=== PATIENT | female | born 1970 | race Caucasian/White ===

== ENCOUNTER 2018-07-07 15:41 | Emergency (ER) | payer SELFPAY ==
[2018-07-07] MEDS ORDERED: ONDANSETRON 4 MG (ODT) TAB ONE (16:25)
[2018-07-07] MEDS ORDERED: KETOROLAC 30 MG/ML INJ ONE (16:48)
--- NOTE | 2018-07-07 18:04 | EDPHYS ---
Physician Documentation [facility] Name: Asia Negrete Age: 48 yrs Sex: Female : 1970 Arrival Date: 07/07/2018 Time: 15:42 Bed 30 Private MD: ED Physician Ezequiel Humphrey HPI: 07/07 16:19 This 48 yrs old Female presents to ER via Ambulatory with complaints of Cough.kb 16:19 The patient or guardian reports cough, that is intermittent, described as moderate, kb with no sputum, flu symptoms, arthralgias, myalgias. Onset: The symptoms/episode began/occurred 2 day(s) ago. Severity of symptoms: At their worst the symptoms were mild, moderate, in the emergency department the symptoms are unchanged. Modifying factors: The symptoms are alleviated by nothing, the symptoms are aggravated by nothing. Associated signs and symptoms: Pertinent positives: nausea, rhinorrhea, sore throat, Pertinent negatives: chest pain, diarrhea, ear ache, fever, vomiting. The patient has not experienced similar symptoms in the past. The patient has not recently seen a physician. 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 - Social history:: Smoking status: Patient uses tobacco products. - Ebola Screening: : Patient negative for fever greater than or equal to 101.5 degrees Fahrenheit, and additional compatible Ebola Virus Disease symptoms Patient denies exposure to infectious person Patient denies travel to an Ebola-affected area in the 21 days before illness onset No symptoms or risks identified at this time. ROS: 16:17 Cardiovascular: Negative for chest pain, palpitations, and edema, Abdomen/GI: Negative kb for abdominal pain, vomiting, diarrhea, and constipation. +nausea Back: Negative for injury and pain, : Negative for injury, bleeding, discharge, and swelling, MS/Extremity: Negative for injury and deformity, Skin: Negative for injury, rash, and discoloration, Neuro: Negative for headache, weakness, numbness, tingling, and seizure. 16:17 ENT: Positive for rhinorrhea, sinus congestion, sore throat. 16:17 Respiratory: Positive for cough, Negative for dyspnea on exertion, hemoptysis, orthopnea, pleurisy, shortness of breath, sputum production, wheezing. 16:18 Constitutional: Positive for body aches, fatigue, malaise, Negative for chills, fever, kb poor PO intake, weight loss. Exam: 16:18 Constitutional: This is a well developed, well nourished patient who is awake, alert, kb and in no acute distress. Head/Face: Normocephalic, atraumatic. ENT: Nares patent. No nasal discharge, no septal abnormalities noted. Tympanic membranes are normal and external auditory canals are clear. Oropharynx with no redness, swelling, or masses, exudates, or evidence of obstruction, uvula midline. Mucous membranes moist. Chest/axilla: Normal chest wall appearance and motion. Nontender with no deformity. No lesions are appreciated. Cardiovascular: Regular rate and rhythm with a normal S1 and S2. No gallops, murmurs, or rubs. Normal PMI, no JVD. No pulse deficits. Respiratory: Lungs have equal breath sounds bilaterally, clear to auscultation and percussion. No rales, rhonchi or wheezes noted. No increased work of breathing, no retractions or nasal flaring. Abdomen/GI: Soft, non-tender, with normal bowel sounds. No distension or tympany. No guarding or rebound. No evidence of tenderness throughout. Skin: Warm, dry with normal turgor. Normal color with no rashes, no lesions, and no evidence of cellulitis. MS/ Extremity: Pulses equal, no cyanosis. Neurovascular intact. Full, normal range of motion. Neuro: Awake and alert, GCS 15, oriented to person, place, time, and situation. Cranial nerves II-XII grossly intact. Motor strength 5/5 in all extremities. Sensory grossly intact. Cerebellar exam normal. Normal gait. Vital Signs: 15:54 BP 146 / 85; Pulse 112; Resp 19; Temp 97.7; Pulse Ox 98% on R/A; Weight 113.4 kg; sg Height 4 ft. 9 in. (144.78 cm); Pain 10/10; 17:07 BP 94 / 54; Pulse 99; Resp 19 S; Pulse Ox 95% on R/A; rv 17:30 BP 102 / 55; Pulse 97; Resp 18 S; Pulse Ox 96% on R/A; rv 18:00 BP 110 / 73; Pulse 96; Resp 18 S; Pulse Ox 96% on R/A; rv 15:54 Body Mass Index 54.10 (113.40 kg, 144.78 cm) sg MDM: 16:02 Patient medically screened. kb 16:19 Data reviewed: vital signs, nurses notes. Data interpreted: Pulse oximetry: on room air kb is 98 %. Interpretation: normal. 17:54 Counseling: I had a detailed discussion with the patient and/or guardian regarding: the kb historical points, exam findings, and any diagnostic results supporting the discharge/admit diagnosis, lab results, the need for outpatient follow up, a family practitioner, to return to the emergency department if symptoms worsen or persist or if there are any questions or concerns that arise at home. 07/07 15:56 Order name: Flu; Complete Time: 18:01 kb 07/07 15:56 Order name: Strep; Complete Time: 18:01 kb 07/07 16:39 Order name: Urine Dipstick--Ancillary (enter results) 07/07 16:39 Order name: Urine --Ancillary (enter results) 07/07 18:02 Order name: Throat Culture [facility] 07/07 16:24 Order name: Urine Dipstick-Ancillary (obtain specimen); Complete Time: 16:42 kb Administered Medications: 16:23 Drug: Zofran 4 mg Route: PO; rv 16:42 Follow up: Response: Nausea is decreased rv 16:41 Drug: TORadol 60 mg Route: IM; Site: right deltoid; rv 17:08 Follow up: Response: Pain is decreased rv Disposition: 07/08 07:04 Co-signature as Attending Physician, Ezequiel Humphrey MD. rn Disposition: 07/07/18 18:04 Discharged to Home. Impression: Acute upper respiratory infection, unspecified. - Condition is Stable. - Discharge Instructions: Upper Respiratory Infection, Adult, [id number]. - Prescriptions for Zofran 4 mg Oral Tablet - take 1 tablet by ORAL route every 6 hours As needed; 20 tablet. Tamiflu 75 mg Oral Capsule - take 1 capsule by ORAL route every 12 hours for 5 days; 10 capsule. - Medication Reconciliation Form, Thank You Letter, Antibiotic Education, Prescription Opioid Use form. - Follow up: Emergency Department; When: As needed; Reason: Worsening of condition. Follow up: Private Physician; When: 2 - 3 days; Reason: Recheck today's complaints, Continuance of care, Re-evaluation by your physician. Signatures: Dispatcher [employer] EDMS Mallory Lopez, CONSULTING DATABASE ADMINISTRATOR-C CONSULTING DATABASE ADMINISTRATOR-Ckb Chris Bonilla, RN RN sg Ezequiel Humphrey MD MD rn Vicente, Ronaldo, RN RN rv Corrections: (The following items were deleted from the chart) 07/07 16:19 16:17 Constitutional: Negative for fever, chills, and weight loss, Cardiovascular: kb Negative for chest pain, palpitations, and edema, Abdomen/GI: Negative for abdominal pain, vomiting, diarrhea, and constipation. +nausea Back: Negative for injury and pain, : Negative for injury, bleeding, discharge, and swelling, MS/Extremity: Negative for injury and deformity, Skin: Negative for injury, rash, and discoloration, Neuro: Negative for headache, weakness, numbness, tingling, and seizure, kb 18:11 18:04 07/07/2018 18:04 Discharged to Home. Impression: Acute upper respiratory rv infection, unspecified. Condition is Stable. Discharge Instructions: Upper Respiratory Infection, Adult, [id number]. Prescriptions for Zofran 4 mg Oral Tablet - take 1 tablet by ORAL route every 6 hours As needed; 20 tablet. and Forms are Medication Reconciliation Form, Thank You Letter, Antibiotic Education, Prescription Opioid Use. Follow up: Emergency Department; When: As needed; Reason: Worsening of condition. Follow up: Private Physician; When: 2 - 3 days; Reason: Recheck today's complaints, Continuance of care, Re-evaluation by your physician. kb
--- NOTE | 2018-07-07 18:04 | ER ---
Nurse's Notes [facility] Name: Asia Negrete Age: 48 yrs Sex: Female : 1970 Arrival Date: 07/07/2018 Time: 15:42 Bed 30 Private MD: Diagnosis: Acute upper respiratory infection, unspecified Presentation: 07/07 15:53 Presenting complaint: Patient states: Cough, bodyaches, sore throat for several days sg now, cough reported to be nonprod. Transition of care: patient was not received from another setting of care. Onset of symptoms was July 07, 2018. Risk Assessment: Do you want to hurt yourself or someone else? Patient reports no desire to harm self or others. Initial Sepsis Screen: Does the patient meet any 2 criteria? HR > 90 bpm. Does the patient have a suspected source of infection? Yes: Productive cough/pneumonia. Care prior to arrival: None. 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 - Social history:: Smoking status: Patient uses tobacco products. - Ebola Screening: : Patient negative for fever greater than or equal to 101.5 degrees Fahrenheit, and additional compatible Ebola Virus Disease symptoms Patient denies exposure to infectious person Patient denies travel to an Ebola-affected area in the 21 days before illness onset No symptoms or risks identified at this time. Screenin:27 Abuse screen: Denies threats or abuse. Denies injuries from another. Nutritional rv screening: No deficits noted. Tuberculosis screening: No symptoms or risk factors identified. Fall Risk None identified. Assessment: 16:27 General: Appears in no apparent distress. comfortable, Behavior is calm, cooperative. rv Pain: Denies pain. Neuro: Level of Consciousness is awake, alert, obeys commands, Oriented to person, place, time, situation. Cardiovascular: Capillary refill < 3 seconds. Respiratory: Airway is patent. GI: No signs and/or symptoms were reported involving the gastrointestinal system. : No signs and/or symptoms were reported regarding the genitourinary system. EENT: No signs and/or symptoms were reported regarding the EENT system. Derm: Skin is intact. Musculoskeletal: No signs and/or symptoms reported regarding the musculoskeletal system. 17:08 Reassessment: Patient appears in no apparent distress at this time. rv Vital Signs: 15:54 BP 146 / 85; Pulse 112; Resp 19; Temp 97.7; Pulse Ox 98% on R/A; Weight 113.4 kg; sg Height 4 ft. 9 in. (144.78 cm); Pain 10/10; 17:07 BP 94 / 54; Pulse 99; Resp 19 S; Pulse Ox 95% on R/A; rv 17:30 BP 102 / 55; Pulse 97; Resp 18 S; Pulse Ox 96% on R/A; rv 18:00 BP 110 / 73; Pulse 96; Resp 18 S; Pulse Ox 96% on R/A; rv 15:54 Body Mass Index 54.10 (113.40 kg, 144.78 cm) sg ED Course: 15:42 Patient arrived in ED. as 15:54 Triage completed. sg 15:54 Arm band placed on. sg 16:01 Mallory Lopez FNP-C [facility]. kb 16:01 Ezequiel Humphrey MD is Attending Physician. kb 16:22 Flu and/or RSV swab sent to lab. Strep swab sent to lab. lt1 16:23 Strep Sent. rv 16:23 Flu Sent. rv 16:27 Patient has correct armband on for positive identification. Bed in low position. Call rv light in reach. Side rails up X 1. Pulse ox on. NIBP on. 16:31 Strep Sent. rv 16:31 Flu Sent. rv 18:05 No provider procedures requiring assistance completed. Patient did not have IV access rv during this emergency room visit. Administered Medications: 16:23 Drug: Zofran 4 mg Route: PO; rv 16:42 Follow up: Response: Nausea is decreased rv 16:41 Drug: TORadol 60 mg Route: IM; Site: right deltoid; rv 17:08 Follow up: Response: Pain is decreased rv Outcome: 18:04 Discharge ordered by . kb 18:05 Discharged to home ambulatory. rv 18:05 Condition: good 18:05 Discharge instructions given to patient, Instructed on discharge instructions, follow up and referral plans. medication usage, Demonstrated understanding of instructions, follow-up care, medications. 18:11 Prescriptions given X 2. rv 18:11 Patient left the ED. rv Signatures: Mallory Lopez, JOSE-Tiffani GARCIA-Chris Rosen, RN RN Caro Easton Ronaldo, RN RN rv Tran, Krystin lt1
[2018-07-07 18:06] LABS: Urine Blood NEGATIVE (NEG); Urine Glucose 3+ (NEG); Urine Protein NEGATIVE (NEG)
== END 2018-07-07 18:11 | disposition home or self-care (01) ==
LOC: ER 15:41
DX: J06.9 Acute upper respiratory infection, unspecified (principal); E11.9 Type 2 diabetes mellitus without complications; Z72.0 Tobacco use
CPT/HCPCS: 81003; 81025; 87070; 87081; 87804; 96372; 99284

== ENCOUNTER 2018-12-29 21:21 | Emergency (ER) | payer SELFPAY ==
--- OUTSIDE RECORDS SUMMARY | 2018-12-29 21:23 | XMS REPORT | Clinical Summary ---
:1970 Author Organization [facility] Address [address] [place] [address] Care Team Providers Name Role Phone Asked, No Pcp Primary Care Provider Unavailable Allergies Active Allergy Reactions Severity Noted Date Comments Codeine Itching 01/30/2017 Medications Medication Sig Dispensed Refills Start Date End Date Status metFORMIN Take 1,000 mg 0 Active (GLUCOPHAGE) by mouth 2 1,000 mg tablet (two) times a day with meals. metFORMIN Take 1 tablet 60 tablet 0 02/14/2018 03/16/2018 (GLUCOPHAGE) 500 (500 mg total) mg tablet by mouth 2 (two) times a day with meals for 30 days. gabapentin Take 1 capsule 90 capsule 0 02/14/2018 02/14/2018 Discontinued (NEURONTIN) 300 (300 mg total) mg capsule by mouth 3 (three) times a day for 30 days. gabapentin Take 1 capsule 15 capsule 0 02/14/2018 03/16/2018 (NEURONTIN) 300 (300 mg total) mg capsule by mouth 3 (three) times a day for 30 days. Active Problems Problem Noted Date Pyelonephritis 06/01/2017 Encounters Date Type Specialty Care Team Description 02/14/2018 Emergency Emergency Medicine [facility] Pain in both feet (Primary Dx); MD Seb Neuropathy; Hyperglycemia after 12/28/2017 Immunizations Name Dates Previously Given Next Due FLUCELVAX QUAD PF (0.5mL syringe) 06/01/2017 Social History Tobacco Use Types Packs/Day Years Used Date Never Smoker Smokeless Tobacco: Never Used Alcohol Use Drinks/Week oz/Week Comments No Sex Assigned at Date Recorded Not on file Job Start Date Occupation Industry Not on file Not on file Not on file Travel History Travel Start Travel End No recent travel history available. Last Filed Vital Signs Vital Sign Reading Time Taken Blood Pressure 157/81 02/14/2018 1:21 AM CDT Pulse 91 02/14/2018 1:21 AM CDT Temperature 37.2 C (98.9 F) 02/14/2018 1:21 AM CDT Respiratory Rate 18 02/14/2018 1:21 AM CDT Oxygen Saturation 96% 02/14/2018 1:25 AM CDT Inhaled Oxygen Concentration - - Weight 118 kg (260 lb) 02/14/2018 1:21 AM CDT Height 144.8 cm (4' 9") 02/14/2018 1:21 AM CDT Body Mass Index 56.26 02/14/2018 1:21 AM CDT Plan of Treatment Health Maintenance Due Date Last Done Comments INFLUENZA VACCINE 01/10/2019 06/01/2017 Procedures Procedure Name Priority Date/Time Associated Comments Diagnosis US DUPLEX VENOUS STAT 02/14/2018 3:05 Results for this LOWER EXTREMITY RIGHT AM CDT procedure are in the results section. ZZESTIMATED GFR STAT 02/14/2018 2:14 Results for this AM CDT procedure are in the results section. LIPASE LEVEL STAT 02/14/2018 2:14 Results for this AM CDT procedure are in the results section. HEPATIC FUNCTION STAT 02/14/2018 2:14 Results for this PANEL AM CDT procedure are in the results section. BASIC METABOLIC PANEL STAT 02/14/2018 2:14 Results for this AM CDT procedure are in the results section. HC COMPLETE BLD COUNT STAT 02/14/2018 2:14 Results for this W/AUTO DIFF AM CDT procedure are in the results section. POC GLUCOSE Routine 02/14/2018 1:54 Results for this AM CDT procedure are in the results section. after 12/28/2017 Results PV duplex venous lower extremity (02/14/2018 3:05 AM CDT) Specimen Narrative Performed At There is no evidence of DVT in the right lower extremity. [facility] Performing Organization Address City/State/Zipcode Phone Number [facility] [address] [place] [address] Estimated GFR (02/14/2018 2:14 AM CDT) GFR Non Af Amer >90 mL/min/1.73 [facility] DEPARTMENT m2 OF PATHOLOGY AND GENOMIC MEDICINE GFR Af Amer >90 mL/min/1.73 [facility] DEPARTMENT Comment: m2 OF PATHOLOGY AND Chronic kidney disease: <60 mL/min/1.73m2 GENOMIC MEDICINE Kidney failure: <15 mL/min/1.73m2 The estimated GFR is calculated from the IDMS-traceable Modification of Diet in Renal Disease Equation. The accuracy of the calculation is poor when the creatinine is normal. Calculated values >90 mL/min/1.73m2 are not reported. This equation has not been validated in children (<18 years), women, the elderly (>70 years), or ethnic groups other than Caucasians and Americans. Specimen Plasma specimen Performing Organization Address City/State/Zipcode Phone Number [facility] OF PATHOLOGY AND [address] [place] [address] [facility] CBC with platelet and differential (02/14/2018 2:14 AM CDT) WBC 7.80 4.50 - 11.00 k/uL [facility] DEPARTMENT OF PATHOLOGY AND GENOMIC MEDICINE RBC 4.33 4.20 - 5.50 m/uL [facility] DEPARTMENT OF PATHOLOGY AND GENOMIC MEDICINE HGB 12.7 12.0 - 16.0 g/dL [facility] DEPARTMENT OF PATHOLOGY AND GENOMIC MEDICINE HCT 38.2 37.0 - 47.0 % [facility] DEPARTMENT OF PATHOLOGY AND GENOMIC MEDICINE MCV 88.2 82.0 - 100.0 fL [facility] DEPARTMENT OF PATHOLOGY AND GENOMIC MEDICINE MCH 29.3 27.0 - 34.0 pg [facility] DEPARTMENT OF PATHOLOGY AND GENOMIC MEDICINE MCHC 33.2 31.0 - 37.0 g/dL [facility] DEPARTMENT OF PATHOLOGY AND GENOMIC MEDICINE RDW - SD 38.7 37.0 - 55.0 fL [facility] DEPARTMENT OF PATHOLOGY AND GENOMIC MEDICINE MPV 10.4 8.8 - 13.2 fL [facility] DEPARTMENT OF PATHOLOGY AND GENOMIC MEDICINE Platelet count 319 150 - 400 k/uL [facility] DEPARTMENT OF PATHOLOGY AND GENOMIC MEDICINE Nucleated RBC 0.00 /100 WBC [facility] DEPARTMENT OF PATHOLOGY AND GENOMIC MEDICINE Neutrophils 49.8 39.0 - 69.0 % [facility] DEPARTMENT OF PATHOLOGY AND GENOMIC MEDICINE Lymphocytes 41.8 25.0 - 45.0 % [facility] DEPARTMENT OF PATHOLOGY AND GENOMIC MEDICINE Monocytes 6.4 0.0 - 10.0 % [facility] DEPARTMENT OF PATHOLOGY AND GENOMIC MEDICINE Eosinophils 1.3 0.0 - 5.0 % [facility] DEPARTMENT OF PATHOLOGY AND GENOMIC MEDICINE Basophils 0.4 0.0 - 1.0 % [facility] DEPARTMENT OF PATHOLOGY AND GENOMIC MEDICINE Specimen Blood Performing Organization Address [facility] Phone Number [facility] DEPARTMENT OF PATHOLOGY AND [address] [place] [address] Lipase level (02/14/2018 2:14 AM CDT) Lipase 51 13 - 60 U/L [facility] DEPARTMENT OF PATHOLOGY AND GENOMIC MEDICINE Specimen Plasma specimen Performing Organization Address [facility] Phone Number [facility] DEPARTMENT OF PATHOLOGY AND [address] [place] [address] [place], [place] [id number] [place] [address] Hepatic function panel (02/14/2018 2:14 AM CDT) Albumin 3.7 3.5 - 5.0 g/dL [facility] DEPARTMENT OF PATHOLOGY AND GENOMIC MEDICINE Total bilirubin 0.2 0.0 - 1.2 [facility] DEPARTMENT mg/dL OF PATHOLOGY AND GENOMIC MEDICINE Bilirubin direct <0.1 0.0 - 0.3 [facility] DEPARTMENT mg/dL OF PATHOLOGY AND GENOMIC MEDICINE Alkaline phosphatase 74 35 - 104 U/L [facility] DEPARTMENT OF PATHOLOGY AND GENOMIC MEDICINE Protein 6.7 6.3 - 8.3 g/dL [facility] DEPARTMENT Comment: OF PATHOLOGY AND 4.6-7.0 g/dL [facility] 1 week 4.4-7.6 g/dL 7 months-1year5.1-7.3 g/dL 1-2 years5.6-7.5 g/dL >3 years6.0-8.0 g/dL 18-150 6.3-8.3 g/dL ALT 15 5 - 50 U/L [facility] DEPARTMENT OF PATHOLOGY AND GENOMIC MEDICINE AST 11 10 - 35 U/L [facility] DEPARTMENT OF PATHOLOGY AND GENOMIC MEDICINE Specimen Plasma specimen Performing Organization Address [facility] Phone Number [facility] DEPARTMENT OF PATHOLOGY AND [address] [place] [address] [place] [address] [facility] Basic metabolic panel (02/14/2018 2:14 AM CDT) Sodium 136 135 - 148 mEq/L [facility] DEPARTMENT OF PATHOLOGY AND GENOMIC MEDICINE Potassium 3.8 3.5 - 5.0 mEq/L [facility] DEPARTMENT OF PATHOLOGY AND GENOMIC MEDICINE Chloride 97 (L) 98 - 112 mEq/L [facility] DEPARTMENT OF PATHOLOGY AND GENOMIC MEDICINE CO2 24 24 - 31 mEq/L [facility] DEPARTMENT OF PATHOLOGY AND GENOMIC MEDICINE Anion gap 15@ANIO 7 - 15 mEq/L [facility] DEPARTMENT OF PATHOLOGY AND GENOMIC MEDICINE BUN 15 6 - 20 mg/dL [facility] DEPARTMENT OF PATHOLOGY AND GENOMIC MEDICINE Creatinine 0.6 0.5 - 0.9 mg/dL [facility] DEPARTMENT OF PATHOLOGY AND GENOMIC MEDICINE Glucose 374 (H) 65 - 99 mg/dL [facility] DEPARTMENT OF PATHOLOGY AND GENOMIC MEDICINE Calcium 8.9 8.3 - 10.2 mg/dL [facility] DEPARTMENT OF PATHOLOGY AND GENOMIC MEDICINE Specimen Plasma specimen Performing Organization Address City/[facility]/Zipcode Phone Number [facility] DEPARTMENT OF PATHOLOGY AND [id number] [place] [address] [place] [address] [facility] POC glucose (02/14/2018 1:54 AM CDT) POC glucose 321 (H) 65 - 99 mg/dL [facility] DEPARTMENT OF Comment: PATHOLOGY AND Meter ID: [id number] [facility] MEDICINE Sanitary Aide: Kaylan Jurado Specimen Performing Organization Address City/[facility]/Zipcode Phone Number [facility] DEPARTMENT OF PATHOLOGY AND [address] [place] [address] [facility] after 12/28/2017 Advance Directives Patient has advance care planning documents, and code status on file. For more information, please contact:Caden Figueredo[address] [place] [id number] Code Status Date Activated Date Inactivated Comments Full Code 06/01/2017 6:11 PM 06/03/2017 6:35 PM Code Status decision reached by: Patient
--- OUTSIDE RECORDS SUMMARY | 2018-12-29 21:24 | XMS REPORT ---
:1970 [facility] Address [address] [place] [address] Care Team Providers Name Role Phone Unavailable Unavailable Unavailable Payers Payer Name Policy Type Policy Number Effective Date Expiration Date Problems This patient has no known problems. Allergies, Adverse Reactions, Alerts Allergy Allergy Status Severity Reaction(s) Onset Inactive Treating Comments Name Type Date Date Clinician No Known DA Active U 2018-03 Allergies -13 00:00:0 0 Medications This patient has no known medications.
[2018-12-29] MEDS ORDERED: NA CHLORIDE 0.9% 1,000 ML ONE (22:06)
[2018-12-29] MEDS ORDERED: PROMETHAZINE 25 MG/ML VIAL ONE (22:06)
[2018-12-29 22:28] LABS: Absolute Lymphocytes (CBC) 3.3 K/uL (0.7-4.9); Basophils % 0.4 % (0-1.3); Lymphocytes % 28.8 % (15.3-44.8); MPV 8.8 fL (7.6-11.3); Monocytes % 5.4 % (3.3-12.3)
[2018-12-29 22:40] LABS: Albumin 4.2 g/dL (3.4-5.0); Bilirubin Total 0.5 mg/dL (0.2-1.0); Potassium 3.4 mmol/L (3.5-5.1); Protein, Total 8.6 g/dL (6.4-8.2)
--- NOTE | 2018-12-29 23:48 | ER ---
Nurse's Notes [facility] Name: Asia Negrete Age: 48 yrs Sex: Female : 1970 Arrival Date: 12/29/2018 Time: 21:22 Bed 5 Private MD: Diagnosis: Nausea;Diarrhea, unspecified;Dehydration Presentation: 12/29 21:36 Presenting complaint: Patient states: Patient reports she has been having nausea and ea diarrhea for a week, denies ABD and chest pain. Transition of care: patient was not received from another setting of care. Onset of symptoms was December 29, 2018. Risk Assessment: Do you want to hurt yourself or someone else? Patient reports no desire to harm self or others. Initial Sepsis Screen: Does the patient meet any 2 criteria? HR > 90 bpm. Does the patient have a suspected source of infection? No. Patient's initial sepsis screen is negative. Care prior to arrival: None. 21:36 Method Of Arrival: Ambulatory ea 21:36 Acuity: DIYA 3 ea Triage Assessment: 21:40 General: Appears uncomfortable, Behavior is appropriate for age. Pain: Denies pain. ea Cardiovascular: Patient's skin is warm and dry. Respiratory: Airway is patent Respiratory effort is even, unlabored, Respiratory pattern is regular, symmetrical. GI: Reports diarrhea, nausea. 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 - Social history:: Smoking status: Patient/guardian denies using tobacco. - Ebola Screening: : No symptoms or risks identified at this time. Screenin:39 Abuse screen: Denies threats or abuse. Nutritional screening: No deficits noted. ea Tuberculosis screening: No symptoms or risk factors identified. Fall Risk None identified. Assessment: 21:41 General: Appears uncomfortable, Behavior is appropriate for age. Pain: Denies pain. ea Neuro: Level of Consciousness is awake, alert, obeys commands, Oriented to person, place, time, situation. Cardiovascular: Patient's skin is warm and dry. Respiratory: Airway is patent Respiratory effort is even, unlabored, Respiratory pattern is regular, symmetrical. GI: Reports diarrhea, nausea. GI:. Derm: Skin is pink, warm \T\ dry. 22:30 Reassessment: Patient and/or family updated on plan of care and expected duration. Pain ea level reassessed. Patient is alert, oriented x 3, equal unlabored respirations, skin warm/dry/pink. 23:30 Reassessment: Patient and/or family updated on plan of care and expected duration. Pain ea level reassessed. Patient is alert, oriented x 3, equal unlabored respirations, skin warm/dry/pink. 12/30 00:00 Reassessment: Patient and/or family updated on plan of care and expected duration. Pain ea level reassessed. Patient is alert, oriented x 3, equal unlabored respirations, skin warm/dry/pink. Discharge instruction given to patient, verbalized the understanding of instruction. No s/s of pain or discomfort noted at this time Patient states feeling better. Vital Signs: 12/29 21:38 BP 130 / 80; Pulse 122; Resp 18; Temp 98(O); Pulse Ox 98% on R/A; Weight 72.57 kg; ea Height 4 ft. 9 in. (144.78 cm); Pain 0/10; 22:30 BP 109 / 69; Pulse 102; Resp 18; Pulse Ox 97% on R/A; ea 23:00 BP 119 / 76; Pulse 103; Resp 18; Pulse Ox 97% ; ea 23:50 BP 120 / 60; Pulse 90; Resp 18; Temp 97.8; Pulse Ox 98% on R/A; ea 21:38 Body Mass Index 34.62 (72.57 kg, 144.78 cm) ea ED Course: 21:00 Inserted saline lock: 20 gauge in right antecubital area, using aseptic technique. ea 21:22 Patient arrived in ED. am2 21:26 Tevin Juan MD is Attending Physician. tw4 21:36 Lucinda Charles, RITO is Primary Nurse. ea 21:37 Triage completed. ea 21:37 Arm band placed on right wrist. Patient placed in an exam room, on a stretcher, on ea pulse oximetry. 21:37 Patient has correct armband on for positive identification. Bed in low position. Call ea light in reach. Side rails up X 1. 07/21 00:00 No provider procedures requiring assistance completed. IV discontinued, intact, ea bleeding controlled, No redness/swelling at site. Pressure dressing applied. Administered Medications: 12/29 22:05 Drug: NS 0.9% 1000 ml Route: IV; Rate: 1 bolus; Site: right antecubital; ea 22:05 Drug: Phenergan 12.5 mg Route: IVP; Site: right antecubital; ea 22:30 Follow up: Response: No adverse reaction; Nausea is decreased ea Outcome: 00:00 Discharged to home ambulatory. ea 23:47 Discharge ordered by tw4 12/30 00:00 Condition: improved ea Discharge instructions given to patient, Instructed on discharge instructions, follow up and referral plans. Demonstrated understanding of instructions, follow-up care. 00:03 Patient left the ED. cc3 Signatures: Keena Oliver Elena RN Tevin Vasquez ea, MD MD tw4 Myrna Meredith cc3
--- NOTE | 2018-12-29 23:49 | EDPHYS ---
Physician Documentation [facility] Name: Asia Negrete Age: 48 yrs Sex: Female : 1970 Arrival Date: 12/29/2018 Time: 21:22 Bed 5 Private MD: ED Physician Tevin Juan HPI: 12/29 22:06 This 48 yrs old Female presents to ER via Ambulatory with complaints of tw4 Nausea. 22:06 The patient presents to the emergency department with nausea, that is moderate, tw4 diarrhea, that is continuous. Onset: The symptoms/episode began/occurred 1 week(s) ago. Possible causes: unknown. The symptoms are aggravated by nothing. The symptoms are alleviated by nothing. Associated signs and symptoms: The patient has no apparent associated signs or symptoms. Severity of symptoms: At their worst the symptoms were moderate in the emergency department the symptoms are unchanged. The patient has not experienced similar symptoms in the past. The patient has not recently seen a physician. 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 - Social history:: Smoking status: Patient/guardian denies using tobacco. - Ebola Screening: : No symptoms or risks identified at this time. ROS: 22:06 Constitutional: Negative for fever, chills, and weight loss, Neck: Negative for injury, tw4 pain, and swelling, Cardiovascular: Negative for chest pain, palpitations, and edema, Respiratory: Negative for shortness of breath, cough, wheezing, and pleuritic chest pain, Back: Negative for injury and pain, MS/Extremity: Negative for injury and deformity, Skin: Negative for injury, rash, and discoloration. 22:06 Abdomen/GI: Positive for nausea, diarrhea, Negative for vomiting, abdominal cramps, abdominal distension, dysphagia, black/tarry stool, rectal pain, rectal bleeding, bowel incontinence, flatulence. Exam: 22:06 Constitutional: This is a well developed, well nourished patient who is awake, alert, tw4 and in no acute distress. Head/Face: Normocephalic, atraumatic. Chest/axilla: Normal chest wall appearance and motion. Nontender with no deformity. No lesions are appreciated. Cardiovascular: Regular rate and rhythm with a normal S1 and S2. No gallops, murmurs, or rubs. Normal PMI, no JVD. No pulse deficits. Respiratory: Lungs have equal breath sounds bilaterally, clear to auscultation and percussion. No rales, rhonchi or wheezes noted. No increased work of breathing, no retractions or nasal flaring. Abdomen/GI: Soft, non-tender, with normal bowel sounds. No distension or tympany. No guarding or rebound. No evidence of tenderness throughout. Back: No spinal tenderness. No costovertebral tenderness. Full range of motion. Skin: Warm, dry with normal turgor. Normal color with no rashes, no lesions, and no evidence of cellulitis. MS/ Extremity: Pulses equal, no cyanosis. Neurovascular intact. Full, normal range of motion. Neuro: Awake and alert, GCS 15, oriented to person, place, time, and situation. Cranial nerves II-XII grossly intact. Motor strength 5/5 in all extremities. Sensory grossly intact. Cerebellar exam normal. Normal gait. Vital Signs: 21:38 BP 130 / 80; Pulse 122; Resp 18; Temp 98(O); Pulse Ox 98% on R/A; Weight 72.57 kg; ea Height 4 ft. 9 in. (144.78 cm); Pain 0/10; 22:30 BP 109 / 69; Pulse 102; Resp 18; Pulse Ox 97% on R/A; ea 23:00 BP 119 / 76; Pulse 103; Resp 18; Pulse Ox 97% ; ea 23:50 BP 120 / 60; Pulse 90; Resp 18; Temp 97.8; Pulse Ox 98% on R/A; ea 21:38 Body Mass Index 34.62 (72.57 kg, 144.78 cm) ea MDM: 21:26 Patient medically screened. tw4 12/30 05:54 Differential diagnosis: Nonspecific abd pain, gastritis, cholecystitis. Data reviewed: tw4 vital signs, EMS record. Data interpreted: Pulse oximetry: Interpretation: normal. Counseling: I had a detailed discussion with the patient and/or guardian regarding: the historical points, exam findings, and any diagnostic results supporting the discharge/admit diagnosis, radiology results. Special discussion: I discussed with the patient/guardian in detail that at this point there is no indication for admission to the hospital. It is understood, however, that if the symptoms persist or worsen the patient needs to return immediately for re-evaluation. 12/29 21:51 Order name: CBC with Diff; Complete Time: 23:27 rust 12/29 23:28 Interpretation: Normal except: WBC 11.5; PLT 481. rust 12/29 21:51 Order name: Comprehensive Metabolic Panel; Complete Time: 23:27 4 12/29 23:27 Interpretation: Normal except: K 3.4; GLUC 144; GFR 49. rust 12/29 23:49 Order name: Urine Microscopic Only 12/29 23:51 Order name: Urine Dipstick--Ancillary (enter results) [facility] 12/29 22:08 Order name: Urine Dipstick-Ancillary (obtain specimen); Complete Time: 22:15 4 Administered Medications: 12/29 22:05 Drug: NS 0.9% 1000 ml Route: IV; Rate: 1 bolus; Site: right antecubital; ea 22:05 Drug: Phenergan 12.5 mg Route: IVP; Site: right antecubital; ea 22:30 Follow up: Response: No adverse reaction; Nausea is decreased ea Disposition: 12/29/18 23:47 Discharged to Home. Impression: Nausea, Diarrhea, unspecified, Dehydration. - Condition is Stable. - Discharge Instructions: Food Choices to Help Relieve Diarrhea, Adult, Dehydration, Adult, Chronic Diarrhea, Diarrhea, Adult, Nausea and Vomiting, Adult. - Medication Reconciliation Form, Thank You Letter, Antibiotic Education, Prescription Opioid Use form. - Follow up: Private Physician; When: Upon discharge from the Emergency Department; Reason: If symptoms return, Recheck today's complaints, Continuance of care. - Problem is new. - Symptoms have improved. Signatures: Dispatcher [employer] Lucinda Henriquez RN RN ea Wadley, Terrence, MD MD tw4 Myrna Meredith cc3 Corrections: (The following items were deleted from the chart) 12/30 00:03 12/29 23:47 12/29/2018 23:47 Discharged to Home. Impression: Nausea; Diarrhea, cc3 unspecified; Dehydration. Condition is Stable. Forms are Medication Reconciliation Form, Thank You Letter, Antibiotic Education, Prescription Opioid Use. Follow up: Private Physician; When: Upon discharge from the Emergency Department; Reason: If symptoms return, Recheck today's complaints, Continuance of care. Problem is new. Symptoms have improved. tw4
[2018-12-30 01:19] LABS: Urine Blood NEGATIVE (NEG); Urine Glucose NEGATIVE (NEG); Urine Protein 1+ (NEG); Urine pH 5.5 (5.0-7.0)
== END 2018-12-30 00:03 | disposition home or self-care (01) ==
LOC: ER 21:21
DX: R11.0 Nausea (principal); R19.7 Diarrhea, unspecified; E86.0 Dehydration; E11.9 Type 2 diabetes mellitus without complications; Z79.84 Long term (current) use of oral hypoglycemic drugs
CPT/HCPCS: 36415; 80053; 81003; 81015; 85025; 96374; 99284; J2550; J7030

== ENCOUNTER 2019-01-31 19:56 | Emergency (ER) | payer SELFPAY ==
--- OUTSIDE RECORDS SUMMARY | 2019-01-31 19:58 | XMS REPORT ---
:1970 [facility] [address] [place] [address] Care Team Providers Name Role Phone Unavailable [...]
[2019-01-31] MEDS ORDERED: IBUPROFEN 400 MG TAB ONE (20:32)
--- NOTE | 2019-01-31 21:24 | ER ---
Nurse's Notes [facility] Name: Asia Negrete Age: 48 yrs Sex: Female : 1970 Arrival Date: 01/31/2019 Time: 19:58 Bed 28 Private MD: Diagnosis: Pain in right lower leg Presentation: 01/31 20:04 Presenting complaint: Patient states: right calf pain for 2 days. Transition of care: la1 patient was not received from another setting of care. Onset of symptoms was January 31, 2019. Risk Assessment: Do you want to hurt yourself or someone else? Patient reports no desire to harm self or others. Initial Sepsis Screen: Does the patient meet any 2 criteria? No. Patient's initial sepsis screen is negative. Does the patient have a suspected source of infection? No. Patient's initial sepsis screen is negative. Care prior to arrival: None. 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 - Social history:: Smoking status: Patient/guardian denies using tobacco. - Ebola Screening: : No symptoms or risks identified at this time. Screenin:15 Abuse screen: Denies threats or abuse. Denies injuries from another. Nutritional rv screening: No deficits noted. Tuberculosis screening: No symptoms or risk factors identified. Fall Risk None identified. Assessment: 20:14 General: Appears in no apparent distress. uncomfortable, Behavior is calm, cooperative. rv Pain: Complains of pain in right calf. Pain: Pain currently is 10 out of 10 on a pain scale. Quality of pain is described as sharp, Pain began gradually. Neuro: Level of Consciousness is awake, alert, obeys commands, Oriented to person, place, time, situation. Cardiovascular: Patient's skin is warm and dry. Respiratory: Airway is patent. GI: No signs and/or symptoms were reported involving the gastrointestinal system. : No signs and/or symptoms were reported regarding the genitourinary system. EENT: No signs and/or symptoms were reported regarding the EENT system. Derm: Skin is intact. Musculoskeletal: Swelling absent Reports pain in right calf. Vital Signs: 20:04 BP 126 / 87; Pulse 88; Resp 16; Temp 98.4; Pulse Ox 98% on R/A; Weight 79.38 kg; Height la1 4 ft. 9 in. (144.78 cm); 21:30 BP 116 / 86; Pulse 86; Resp 16; Temp 98; Pulse Ox 98% on R/A; rv 20:04 Body Mass Index 37.87 (79.38 kg, 144.78 cm) la1 ED Course: 19:58 Patient arrived in ED. am2 20:02 Waldo Paniagua PA is PHCP. cp 20:02 Andrea Zendejas MD is Attending Physician. cp 20:04 Triage completed. la1 20:05 Arm band placed on right wrist. la1 20:08 Luiz Bocanegra RN is Primary Nurse. rv 20:16 Patient has correct armband on for positive identification. Bed in low position. Call rv light in reach. Side rails up X 1. Pulse ox on. NIBP on. 21:31 No provider procedures requiring assistance completed. Patient did not have IV access rv during this emergency room visit. Marcos wrap to right calf. 21:35 US Extremity Venous Unilateral Ltd In Process Unspecified. EDMS Administered Medications: 20:34 Drug: Ibuprofen 800 mg Route: PO; rv 21:30 Follow up: Response: No adverse reaction rv Outcome: 21:23 Discharge ordered by MD. cp 21:31 Discharged to home ambulatory, with family. rv 21:31 Condition: good 21:31 Discharge instructions given to patient, family, Instructed on discharge instructions, follow up and referral plans. medication usage, Demonstrated understanding of instructions, follow-up care, medications, Prescriptions given X 2. 21:33 Patient left the ED. rv Signatures: Dispatcher [employer] EDMS Gerardo Bunn RN RN la1 Waldo Paniagua PA PA cp Moreno, Amanda am2 Luiz Bocanegra RN RN rv
--- NOTE | 2019-01-31 21:24 | EDPHYS ---
Physician Documentation [facility] Name: Asia Negrete Age: 48 yrs Sex: Female : 1970 Arrival Date: 01/31/2019 Time: 19:58 Bed 28 Private MD: ED Physician Andrea Zendejas HPI: 01/31 20:30 This 48 yrs old Female presents to ER via Ambulatory with complaints of calf cp pain. 20:30 The patient presents with pain, that is acute, swelling, tenderness. The complaints cp affect the right lower leg. 20:30 Context: resulted from an unknown cause, the patient can fully bear weight, the patient cp is able to ambulate, with moderate difficulty, Problem is a result from a previous injury: No. 20:30 Onset: The symptoms/episode began/occurred 2 day(s) ago. cp 20:30 Modifying factors: the symptoms are aggravated by movement, weight bearing. Associated cp signs and symptoms: Pertinent positives: calf tenderness, swelling, Pertinent negatives numbness, warmth. Treatment prior to arrival includes: no previous treatment. 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 - Social history:: Smoking status: Patient/guardian denies using tobacco. - Ebola Screening: : No symptoms or risks identified at this time. ROS: 20:35 Constitutional: Negative for body aches, chills, fever, poor PO intake. cp 20:35 Eyes: Negative for injury, pain, redness, and discharge. cp 20:35 Cardiovascular: Negative for chest pain, palpitations. 20:35 Respiratory: Negative for cough, shortness of breath, wheezing. 20:35 MS/extremity: Positive for pain, swelling, tenderness, of the right calf, Negative for injury or acute deformity, decreased range of motion, paresthesias. 20:35 Skin: Negative for cellulitis, rash. 20:35 Neuro: Negative for altered mental status, headache, weakness. 20:35 All other systems are negative. Exam: 20:45 Constitutional: The patient appears in no acute distress, alert, awake, cp non-diaphoretic, non-toxic, well developed, well nourished. 20:45 Head/Face: Normocephalic, atraumatic. cp 20:45 Musculoskeletal/extremity: Extremities: grossly normal except: noted in the right lower leg: pain, swelling, tenderness, There is no evidence of decreased ROM, deformity, erythema, Perfusion: the extremity is normally perfused throughout, Sensation intact. DVT Exam: no appreciated bluish discoloration, no erythema, no increased warmth, pain, that is moderate, of the right leg, swelling, that is mild, of the right leg, tenderness, that is moderate, of the right leg, positive Homans' sign noted on exam. 20:45 Skin: cellulitis, is not appreciated, no rash present. Vital Signs: 20:04 BP 126 / 87; Pulse 88; Resp 16; Temp 98.4; Pulse Ox 98% on R/A; Weight 79.38 kg; Height la1 4 ft. 9 in. (144.78 cm); 21:30 BP 116 / 86; Pulse 86; Resp 16; Temp 98; Pulse Ox 98% on R/A; rv 20:04 Body Mass Index 37.87 (79.38 kg, 144.78 cm) la1 MDM: 20:13 Patient medically screened. cp 20:30 Differential diagnosis: DVT, sprain, strain, cellulitis. cp 21:22 Data reviewed: vital signs, nurses notes, radiologic studies, ultrasound, and as a cp result, I will discharge patient. 21:22 Counseling: I had a detailed discussion with the patient and/or guardian regarding: the cp historical points, exam findings, and any diagnostic results supporting the discharge/admit diagnosis, radiology results, the need for outpatient follow up, a family practitioner, to return to the emergency department if symptoms worsen or persist or if there are any questions or concerns that arise at home. Response to treatment: the patient's symptoms have mildly improved after treatment, and as a result, I will discharge patient. ED course: VSS. Ultrasound negative for DVT. Will discharge to home for continued monitoring. 01/31 20:24 Order name: US Extremity Venous Unilateral Ltd cp 01/31 21:19 Order name: Marcos Wrap; Complete Time: 21:30 cp Administered Medications: 20:34 Drug: Ibuprofen 800 mg Route: PO; rv 21:30 Follow up: Response: No adverse reaction rv Disposition: 02/01 04:20 Co-signature as Attending Physician, Andrea Zendejas MD I agree with the assessment and kdr plan of care. Disposition: 01/31/19 21:23 Discharged to Home. Impression: Pain in right lower leg. - Condition is Stable. - Discharge Instructions: Musculoskeletal Pain. - Prescriptions for Naprosyn 500 mg Oral Tablet - take 1 tablet by ORAL route 2 times per day take with food; 20 tablet. Cyclobenzaprine 10 mg Oral Tablet - take 1 tablet by ORAL route every 8 hours As needed no driving while taking medication; 20 tablet. - Medication Reconciliation Form, Thank You Letter, Antibiotic Education, Prescription Opioid Use form. - Follow up: Private Physician; When: 2 - 3 days; Reason: Worsening of condition. - Problem is new. - Symptoms have improved. Signatures: Dispatcher [employer] EDMS Andrea Zendejas MD MD [facility] Gerardo Bunn RN RN la1 Waldo Paniagua PA PA cp Luiz Bocanegra RN RN rv Corrections: (The following items were deleted from the chart) 01/31 21:30 21:19 Crutches ordered. cp rv 21:33 21:23 01/31/2019 21:23 Discharged to Home. Impression: Pain in right lower leg. rv Condition is Stable. Forms are Medication Reconciliation Form, Thank You Letter, Antibiotic Education, Prescription Opioid Use. Follow up: Private Physician; When: 2 - 3 days; Reason: Worsening of condition. Problem is new. Symptoms have improved. cp
--- NOTE | 2019-02-01 07:44 | RAD REPORT ---
EXAM DESCRIPTION: USExtremity Venous Uni Ltd01/31/2019 9:39 pm CLINICAL HISTORY: Right leg pain and swelling. COMPARISON: 2013 FINDINGS: Right common femoral, superficial femoral, popliteal and right posterior tibial veins are compressible and demonstrate augmentation. Doppler demonstrates good flow. IMPRESSION: No evidence of deep venous thrombosis involving the right lower extremity.
== END 2019-01-31 21:33 | disposition home or self-care (01) ==
LOC: ER 19:56
DX: M79.661 Pain in right lower leg (principal); E11.9 Type 2 diabetes mellitus without complications; Z88.8 Allergy status to other drugs, medicaments and biological substances
CPT/HCPCS: 93971; 99284

== ENCOUNTER 2019-04-23 12:32 | Emergency (ER) | payer SELFPAY ==
--- OUTSIDE RECORDS SUMMARY | 2019-04-23 12:34 | XMS REPORT ---
:1970 [facility] Address [address] [place] [address] Care Team Providers Name Role Phone Unavailable [...]
[2019-04-23] MEDS ORDERED: ASPIRIN 81 MG CHEWABLE TABLET ONE (13:09)
[2019-04-23] MEDS ORDERED: MORPHINE 2 MG/ML SYR ONE ×2 (13:09→14:54)
[2019-04-23] MEDS ORDERED: PROMETHAZINE 25 MG/ML VIAL ONE (13:09)
--- NOTE | 2019-04-23 13:24 | RAD REPORT ---
EXAM DESCRIPTION: RAD - Chest Single View - 04/23/2019 12:56 pm CLINICAL HISTORY: Chest pain COMPARISON: February 2009 TECHNIQUE: AP portable chest image was obtained 1248 hours . FINDINGS: Lungs are clear. Heart and vasculature are normal. No measurable pleural effusion and no p neumothorax. No acute bony abnormality seen. No acute aortic findings suspected. IMPRESSION: No acute cardiopulmonary process. No significant interval change.
[2019-04-23 13:26] LABS: Absolute Lymphocytes (CBC) 2.4 K/uL (0.7-4.9); Basophils % 0.5 % (0-1.3); Hematocrit 38.7 % (36.0-45.0); Lymphocytes % 28.8 % (15.3-44.8); MPV 9.3 fL (7.6-11.3); RBC Red Blood Cell Count 4.41 M/uL (3.86-4.86)
[2019-04-23 13:28] LABS: Protime INR 0.93
[2019-04-23 13:45] LABS: ALT/SGPT 21 U/L (12-78); AST/SGOT 11 U/L (15-37); Albumin 3.5 g/dL (3.4-5.0); Alkaline Phosphatase 80 U/L (45-117); BUN Blood Urea Nitrogen 8 mg/dL (7-18); Bicarbonate 26 mmol/L (21-32); Bilirubin Direct 0.1 mg/dL (0-0.2); Bilirubin Total 0.4 mg/dL (0.2-1.0); Glucose Level 329 mg/dL (74-106); Magnesium 1.5 mg/dL (1.8-2.4); NT PRO-BNP 18 pg/mL (<125); Protein, Total 7.5 g/dL (6.4-8.2); Sodium Level 140 mmol/L (136-145); Troponin (Emerg Dept Use Only) < 0.02 ng/mL (0.0-0.045)
[2019-04-23] MEDS ORDERED: Magnesium Sulfate 2gm IVPB 2 G/50 ML BAG IV ONE (14:39)
--- NOTE | 2019-04-23 16:47 | ER ---
Nurse's Notes [facility] Name: Asia Cole Age: 49 yrs Sex: Female : 1970 Arrival Date: 04/23/2019 Time: 12:34 Bed 5 Private MD: None, None Diagnosis: Chest pain, unspecified;Hypomagnesemia Presentation: 04/23 12:47 Presenting complaint: Patient states: left arm pain, tiara breast pain yesterday, left iw sided chest pain started yesterday, worse today, pain is non radiating, described as sharp, pinching pain, +nausea , no aggravating factors, no SOB. Transition of care: patient was not received from another setting of care. Onset of symptoms was April 22, 2019. Risk Assessment: Do you want to hurt yourself or someone else? Patient reports no desire to harm self or others. Initial Sepsis Screen: Does the patient meet any 2 criteria? No. Patient's initial sepsis screen is negative. Does the patient have a suspected source of infection? No. Patient's initial sepsis screen is negative. Care prior to arrival: None. 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 - Social history:: Smoking status: Patient/guardian denies using tobacco. - Ebola Screening: : Patient negative for fever greater than or equal to 101.5 degrees Fahrenheit, and additional compatible Ebola Virus Disease symptoms Patient denies exposure to infectious person Patient denies travel to an Ebola-affected area in the 21 days before illness onset No symptoms or risks identified at this time. Screenin:07 Abuse screen: Denies threats or abuse. Nutritional screening: No deficits noted. tw2 Tuberculosis screening: No symptoms or risk factors identified. Fall Risk None identified. Assessment: 13:07 Pain: Pain does not radiate. tw2 13:08 Pain: Pain began 1 day ago. tw2 13:10 General: Appears comfortable, Behavior is calm, cooperative. Pain: Complains of pain in aa5 anterior aspect of left upper chest and left arm Pain does not radiate. Pain currently is 10 out of 10 on a pain scale. Quality of pain is described as stabbing, Pain began 1 day ago. Is continuous. Neuro: Level of Consciousness is awake, alert, obeys commands, Oriented to person, place, time, situation. Cardiovascular: Reports chest pain, Heart tones S1 S2 present Rhythm is regular. Respiratory: Airway is patent Respiratory effort is even, unlabored, Respiratory pattern is regular, symmetrical, Breath sounds are clear bilaterally. Denies cough, shortness of breath. GI: Abdomen is round non-distended, Bowel sounds present X 4 quads. Abd is soft and non tender X 4 quads. Reports nausea, Patient currently denies vomiting. : No signs and/or symptoms were reported regarding the genitourinary system. EENT: No signs and/or symptoms were reported regarding the EENT system. Derm: Skin is pink, warm \T\ dry. Musculoskeletal: Range of motion: intact in all extremities. 14:35 Reassessment: VO received from provider to repeat troponin and EKG at 1600. . aa5 14:45 Reassessment: Patient is alert, oriented x 3, equal unlabored respirations, skin aa5 warm/dry/pink. Patient states symptoms have not improved. Pt reports nausea has improved. Reports pain has not improved. Pt notified of need to repeat troponin and EKG at 1600, pt verbalized understanding. . 14:48 Reassessment: SPEEDBOAT OPERATOR was notified of pt's unchanged pain level. aa5 16:00 Reassessment: Repeat troponin drawn and sent to lab. Awaiting repeat EKG at this time. .aa5 16:00 Reassessment: Patient is alert, oriented x 3, equal unlabored respirations, skin aa5 warm/dry/pink. Pt appears comfortable, sitting up in bed watching TV. . 17:15 Reassessment: Patient is alert, oriented x 3, equal unlabored respirations, skin aa5 warm/dry/pink. Vital Signs: 12:49 BP 112 / 73; Pulse 96; Resp 18 S; Temp 99.2(O); Pulse Ox 100% on R/A; Weight 92.53 kg; iw Height 4 ft. 9 in. (144.78 cm); Pain 10/10; 13:05 BP 131 / 88; Pulse 97; Resp 16 S; Pulse Ox 97% on R/A; aa5 14:00 BP 103 / 55; Pulse 86; Resp 16 S; Pulse Ox 97% on R/A; aa5 15:00 BP 108 / 76; Pulse 89; Resp 18 S; Pulse Ox 96% on R/A; aa5 16:00 BP 124 / 75; Pulse 87; Resp 16 S; Temp 98.2(TE); Pulse Ox 100% on R/A; aa5 17:00 BP 104 / 68; Pulse 81; Resp 16 S; Pulse Ox 99% on R/A; aa5 12:49 Body Mass Index 44.14 (92.53 kg, 144.78 cm) iw ED Course: 12:34 Patient arrived in ED. ag5 12:34 None, None is Private Physician. ag5 12:35 Bed in low position. environmental monitoring specialist on. Pulse ox on. NIBP on. tw2 12:38 Mallory Lopez FNP-C is [facility]. kb 12:38 Ezequiel Humphrey MD is Attending Physician. kb 12:44 Emma Dorado, RITO is Primary Nurse. aa5 12:49 Triage completed. iw 12:50 Arm band placed on. iw 12:53 EKG done, by technology architect. reviewed by Mallory MEADOWS. at1 12:58 XRAY Chest (1 view) In Process Unspecified. EDMS 13:00 Initial lab(s) drawn, by tn. Inserted saline lock: 20 gauge in right antecubital area, aa5 using aseptic technique. Blood collected. 13:05 Initial lab(s) drawn, sent to lab. Delay: Awaiting for registration to update pt's last aa5 name before blood was sent. 13:08 Patient maintains SpO2 saturation greater than 95% on room air. tw2 16:13 Repeat EKG was done. sm3 17:14 IV discontinued, intact, bleeding controlled, No redness/swelling at site. Pressure aa5 dressing applied. 17:14 No provider procedures requiring assistance completed. aa5 Administered Medications: 13:08 Drug: Aspirin Chewable Tablet 324 mg Route: PO; aa5 14:51 Follow up: Response: No adverse reaction aa5 13:09 Drug: Phenergan 12.5 mg Route: IVP; Site: right antecubital; aa5 13:20 Follow up: Response: No adverse reaction aa5 13:11 Drug: morphine 2 mg Route: IVP; Site: right antecubital; aa5 13:20 Follow up: Response: No adverse reaction aa5 14:40 Drug: Magnesium Sulfate 2 grams Route: IVPB; Infused Over: 1 hrs; Site: right aa5 antecubital; 16:40 Follow up: IV Status: Completed infusion aa5 14:53 Drug: morphine 2 mg Route: IVP; Site: right antecubital; aa5 15:00 Follow up: Response: No adverse reaction aa5 Outcome: 16:45 Discharge ordered by MD. fields 17:15 Discharged to home ambulatory, with family. aa5 17:15 Condition: stable 17:15 Discharge instructions given to patient, Instructed on discharge instructions, follow up and referral plans. Demonstrated understanding of instructions, follow-up care. 17:22 Patient left the ED. aa5 Signatures: Dispatcher [employer] EDMS Mallory Lopez, SKEIN SPOOLER-C SKEIN SPOOLER-Ckb Homa Carver, RN RN Emma Dorado RN RN aa5 Keena Pardo, clinical documentation improvement specialist EKG Tat1 Priscilla Perdomo RN RN tw2 Nadine Ocampo sm3 Konrad Paredes ag5 Corrections: (The following items were deleted from the chart) 12:50 12:49 Resp 18bpm; Spontaneous; Pulse Ox 100% RA; Temp 99.2F Oral; 92.53 kg; Height 4 iw ft. 9 in.; BMI: 44.1; Pain 10/10; iw 16:07 16:00 Reassessment: Repeat troponin drawn and sent to lab. . aa5 aa5 17:30 17:27 Patient left the ED. aa5 aa5
--- NOTE | 2019-04-23 16:47 | EDPHYS ---
Physician Documentation [facility] Name: Asia Cole Age: 49 yrs Sex: Female : 1970 Arrival Date: 04/23/2019 Time: 12:34 Bed 5 Private MD: None, None ED Physician Ezequiel Humphrey HPI: 04/23 15:32 This 49 yrs old Female presents to ER via Ambulatory with complaints of Chest kb Pain. 15:32 The patient or guardian reports chest pain that is located primarily in the anterior kb chest wall, left. Onset: yesterday. The pain does not radiate. Associated signs and symptoms: Pertinent positives: None. The chest pain is described as pinching. Duration: The patient or guardian reports a single episode. Modifying factors: The symptoms are alleviated by nothing. the symptoms are aggravated by nothing. Severity of pain: At its worst the pain was mild moderate in the emergency department the pain is unchanged. The patient has not experienced similar symptoms in the past. The patient has not recently seen a physician. Pt reports pain to left side of chest and to bilateral breasts that started yesterday. Denies any alleviating or aggravating factors. Denies shortness of breath, fever, cough. . 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 - Social history:: Smoking status: Patient/guardian denies using tobacco. - Ebola Screening: : Patient negative for fever greater than or equal to 101.5 degrees Fahrenheit, and additional compatible Ebola Virus Disease symptoms Patient denies exposure to infectious person Patient denies travel to an Ebola-affected area in the 21 days before illness onset No symptoms or risks identified at this time. ROS: 15:34 Constitutional: Negative for fever, chills, and weight loss, ENT: Negative for injury, kb pain, and discharge, Neck: Negative for injury, pain, and swelling, Respiratory: Negative for shortness of breath, cough, wheezing, and pleuritic chest pain, Back: Negative for injury and pain, : Negative for injury, bleeding, discharge, and swelling, MS/Extremity: Negative for injury and deformity, Skin: Negative for injury, rash, and discoloration, Neuro: Negative for headache, weakness, numbness, tingling, and seizure. 15:34 Cardiovascular: Positive for chest pain, Negative for edema, orthopnea, palpitations, paroxysmal nocturnal dyspnea. 15:34 Abdomen/GI: Positive for nausea. Exam: 15:35 Constitutional: This is a well developed, well nourished patient who is awake, alert, kb and in no acute distress. Head/Face: Normocephalic, atraumatic. ENT: Nares patent. No nasal discharge, no septal abnormalities noted. Tympanic membranes are normal and external auditory canals are clear. Oropharynx with no redness, swelling, or masses, exudates, or evidence of obstruction, uvula midline. Mucous membranes moist. Neck: Trachea midline, no thyromegaly or masses palpated, and no cervical lymphadenopathy. Supple, full range of motion without nuchal rigidity, or vertebral point tenderness. No Meningismus. Chest/axilla: Normal chest wall appearance and motion. Nontender with no deformity. No lesions are appreciated. Cardiovascular: Regular rate and rhythm with a normal S1 and S2. No gallops, murmurs, or rubs. Normal PMI, no JVD. No pulse deficits. Respiratory: Lungs have equal breath sounds bilaterally, clear to auscultation and percussion. No rales, rhonchi or wheezes noted. No increased work of breathing, no retractions or nasal flaring. Abdomen/GI: Soft, non-tender, with normal bowel sounds. No distension or tympany. No guarding or rebound. No evidence of tenderness throughout. Back: No spinal tenderness. No costovertebral tenderness. Full range of motion. Skin: Warm, dry with normal turgor. Normal color with no rashes, no lesions, and no evidence of cellulitis. MS/ Extremity: Pulses equal, no cyanosis. Neurovascular intact. Full, normal range of motion. Neuro: Awake and alert, GCS 15, oriented to person, place, time, and situation. Cranial nerves II-XII grossly intact. Motor strength 5/5 in all extremities. Sensory grossly intact. Cerebellar exam normal. Normal gait. Vital Signs: 12:49 BP 112 / 73; Pulse 96; Resp 18 S; Temp 99.2(O); Pulse Ox 100% on R/A; Weight 92.53 kg; iw Height 4 ft. 9 in. (144.78 cm); Pain 10/10; 13:05 BP 131 / 88; Pulse 97; Resp 16 S; Pulse Ox 97% on R/A; aa5 14:00 BP 103 / 55; Pulse 86; Resp 16 S; Pulse Ox 97% on R/A; aa5 15:00 BP 108 / 76; Pulse 89; Resp 18 S; Pulse Ox 96% on R/A; aa5 16:00 BP 124 / 75; Pulse 87; Resp 16 S; Temp 98.2(TE); Pulse Ox 100% on R/A; aa5 17:00 BP 104 / 68; Pulse 81; Resp 16 S; Pulse Ox 99% on R/A; aa5 12:49 Body Mass Index 44.14 (92.53 kg, 144.78 cm) iw MDM: 12:38 Patient medically screened. kb 15:32 Data reviewed: vital signs, nurses notes. Data interpreted: Pulse oximetry: on room air kb is 100 %. Interpretation: normal. 15:35 ECG:. The patient was given aspirin in the Emergency Department. kb 15:55 ALYSA Risk Score: TOTAL SCORE = 0. Counseling: I had a detailed discussion with the patient and/or guardian regarding: the historical points, exam findings, and any diagnostic results supporting the discharge/admit diagnosis, lab results, radiology results, the need for outpatient follow up, a maintenance planning clerk, a family practitioner, to return to the emergency department if symptoms worsen or persist or if there are any questions or concerns that arise at home. ED course: HEART score 2 (based on age and DM history) = low risk. 16:46 ED course: Pt educated on repeat tests. Educated on need to follow up PCP and return kb for worsening symptoms. Pt agrees with plan of care and verbal understanding of instructions received. . 04/23 12:40 Order name: Basic Metabolic Panel 04/23 12:40 Order name: CBC with Diff 04/23 12:40 Order name: LFT's 04/23 12:40 Order name: Magnesium; Complete Time: 14:14 04/23 12:40 Order name: NT PRO-BNP; Complete Time: 14:14 kb 04/23 12:40 Order name: PT-INR; Complete Time: 14:14 kb 04/23 12:40 Order name: Troponin (emerg Dept Use Only); Complete Time: 14:14 kb 04/23 12:40 Order name: XRAY Chest (1 view); Complete Time: 14:14 kb 04/23 12:40 Order name: Basic Metabolic Panel; Complete Time: 14:14 EDMS 04/23 12:40 Order name: CBC with Automated Diff; Complete Time: 14:14 EDMS 04/23 12:40 Order name: Liver (Hepatic) Function; Complete Time: 14:14 EDMS 04/23 15:32 Order name: Troponin (emerg Dept Use Only): at 1600; Complete Time: 16:37 iw 04/23 12:40 Order name: EKG; Complete Time: 12:41 kb 04/23 12:40 Order name: Cardiac monitoring; Complete Time: 13:04 kb 04/23 12:40 Order name: EKG - Nurse/Tech; Complete Time: 13:04 kb 04/23 12:40 Order name: IV Saline Lock; Complete Time: 13:04 kb 04/23 12:40 Order name: Labs collected and sent; Complete Time: 13:04 kb 04/23 12:40 Order name: O2 Per Protocol; Complete Time: 12:58 kb 04/23 12:40 Order name: O2 Sat Monitoring; Complete Time: 12:58 kb 04/23 15:32 Order name: EKG - Nurse/Tech: at 1600; Complete Time: 16:08 iw 04/23 16:39 Order name: EKG Electrocardiogram; Complete Time: 16:39 EDMS EC:35 Rate is 95 beats/min. Rhythm is regular, Normal Sinus Rhythm. QRS [place] is Normal. [place] kb interval is normal at 128 msec. QRS interval is normal at 78 msec. QT interval is normal at 312 msec. Administered Medications: 13:08 Drug: Aspirin Chewable Tablet 324 mg Route: PO; aa5 14:51 Follow up: Response: No adverse reaction aa5 13:09 Drug: Phenergan 12.5 mg Route: IVP; Site: right antecubital; aa5 13:20 Follow up: Response: No adverse reaction aa5 13:11 Drug: morphine 2 mg Route: IVP; Site: right antecubital; aa5 13:20 Follow up: Response: No adverse reaction aa5 14:40 Drug: Magnesium Sulfate 2 grams Route: IVPB; Infused Over: 1 hrs; Site: right aa5 antecubital; 16:40 Follow up: IV Status: Completed infusion aa5 14:53 Drug: morphine 2 mg Route: IVP; Site: right antecubital; aa5 15:00 Follow up: Response: No adverse reaction aa5 Disposition: 18:15 Co-signature as Attending Physician, Ezequiel Humphrey MD. rn Disposition: 04/23/19 16:45 Discharged to Home. Impression: Chest pain, unspecified, Hypomagnesemia. - Condition is Stable. - Discharge Instructions: Hypomagnesemia, Nonspecific Chest Pain, [id number]. - Medication Reconciliation Form, Thank You Letter, Antibiotic Education, Prescription Opioid Use, Work release form form. - Follow up: Emergency Department; When: As needed; Reason: Worsening of condition. Follow up: Private Physician; When: 2 - 3 days; Reason: Recheck today's complaints, Continuance of care, Re-evaluation by your physician. Signatures: Dispatcher [employer] EDNY Mallory Lopez, UTILITY SYSTEM OPERATOR-C UTILITY SYSTEM OPERATOR-Ckb Homa Carver RN RN iw Nieto, Roman, MD MD rn Calderon, Audri, RN RN aa5 Corrections: (The following items were deleted from the chart) 17:15 16:45 04/23/2019 16:45 Discharged to Home. Impression: Chest pain, unspecified. kb Condition is Stable. Forms are Medication Reconciliation Form, Thank You Letter, Antibiotic Education, Prescription Opioid Use. Follow up: Emergency Department; When: As needed; Reason: Worsening of condition. Follow up: Private Physician; When: 2 - 3 days; Reason: Recheck today's complaints, Continuance of care, Re-evaluation by your physician. kb 17:27 17:15 04/23/2019 16:45 Discharged to Home. Impression: Chest pain, unspecified; aa5 Hypomagnesemia. Condition is Stable. Discharge Instructions: Nonspecific Chest Pain, [id number]. Forms are Medication Reconciliation Form, Thank You Letter, Antibiotic Education, Prescription Opioid Use. Follow up: Emergency Department; When: As needed; Reason: Worsening of condition. Follow up: Private Physician; When: 2 - 3 days; Reason: Recheck today's complaints, Continuance of care, Re-evaluation by your physician. kb
[2019-04-23 17:32] VITALS: TEMP 99.2
[2019-04-23 17:36] VITALS: BP 108/76; O2SAT 96
--- NOTE | 2019-04-24 07:45 | EKG ---
Test Date: 2019-04-23 Test Time: 16:06:53 Marine Operations Coordinator: JAYCE MEASUREMENT RESULTS: Intervals: Rate: 82 AK: 130 QRSD: 86 QT: 354 QTc: 413 [place]: P: 62 AK: 130 QRS: 66 T: 3 INTERPRETIVE STATEMENTS: Normal sinus rhythm Non specific T abnormality Abnormal ECG Compared to ECG 04/23/2019 12:41:42 No significant changes Electronically Signed On 04-24-19 07:45:21 PUBLIC WORKS LABORER by Kip Nj
--- NOTE | 2019-04-24 07:47 | EKG ---
Test Date: 2019-04-23 Test Time: 12:41:42 Senior Care Manager: DIDIER MEASUREMENT RESULTS: Intervals: Rate: 95 AK: 128 QRSD: 78 QT: 312 QTc: 392 [place]: P: 67 AK: 128 QRS: 76 T: 50 INTERPRETIVE STATEMENTS: Normal sinus rhythm Non specific T abnormality Abnormal ECG No previous ECG available for comparison Electronically Signed On 04-24-19 07:47:00 CIRCUIT BOARD INSPECTOR by Kip Nj
== END 2019-04-23 17:27 | disposition home or self-care (01) ==
LOC: ER 12:32
DX: E83.42 Hypomagnesemia (principal); E11.9 Type 2 diabetes mellitus without complications; Z88.8 Allergy status to other drugs, medicaments and biological substances
CPT/HCPCS: 36415; 71045; 80048; 80076; 83735; 83880; 84484; 85025; 85610; 93005; 96365; 96366; 96375; J2270; J2550; J3475

== ENCOUNTER 2019-05-10 10:22 | Emergency (ER) | payer SELFPAY ==
--- OUTSIDE RECORDS SUMMARY | 2019-05-10 10:25 | XMS REPORT ---
:1970 [facility] [address] [place] [address] Care Team Providers Name Role Phone Unavailable [...]
[2019-05-10] MEDS ORDERED: NA CHLORIDE 0.9% 1,000 ML ONE (12:57)
[2019-05-10] MEDS ORDERED: METOCLOPRAMIDE 10 MG/2mL INJ ONE (12:58)
[2019-05-10 13:15] LABS: Absolute Lymphocytes (CBC) 3.2 K/uL (0.7-4.9); Basophils % 0.8 % (0-1.3); Hematocrit 40.4 % (36.0-45.0); Lymphocytes % 33.1 % (15.3-44.8); MPV 8.7 fL (7.6-11.3); RBC Red Blood Cell Count 4.62 M/uL (3.86-4.86)
[2019-05-10 13:32] LABS: Albumin 3.8 g/dL (3.4-5.0); Bilirubin Direct 0.1 mg/dL (0-0.2); Bilirubin Total 0.4 mg/dL (0.2-1.0)
--- NOTE | 2019-05-10 13:42 | ER ---
Nurse's Notes [facility] Name: Asia Cole Age: 49 yrs Sex: Female : 1970 Arrival Date: 05/10/2019 Time: 10:26 Bed 27 Private MD: Diagnosis: Nausea and vomiting;Diarrhea, unspecified Presentation: 05/10 10:30 Presenting complaint: Patient states: "For the past 3 days I've been nauseated and aa5 every time I eat I have to throw up". Pt also reports diarrhea. Pt reports intermittent abd cramping. Transition of care: patient was not received from another setting of care. Onset of symptoms was April 2019. Risk Assessment: Do you want to hurt yourself or someone else? Patient reports no desire to harm self or others. Initial Sepsis Screen: Does the patient meet any 2 criteria? No. Patient's initial sepsis screen is negative. Does the patient have a suspected source of infection? No. Patient's initial sepsis screen is negative. Care prior to arrival: None. 10:30 Acuity: DIYA 3 aa5 10:30 Method Of Arrival: Ambulatory aa5 Triage Assessment: 12:00 General: Behavior is calm, cooperative, appropriate for age. 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 - Social history:: Smoking status: Patient/guardian denies using tobacco. - Ebola Screening: : No symptoms or risks identified at this time. Screenin:40 Abuse screen: Denies threats or abuse. Denies injuries from another. Nutritional screening: No deficits noted. Tuberculosis screening: No symptoms or risk factors identified. Fall Risk None identified. Assessment: 11:38 General: Appears in no apparent distress. Pain: Denies pain. Neuro: Level of Consciousness is awake, alert, obeys commands, Oriented to person, place, time, situation, Appropriate for age. Cardiovascular: Heart tones S1 S2. Respiratory: Airway is patent Respiratory effort is even, unlabored, Respiratory pattern is regular, symmetrical. GI: Abdomen is flat, non-distended, Bowel sounds present X 4 quads. Abd is soft and non tender X 4 quads. Reports diarrhea, nausea, vomiting. : No signs and/or symptoms were reported regarding the genitourinary system. EENT: No signs and/or symptoms were reported regarding the EENT system. Derm: Skin is intact, is healthy with good turgor, Skin is pink, warm \\T\\ dry. normal. Musculoskeletal: Circulation, motion, and sensation intact. 11:41 Reassessment: NOtified Charge Nurse no Provider sign up yet. 13:06 Reassessment: Patient appears in no apparent distress at this time. No changes from previously documented assessment. Patient and/or family updated on plan of care and expected duration. Pain level reassessed. Patient is alert, oriented x 3, equal unlabored respirations, skin warm/dry/pink. 13:57 Reassessment: Patient appears in no apparent distress at this time. No changes from previously documented assessment. Patient and/or family updated on plan of care and expected duration. Pain level reassessed. Patient is alert, oriented x 3, equal unlabored respirations, skin warm/dry/pink. Patient states feeling better. Patient states symptoms have improved. Vital Signs: 10:32 BP 129 / 88; Pulse 105; Resp 18 S; Temp 97.3(TE); Pulse Ox 97% on R/A; Weight 92.53 kg aa5 (R); Height 4 ft. 9 in. (144.78 cm) (R); Pain 0/10; 11:40 BP 123 / 87; Pulse 93; Resp 18; Pulse Ox 99% on R/A; wh 13:07 BP 123 / 78; Pulse 98; Resp 18; Pulse Ox 99% on R/A; wh 10:32 Body Mass Index 44.14 (92.53 kg, 144.78 cm) aa5 ED Course: 10:26 Patient arrived in ED. am2 10:30 Arm band placed on. aa5 10:31 Triage completed. aa5 11:12 Sadia Beebe is Primary Nurse. 11:40 Patient has correct armband on for positive identification. Bed in low position. Call light in reach. Side rails up X 1. Pulse ox on. NIBP on. 11:42 [facility]. kb 11:42 Andrea Zendejas MD is Attending Physician. kb 12:35 Missed attempt(s): 22 gauge in right antecubital area. Bleeding controlled, band aid wh applied, catheter tip intact. 12:40 Missed attempt(s): 22 gauge in left forearm. Bleeding controlled, band aid applied, catheter tip intact. 13:04 Inserted saline lock: 22 gauge in right wrist, using aseptic technique. Blood collected. 13:55 No provider procedures requiring assistance completed. IV discontinued, intact, wh bleeding controlled, No redness/swelling at site. Administered Medications: 13:05 Drug: NS 0.9% 1000 ml Route: IV; Rate: 1000 ml; Site: right hand; 13:57 Follow up: Response: No adverse reaction; IV Status: Completed infusion 13:05 Drug: Reglan 10 mg Route: IVP; Site: right hand; 13:59 Follow up: Response: No adverse reaction; Nausea is decreased Point of Care Testing: Blood Glucose: 10:32 Blood Glucose: 292 mg/dL; aa5 Ranges: Outcome: 13:42 Discharge ordered by . kb 13:56 Discharged to home ambulatory. 13:56 Condition: stable 13:56 Discharge instructions given to patient, Instructed on discharge instructions, follow up and referral plans. medication usage, POC NVD Demonstrated understanding of instructions, follow-up care, medications, POC Prescriptions given X 2. 13:59 Patient left the ED. Signatures: Mallory Lopez FNP-C FNP-Emma Reza, RN RN aa5 Eileen Rea RN RN Keena Oliver am2 Sadia Beebe
--- NOTE | 2019-05-10 13:42 | EDPHYS ---
Physician Documentation [facility] Name: Asia Cole Age: 49 yrs Sex: Female : 1970 Arrival Date: 05/10/2019 Time: 10:26 Bed 27 Private MD: ED Physician Andrea Zendejas HPI: 05/10 12:43 This 49 yrs old Female presents to ER via Ambulatory with complaints of kb Nausea/Vomiting, Diarrhea. 12:43 The patient presents to the emergency department with nausea, vomiting, diarrhea. kb Associated signs and symptoms: Pertinent positives: diarrhea, nausea, vomiting. Severity of symptoms: At their worst the symptoms were moderate in the emergency department the symptoms are unchanged. The patient has not experienced similar symptoms in the past. The patient has not recently seen a physician. 12:43 Onset: The symptoms/episode began/occurred 3 day(s) ago. Possible causes: unknown. The kb symptoms are aggravated by nothing. The symptoms are alleviated by food . Pt reports 3 days of diarrhea, nausea and vomiting. States she vomits every time she eats anything. Reports abd cramps, no pain. Denies fever. 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 - Social history:: Smoking status: Patient/guardian denies using tobacco. - Ebola Screening: : No symptoms or risks identified at this time. ROS: 12:42 Constitutional: Negative for fever, chills, and weight loss, ENT: Negative for injury, kb pain, and discharge, Neck: Negative for injury, pain, and swelling, Cardiovascular: Negative for chest pain, palpitations, and edema, Respiratory: Negative for shortness of breath, cough, wheezing, and pleuritic chest pain, Back: Negative for injury and pain, : Negative for injury, bleeding, discharge, and swelling, MS/Extremity: Negative for injury and deformity, Skin: Negative for injury, rash, and discoloration, Neuro: Negative for headache, weakness, numbness, tingling, and seizure. 12:42 Abdomen/GI: Positive for nausea, vomiting, and diarrhea, abdominal cramps. Exam: 12:42 Constitutional: This is a well developed, well nourished patient who is awake, alert, kb and in no acute distress. Head/Face: Normocephalic, atraumatic. ENT: Nares patent. No nasal discharge, no septal abnormalities noted. Tympanic membranes are normal and external auditory canals are clear. Oropharynx with no redness, swelling, or masses, exudates, or evidence of obstruction, uvula midline. Mucous membranes moist. Neck: Trachea midline, no thyromegaly or masses palpated, and no cervical lymphadenopathy. Supple, full range of motion without nuchal rigidity, or vertebral point tenderness. No Meningismus. Chest/axilla: Normal chest wall appearance and motion. Nontender with no deformity. No lesions are appreciated. Cardiovascular: Regular rate and rhythm with a normal S1 and S2. No gallops, murmurs, or rubs. Normal PMI, no JVD. No pulse deficits. Respiratory: Lungs have equal breath sounds bilaterally, clear to auscultation and percussion. No rales, rhonchi or wheezes noted. No increased work of breathing, no retractions or nasal flaring. Abdomen/GI: Soft, non-tender, with normal bowel sounds. No distension or tympany. No guarding or rebound. No evidence of tenderness throughout. Back: No spinal tenderness. No costovertebral tenderness. Full range of motion. Skin: Warm, dry with normal turgor. Normal color with no rashes, no lesions, and no evidence of cellulitis. MS/ Extremity: Pulses equal, no cyanosis. Neurovascular intact. Full, normal range of motion. Neuro: Awake and alert, GCS 15, oriented to person, place, time, and situation. Cranial nerves II-XII grossly intact. Motor strength 5/5 in all extremities. Sensory grossly intact. Cerebellar exam normal. Normal gait. Vital Signs: 10:32 BP 129 / 88; Pulse 105; Resp 18 S; Temp 97.3(TE); Pulse Ox 97% on R/A; Weight 92.53 kg aa5 (R); Height 4 ft. 9 in. (144.78 cm) (R); Pain 0/10; 11:40 BP 123 / 87; Pulse 93; Resp 18; Pulse Ox 99% on R/A; wh 13:07 BP 123 / 78; Pulse 98; Resp 18; Pulse Ox 99% on R/A; wh 10:32 Body Mass Index 44.14 (92.53 kg, 144.78 cm) aa5 MDM: 11:43 Patient medically screened. kb 12:42 Data reviewed: vital signs, nurses notes. Data interpreted: Pulse oximetry: on room air kb is 99 %. Interpretation: normal. 13:41 Counseling: I had a detailed discussion with the patient and/or guardian regarding: the kb historical points, exam findings, and any diagnostic results supporting the discharge/admit diagnosis, lab results, the need for outpatient follow up, a family practitioner, to return to the emergency department if symptoms worsen or persist or if there are any questions or concerns that arise at home. 05/10 10:46 Order name: Glucose, Ancillary Testing; Complete Time: 11:43 EDMS 05/10 12:04 Order name: Basic Metabolic Panel 05/10 12:04 Order name: CBC with Diff 05/10 12:04 Order name: Hepatic Function 05/10 12:04 Order name: Lipase 05/10 13:32 Order name: CBC with Automated Diff; Complete Time: 13:31 EDMS 05/10 12:04 Order name: IV Saline Lock; Complete Time: 12:57 kb 05/10 12:04 Order name: Labs collected and sent; Complete Time: 12:57 kb 05/10 13:33 Order name: Basic Metabolic Panel; Complete Time: 13:39 EDMS 05/10 13:33 Order name: Liver (Hepatic) Function; Complete Time: 13:39 EDMS 05/10 13:33 Order name: Lipase; Complete Time: 13:39 EDMS 05/10 13:40 Order name: PO challenge; Complete Time: 13:44 kb Administered Medications: 13:05 Drug: NS 0.9% 1000 ml Route: IV; Rate: 1000 ml; Site: right hand; 13:57 Follow up: Response: No adverse reaction; IV Status: Completed infusion 13:05 Drug: Reglan 10 mg Route: IVP; Site: right hand; 13:59 Follow up: Response: No adverse reaction; Nausea is decreased Point of Care Testing: Blood Glucose: 10:32 Blood Glucose: 292 mg/dL; aa5 Ranges: Critical Glucose Levels:Adult <50 mg/dl or >400 mg/dl <40 mg/dl or >180 mg/dl Disposition: 05/10/19 13:42 Discharged to Home. Impression: Nausea and vomiting, Diarrhea, unspecified. - Condition is Stable. - Discharge Instructions: Food Choices to Help Relieve Diarrhea, Adult, Viral Gastroenteritis, Adult, [id number]. - Prescriptions for Bentyl 20 mg Oral Tablet - take 1 tablet by ORAL route every 6 hours As needed; 20 tablet. promethazine 25 mg Oral Tablet - take 1 tablet by ORAL route every 8 hours As needed; 20 tablet. - Medication Reconciliation Form, Thank You Letter, Antibiotic Education, Prescription Opioid Use, Work release form form. - Follow up: Emergency Department; When: As needed; Reason: Worsening of condition. Follow up: Private Physician; When: 2 - 3 days; Reason: Recheck today's complaints, Continuance of care, Re-evaluation by your physician. Addendum: 05/13/2019 10:05 Co-signature as Attending Physician, Andrea Zendejas MD I agree with the assessment and k dr plan of care. Signatures: Dispatcher [employer] EDMS Mallory Lopez, CLINICAL NURSING ASSISTANT-C CLINICAL NURSING ASSISTANT-Ckb Andrea Zendejas MD MD [facility] Emma Dorado, RN RN aa5 Sadia Beebe Corrections: (The following items were deleted from the chart) 05/10 12:45 12:43 Pt reports 3 days of diarrhea, nausea and vomiting. States she vomits every time kb she eats anything. . kb 13:59 13:42 05/10/2019 13:42 Discharged to Home. Impression: Nausea and vomiting; Diarrhea, wh unspecified. Condition is Stable. Discharge Instructions: Food Choices to Help Relieve Diarrhea, Adult, Viral Gastroenteritis, Adult, [id number]. Prescriptions for Bentyl 20 mg Oral Tablet - take 1 tablet by ORAL route every 6 hours As needed; 20 tablet, promethazine 25 mg Oral Tablet - take 1 tablet by ORAL route every 8 hours As needed; 20 tablet. and Forms are Medication Reconciliation Form, Thank You Letter, Antibiotic Education, Prescription Opioid Use. Follow up: Emergency Department; When: As needed; Reason: Worsening of condition. Follow up: Private Physician; When: 2 - 3 days; Reason: Recheck today's complaints, Continuance of care, Re-evaluation by your physician. kb
[2019-05-10 19:35] VITALS: TEMP 97.3
[2019-05-10 19:37] VITALS: O2SAT 99
[2019-05-10 19:38] VITALS: BP 123/78
== END 2019-05-10 13:59 | disposition home or self-care (01) ==
LOC: ER 10:22
DX: R19.7 Diarrhea, unspecified (principal); E11.9 Type 2 diabetes mellitus without complications; Z88.8 Allergy status to other drugs, medicaments and biological substances
CPT/HCPCS: 36415; 80048; 80076; 82947; 83690; 85025; 96361; 96374; 99284; J2765; J7030

== ENCOUNTER 2020-11-06 14:22 | Emergency (ER) | payer SELFPAY ==
--- OUTSIDE RECORDS SUMMARY | 2020-11-06 14:28 | XMS REPORT | Continuity of Care Document ---
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 Diastolic (mm Hg) 2018-09-12 03:17:00 [facility] Heart Rate 2018-09-12 03:17:00 [facility] Temperature Oral (F) 2018-09-12 03:17:00 98.0 F [facility] Heart Rate 2018-08-31 17:24:00 [facility] Respitory Rate 2018-08-31 17:24:00 [facility] Systolic (mm Hg) 2018-08-31 17:24:00 [facility] Diastolic (mm Hg) 2018-08-31 17:24:00 [facility] Temperature Oral (F) 2018-08-31 17:24:00 97.8 F [facility] Temperature Oral (F) 2018-08-31 12:55:00 97.8 F [facility] Heart Rate 2018-08-31 12:55:00 [facility] Systolic (mm Hg) 2018-08-31 12:55:00 [facility] Diastolic (mm Hg) 2018-08-31 12:55:00 [facility] Respitory Rate 2018-08-31 12:55:00 [facility] Respitory Rate 2018-08-31 06:38:00 [facility] Temperature Oral (F) 2018-08-31 00:59:00 98.3 F [facility] Systolic (mm Hg) 2018-08-31 00:59:00 [facility] Diastolic (mm Hg) 2018-08-31 00:59:00 [facility] Heart Rate 2018-08-31 00:59:00 [facility] Height 2018-08-29 11:00:00 144.78 cm [facility] Weight 2018-08-29 11:00:00 [facility] BMI Calculated 2018-08-29 11:00:00 [facility] Weight 2018-08-29 00:59:00 [facility] Height 2018-08-29 00:59:00 144.78 cm [facility] BMI Calculated 2018-08-29 00:59:00 [facility] Procedures This patient has no known procedures. Plan of Care Planned Activity Planned Date Details Comments Source Future Scheduled 2021-01-10 INFLUENZA VACCINE [facility] Test 00:00:00 [code = INFLUENZA VACCINE] Future Scheduled 2020 BREAST CANCER [facility] Test 00:00:00 SCREENING [code = BREAST CANCER SCREENING] Future Scheduled 2020 COLONOSCOPY SCREENING [facility] Test 00:00:00 [code = COLONOSCOPY SCREENING] Future Scheduled 2020 SHINGLES VACCINES [facility] Test 00:00:00 (#1) [code = SHINGLES VACCINES (#1)] Future Scheduled 1991 Screening for Negrete [facility] Test 00:00:00 malignant neoplasm of cervix (procedure) [code = 359879187] Future Scheduled 1988 Hepatitis C screening [facility] Test 00:00:00 (procedure) [code = 897616790] Future Scheduled 1982 COVID-19 VACCINE (1) [facility] Test 00:00:00 [code = COVID-19 VACCINE (1)] Encounters Start End Encounter Admission Attending Care Care Encounter Source Date/Time Date/Time Type Type Clinicians Facility Department ID 2020-10-03 2020-10-03 Outpatient Manjinder, [id number]. [id number] 14:27:43 17:35:00 Dilan [id number] 2020-10-03 2020-10-03 Emergency E MHCY MHCY [id number] MHCY 14:27:00 14:27:00 2020-04-14 2020-04-15 Outpatient Pranay SE SE [id number] 18:41:10 02:18:00 Irving R 03 2020-04-14 2020-04-14 Emergency E MHSE MHSE [id number] MH 18:41:00 18:41:00 [facility] 2020-03-03 2020-03-03 Outpatient Liz SE MHSE [id number] 09:30:08 13:52:00 Benny 02 2020-03-03 2020-03-03 Emergency E MHSE MHSE [id number] MH 09:30:00 09:30:00 [facility] 2018-09-11 2018-09-12 Outpatient Amor SE SE [id number] 21:54:00 03:32:00 Amy Arguelles 2018-08-28 2018-08-31 Outpatient Oni SE SE [id number] 19:50:00 14:30:00 Ghulam Carrillo 00 Results Test Description Test Time Test Comments Results Result Comments Source URINE AND STOOL 2020-10-03 20:04:00 Test Item Value Reference Range Interpretation Comme nts UA pH (test code = UA pH) 6.0 1 5.0-8.0 [facility] SRNGB4196-81-97 20:04:00Negative (10/03/20 3:04 PM) [facility] QKVUP9889-42-04 20:04:00Negative *NA*(10/03/20 3:04 PM) [facility] AUCWH0210-01-32 20:04:00Negative *NA*(10/03/20 3:04 PM) [facility] NIOHO8917-05-11 20:04:00Trace *ABN*(10/03/20 3:04 PM) [facility] GOKIV3139-62-11 20:04:000.2[facility] CJJNG3081-84-87 20:04:00Negative (10/03/20 3:04 PM)[facility] MCELG9142-28-90 20:04:00Trace *ABN*(10/03/20 3:04 PM)[facility] CTLCK3492-36-48 20:04:00Performed (10/03/20 3:04 PM)[facility] PANEL 2020-10-03 20:04:35615Rdbwozvw HermannCHEM OOEBX1250-31-11 20:04:006[facility] DEWKS2628-62-79 20:04:000.90[facility] NLAAX9570-92-32 20:04:39875Jhorqngy [facility]annCHE[facility] JRJIQ5854-94-84 20:04:003.9[facility] YMIZL1796-89-69 20:04:0098[facility] LJSQU9058-81-02 20:04:0027 [facility] ZMXLM4449-04-02 20:04:0011.9[facility]ann[facility] PANEL 2020-10-03 20:04:008.8[facility] INTHV7659-83-76 20:04:00 Test Item Value Reference Range Interpretation Comments B/C Ratio (test code = B/C Ratio) 7 1 6-25 [facility] FULEW1262-36-75 20:04:007.1[facility]ann[facility] PANEL 2020-10-03 20:04:002.6[facility] HLCUZ6452-43-47 20:04:004.5[facility] YTZYC2961-72-15 20:04:00 Test Item Value Reference Range Interpretation Comments A/G Ratio (test code = A/G Ratio) 0.6 1 0.7-1.6 [facility] QVFAQ3759-14-69 20:04:009[facility]annCHE[facility] PANEL 2020-10-03 20:04:008[facility] QQMQC8323-39-32 20:04:70781Fdrjensv [facility]annCHE[facility] VDZWN3177-42-83 20:04:000.4[facility]annCHE[facility] CMUSH1134-16-34 20:04:0075[facility] JCIQV3349-00-66 20:04:000.10[facility] KWNKXNDHAL2822-05-03 20:04:006.9[facility] FiyyqzbCGVZOIXHMX0013-04-74 20:04:00 3.97[facility] FfnupcbBQZIFMZIAO9490-72-46 20:04:0011.5[facility]annHEMATOLOGY 2020-10-03 20:04:0034.7[facility] LbpgmzuFLLNDVAAOU0443-19-43 20:04:0087.6[facility] FajrtbdXOBRZDMVWI8589-47-34 20:04:00 Test Item Value Reference Range Interpretation Comments MCH (test code = MCH) 28.9 pg 27.0-31.0 [facility] HstamcrLQKPKFRRGE7261-26-87 20:04:0033.0[facility]annHEMATOLOGY 2020-10-03 20:04:0012.4[facility] CdbyfsrTBSGFCJWNJ9877-63-70 20:04:03261Vpyqaptv AlwurlzKNSTMVULJL9797-85-43 20:04:008.2[facility] RmbvuidHQFDURGPQX8464-63-65 20:04:0071.5[facility] TgvsaqfHZCDGYRJGB1314-49-59 20:04:0021.1[facility] ZTBUMHNINV5809-03-60 20:04:006.4[facility] QaarbjdOFTYUQPJBK1397-68-53 20:04:000.7 [facility] MhsfmezDNNAFZIVTB5969-68-22 20:04:000.3[facility]annHEMATOLOGY 2020-10-03 20:04:004.9[facility] GjnxqdzAQWODJCSUJ9483-45-30 20:04:001.4[facility] MyrkldcIWGRTENBIT7715-86-36 20:04:000.4[facility] CPEVW1964-81-58 20:04:00Yellow *NA*(10/03/20 3:04 PM)[facility] CCJEB6159-25-29 20:04:00Clear (10/03/20 3:04 PM)[facility] FVKLR9568-71-53 20:04:00<=1.005 *NA*(10/03/20 3:04 PM)[facility] OATDP1867-76-12 05:21:70735Vmrfnsfd [facility]annCHE[facility] SPTCS4140-12-13 05:21:0013[facility] BBVVS5244-55-12 05:21:000.90[facility] WFCAL9511-31-06 05:21:66714 [facility] GXXPM1915-98-74 05:21:004.3[facility]annCHEM PANEL 2020-04-15 05:21:85932Dpkqmnze HermannCHEM MADZG4508-24-85 05:21:0024[facility]ann[facility] KBAQN7969-10-10 05:21:0013.3[facility] CIAMI2744-44-31 05:21:009.2[facility]CHE[facility] XQLFC9718-32-68 05:21:00 Test Item Value Reference Range Interpretation Comments B/C Ratio (test code = B/C Ratio) 14 1 6-25 [facility] NHLUD0244-12-66 05:21:007.7[facility]annCHEM PANEL 2020-04-15 05:21:003.3[facility] PTMHV9625-49-70 05:21:004.4[facility]annCHE[facility] IIAZS5505-91-85 05:21:00 Test Item Value Reference Range Interpretation Comments A/G Ratio (test code = A/G Ratio) 0.8 1 0.7-1.6 [facility] RHZFU6682-15-28 05:21:0014[facility]annCHEM PANEL 2020-04-15 05:21:0013[facility]annCHE[facility] ZMXXU4951-83-41 05:21:0089[facility]annCHE[facility] LGCEA0235-44-82 05:21:000.3[facility]annCHE[facility] QZDRJ8149-71-59 05:21:0075[facility] HrzqrbuRQDOUWDHRS5771-82-34 05:21:00Normal (04/14/20 11:21 PM) [facility] RjsbuxpIQJFUIGEVM7915-92-73 05:21:00Clumped (04/14/20 11:21 PM)[facility] IgrnoysXPNMQVQHXM7792-20-54 05:21:0065.7[facility] QovbdxeTDWOZLMNTM3701-48-44 05:21:0027.9[facility] ZhyqkueSSVOWWBIYV9895-40-88 05:21:005.0[facility] GJETAXJSQN7296-11-61 05:21:000.9[facility] LmhbooxTMRKUVCUMY7609-97-87 05:21:000.5 [facility] BzeupzhODYXOPBZBL8265-64-10 05:21:006.8[facility]annHEMATOLOGY 2020-04-15 05:21:002.9[facility] OgvqyrxCTCYNDVPIV9202-14-87 05:21:000.5[facility] HlwiefgEZTNRDCTOF4277-65-36 05:21:000.1[facility] WazedeeWXDDVZGAIB6073-94-00 05:21:000.1[facility] WikpauoZNPINAWCUI8751-11-73 05:21:0010.4[facility] GGOAKLLLWA4439-81-55 05:21:003.99[facility] XngrttvGXCTRCDTHW4165-87-74 05:21:00 12.1[facility] QtohkduGCQYWAHXMM4701-17-42 05:21:0036.5[facility]annHEMATOLOGY 2020-04-15 05:21:0091.5[facility] ZvukgllGMSXFCBGQT7501-97-32 05:21:00 Test Item Value Reference Range Interpretation Comments MCH (test code = MCH) 30.4 pg 27.0-31.0 [facility] RyabgalSTJMVTMLLE0975-15-18 05:21:0033.2[facility]annHEMATOLOGY 2020-04-15 05:21:0012.5[facility] RwgclugFALAHQRSLZ2396-31-20 05:21:46706Wmrpzdsp XmlhzajXXYWXDDGMO0948-19-32 05:21:008.5[facility]annDRUG TPXOCH9741-70-33 16:53:00Negative *NA*(03/03/20 11:53 AM)[facility] CGLKMS5017-67-49 16:53:00Negative *NA*(03/03/20 11:53 AM)[facility] GVELMI5066-10-70 16:53:00Negative *NA*(03/03/20 11:53 AM)[facility] HCJOAC5427-60-44 16:53:00Negative *NA*(03/03/20 11:53 AM)[facility] SLPHTJ0520-21-53 16:53:00Positive *ABN*(03/03/20 11:53 AM)[facility] FAJRAG9637-24-51 16:53:00Negative *NA*(03/03/20 11:53 AM)[facility] JHHGVL0604-52-16 16:53:00Negative *NA*(03/03/20 11:53 AM)[facility] FMPFUD3372-84-73 16:53:00See Note (03/03/20 11:53 AM)[facility] GENTAMICIN:SUSC:PT:ISOLATE:ORDQN:XMW2264-39-68 16:53:00Escherichia coliMemorial HermannURINE AND BESJJ2998-66-36 16:53:00Slight *ABN*(03/03/20 11:53 AM)[facility] PQVPX0498-75-22 16:53:00 Test Item Value Reference Range Interpretation Comments UA Spec Grav (test code = UA Spec 1.038 1 Grav) [facility] WQGTQ5486-48-57 16:53:00 Test Item Value Reference Range Interpretation Comments UA pH (test code = UA pH) 5.0 1 5.0-8.0 [facility] WJWLM3106-23-27 16:53:00Negative *NA*(03/03/20 11:53 AM)[facility] IDBNR1970 16:53:00Negative (03/03/20 11:53 AM) [facility] KKLRD0536-77-35 16:53:00Positive *ABN*(03/03/20 11:53 AM)[facility] GWNOP1041-32-74 16:53:00Small *ABN*(03/03/20 11:53 AM)[facility] PXVQE1715-43-64 16:53:0057[facility] PNKOI6054-66-22 16:53:003[facility]annCARDIAC XQRCKQS4567-61-69 15:15:00924 [facility]annCARDIAC NOCFIHY5225-51-21 15:15:00<0.02[facility]annCHEM MRBMX1924-05-62 15:15:17001Yhjeodsi HermannCHEM OSWZM4329-01-70 15:15:009 [facility]annCHE[facility] UMMGV9113-94-07 15:15:000.92[facility]annCHEM PANEL 2020-03-03 15:15:92985Abfblakm HermannCHEM CDODN6050-57-90 15:15:003.9[facility]annCHE[facility] GDLZZ4922-97-86 15:15:23005Jeqjoycm HermannCHEM JKMHO6640-22-13 15:15:0025[facility]annCHEM XWUXC4825-96-88 15:15:0011.9[facility]annCHEM PJVPA3296-11-52 15:15:009.3[facility]annCHEM ERCPA9252-71-08 15:15:00 Test Item Value Reference Range Interpretation Comments B/C Ratio (test code = B/C Ratio) 10 1 6-25 [facility] DKNFD9989-76-81 15:15:008.0[facility]annCHEM PANEL 2020-03-03 15:15:003.8[facility]annCHEM FCZVN3087-85-05 15:15:004.2[facility]annCHEM VGVTH4162-08-92 15:15:00 Test Item Value Reference Range Interpretation Comments A/G Ratio (test code = A/G Ratio) 0.9 1 0.7-1.6 [facility]CHE[facility] GSNYN5743-40-08 15:15:0022[facility]annCHEM PANEL 2020-03-03 15:15:0016[facility]annCHEM VHYMV1951-88-64 15:15:0079[facility]annCHE[facility] GYGQB9834-19-88 15:15:000.8[facility]annCHE[facility] YVVFT8933-83-26 15:15:0074[facility]annCHE[facility] OYSGK3070-19-71 15:15:001.8[facility]annCHE[facility] COGKU2445-40-20 15:15:002.2[facility] VfvhtukCKJMYDEPFDDCS8431-56-30 15:15:00 Negative *NA*(03/03/20 10:15 AM)[facility] MuyuownNYEJNYFQNZ7554-29-58 15:15:009.5 [facility] XdrflcjNRAPCCNATH4427-57-31 15:15:004.60[facility]annHEMATOLOGY 2020-03-03 15:15:0014.0[facility] HpcsksmTIRQPEQYVV8004-82-53 15:15:0042.4[facility] DwibnoqIOLWPVBZVC3128-07-75 15:15:0092.3[facility] YhofenvVDGGARPURH6144-88-38 15:15:00 Test Item Value Reference Range Interpretation Comments MCH (test code = MCH) 30.4 pg 27.0-31.0 [facility] CyohulyHBNSWLLPTB5497-86-84 15:15:0032.9[facility]annHEMATOLOGY 2020-03-03 15:15:0012.9[facility] ZiocuizPHZCZPRLWA1416-29-95 15:15:23946Uqfggink SvjdvnbRIFRUVCWWI3699-33-05 15:15:008.8[facility] SdxkizaSRZZCNIHTF5953-84-33 15:15:00 Test Item Value Reference Range Interpretation Comments PT (test code = PT) 12.1 s 12.0-14.7 [facility] KtvrpzjMIXAJOHZUE3225-33-67 15:15:00 Test Item Value Reference Range Interpretation Comments INR (test code = INR) 0.90 1 0.85-1.17 [facility] EicigymJDOXNGCTTX6534-65-91 15:15:0080.0[facility]annHEMATOLOGY 2020-03-03 15:15:0012.5[facility] BunelbeJBHZPNJTGO6341-42-15 15:15:006.5[facility] IsqjemxVACHXIYVMS4590-09-42 15:15:000.5[facility] MamupemDBEZLULECO6355-69-77 15:15:000.5[facility] TryuwdgFRLBSGLKBV6959-33-71 15:15:007.6[facility] QSPYNZBQSE1948-78-95 15:15:001.2[facility] DagnictISONCGZRWM8988-07-19 15:15:000.6 [facility] FlczeozWGAYWKQHBK0441-36-75 15:15:000.1[facility] HermannTOXICOLOGY 2020-03-03 15:15:00<3[facility] LovcuxpWIADRCTZVQ1994-36-66 15:15:00<0.003 [facility]annCHEM QTTBD1964-35-67 03:29:62958Pxnrvhnp HermannCHEM PANEL 2018-09-12 03:29:007.4[facility]annCHEM KMAME7249-46-13 03:29:0016[facility]annCHEM HPGPA6071-84-27 03:29:00<0.1[facility]annCHEM KPWQE0775-12-54 03:29:0025[facility]annCHEM JHTBD1450-12-54 03:29:003.3[facility]annCHEM CKVNV8071-55-56 03:29:0077[facility]annCHE[facility] UNPRQ7895-96-20 03:29:000.3 [facility]CHE[facility] LOGGB9992-10-70 03:29:00>0.2[facility]annCHEM PANEL 2018-09-12 03:29:004.1[facility]annCHEM XWGKR2078-12-97 03:29:00 Test Item Value Reference Range Interpretation Comments A/G Ratio (test code = A/G Ratio) 0.8 1 0.7-1.6 [facility] RqhehtaIKWKSNOBCPGB7219-30-86 03:29:0013.8[facility] HermannELECTROLYTES 2018-09-12 03:29:0087[facility] GdohfolCECNJSNQQBZK0497-92-78 03:29:0024[facility] FtwbjguNEOPKCRJODDF7198-97-77 03:29:009.6[facility] RlurzogWVXSCUMMXDQL0145-04-00 03:29:000.81[facility] DlmkujeHAHMYBUCBQYJ2874-78-82 03:29:76606Cgjrzpnq [facility] MKHWNEJLVZNM6703-11-06 03:29:003.8[facility] QcnueclTWTSGQAOGNQH5405-26-82 03:29:73578Glgyynfn AfusmkzFODSIEHAEBJS1797-77-84 03:29:0014[facility] RMYLTFTLMOMC1775-62-38 03:29:99815Wxgiiizv CvvtgndSVHTZAVOYMRJS9253-35-01 03:29:00Negative *NA*(09/11/18 10:29 PM)[facility] GnzrquiLTNVGJGRKN2510-43-05 03:29:0050.9[facility] EjbguzeSDPZCPTMDW7103-72-29 03:29:0039.5[facility] UXVAGLNDYY7131-91-46 03:29:000.8[facility] SjfydxgBVSGKHNWZC5048-62-58 03:29:004.4 [facility] LgwfkygOGAIZQJXQX8016-33-55 03:29:006.2[facility] HermannHEMATOLOGY 2018-09-12 03:29:002.6[facility] GcnsicaONRSMZNASQ9898-48-99 03:29:000.2[facility] RibdppfTWTLQHDTCP8488-59-48 03:29:000.1[facility] CrponwySWUKVRYKOJ2229-98-58 03:29:003.4[facility] ZbmukgpGFMLKSZZJG6138-73-45 03:29:000.5[facility] XBTFBCOJPT0109-47-24 03:29:0033.3[facility] AxezwpeSWHHNIAHNT6255-07-25 03:29:00 12.4[facility] UizgtcoOSXACPFSLH1715-12-51 03:29:54397Wikwkybn HermannHEMATOLOGY 2018-09-12 03:29:008.0[facility] KazwcyxOZLGDVKIWS0379-54-67 03:29:008.6[facility] RdtfuvsGGONKHRHCB0014-45-31 03:29:004.41[facility] UiswrvoMYXHPNFSSP0097-33-29 03:29:0039.8[facility] GmwcqrvTWRYEOAEXS6082-54-29 03:29:0013.3[facility] AUHRQYESSZ4777-01-70 03:29:0090.2[facility] DjqpnffRQYTCFZKHI3359-70-71 03:29:00 Test Item Value Reference Range Interpretation Comments MCH (test code = MCH) 30.1 pg 27.0-31.0 [facility] RNHNR0224-74-52 03:29:000.2[facility] BYWWF1588-66-95 03:29:00Negative (09/11/18 10:29 PM)[facility] HNQTG1749-63-14 03:29:00Negative (09/11/18 10:29 PM)[facility] VDTSC2570-68-58 03:29:00Negative (09/11/18 10:29 PM)[facility] ERXWB8405-92-08 03:29:00Negative *NA*(09/11/18 10:29 PM)[facility] PVJDY9486-02-39 03:29:00Negative *NA*(09/11/18 10:29 PM)[facility] XUYXL8366-00-87 03:29:00Negative (09/11/18 10:29 PM)[facility] SBZSN3276-43-34 03:29:00 Test Item Value Reference Range Interpretation Comments UA pH (test code = UA pH) 6.5 1 5.0-8.0 [facility] HJKNT1039-85-73 03:29:00 Test Item Value Reference Range Interpretation Comments UA Spec Grav (test code = UA Spec 1.020 1 Grav) [facility] ICNUF4268-73-71 03:29:00Turbid *ABN*(09/11/18 10:29 PM) [facility] FENQE5583-66-04 03:29:00Yellow *NA*(09/11/18 10:29 PM) [facility] TzmhtyaCOSYFWREQHQW3791-14-06 09:57:009.7[facility] HermannELECTROLYTES 2018-08-31 09:57:00 Test Item Value Reference Range Interpretation Comments A/G Ratio (test code = A/G Ratio) 0.8 1 0.7-1.6 [facility] PsminupPHYKQZXAXVKQ9271-52-70 09:57:003.1[facility] HermannELECTROLYTES 2018-08-31 09:57:00 Test Item Value Reference Range Interpretation Comments B/C Ratio (test code = B/C Ratio) 12 1 12-04 [facility] HdpuukzYEOLYHFHVCIA2950-47-31 09:57:0096[facility]annELECTROLYTES 2018-08-31 09:57:0036[facility] MamoqpwATSTYDOTXAHU0188-17-56 09:57:83728Pangacvl IurpzebIJSATUIUBTGT0193-19-15 09:57:0027[facility] OtcsnxsALXLEFVEHZHH6923-97-94 09:57:005.6[facility] QhnbufmHXZRCKZLHKXO6998-39-77 09:57:008.4[facility] QVTSUHUQMMBG3345-60-83 09:57:003.7[facility] JncwtqbXCVJXGOCJZUN5394-13-02 09:57:96504Ndpbixgq CuwfjntAFABNIHSJYVH7603-20-32 09:57:000.74[facility] ZLHLOAQDBWBM6402-15-00 09:57:009[facility] CrdpazfRKGENMRGKCUF0694-56-21 09:57:00 42[facility] QzfwitkHGYYTBNKFALB2308-71-67 09:57:002.5[facility] HermannELECTROLYTES 2018-08-31 09:57:000.4[facility] LjrzeaxBCHLMQFZOSRN4918-36-09 09:57:0060[facility] BnfpaalGCOXGACCBLGY8616-52-37 09:57:94075Eihvsklc WfdpbweNKUJCPMPIR1903-24-29 09:57:005.1[facility] QxdanraEFHTYISPMF0756-74-08 09:57:001.5[facility] GQYAJBSSQQ9562-42-72 09:57:000.5[facility] TtgdjwcUVLKFXIHDG3622-91-20 09:57:000.1 [facility] TmhfqnlMZMYTAWKOS6999-35-85 09:57:000.4[facility] HermannHEMATOLOGY 2018-08-31 09:57:0021.2[facility] MkgnerbXGRDXVRTBO3398-40-25 09:57:006.7[facility] SxpduljSUIHWGWRLK4220-34-48 09:57:0071.6[facility] RhlemfeRUMJFWUZTJ4565-46-70 09:57:0012.5[facility] XdnswvmDJEORBJOZI9313-77-98 09:57:88194Tigmkbzp [facility] HJNVSFURPV1347-95-01 09:57:008.6[facility] SbqqkzrSUWAHHHTSG3345-89-45 09:57:00 33.0[facility] KkicxmgWBDHQIMBBA2819-08-38 09:57:0011.9[facility] HermannHEMATOLOGY 2018-08-31 09:57:0036.0[facility] InneombOSSNNXIIYS2055-34-56 09:57:0090.5[facility] BsyxumpWIVJAPAKAR3023-47-82 09:57:00 Test Item Value Reference Range Interpretation Comments MCH (test code = MCH) 29.9 pg 27.0-31.0 [facility] ZfdjvplAEQFCNVLLU2727-03-14 09:57:003.98[facility]annHEMATOLOGY 2018-08-31 09:57:007.1[facility]annSPECIAL FJZWHSFZU2395-77-12 20:46:0012.0 [facility]annCHEM FVFJX0167-51-21 01:05:002.0[facility]annCHEM PANEL 2018-08-29 01:05:001.5[facility]annCHEM JYHOH5655-01-32 01:05:15534Cymiepdm HermannCHEM IGITO5109-44-84 01:05:0060[facility]annCHEM UFQDO0158-49-81 01:05:0036[facility]annCHEM JPOPA9649-43-41 01:05:00 Test Item Value Reference Range Interpretation Comments A/G Ratio (test code = A/G Ratio) 0.9 1 0.7-1.6 [facility]annCHEM JVJRR1237-12-38 01:05:004.2[facility]annCHEM PANEL 2018-08-29 01:05:007.9[facility]annCHEM CWLXD7114-17-99 01:05:003.7[facility]annCHEM NTTFY6991-96-87 01:05:000.4[facility]annCHEM DVIDC8086-21-17 01:05:0028[facility]annCHEM MGOKG9038-89-58 01:05:0080[facility]annCHEM MCEZP5597-10-26 01:05:003.0[facility]annCHEM MFHPR4990-04-38 01:05:91299 [facility]annCHEM LTAZT2292-98-41 01:05:00 Test Item Value Reference Range Interpretation Comments B/C Ratio (test code = B/C Ratio) 5 1 6-25 [facility]CHE[facility] VYFKL3844-88-01 01:05:009.1[facility]annCHEM PANEL 2018-08-29 01:05:0022[facility]annCHEM YSPOC9159-53-11 01:05:85875Yemgdgbh HermannCHEM AGKHW0279-28-58 01:05:0011.0[facility]annCHEM NBPHG1610-03-37 01:05:001.10[facility]annCHEM YZXCR9030-50-98 01:05:006[facility]annCHEM KZURI3689-80-33 01:05:21730Oxuowqxh KlsonzzOJQIAYDRTBEVB6272-03-49 01:05:00 Negative *NA*(08/28/18 8:05 PM)[facility] HjhmvtrLBMSKWFSNZ6865-84-77 01:05:0067.0 [facility] HytsqcbKENHMJPBTT0162-28-01 01:05:0025.3[facility]annHEMATOLOGY 2018-08-29 01:05:000.1[facility] HwdhkumHREQRWNMRX2201-17-33 01:05:002.6[facility] ArtuenlFJYKPIEVAO9023-04-41 01:05:000.6[facility] MqeiomhGQKZHLCDXW1387-29-87 01:05:000.7[facility] HrwtmmpZNCZCHCSAX9653-29-59 01:05:007.0[facility] [place] PWMRBSQVGZ1847-59-22 01:05:000.1[facility] GeosdjsBGSUASXUUR7369-89-22 01:05:000.7 [facility] GvstcfhNCPGFBQOMM3791-55-60 01:05:006.4[facility]annHEMATOLOGY 2018-08-29 01:05:005.16[facility] FmqqwqnNKWFBUBHVF9559-06-19 01:05:0015.7[facility] OxcnumuZKKZRUKUGP9558-33-37 01:05:0010.4[facility] ZhzlmntHNBOCAGRXL4062-77-22 01:05:00 Test Item Value Reference Range Interpretation Comments MCH (test code = MCH) 30.4 pg 27.0-31.0 [facility] BadckujDGSWDOLRCL8327-61-76 01:05:0012.5[facility]annHEMATOLOGY 2018-08-29 01:05:56649Xgxlwsyx RudnugdRBYCINIXAT7745-70-40 01:05:008.8[facility] SzyjdzmUJVYPELOCE2044-65-59 01:05:0034.2[facility] EohjkgrCFFYEQPVFI8448-23-48 01:05:0089.1[facility] BuirqwbZHWVBMWDOJ8430-05-16 01:05:0046.0[facility] URINE AND SFRKC0596-89-44 01:05:004[facility]annURINE AND ONDTO8850-37-75 01:05:001[facility] AND TVBWY3248-46-59 01:05:00Moderate *ABN*(08/28/18 8:05 PM)[facility] SHKVT9360-59-95 01:05:00Negative *NA*(08/28/18 8:05 PM)[facility] RHYLK1520-78-45 01:05:00Negative (08/28/18 8:05 PM)[facility] JTDYT6773-65-58 01:05:00Small *ABN*(08/28/18 8:05 PM)[facility] DWOWS5863-92-13 01:05:00Negative (08/28/18 8:05 PM)[facility] BITSZ0578-81-82 01:05:00 Test Item Value Reference Range Interpretation Comments UA Spec Grav (test code = UA Spec 1.037 1 Grav) [facility] XNLXQ4652-27-33 01:05:00 Test Item Value Reference Range Interpretation Comments UA pH (test code = UA pH) 6.0 1 5.0-8.0 [facility] DCANN0660-76-96 01:05:00Slight *ABN*(08/28/18 8:05 PM) [facility] XCYAS2175-13-12 01:05:00Yellow *NA*(08/28/18 8:05 PM) [facility]
--- NOTE | 2020-11-06 15:45 | ER ---
Nurse's Notes [facility] Name: Asia Cole Age: 50 yrs Sex: Female : 1970 Arrival Date: 11/06/2020 Time: 14:25 Bed 6 Private MD: Diagnosis: Candidiasis of vulva and vagina Presentation: 11/06 14:39 Chief complaint: Patient states: Vaginal rash with itching for 1-2 months. No fever. + ll1 nausea. Coronavirus screen: Client denies travel out of the [place] in the last 14 days. At this time, the client does not indicate any symptoms associated with coronavirus-19. Ebola Screen: Patient denies travel to an Ebola-affected area in the 21 days before illness onset. Initial Sepsis Screen: Does the patient meet any 2 criteria? HR > 90 bpm. No. Patient's initial sepsis screen is negative. Does the patient have a suspected source of infection? Yes: Other: vaginal rash/itching. Risk Assessment: Do you want to hurt yourself or someone else? Patient reports no desire to harm self or others. Onset of symptoms was September 06, 2020. 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 Client reports receiving the 1st dose of the Covid vaccine. - Social history:: Smoking status: Reported history of juuling and/or vaping. Patient denies any tobacco usage or history of. Screenin:20 Abuse screen: Denies threats or abuse. Denies injuries from another. Nutritional ca1 screening: No deficits noted. Tuberculosis screening: No symptoms or risk factors identified. Fall Risk None identified. Assessment: 15:20 General: Appears in no apparent distress. comfortable, Behavior is calm, cooperative, ca1 appropriate for age. Pain: Complains of pain in groin Pain currently is 10 out of 10 on a pain scale. Pain began 1 week. Neuro: Level of Consciousness is awake, alert, obeys commands, Oriented to person, place, time, situation. : on labia at vaginal opening whitish, yeast looking secretions around groin area. Derm: Skin is intact, is healthy with good turgor, Skin is pink, warm \T\ dry. Musculoskeletal: Circulation, motion, and sensation intact. Capillary refill < 3 seconds. Vital Signs: 14:39 BP 141 / 87; Pulse 100; Resp 16; Temp 98.4; Pulse Ox 99% ; Weight 63.5 kg; Height 4 ft. ll1 6 in. (137.16 cm); Pain 10/10; 14:39 Body Mass Index 33.76 (63.50 kg, 137.16 cm) ll1 ED Course: 14:25 Patient arrived in ED. bp1 14:42 Triage completed. ll1 14:43 Arm band placed on. ll1 15:16 Rey Robles PA is PHCP. jr8 15:16 Andrea Zendejas MD is Attending Physician. jr8 15:16 Patrica Pillai, RITO is Primary Nurse. ca1 15:20 Patient has correct armband on for positive identification. Placed in gown. Bed in low ca1 position. Call light in reach. Side rails up X 1. Pulse ox on. NIBP on. Warm blanket given. 15:56 No provider procedures requiring assistance completed. Patient did not have IV access ca1 during this emergency room visit. Administered Medications: No medications were administered Outcome: 15:45 Discharge ordered by . jr8 15:56 Discharged to home ambulatory. ca1 15:56 Condition: stable 15:56 Discharge instructions given to patient, Instructed on discharge instructions, follow up and referral plans. medication usage, Demonstrated understanding of instructions, follow-up care, medications, Prescriptions given X 1. 15:57 Patient left the ED. ca1 Signatures: Rey Robles PA PA 8 Patrica Pillai RN RN ca1 Mary Acevedo RN RN ll1 Mary Jo Finney bp1
--- NOTE | 2020-11-06 15:45 | EDPHYS ---
Physician Documentation [facility] Name: Asia Cole Age: 50 yrs Sex: Female : 1970 Arrival Date: 11/06/2020 Time: 14:25 Bed 6 Private MD: ED Physician Andrea Zendejas HPI: 11/07 09:15 This 50 yrs old Female presents to ER via Ambulatory with complaints of Rash. jr8 09:16 The patient presents with vaginal itching . Onset: The symptoms/episode began/occurred jr8 gradually. Modifying factors: The symptoms are alleviated by nothing, the symptoms are aggravated by movement, walking. Associated signs and symptoms: The patient has no apparent associated signs or symptoms. Severity of symptoms: At their worst the symptoms were moderate, in the emergency department the symptoms are unchanged. The patient has not experienced similar symptoms in the past. The patient has not recently seen a physician. 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 Client reports receiving the 1st dose of the Covid vaccine. - Social history:: Smoking status: Reported history of juuling and/or vaping. Patient denies any tobacco usage or history of. ROS: 11/07 09:16 Constitutional: Negative for fever, chills, and weight loss. jr8 : Positive for vaginal itching, Negative for urinary symptoms, vaginal bleeding, vaginal discharge. All other systems are negative. Exam: 09:16 Constitutional: This is a well developed, well nourished patient who is awake, alert, jr8 and in no acute distress. Cardiovascular: Regular rate and rhythm with a normal S1 and S2. No gallops, murmurs, or rubs. Normal PMI, no JVD. No pulse deficits. Respiratory: Lungs have equal breath sounds bilaterally, clear to auscultation and percussion. No rales, rhonchi or wheezes noted. No increased work of breathing, no retractions or nasal flaring. Abdomen/GI: Soft, non-tender, with normal bowel sounds. No distension or tympany. No guarding or rebound. No evidence of tenderness throughout. Skin: Warm, dry with normal turgor. Normal color with no rashes, no lesions, and no evidence of cellulitis. MS/ Extremity: Pulses equal, no cyanosis. Neurovascular intact. Full, normal range of motion. Neuro: Awake and alert, GCS 15, oriented to person, place, time, and situation. Motor strength 5/5 in all extremities. Sensory grossly intact. 09:16 : Pelvic Exam: External exam: no appreciated Bartholin's cyst, not excoriated, no evidence of foreign body, no lesions, no ulcerations, no warts seen, Patient has diffuse erythema with white film like discharge to both labial region consistent with candidiasis , the nurse was present for the exam. Vital Signs: 11/06 14:39 BP 141 / 87; Pulse 100; Resp 16; Temp 98.4; Pulse Ox 99% ; Weight 63.5 kg; Height 4 ft. ll1 6 in. (137.16 cm); Pain 10/10; 14:39 Body Mass Index 33.76 (63.50 kg, 137.16 cm) ll1 MDM: 15:21 Patient medically screened. jr8 15:43 Data reviewed: vital signs, nurses notes, and as a result, I will discharge patient. jr8 Data interpreted: Pulse oximetry: on room air is 99 %. Interpretation: normal. Counseling: I had a detailed discussion with the patient and/or guardian regarding: the historical points, exam findings, and any diagnostic results supporting the discharge/admit diagnosis, the need for outpatient follow up, a family practitioner, to return to the emergency department if symptoms worsen or persist or if there are any questions or concerns that arise at home. Administered Medications: No medications were administered Disposition: 16:38 Co-signature as Attending Physician, Andrea Zendejas MD I agree with the assessment and kdr plan of care. Disposition: 11/06/20 15:45 Discharged to Home. Impression: Candidiasis of vulva and vagina. - Condition is Stable. - Discharge Instructions: Vaginal Yeast Infection, Adult. - Prescriptions for Fluconazole 150 mg Oral Tablet - take 1 tablet by ORAL route Day 1 Then another 150mg tablet on Day 4; 2 tablet. - Medication Reconciliation Form, Thank You Letter, Antibiotic Education, Prescription Opioid Use form. - Follow up: Private Physician; When: 2 - 3 days; Reason: Recheck today's complaints, Continuance of care, Re-evaluation by your physician. - Problem is new. - Symptoms have improved. Signatures: Andrea Zendejas MD MD [facility] Rey Robles PA PA jr8 Patrica Pillai RN RN ca1 Mary Acevedo RN RN ll1 Corrections: (The following items were deleted from the chart) 15:57 15:45 11/06/2020 15:45 Discharged to Home. Impression: Candidiasis of vulva and vagina. ca1 Condition is Stable. Forms are Medication Reconciliation Form, Thank You Letter, Antibiotic Education, Prescription Opioid Use. Follow up: Private Physician; When: 2 - 3 days; Reason: Recheck today's complaints, Continuance of care, Re-evaluation by your physician. Problem is new. Symptoms have improved. jr8
[2020-11-06 16:07] VITALS: BP 141/87; TEMP 98.4; O2SAT 99
== END 2020-11-06 15:57 | disposition home or self-care (01) ==
LOC: ER 14:22
DX: B37.3 Candidiasis of vulva and vagina (principal); Z88.8 Allergy status to other drugs, medicaments and biological substances
CPT/HCPCS: 99283

== ENCOUNTER 2022-06-14 12:56 | Emergency (ER) | payer SELFPAY ==
--- OUTSIDE RECORDS SUMMARY | 2022-06-14 13:05 | XMS REPORT | Continuity of Care Document ---
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 FLUCELVAX QUAD PF 2017-06-[address] 00:[facility]:00 Hospital Vital Signs Vital Name Observation Time Observation Value Comments Source Systolic blood 2022-03-05 13:16:09 146 mm[Hg] [facility] Hospital pressure Diastolic blood 2022-03-05 13:16:09 80 mm[Hg] [facility] pressure Heart rate 2022-03-05 13:16:09 68 /min [facility] Body temperature 2022-03-05 13:16:09 36.78 Lianet [facility] Respiratory rate 2022-03-05 13:16:09 16 /min [facility] Oxygen saturation in 2022-03-05 13:16:09 96 /min [facility] Arterial blood by Pulse oximetry Body height 2022-03-02 07:05:00 137.2 cm [facility] Body weight 2022-03-02 07:05:00 77.1 kg [facility] BMI 2022-03-02 07:05:00 40.98 kg/m2 [facility] Respitory Rate 2020-10-03 22:29:00 Memori al [place] Systolic (mm Hg) 2020-10-03 22:29:00 Luis rial [place] Diastolic (mm Hg) 2020-10-03 22:29:00 Mem orial [place] Respitory Rate 2020-10-03 20:21:00 Memori al [place] Systolic (mm Hg) 2020-10-03 20:21:00 Luis rial [place] Diastolic (mm Hg) 2020-10-03 20:21:00 Mem orial [place] Systolic (mm Hg) 2020-10-03 20:16:00 Luis rial [place] Diastolic (mm Hg) 2020-10-03 20:16:00 Mem orial [place] Height 2020-10-03 19:29:00 [facility] Calculated 2020-10-03 19:29:00 [facility] [place] Weight 2020-10-03 19:29:00 [facility] [place] Heart Rate 2020-10-03 19:29:00 [facility] [place] Respitory Rate 2020-10-03 19:29:00 Mem[facility] al [place] Heart Rate 2020-04-15 08:10:00 [facility] [place] Systolic (mm Hg) 2020-04-15 08:10:00 Luis rial [place] Diastolic (mm Hg) 2020-04-15 08:10:00 Mem orial [place] Heart Rate 2020-04-15 06:05:00 [facility] [place] Systolic (mm Hg) 2020-04-15 06:05:00 Luis rial [place] Diastolic (mm Hg) 2020-04-15 06:05:00 Mem orial [place] Height 2020-04-15 00:45:00 144.78 cm [facility] [place] BMI Calculated 2020-04-15 00:45:00 Memori al [place] Weight 2020-04-15 00:45:00 [facility] [place] Systolic (mm Hg) 2020-04-15 00:45:00 Luis rial [place] Diastolic (mm Hg) 2020-04-15 00:45:00 Mem orial [place] Heart Rate 2020-04-15 00:45:00 [facility] [place] Respitory Rate 2020-04-15 00:45:00 Memori al [place] Temperature Oral (F) 2020-04-15 00:45:00 98.2 F [facility] [place] Respitory Rate 2020-03-03 18:46:00 Memori al [place] Systolic (mm Hg) 2020-03-03 18:46:00 Luis rial [place] Diastolic (mm Hg) 2020-03-03 18:46:00 Mem orial [place] Temperature Oral (F) 2020-03-03 18:46:00 98.1 F [facility] [place] Respitory Rate 2020-03-03 16:58:00 [facility] [place] Systolic (mm Hg) 2020-03-03 16:58:00 Luis rial [place] Diastolic (mm Hg) 2020-03-03 16:58:00 Mem orial [place] Respitory Rate 2020-03-03 15:19:00 Memori al [place] Systolic (mm Hg) 2020-03-03 15:19:00 Luis rial [place] Diastolic (mm Hg) 2020-03-03 15:19:00 Mem orial [place] Height 2020-03-03 14:34:00 167.64 cm [facility] [place] BMI Calculated 2020-03-03 14:34:00 [facility] [place] Weight 2020-03-03 14:34:00 [facility] [place] Heart Rate 2020-03-03 14:34:00 [facility] [place] Temperature Oral (F) 2020-03-03 14:34:00 99.1 F [facility] [place] Temperature Oral (F) 2018-09-12 08:06:00 97.8 F [facility] [place] Heart Rate 2018-09-12 08:06:00 [facility] [place] Respitory Rate 2018-09-12 08:06:00 [facility] [place] Systolic (mm Hg) 2018-09-12 08:06:00 Luis rial [place] Diastolic (mm Hg) 2018-09-12 08:06:00 Mem orial [place] Systolic (mm Hg) 2018-09-12 06:52:00 Luis rial [place] Diastolic (mm Hg) 2018-09-12 06:52:00 Mem orial [place] Respitory Rate 2018-09-12 06:52:00 Memori al [place] Heart Rate 2018-09-12 06:52:00 [facility] [place] Respitory Rate 2018-09-12 03:17:00 [facility] [place] Systolic (mm Hg) 2018-09-12 03:17:00 Luis rial [place] Diastolic (mm Hg) 2018-09-12 03:17:00 Mem orial [place] Heart Rate 2018-09-12 03:17:00 [facility] [place] Temperature Oral (F) 2018-09-12 03:17:00 98.0 F [facility] [place] Heart Rate 2018-08-31 17:24:00 [facility] [place] Respitory Rate 2018-08-31 17:24:00 [facility] [place] Systolic (mm Hg) 2018-08-31 17:24:00 Luis rial [place] Diastolic (mm Hg) 2018-08-31 17:24:00 Mem orial [place] Temperature Oral (F) 2018-08-31 17:24:00 97.8 F [facility] [place] Temperature Oral (F) 2018-08-31 12:55:00 97.8 F [facility] [place] Heart Rate 2018-08-31 12:55:00 [facility] [place] Systolic (mm Hg) 2018-08-31 12:55:00 Luis rial [place] Diastolic (mm Hg) 2018-08-31 12:55:00 Mem orial [place] Respitory Rate 2018-08-31 12:55:00 [facility] [place] Respitory Rate 2018-08-31 06:38:00 Mónica gorman [place] Temperature Oral (F) 2018-08-31 00:59:00 98.3 F [facility] [place] Systolic (mm Hg) 2018-08-31 00:59:00 Luis rial [place] Diastolic (mm Hg) 2018-08-31 00:59:00 [facility] orial [place] Heart Rate 2018-08-31 00:59:00 [facility] [place] Height 2018-08-29 11:00:00 144.78 cm [facility] [place] Weight 2018-08-29 11:00:00 [facility] [place] BMI Calculated 2018-08-29 11:00:00 Germáncarmina al [place] Weight 2018-08-29 00:59:00 [facility] [place] Height 2018-08-29 00:59:00 144.78 cm [facility] [place] BMI Calculated 2018-08-29 00:59:00 Memcarmina al [place] Procedures Procedure Date / Time Performing Clinician Source Performed POC GLUCOSE 2022-03-05 17:10:00 Tracy Posadas [facility]ital POC GLUCOSE 2022-03-05 13:12:00 Tracy Posadas [facility] BASIC METABOLIC PANEL 2022-03-05 12:32:00 [facility] WITH PLATELET AND 2022-03-05 12:32:00 Rafi [facility] DIFFERENTIAL ESTIMATED GFR 2022-03-05 12:32:00 Yuli Mckee Ho spital POC GLUCOSE 2022-03-05 01:21:00 Tracy Posadas [facility] spital POC GLUCOSE 2022-03-04 22:09:00 Tracy Posaads [facility] spital POC GLUCOSE 2022-03-04 16:53:00 Tracy Posadas [facility] POC GLUCOSE 2022-03-04 13:22:00 Tracy Posdaas [facility]ital BASIC METABOLIC PANEL 2022-03-04 12:05:00 Rafi [facility] CBC WITH PLATELET AND 2022-03-04 12:05:00 Rafi [facility] DIFFERENTIAL ESTIMATED GFR 2022-03-04 12:05:00 Yuli Mckee venkateshtal US DUPLEX VENOUS UPPER 2022-03-04 02:14:00 Tracy Posadas [facility] EXTREMITY BILATERAL POC GLUCOSE 2022-03-04 01:54:00 Tracy Posadas [facility] POC GLUCOSE 2022-03-03 21:05:00 Tracy Posadas spital BLOOD CULTURE, AEROBIC & 2022-03-03 18:06:00 Tracy Posadas [facility] [place] ANAEROBIC POC GLUCOSE 2022-03-03 16:42:00 Tracy Posadas spital POC GLUCOSE 2022-03-03 [facility] 11:21:00 [facility] IGG ANTIBODY TITER BASIC METABOLIC PANEL 2022-03-03 11:21:00 Yuli Mckee [facility] CBC WITH PLATELET AND 2022-03-03 11:21:00 Yuli Mckee [facility] DIFFERENTIAL COD-19 SEROLOGY 2022-03-03 11:21:00 Farhan Vasquez [facility] PATIENT SURVEILLANCE ESTIMATED GFR 2022-03-03 11:21:00 Yuli Mckee spital POC GLUCOSE 2022-03-03 01:53:00 [facility] POC GLUCOSE 2022-03-02 23:48:00 [facility] POC GLUCOSE 2022-03-02 22:52:00 [facility] POC GLUCOSE 2022-03-02 18:04:00 [facility] POC GLUCOSE 2022-03-02 13:51:00 [facility] BASIC METABOLIC PANEL 2022-03-02 11:46:00 Yuli Mckee [facility] CBC WITH PLATELET AND 2022-03-02 11:46:00 Yuli Mckee [facility] DIFFERENTIAL ESTIMATED GFR 2022-03-02 11:46:00 Yuli Mckee Ho spital ESTIMATED GFR 2022-03-02 11:44:00 Yuli Mckee spital C-REACTIVE PROTEIN 2022-03-02 11:02:00 Hina Aranda [facility] POC GLUCOSE 2022-03-02 06:00:00 Beth Jackson [facility] POC GLUCOSE 2022-03-02 05:23:00 Beth Jackson [facility] POC GLUCOSE 2022-03-02 01:21:00 Beth Jackson [facility] COVID-19 QUALITATIVE 2022-03-02 00:46:00 [facility] RENAL STONE PROTOCOL 2022-03-01 22:20:45 [facility] [place] URINE CULTURE 2022-03-01 20:01:00 [facility] CBC WITH PLATELET AND 2022-03-01 19:39:00 [facility] DIFFERENTIAL COMPREHENSIVE METABOLIC 2022-03-01 19:39:00 [facility] PANEL LIPASE LEVEL 2022-03-01 19:39:00 [facility] HCG QUALITATIVE, SERUM 2022-03-01 19:39:00 [facility] SCREEN ESTIMATED GFR 2022-03-01 19:39:00 [facility] HEMOGLOBIN A1C 2022-03-01 19:39:00 Yuli Mckee spital LIPID PANEL 2022-03-01 19:39:00 Yuli Mckee spital URINALYSIS SCREEN AND 2022-03-01 17:48:00 [facility] MICROSCOPY, WITH REFLEX TO CULTURE CT ABDOMEN PELVIS W 2022-02-03 17:04:17 [facility] CONTRAST URINE CULTURE 2022-02-03 16:08:00 [facility] AND 2022-02-03 14:41:00 [facility] MICROSCOPY, WITH REFLEX TO CULTURE CBC WITH PLATELET AND 2022-02-03 14:16:00 [facility] DIFFERENTIAL COMPREHENSIVE METABOLIC 2022-02-03 14:16:00 VicKain [facility] PANEL LIPASE LEVEL 2022-02-03 14:16:00 Vic, [facility] HCG QUALITATIVE, SERUM 2022-02-03 14:16:00 VicKain portero [facility] SCREEN ESTIMATED GFR 2022-02-03 14:16:00 [facility] of Care Planned Activity Planned Date Details Comments Source Future Scheduled 2022-06-02 Hepatitis C screening [facility] Test 08:50:50 (procedure) [code = 255272705] Future Scheduled 2022-06-02 [facility] Test 08:50:50 malignant neoplasm of cervix (procedure) [code = 794455934] Future Scheduled 2022-06-02 BRE[facility] Test 08:50:50 SCREENING [code = BREAST CANCER SCREENING] Future Scheduled 2022-06-02 COLONOSCOPY SCREENING [facility] Test 08:50:50 [code = COLONOSCOPY SCREENING] Future Scheduled 2022-06-02 SHINGLES VACCINES (1 [facility] Test 08:50:50 of 2) [code = SHINGLES VACCINES (1 of 2)] Future Scheduled 2022-06-02 COVID-19 VACCINE (4 - [facility] Test 08:50:50 Booster for Pfizer series) [code = COVID-19 VACCINE (4 - Booster for Pfizer series)] Future Scheduled COVID-19 VACCINE (1) [facility] Test [code = COVID-19 VACCINE (1)] Future Scheduled [facility] Test malignant neoplasm of cervix (procedure) [code = 275574105] Future Scheduled [facility] Test SCREENING [code = BREAST CANCER SCREENING] Future Scheduled COLONOSCOPY SCREENING [facility] Test [code = COLONOSCOPY SCREENING] Future Scheduled SHINGLES VACCINES [facility] Test (#1) [code = SHINGLES VACCINES (#1)] Future Scheduled INFLUENZA VACCINE [facility] Test [code = INFLUENZA VACCINE] Encounters Start End Encounter Admission Attending Care Care Encounter Source Date/Time Date/Time Type Type Clinicians Facility Department ID 2021-09-10 Outpatient ALVARO OJHN [id number] [place] 14:00:47 [id number] [facility] 2021-09-08 Outpatient [facility] [id number] [place] 12:35:35 [id number] [facility] 2022-03-01 2022-03-[address] [facility] 1.2.840 .1 [id number] [facility] 15:52:00 13:36:00 Encounter Beth Jackson 64024.1.[address] Triston Harden Amod 3.430.2.7 Hospita Tracy Posadas .3.186796 l .8 2022-03-01 2022-03-05 Inpatient TRACY POSADAS [facility] [id number] [place] 00:00:00 00:00:[address] 2022-03-01 2022-03-01 Travel 1.2.840.1 1.2.340.070 [id number] [facility] 00:00:00 00:00:[address] 3.430.2.7 0.2.7.3.698 Ho spita .3.310207 084.8 l .8 2022-02-14 2022-02-14 Emergency E KINZA, SE MHSE [id number] 10:50:00 15:07:00 [facility] 2022-02-03 2022-02-03 Emergency IpKaylin 1.2.840.1 [id number] [facility] 09:11:00 13:02:[address] 3.430.2.7 Hospit a .3.326854 l .8 2022-02-03 2022-02-03 Emergency KAYLIN BURNS [facility] [id number] [place] 00:00:00 00:00:[address] 2022-02-03 2022-02-03 Travel 1.2.840.1 1.2.615.456 [id number] Methodi 00:00:00 00:00:[address] 3.430.2.7 0.2.7.3.698 Ho spita .3.208443 084.8 l .8 2021-12-12 2021-12-12 Emergency [id number] 12:43:00 15:59:00 Ailyn 49 [facility] 2021-12-12 2021-12-12 Emergency EM Steph, [facility] [id number] [facility] 12:43:00 15:59:00 Ailyn [id number] [facility] 2021-12-05 2021-12-05 Emergency EM Barber, [facility] NCER [id number] [facility] 19:30:00 22:45:00 Isidoro 35 [facility] 2021-12-05 2021-12-05 Emergency [facility] [id number] [facility] 19:30:00 19:30:00 Isidoro [id number] [facility] 2021-06-02 2021-06-02 Emergency EM Gisselle, [facility] [id number] [facility] 10:03:00 10:54:00 Mio 10 [facility] 2021-05-19 2021-05-[address] [facility] NCER [id number] [facility] 13:18:00 14:35:00 76 [facility] 2021-05-19 2021-05-19 Outpatient Miguel Batista [facility] LABO [id number] [facility] 14:01:00 14:01:00 05 [facility] 2021-03-30 2021-03-30 Outpatient Young_J MMG MMG [id number] [place] 01:19:00 01:19:00 [facility] 2021-03-24 2021-03-[address] [facility] NCER [id number] [facility] 21:58:00 16:59:00 Mia 53 [facility] 2021-03-17 2021-03-[address] [facility] NCER [id number] [facility] 13:17:00 15:33:00 Jacob 67 [facility] 2021-03-17 2021-03-17 Outpatient KRISTINE HernandezCL LABO [id number] [facility] 14:06:00 14:06:00 Jacob 01 [facility] 2021-02-09 2021-02-09 Emergency EM Jamee, [facility] NCER [id number] [facility] 12:41:00 13:38:00 Vitaliy 31 [facility] 2021-02-06 2021-02-06 Emergency EM Gisselle, [facility] NCER [id number] [facility] 09:23:00 12:09:00 Mio 77 [facility] 2021-02-05 2021-02-05 Emergency EM Jamee, [facility] NCER [id number] [facility] 14:28:00 19:30:00 Vitaliy 37 [facility] 2020-12-03 2020-12-03 Emergency EM Kandis, [facility] NCER [id number] [facility] 16:35:00 19:46:00 Cesilia 73 [facility] 2020-10-03 2020-10-03 Emergency [facility] [id number] [facility] 19:27[facility] 22:35:00 [place] [address] l [facility] 2020-10-03 2020-10-03 Emergency E JESSICA, MHCY MHCY 7504 MHCY 14:27:00 17:35:00 ANGELICA 2020-09-23 2020-09-23 Outpatient Young_J MMG G [id number] [place] 01:18:00 01:18:00 0414 [facility] 2020-09-17 2020-09-17 Outpatient Young_J MMG MMG [id number] [place] 01:02:00 01:02:00 0408 [facility] 2020-09-15 2020-09-15 Outpatient Young_J MMG MMG [id number] [place] 05:17:00 05:17:00 0406 [facility] Group 2020-08-23 2020-08-23 Outpatient Young_J MMG MMG [id number] [place] 01:05:00 01:05:00 0314 Medical Group 2020-07-19 2020-07-19 Outpatient Young_J MMG MMG [id number] [place] 01:06:00 01:06:00 0207 [facility] 2020-07-17 2020-07-17 Outpatient Young_J MMG G [id number] [place] 11:32:00 11:32:00 0205 [facility] 2020-06-16 2020-06-16 Outpatient Obisesan_ad MEHOP MEHOP [id number] [place] 11:10:00 11:10:00 ekunbi 46299 [facility] 2020-04-15 2020-04-15 Emergency [facility] [id number] Memoria 00:41:10 08:18:00 jose manuel Corrigan 03 [facility] 2020-04-14 2020-04-15 Emergency E AYAKA, MHSE MHSE [id number] MH 18:41:00 02:18:00 [facility] 2020-04-07 2020-04-07 Outpatient AMBREEN_FAR PAHOP PAHOP [id number] [place] 12:01:00 12:01:00 HANA 99914 [facility] 2020-03-03 2020-03-03 Emergency [facility] [id number] Memoria 14:30:08 18:52:00 jose manuel Corrigan 02 l [facility] 2020-03-03 2020-03-03 Emergency E CY, MHSE MHSE [id number] MH 09:30:00 13:52:00 [facility] 2020-01-16 2020-01-16 Outpatient AMBREEN_FAR PAHOP [facility] [id number] [place] 10:06:00 10:06:00 HANA 23291 [facility] 2018-09-12 2018-09-12 Emergency [facility] [id number] Memoria 02:54:00 08:32:00 jose manuel Corrigan 01 l [facility] 2018-08-29 2018-08-31 Inpatient [facility] [id number] Memoria 00:50:00 19:30:00 jose manuel Corrigan 00 l [facility] 2018-04-20 2018-04-20 Outpatient GAVIN Myles [facility] [id number] [facility] 13:00:00 13:00:00 [facility] 2018-04-07 2018-04-07 Outpatient GAVIN Alicea [facility] [id number] [facility] 08:00:00 08:00:00 [facility] georgie Cage 2018-03-20 2018-03-20 Outpatient GAVIN Myles [facility] [id number] [facility] 13:30:00 13:30:00 [facility] georgie Cage Results Test Description Test Time Test Comments Results Result Comments Source POC glucose 2022-03-05 17:15:00 Test Item Value Reference Range Interpretation Comme nts POC glucose (test code = 83753-5) 242 mg/dL 65-100 H Hvac Operations Technician Name: Galileo Byers ID : [id number] Lab Interpretation (test code = Abnormal 15830-2) [facility] RNA [Presence] in Respiratory specimen by WHITNEY with probe [id number] 01:42:51 Test Item Value Reference Range Interpretation Comments SARS-CoV-2 (COVID-19) RNA Not detected [Presence] in Respiratory specimen by WHITNEY with probe detection (test code = 91276-2) Whether patient is employed in a Unknown healthcare setting (test code = 18596-9) Whether the patient has symptoms Unknown related to condition of interest (test code = 96008-0) Whether the patient was Unknown hospitalized for condition of interest (test code = 01358-1) Whether the patient was admitted Unknown to intensive care unit (ICU) for condition of interest (test code = 53899-6) Whether patient resides in a Unknown congregate care setting (test code = 93671-5) status (test code = Unknown 10758-2) Date and time of symptom onset Unknown (test code = 01529-0) [facility] ABD PELVIS [id number] 15:13:00 [facility])Name: DAVID BRANDT : 1970 Sex: F Name: DAVID BRANDT [facility] FSED : 1970 Age/S: 51 / F [address] [facility]: [id number] Loc: [address] Phys: Ailny Choi MD [place], [place] [address] Acct: [id number] Dis Date: Status: REG ER PHONE #: Exam Date: 12/12/2021 4590 FAX #: Reason: ABD PAIN N/V EXAMS: CPT CODE: [id number] CT ABD PELVIS W/CONT 03286 REASON FOR EXAM: ABD PAIN N/V EXAM ORDER DATE: 12/12/2021 1:49 PM Ordering M.D.: Ailyn Choi MD PROCEDURE: Axial CT images were acquired through the abdomen/pelvis at 5 mm intervals. Sagittal and coronal reformatted images were generated. CT dose reduction protocol: Automated exposure control adjustment of mA and/or kV according topatient size or iterative reconstruction dose optimization techniques were used. Phases of contrast:venous and delayed COMPARISON: Abdominal CT December 05, 2021 FINDINGS: Visualized thorax: Grossly normal Hepatobiliary system: Cholecystectomy. Liver is within normal limits Pancreas: Grossly normal Spleen: Grossly normal Adrenal glands: Grossly normal Genitourinary system: There is a punctate stone in the midpole of the left kidney. No signs of obstruction Gastrointestinal tract and appendix: Antimesenteric side of a short segment of the small bowel herniates through a defect in the abdominal wall atthe umbilicus Abdominal vascular structures: Grossly normal Other: No free fluid or free air. No abnormal lymph nodes. Musculoskeletal structures and abdominal wall: Mild degenerative changes are present in the spine. There is an umbilical hernia containing the antimesenteric side of a short segment of small bowel PAGE 1 Signed Report (CONTINUED) Name: DAVID BRANDT [facility] FSED : 1970 Age/S: 51 / F [address] Unit #: [id number] Loc: [address] Phys: Ailyn Choi MD [place], [place] [address] Acct: [id number] Dis Date: Status: REG ER PHONE #: Exam Date: 12/12/2021 3555 FAX #: Reason: ABD PAIN N/V EXAMS: CPT CODE: [id number] CT ABD PELVIS W/CONT 45137 <Continued> IMPRESSION: Punctate nonobstructing stone in the midpole of the left kidney. Wheeler's hernia involving the umbilicus. Location: RR at 1513 Reported and signed by: Edson Desai MD CC: Ailyn Choi MD Technologist:Noelle Baird RT(R)(CT) CTDI: DLP: Trnscb Date/Time: 12/12/2021 (1513) [id number] Orig Print D/T: S: 12/12/2021 (3 093) PAGE 2 Signed ReportCOVID 19 INHOUSE [id number] 14:15:00 Test Item Value Reference Range Interpretation Comments COVID 19 INHOUSE AG (test code = NEGATIVE NEGATIVE [id number]) BASIC METABOLIC [id number] 14:06:00 Test Item Value Reference Range Interpretation Comments SODIUM (test code = 134 mmol/L 128-145 N NA) POTASSIUM (test code 3.6 mmol/L 3.5-5.1 N = K) CHLORIDE (test code = 99.0 mmol/L 98-107 N CL) CARBON DIOXIDE (test 26.0 mmol/L 22-29 N code = CO2) ANION GAP (test code 13 mmol/L 10-20 N = GAP) GLUCOSE (test code = 299 mg/dL 70-110 H GLU) BLOOD UREA NITROGEN 13 mg/dL 7-22 N (test code = BUN) GLOMERULAR FILTRATION > 60 mL/min See_Comment Estima roxana GFR by RATE (test code = using Sarah fied MDRD GFR) formula.Chronic kidney disease is defined as eith er kidney damageor GFR <60 mL/min/1.73 m2 for >3 months. [Automated mess age] The system zoomsquare generated this result transmitted ref erence range: >=60. Th e reference range was not used to int erpret this result as normal/abnormal . CREATININE (test code 0.78 mg/dL 0.55-1.3 N = CREAT) BUN/CREATININE RATIO 16.7 10-20 N (test code = BUN/CREA) CALCIUM (test code = 9.2 mg/dL 8.0-10.5 N CA) HEPATIC FUNCTION [id number] 14:06:00 Test Item Value Reference Range Interpretation Comments TOTAL PROTEIN (test code = PROT) 7.7 gram/dL 6.1-7.8 N ALBUMIN (test code = ALB) 3.4 g/dL 3.3-4.4 N GLOBULIN (test code = GLOB) 4.3 G/DL 1-10 N ALBUMIN/GLOBULIN RATIO (test code 0.8 0.75-1.50 N = A/G) BILIRUBIN TOTAL (test code = 0.40 mg/dL 0.2-1.2 N BILT) BILIRUBIN DIRECT (test code = 0.10 mg/dL 0.0-0.30 N BILD) SGOT/AST (test code = AST) 13 U/L 10-39 N SGPT/ALT (test code = ALT) 19 U/L 10-69 N ALKALINE PHOSPHATASE TOTAL (test 88 U/L 50-139 N code = ALKP) [id number] 14:06:00 Test Item Value Reference Range Interpretation Comments LIPASE (test code = LIP) 157 Unit/L 144-286 N CBC W/O [id number] 13:51:00 Test Item Value Reference Range Interpretation Comments WHITE BLOOD CELL (test code = 9.2 K/mm3 4.5-12.5 N WBC) RED BLOOD CELL (test code = 4.30 mill/mm3 3.7-5.2 N RBC) HEMOGLOBIN (test code = HGB) 12.7 gram/dL 11.5-15.5 N HEMATOCRIT (test code = HCT) 37.1 % 36.0-46.0 N MEAN CELL VOLUME (test code = 86.3 fL 80-98 N MCV) MEAN CELL HGB (test code = MCH) 29.5 picogram 27.0-33.0 N MEAN CELL HGB CONCETRATION 34.2 gram/dL 33.0-36.0 N (test code = MCHC) RED CELL DISTRIBUTION WIDTH 11.7 % 11.6-16.2 N (test code = RDW) RED CELL DISTRIBUTION WIDTH SD 37.5 fL 37.0-51.0 N (test code = RDW-SD) PLATELET COUNT (test code = 405 K/mm3 150-450 N PLT) MEAN PLATELET VOLUME (test code 9.7 fL 6.7-11.0 N = MPV) URINALYSIS [id number] 13:45:00 Test Item Value Reference Range Interpretation Comments UA COLOR (test code = YELLOW YELLOW COLU) UA APPEARANCE (test code HAZY CLEAR A = APPU) UA GLUCOSE DIPSTICK (test 300-500 (3+) mg/dL NEGATIVE code = DGLUU) UA BILIRUBIN DIPSTICK NEGATIVE NEGATIVE (test code = BILU) UA KETONE DIPSTICK (test 1+ mg/dL NEGATIVE code = KETU) UA SPECIFIC GRAVITY (test 1.025 1.001-1.035 code = SGU) UA BLOOD DIPSTICK (test 2+ (Moderate) NEGATIVE A code = MARLY) UA PH DIPSTICK (test code 5.5 5.0-8.0 = OSCAR) UA PROTEIN DIPSTICK (test TRACE (15) mg/dL Neg-15 code = PROU) UA UROBILINIOGEN DIPSTICK 0.2 mg/dL 0.0-0.2 (test code = URO) UA NITRITE DIPSTICK (test POSITIVE NEGATIVE code = BABAR) UA LEUKOCYTE ESTERASE NEGATIVE uL NEGATIVE DIPSTICK (test code = LEUU) UA MICROSCOPIC NEEDED? YES (test code = UAMICRO) UA WBC (test code = WBCU) 5-10 per HPF 0-5 A UA RBC (test code = RBCU) 5-10 per HPF 0-5 A UA EPITHELIAL CELLS (test Few (2-5/hpf) per Few code = EPIU) HPF UA BACTERIA (test code = MANY per HPF NONE A BACU) Indication for culture: RiskForSepsis-no oth srcUA RFLX MICR CULT IF INDICATED 2021-12-12 13:45:00 Test Item Value Reference Range Interpretation Comments UA LEUKOCYTE ESTERASE W REFLEX (test NEGATIVE NEGATIVE code = LEUUR) Indication for culture: RiskForSepsis-no oth src- CT ABD PELVIS W/[id number] 21:39:00[facility])Name: DAVID BRANDT : 1970 Sex: F Name: DAVID BRANDT [facility] FSED : 1970 Age/S: 51 / F [address] [facility] Unit #: [id number] Loc: [address] Phys: Isidroo Blandon MD [place], [place] [address] Acct: [id number] Dis Date: Status: REG ER PHONE #: Exam Date: 12/05/2021 8462 FAX #: Reason: epigastric abd pain EXAMS: CPT CODE: [id number] CT ABD PELVIS W/CONT 37465 AFTER HOURS SERVICE ON:12/05/2021 9:[address] Scan of the Abdomen and Pelvis With Contrast Location Code M12 History: epigastric abd pain Technique: Axial and reconstructed coronal scans were performed on a helical scanner post IV contrast. Delayed scans were also obtained. One or more of the following dose reduction techniques were used: Automated exposure control, adjustment of the mA and/or kV according to patient size, and/or utilization of iterative reconstruction technique. Findings: LIVER: No significant findings. GALLBLADDER/BILIARY: Cholecystectomy. PANCREAS: No significant findings. SPLEEN: No significant findings. ADRENALS: No significant findings. KIDNEYS: No hydronephrosis. BLADDER: No significant findings. G ASTROINTESTINAL: There is a 2.8 cm fat-containing ventral hernia to the right of midline above the umbilicus with a tight hernia neck measuring 4 mm but no evidence of strangulation. At the umbilicus, there is a 2.6 x 2.1 cm hernia which appears to contain a short small bowel segment also demonstrating a tight hernia neck of approximately 5 mm. There is no bowel obstruction. Remainder of the small bowel and colon are unremarkable. The appendix is unremarkable. OTHER: Uterus is unremarkable. IMPRESSION: 2.8 cm fat-containing ventral hernia to the right of midline above the umbilicus with a tight hernia neck measuring 4 mm without evidence of fat strangulation. 2.6 cm umbilical hernia containing a short small bowel segment also demonstrating a tight hernia neck measuring 5 mm. No bowel obstruction. PAGE 1 Signed Report (CONTINUED) Name: DAVID BRANDT [facility] FSED : 1970 Age/S: 51 / F [address] [facility] [address] Unit #: [id number] Loc: [address] Phys: Isidoro Blandon MD [place], [place] [address] Acct: [id number] Dis Date: Status: REG ER PHONE #: Exam Date: 12/05/20212114 FAX #: Reason: epigastric abd pain EXAMS: CPT CODE: [id number] CT ABD PELVIS W/CONT 10392 <Continued> Cholecystectomy. at 2138 Reported and signed by: Arron Licona M.D. CC: Isidoro Blandon MD Technologist:KAYLIN DEL RIO RT(R)(CT) CTDI: DLP: Trnscb Date/Time: 12/05/2021 (2138) [email or web address] Orig Print D/T: S: 12/05/2021 (2141) PAGE 2 Signed ReportBASIC METABOLIC PANEL 2021-12-05 20:20:00 Test Item Value Reference Range Interpretation Comments SODIUM (test code = 136 mmol/L 128-145 N NA) POTASSIUM (test code 4.0 mmol/L 3.5-5.1 N = K) CHLORIDE (test code 100.0 mmol/L 98-107 N = CL) CARBON DIOXIDE (test 29.2 mmol/L 22-29 H code = CO2) ANION GAP (test code 11 mmol/L 10-20 N = GAP) GLUCOSE (test code = 317 mg/dL 70-110 H GLU) BLOOD UREA NITROGEN 12 mg/dL 7-22 N (test code = BUN) GLOMERULAR > 60 mL/min See_Comment Estimated GFR b y FILTRATION RATE using Modifi ed MDRD (test code = GFR) formula.Ch ronic kidney disease is defined as eith er kidney damageor GFR <60 mL/min/1.73 m2 for >3 months. [Automated mess age] The system zoomsquare generated this result transmitted ref erence range: >=60. Th e reference range was not used to int erpret this result as normal/abnormal . CREATININE (test 0.87 mg/dL 0.55-1.3 N code = CREAT) BUN/CREATININE RATIO 13.8 10-20 N (test code = BUN/CREA) CALCIUM (test code = 9.0 mg/dL 8.0-10.5 N CA) HEPATIC FUNCTION [id number] 20:20:00 Test Item Value Reference Range Interpretation Comments TOTAL PROTEIN (test code = PROT) 7.6 gram/dL 6.1-7.8 N ALBUMIN (test code = ALB) 3.6 g/dL 3.3-4.4 N GLOBULIN (test code = GLOB) 4.0 G/DL 1-10 N ALBUMIN/GLOBULIN RATIO (test code 0.9 0.75-1.50 N = A/G) BILIRUBIN TOTAL (test code = 0.40 mg/dL 0.2-1.2 N BILT) BILIRUBIN DIRECT (test code = 0.10 mg/dL 0.0-0.30 N BILD) SGOT/AST (test code = AST) 9 U/L 10-39 L SGPT/ALT (test code = ALT) 18 U/L 10-69 N ALKALINE PHOSPHATASE TOTAL (test 89 U/L 50-139 N code = ALKP) [id number] 20:20:00 Test Item Value Reference Range Interpretation Comments LIPASE (test code = LIP) 194 Unit/L 144-286 N HCG SERUM [id number] 20:20:00 Test Item Value Reference Range Interpretation Comments HCG SERUM QUAL (test NEGATIVE NEGATIVE This HC GQL test is NOT code = HCGQL) applicable for MALE patients.Check with nurse about probable order error.If Tumor Marker Test needed, nu rse should order test "HCG TU"(Test #550.73304)---- - [id number] 20:20:00 Test Item Value Reference Range Interpretation Comments TROPONIN-HS (test 4.5 pg/mL 0-60 N CAUTION: U nits of the code = TROPI) current test m ethodology (pg/mL)differ f rom the prior test meth odology (ng/mL) by a fa ctorof 1000. CBC W/O [id number] 19:59:00 Test Item Value Reference Range Interpretation Comments WHITE BLOOD CELL (test code = 8.0 K/mm3 4.5-12.5 N WBC) RED BLOOD CELL (test code = 4.44 mill/mm3 3.7-5.2 N RBC) HEMOGLOBIN (test code = HGB) 13.2 gram/dL 11.5-15.5 N HEMATOCRIT (test code = HCT) 39.0 % 36.0-46.0 N MEAN CELL VOLUME (test code = 87.8 fL 80-98 N MCV) MEAN CELL HGB (test code = MCH) 29.7 picogram 27.0-33.0 N MEAN CELL HGB CONCETRATION 33.8 gram/dL 33.0-36.0 N (test code = MCHC) RED CELL DISTRIBUTION WIDTH 11.7 % 11.6-16.2 N (test code = RDW) RED CELL DISTRIBUTION WIDTH SD 38.2 fL 37.0-51.0 N (test code = RDW-SD) PLATELET COUNT (test code = 395 K/mm3 150-450 N PLT) MEAN PLATELET VOLUME (test code 10.1 fL 6.7-11.0 N = MPV) BASIC METABOLIC [id number] 14:39:00 Test Item Value Reference Range Interpretation Comments SODIUM (test code = 137 mmol/L 128-145 N NA) POTASSIUM (test code 3.9 mmol/L 3.5-5.1 N = K) CHLORIDE (test code 102.0 mmol/L 98-107 N = CL) CARBON DIOXIDE (test 25.0 mmol/L 22-29 N code = CO2) ANION GAP (test code 14 mmol/L 10-20 N = GAP) GLUCOSE (test code = 270 mg/dL 70-110 H GLU) BLOOD UREA NITROGEN 15 mg/dL 7-22 N (test code = BUN) GLOMERULAR > 60 mL/min See_Comment Estimated GFR b y FILTRATION RATE using Modifi ed MDRD (test code = GFR) formula.[facility] kidney disease is defined as eith er kidney damageor GFR <60 mL/min/1.73 m2 for >3 months. [Automated mess age] The system zoomsquare generated this result transmitted ref erence range: >=60. Th e reference range was not used to int erpret this result as normal/abnormal . CREATININE (test 0.74 mg/dL 0.55-1.3 N code = CREAT) BUN/CREATININE RATIO 20.3 10-20 H (test code = BUN/CREA) CALCIUM (test code = 8.0 mg/dL 8.0-10.5 N CA) HEPATIC FUNCTION [id number] 14:39:00 Test Item Value Reference Range Interpretation Comments TOTAL PROTEIN (test code = PROT) 7.7 gram/dL 6.1-7.8 N ALBUMIN (test code = ALB) 3.4 g/dL 3.3-4.4 N GLOBULIN (test code = GLOB) 4.3 G/DL 1-10 N ALBUMIN/GLOBULIN RATIO (test code 0.8 0.75-1.50 N = A/G) BILIRUBIN TOTAL (test code = 0.30 mg/dL 0.2-1.2 N BILT) BILIRUBIN DIRECT (test code = 0.10 mg/dL 0.0-0.30 N BILD) SGOT/AST (test code = AST) 14 U/L 10-39 N SGPT/ALT (test code = ALT) 15 U/L 10-69 N ALKALINE PHOSPHATASE TOTAL (test 92 U/L 50-139 N code = ALKP) URINALYSIS [id number] 14:00:00 Test Item Value Reference Range Interpretation Comments UA COLOR (test code = YELLOW YELLOW COLU) UA APPEARANCE (test code HAZY CLEAR A = APPU) UA GLUCOSE DIPSTICK (test 300-500 (3+) mg/dL NEGATIVE code = DGLUU) UA BILIRUBIN DIPSTICK NEGATIVE NEGATIVE (test code = BILU) UA KETONE DIPSTICK (test NEGATIVE mg/dL NEGATIVE code = KETU) UA SPECIFIC GRAVITY (test >=1.030 1.001-1.035 code = SGU) UA BLOOD DIPSTICK (test NEGATIVE NEGATIVE code = MARLY) UA PH DIPSTICK (test code 5.5 5.0-8.0 = OSCAR) UA PROTEIN DIPSTICK (test NEGATIVE mg/dL Neg-15 code = PROU) UA UROBILINIOGEN DIPSTICK 0.2 mg/dL 0.0-0.2 (test code = URO) UA NITRITE DIPSTICK (test POSITIVE NEGATIVE code = BABAR) UA LEUKOCYTE ESTERASE NEGATIVE uL NEGATIVE DIPSTICK (test code = LEUU) UA MICROSCOPIC NEEDED? YES (test code = UAMICRO) UA WBC (test code = WBCU) 20-30 per HPF 0-5 A UA RBC (test code = RBCU) 0-3 per HPF 0-5 UA EPITHELIAL CELLS (test Moderate (5-10/hpf) Few code = EPIU) per HPF UA BACTERIA (test code = MODERATE per HPF NONE A BACU) Urine Source? Clean CatchCOVID 19 INHOUSE [id number] 13:53:00 Test Item Value Reference Range Interpretation Comments COVID 19 INHOUSE AG (test code = NEGATIVE NEGATIVE [id number]) - XR CHEST 1 [id number] 13:53:00 [facility])Name: DAVID BRANDT : 1970 Sex: F FAX: Rosa Terrazas NP [place]: [address]: PRE Name: DAVID BRANDT [facility] FSED : 1970 Age/S: 51/F [address] Unit #: [id number] Loc: [facility] [address] Phys: Rosa Terrazas NP [place], [place] [address] Acct: [id number] Dis Date: Status: PRE ER PHONE #: Exam Date: 05/19/2021 2125 FAX #: Reason: Abdominal Pain EXAMS: CPT CODE: [id number] XR CHEST 1 V 42381 REASON FOR EXAM: Abdominal Pain Exam Order Date: 05/19/2021 1:26 PM Ordering MBrandon: Rosa Terrazas NP PROCEDURE: - XR CHEST 1 V COMPARISON: Chest x-ray June 2007 FINDINGS: The lungs are clear. There is no pleural effusion or pneumothorax. Pulmonary vascularity is within normal limits. Cardiomediastinal silhouette is normal in size for technique. The mediastinal contours are within normal limits. Musculoskeletal structures are within normal limits. The visualized upper abdomen is within normal limits. IMPRESSION: No acute cardiopulmonary process. Location: [facility] Electronically Signed by Edson Alberto 05/19/2021 at 1353 Reported and signed by: Edson Desai MD CC: Rosa Terrazas NP Technologist: Herbert Sethi Trnscrd Date/Time/By: 05/19/2021 (0935) : By: [email or web address] [facility] Print D/T: S: 05/19/2021 (1160) PAGE 1 Signed ReportCBC W/O [id number] 13:48:00 Test Item Value Reference Range Interpretation Comments WHITE BLOOD CELL (test code = 7.3 K/mm3 4.5-12.5 N WBC) RED BLOOD CELL (test code = 4.64 mill/mm3 3.7-5.2 N RBC) HEMOGLOBIN (test code = HGB) 13.5 gram/dL 11.5-15.5 N HEMATOCRIT (test code = HCT) 40.4 % 36.0-46.0 N MEAN CELL VOLUME (test code = 87.1 fL 80-98 N MCV) MEAN CELL HGB (test code = MCH) 29.1 picogram 27.0-33.0 N MEAN CELL HGB CONCETRATION 33.4 gram/dL 33.0-36.0 N (test code = MCHC) RED CELL DISTRIBUTION WIDTH 11.7 % 11.6-16.2 N (test code = RDW) RED CELL DISTRIBUTION WIDTH SD 38.1 fL 37.0-51.0 N (test code = RDW-SD) PLATELET COUNT (test code = 329 K/mm3 150-450 N PLT) MEAN PLATELET VOLUME (test code 9.5 fL 6.7-11.0 N = MPV) [id number] 11:22:00 Test Item Value Reference Range Interpretation Comments GLUBED (test code = 184 mg/dL 74-106 H Performe d by certified GLUBED) mechanical operator at [facility] [id number] 08:38:00 Test Item Value Reference Range Interpretation Comments GLUBED (test code = 179 mg/dL 74-106 H Performe d by certified GLUBED) mechanical operator at [facility] BASIC METABOLIC [id number] 06:27:00 Test Item Value Reference Range Interpretation Comments SODIUM (test code = 135 mmol/L 128-145 N NA) POTASSIUM (test code 4.0 mmol/L 3.5-5.1 N = K) CHLORIDE (test code 104.0 mmol/L 98-107 N = CL) CARBON DIOXIDE (test 26.3 mmol/L 22-29 N code = CO2) ANION GAP (test code 9 mmol/L 10-20 L = GAP) GLUCOSE (test code = 265 mg/dL 70-110 H GLU) BLOOD UREA NITROGEN 11 mg/dL 7-22 N (test code = BUN) GLOMERULAR > 60 mL/min See_Comment Estimated GFR b y FILTRATION RATE using Modifi ed MDRD (test code = GFR) formula.Ch ronic kidney disease is defined as eith er kidney damageor GFR <60 mL/min/1.73 m2 for >3 months. [Automated mess age] The system zoomsquare generated this result transmitted ref erence range: >=60. Th e reference range was not used to int erpret this result as normal/abnormal . CREATININE (test 0.60 mg/dL 0.55-1.3 N code = CREAT) BUN/CREATININE RATIO 18.3 10-20 N (test code = BUN/CREA) CALCIUM (test code = 7.2 mg/dL 8.0-10.5 L CA) CBC W/AUTO [id number] 06:16:00 Test Item Value Reference Range Interpretation Comments WHITE BLOOD CELL (test code = 9.5 K/mm3 4.5-12.5 N WBC) RED BLOOD CELL (test code = 3.80 mill/mm3 3.7-5.2 N RBC) HEMOGLOBIN (test code = HGB) 11.1 gram/dL 11.5-15.5 L HEMATOCRIT (test code = HCT) 34.1 % 36.0-46.0 L MEAN CELL VOLUME (test code = 89.7 fL 80-98 N MCV) MEAN CELL HGB (test code = MCH) 29.2 picogram 27.0-33.0 N MEAN CELL HGB CONCETRATION 32.6 gram/dL 33.0-36.0 L (test code = MCHC) RED CELL DISTRIBUTION WIDTH 11.7 % 11.6-16.2 N (test code = RDW) RED CELL DISTRIBUTION WIDTH SD 39.1 fL 37.0-51.0 N (test code = RDW-SD) PLATELET COUNT (test code = 401 K/mm3 150-450 PLT) MEAN PLATELET VOLUME (test code 9.3 fL 6.7-11.0 N = MPV) NEUTROPHIL % (test code = NT%) 46.8 % 39.0-69.0 N LYMPHOCYTE % (test code = LY%) 44.0 % 25.0-55.0 N MONOCYTE % (test code = MO%) 7.1 % 0.0-10.0 N EOSINOPHIL % (test code = EO%) 1.5 % 0.0-5.0 N BASOPHIL % (test code = BA%) 0.3 % 0.0-1.0 N NEUTROPHIL # (test code = NT#) 4.43 K/mm3 1.8-7.7 N LYMPHOCYTE # (test code = LY#) 4.17 K/mm3 1.0-5.0 N MONOCYTE # (test code = MO#) 0.67 K/mm3 0-0.8 N EOSINOPHIL # (test code = EO#) 0.14 K/mm3 0.0-0.5 N BASOPHIL # (test code = BA#) 0.03 K/mm3 0.0-0.2 N MANUAL DIFF REQUIRED (test code NO = MDIFF) [id number] 04:52:00 Test Item Value Reference Range Interpretation Comments GLUBED (test code = 312 mg/dL 74-106 H Performe d by certified GLUBED) mechanical operator at [facility] BASIC METABOLIC [id number] 00:38:00 Test Item Value Reference Range Interpretation Comments SODIUM (test code = 134 mmol/L 128-145 N NA) POTASSIUM (test code 3.2 mmol/L 3.5-5.1 L = K) CHLORIDE (test code 100.0 mmol/L 98-107 N = CL) CARBON DIOXIDE (test 22.7 mmol/L 22-29 N code = CO2) ANION GAP (test code 15 mmol/L 10-20 N = GAP) GLUCOSE (test code = 431 mg/dL 70-110 H GLU) BLOOD UREA NITROGEN 10 mg/dL 7-22 N (test code = BUN) GLOMERULAR > 60 mL/min See_Comment Estimated GFR b y FILTRATION RATE [facility] (test code = GFR) formula. ron kidney disease is defined as eith er kidney damageor GFR <60 mL/min/1.73 m2 for >3 months. [Automated mess age] The system zoomsquare generated this result transmitted ref erence range: >=60. Th e reference range was not used to int erpret this result as normal/abnormal . CREATININE (test 0.86 mg/dL 0.55-1.3 N code = CREAT) BUN/CREATININE RATIO 11.6 10-20 N (test code = BUN/CREA) CALCIUM (test code = 7.4 mg/dL 8.0-10.5 L CA) [id number] 00:30:00 Test Item Value Reference Range Interpretation Comments GLUBED (test code = 434 mg/dL 74-106 H Performe d by certified GLUBED) mechanical operator at [facility] COVID 19 INHOUSE [id number] 00:22:00 Test Item Value Reference Range Interpretation Comments COVID 19 INHOUSE AG (test code = NEGATIVE NEGATIVE [id number]) [id number] 23:50:00 Test Item Value Reference Range Interpretation Comments GLYCOSYLATED HEMOGLOBIN (HA1C) 13.8 % 4.5-6.2 H (test code = GLYHGB) ESTIMATED AVERAGE GLUCOSE (test 349 MG/DL code = EAG) URINALYSIS [id number] 23:14:00 Test Item Value Reference Range Interpretation Comments UA COLOR (test code = YELLOW YELLOW COLU) UA APPEARANCE (test code CLEAR CLEAR = APPU) UA GLUCOSE DIPSTICK (test 300-500 (3+) mg/dL NEGATIVE code = DGLUU) UA BILIRUBIN DIPSTICK NEGATIVE NEGATIVE (test code = BILU) UA KETONE DIPSTICK (test NEGATIVE mg/dL NEGATIVE code = KETU) UA SPECIFIC GRAVITY (test <=1.005 1.001-1.035 code = SGU) UA BLOOD DIPSTICK (test NEGATIVE NEGATIVE code = MARLY) UA PH DIPSTICK (test code 5.5 5.0-8.0 = OSCAR) UA PROTEIN DIPSTICK (test NEGATIVE mg/dL Neg-15 code = PROU) UA UROBILINIOGEN DIPSTICK 0.2 mg/dL 0.0-0.2 (test code = URO) UA NITRITE DIPSTICK (test NEGATIVE NEGATIVE code = BABAR) UA LEUKOCYTE ESTERASE NEGATIVE uL NEGATIVE DIPSTICK (test code = LEUU) UA MICROSCOPIC NEEDED? YES (test code = UAMICRO) UA WBC (test code = WBCU) 0-5 per HPF 0-5 UA RBC (test code = RBCU) 0-3 per HPF 0-5 UA EPITHELIAL CELLS (test Few (2-5/hpf) per Few code = EPIU) HPF UA BACTERIA (test code = FEW per HPF NONE BACU) Urine Source? Clean CatchBASIC METABOLIC [id number] 23:07:00 Test Item Value Reference Range Interpretation Comments SODIUM (test code = 130 mmol/L 128-145 N NA) POTASSIUM (test code 3.6 mmol/L 3.5-5.1 N = K) CHLORIDE (test code = 93.0 mmol/L 98-107 L CL) CARBON DIOXIDE (test 18.7 mmol/L 22-29 L code = CO2) ANION GAP (test code 22 mmol/L 10-20 H = GAP) GLUCOSE (test code = 690 mg/dL 70-110 HH Results called to GLU) [id number] by МАРИЯ JAIN 03/24/21 2256Cr itical results verifie d and read back by Nu rse? Y BLOOD UREA NITROGEN 12 mg/dL 7-22 N (test code = BUN) GLOMERULAR FILTRATION 44 mL/min See_Comment Estima roxana GFR by RATE (test code = using Sarah fied MDRD GFR) formula.Chronic kidney disease is defined as eith er kidney damageor GFR <60 mL/min/1.73 m2 for >3 months. [Automated mess age] The system zoomsquare generated this result transmitted ref erence range: >=60. Th e reference range was not used to int erpret this result as normal/abnormal . CREATININE (test code 1.28 mg/dL 0.55-1.3 N = CREAT) BUN/CREATININE RATIO 9.4 10-20 L (test code = BUN/CREA) CALCIUM (test code = 8.1 mg/dL 8.0-10.5 N CA) HEPATIC FUNCTION [id number] 23:07:00 Test Item Value Reference Range Interpretation Comments TOTAL PROTEIN (test code = PROT) 7.3 gram/dL 6.1-7.8 N ALBUMIN (test code = ALB) 3.3 g/dL 3.3-4.4 N GLOBULIN (test code = GLOB) 4.0 G/DL 1-10 N ALBUMIN/GLOBULIN RATIO (test code 0.8 0.75-1.50 N = A/G) BILIRUBIN TOTAL (test code = 0.20 mg/dL 0.2-1.2 N BILT) BILIRUBIN DIRECT (test code = 0.10 mg/dL 0.0-0.30 N BILD) SGOT/AST (test code = AST) 14 U/L 10-39 N SGPT/ALT (test code = ALT) 21 U/L 10-69 N ALKALINE PHOSPHATASE TOTAL (test 91 U/L 50-139 N code = ALKP) [id number] 23:07:00 Test Item Value Reference Range Interpretation Comments LIPASE (test code = LIP) 293 Unit/L 144-286 H HCG SERUM [id number] 23:07:00 Test Item Value Reference Range Interpretation Comments HCG SERUM QUAL (test NEGATIVE NEGATIVE This HC GQL test is NOT code = HCGQL) applicable for MALE patients.Check with nurse about probable order error.If Tumor Marker Test needed, nu rse should order test "HCG TU"(Test #[id number])---- - [id number] 23:07:00 Test Item Value Reference Range Interpretation Comments TROPONIN-HS (test 5.4 pg/mL 0-60 N CAUTION: U nits of the code = TROPI) current test m ethodology (pg/mL)differ f rom the prior test meth odology (ng/mL) by a fa ctorof 1000. CBC W/O [id number] 22:42:00 Test Item Value Reference Range Interpretation Comments WHITE BLOOD CELL (test code = 11.7 K/mm3 4.5-12.5 N WBC) RED BLOOD CELL (test code = 4.33 mill/mm3 3.7-5.2 N RBC) HEMOGLOBIN (test code = HGB) 12.8 gram/dL 11.5-15.5 N HEMATOCRIT (test code = HCT) 38.7 % 36.0-46.0 N MEAN CELL VOLUME (test code = 89.4 fL 80-98 N MCV) MEAN CELL HGB (test code = MCH) 29.6 picogram 27.0-33.0 N MEAN CELL HGB CONCETRATION 33.1 gram/dL 33.0-36.0 N (test code = MCHC) RED CELL DISTRIBUTION WIDTH 11.7 % 11.6-16.2 N (test code = RDW) RED CELL DISTRIBUTION WIDTH SD 39.2 fL 37.0-51.0 N (test code = RDW-SD) PLATELET COUNT (test code = 482 K/mm3 150-450 H PLT) MEAN PLATELET VOLUME (test code 9.6 fL 6.7-11.0 N = MPV) URINALYSIS [id number] 14:04:00 Test Item Value Reference Range Interpretation Comments UA COLOR (test code = YELLOW YELLOW COLU) UA APPEARANCE (test code HAZY CLEAR A = APPU) UA GLUCOSE DIPSTICK (test 300-500 (3+) mg/dL NEGATIVE code = DGLUU) UA BILIRUBIN DIPSTICK NEGATIVE NEGATIVE (test code = BILU) UA KETONE DIPSTICK (test NEGATIVE mg/dL NEGATIVE code = KETU) UA SPECIFIC GRAVITY (test <=1.005 1.001-1.035 code = SGU) UA BLOOD DIPSTICK (test NEGATIVE NEGATIVE code = MARLY) UA PH DIPSTICK (test code 5.5 5.0-8.0 = OSCAR) UA PROTEIN DIPSTICK (test NEGATIVE mg/dL Neg-15 code = PROU) UA UROBILINIOGEN DIPSTICK 0.2 mg/dL 0.0-0.2 (test code = URO) UA NITRITE DIPSTICK (test NEGATIVE NEGATIVE code = BABAR) UA LEUKOCYTE ESTERASE 1+ uL NEGATIVE A DIPSTICK (test code = LEUU) UA MICROSCOPIC NEEDED? YES (test code = UAMICRO) UA WBC (test code = WBCU) 10-20 per HPF 0-5 A UA RBC (test code = RBCU) 0-2 per HPF 0-5 UA EPITHELIAL CELLS (test Moderate (5-10/hpf) Few code = EPIU) per HPF UA BACTERIA (test code = MODERATE per HPF NONE A BACU) COVID 19 INHOUSE [id number] 11:22:00 Test Item Value Reference Range Interpretation Comments COVID 19 INHOUSE AG (test code = NEGATIVE NEGATIVE [id number]) BASIC METABOLIC [id number] 11:20:00 Test Item Value Reference Range Interpretation Comments SODIUM (test code = 138 mmol/L 128-145 N NA) POTASSIUM (test code 4.0 mmol/L 3.5-5.1 N = K) CHLORIDE (test code 104.0 mmol/L 98-107 N = CL) CARBON DIOXIDE (test 26.0 mmol/L 22-29 N code = CO2) ANION GAP (test code 12 mmol/L 10-20 N = GAP) GLUCOSE (test code = 326 mg/dL 70-110 H GLU) BLOOD UREA NITROGEN 12 mg/dL 7-22 N (test code = BUN) GLOMERULAR > 60 mL/min See_Comment Estimated GFR b y FILTRATION RATE using Modifi ed MDRD (test code = GFR) formula.Ch ronic kidney disease is defined as eith er kidney damageor GFR <60 mL/min/1.73 m2 for >3 months. [Automated mess age] The system zoomsquare generated this result transmitted ref erence range: >=60. Th e reference range was not used to int erpret this result as normal/abnormal . CREATININE (test 0.65 mg/dL 0.55-1.3 N code = CREAT) BUN/CREATININE RATIO 18.5 10-20 N (test code = BUN/CREA) CALCIUM (test code = 8.3 mg/dL 8.0-10.5 N CA) HEPATIC FUNCTION [id number] 11:20:00 Test Item Value Reference Range Interpretation Comments TOTAL PROTEIN (test code = PROT) 7.1 gram/dL 6.1-7.8 N ALBUMIN (test code = ALB) 3.1 g/dL 3.3-4.4 L GLOBULIN (test code = GLOB) 4.0 G/DL 1-10 N ALBUMIN/GLOBULIN RATIO (test code 0.8 0.75-1.50 N = A/G) BILIRUBIN TOTAL (test code = 0.30 mg/dL 0.2-1.2 N BILT) BILIRUBIN DIRECT (test code = 0.10 mg/dL 0.0-0.30 N BILD) SGOT/AST (test code = AST) 12 U/L 10-39 N SGPT/ALT (test code = ALT) 12 U/L 10-69 N ALKALINE PHOSPHATASE TOTAL (test 83 U/L 50-139 N code = ALKP) [id number] 11:20:00 Test Item Value Reference Range Interpretation Comments LIPASE (test code = LIP) 150 Unit/L 144-286 N HCG SERUM [id number] 11:20:00 Test Item Value Reference Range Interpretation Comments HCG SERUM QUAL (test NEGATIVE NEGATIVE This HC GQL test is NOT code = HCGQL) applicable for MALE patients.Check with nurse about probable order error.If Tumor Marker Test needed, nu rse should order test "HCG TU"(Test #550.12746)---- - URINALYSIS [id number] 11:13:00 Test Item Value Reference Range Interpretation Comments UA COLOR (test code = STRAW YELLOW COLU) UA APPEARANCE (test code HAZY CLEAR A = APPU) UA GLUCOSE DIPSTICK (test 300-500 (3+) mg/dL NEGATIVE code = DGLUU) UA BILIRUBIN DIPSTICK NEGATIVE NEGATIVE (test code = BILU) UA KETONE DIPSTICK (test NEGATIVE mg/dL NEGATIVE code = KETU) UA SPECIFIC GRAVITY (test 1.020 1.001-1.035 code = SGU) UA BLOOD DIPSTICK (test NEGATIVE NEGATIVE code = MARLY) UA PH DIPSTICK (test code 6.0 5.0-8.0 = OSCAR) UA PROTEIN DIPSTICK (test NEGATIVE mg/dL Neg-15 code = PROU) UA UROBILINIOGEN DIPSTICK 0.2 mg/dL 0.0-0.2 (test code = URO) UA NITRITE DIPSTICK (test POSITIVE NEGATIVE code = BABAR) UA LEUKOCYTE ESTERASE NEGATIVE uL NEGATIVE DIPSTICK (test code = LEUU) UA MICROSCOPIC NEEDED? YES (test code = UAMICRO) UA WBC (test code = WBCU) 3-5 per HPF 0-5 UA RBC (test code = RBCU) 0-3 per HPF 0-5 UA EPITHELIAL CELLS (test Few (2-5/hpf) per Few code = EPIU) HPF UA BACTERIA (test code = MANY per HPF NONE BACU) Urine Source? Clean CatchBASIC METABOLIC [id number] 11:06:00 Test Item Value Reference Range Interpretation Comments SODIUM (test code = NA) mmol/L 136-145 POTASSIUM (test code = mmol/L 3.5-5.1 K) CHLORIDE (test code = mmol/L 98-107 CL) CARBON DIOXIDE (test mmol/L 21-32 code = CO2) ANION GAP (test code = mmol/L 10-20 GAP) GLUCOSE (test code = mg/dL 70-110 GLU) BLOOD UREA NITROGEN mg/dL 7-22 (test code = BUN) GLOMERULAR FILTRATION mL/min See_Comment [Auto mated message] RATE (test code = GFR) The s [employer] which generated this result transmitted ref erence range: >=60. Th e reference range was not used to interpr et this result as normal/abnormal . CREATININE (test code = mg/dL 0.55-1.02 CREAT) BUN/CREATININE RATIO 10-20 (test code = BUN/CREA) CALCIUM (test code = mg/dL 8.5-10.1 CA) HEPATIC FUNCTION [id number] 11:06:00 Test Item Value Reference Range Interpretation Comments TOTAL PROTEIN (test code = PROT) gram/dL 6.4-8.2 ALBUMIN (test code = ALB) g/dL 3.4-5.0 GLOBULIN (test code = GLOB) G/DL 1-10 ALBUMIN/GLOBULIN RATIO (test code = 0.75-1.50 A/G) BILIRUBIN TOTAL (test code = BILT) mg/dL 0.0-1.0 BILIRUBIN DIRECT (test code = BILD) mg/dL 0.0-0.20 SGOT/AST (test code = AST) IUnit/L 15-37 SGPT/ALT (test code = ALT) IUnit/L 12-78 ALKALINE PHOSPHATASE TOTAL (test IUnit/L 45-117 code = ALKP) [id number] 11:06:00 Test Item Value Reference Range Interpretation Comments LIPASE (test code = LIP) Unit/L 144-286 HCG SERUM [id number] 11:06:00 Test Item Value Reference Range Interpretation Comments HCG SERUM QUAL (test NEGATIVE NEGATIVE This HC GQL test is NOT code = HCGQL) applicable for MALE patients.Check with nurse about probable order error.If Tumor Marker Test needed, nu rse should order test "HCG TU"(Test #550.80036)---- - URINALYSIS [id number] 11:05:00 Test Item Value Reference Range Interpretation Comments UA COLOR (test code = STRAW YELLOW COLU) UA APPEARANCE (test code = HAZY CLEAR A APPU) UA GLUCOSE DIPSTICK (test 300-500 (3+) mg/dL NEGATIVE code = DGLUU) UA BILIRUBIN DIPSTICK NEGATIVE NEGATIVE (test code = BILU) UA KETONE DIPSTICK (test NEGATIVE mg/dL NEGATIVE code = KETU) UA SPECIFIC GRAVITY (test 1.020 1.001-1.035 code = SGU) UA BLOOD DIPSTICK (test NEGATIVE NEGATIVE code = MARLY) UA PH DIPSTICK (test code 6.0 5.0-8.0 = OSCAR) UA PROTEIN DIPSTICK (test NEGATIVE mg/dL Neg-15 code = PROU) UA UROBILINIOGEN DIPSTICK 0.2 mg/dL 0.0-0.2 (test code = URO) UA NITRITE DIPSTICK (test POSITIVE NEGATIVE code = BABAR) UA LEUKOCYTE ESTERASE NEGATIVE uL NEGATIVE DIPSTICK (test code = LEUU) UA MICROSCOPIC NEEDED? (test code = UAMICRO) UA WBC (test code = WBCU) per HPF 0-5 UA RBC (test code = RBCU) per HPF 0-5 UA EPITHELIAL CELLS (test per HPF Few code = EPIU) UA BACTERIA (test code = per HPF NONE BACU) Urine Source? Clean CatchCBC W/O [id number] 10:54:00 Test Item Value Reference Range Interpretation Comments WHITE BLOOD CELL (test code = 6.9 K/mm3 4.5-12.5 N WBC) RED BLOOD CELL (test code = 4.12 mill/mm3 3.7-5.2 N RBC) HEMOGLOBIN (test code = HGB) 12.3 gram/dL 11.5-15.5 N HEMATOCRIT (test code = HCT) 37.4 % 36.0-46.0 N MEAN CELL VOLUME (test code = 90.8 fL 80-98 N MCV) MEAN CELL HGB (test code = MCH) 29.9 picogram 27.0-33.0 N MEAN CELL HGB CONCETRATION 32.9 gram/dL 33.0-36.0 L (test code = MCHC) RED CELL DISTRIBUTION WIDTH 11.9 % 11.6-16.2 N (test code = RDW) RED CELL DISTRIBUTION WIDTH SD 40.1 fL 37.0-51.0 N (test code = RDW-SD) PLATELET COUNT (test code = 364 K/mm3 150-450 N PLT) MEAN PLATELET VOLUME (test code 9.5 fL 6.7-11.0 N = MPV) [id number] 18:50:00 Test Item Value Reference Range Interpretation Comments GLUBED (test code = 298 mg/dL 74-106 H Performe d by certified GLUBED) mechanical operator at [facility] [id number] 17:39:00 Test Item Value Reference Range Interpretation Comments GLUBED (test code = 388 mg/dL 74-106 H Performe d by certified GLUBED) mechanical operator at [facility] - XR HAND 3 + V [id number] 17:31:00 [facility] : 1970 Sex: F FAX: Cesilia Marquis MD [phone] [place]: [place] St: PRE Name: DAVID BRANDT [facility] FSED : 1970 Age/S: 50/F [address] [facility] [address] Unit #: [id number] Loc: [facility] B Phys: Cesilia Marquis MD [place], [place] [address] Acct: [id number] Dis Date: Status: PRE ER PHONE #: Exam Date: 12/03/2020 1708 FAX #: Reason: attn middle finger, paronychia EXAMS: CPT CODE: [id number] XR HAND 3 + V RT 12523 REASON FOR EXAM: attn middle finger, paronychia EXAM ORDER DATE: 12/03/2020 5:13PM Ordering: Cesilia Marquis MD Attending:Cesilia Marquis MD Location:[facility] PROCEDURE: - XR HAND 3 + V RT FINDINGS: 3 views of the right hand were obtained. The osseous structures are unremarkable in size and shape. The joint spaces are maintained. No evidence of fracture. The phalanges are intact. The carpal and metacarpal bones are unremarkable. There is normal alignment of the radiocarpal joint spaceIMPRESSION: No acute osseous lesions. at 1731 Reported and signed by: Farhan Pickard M.D. CC: Cesilia Marquis MD Technologist: Herbert Sethi Trnscrd Date/Time/By: 12/03/2020 (173) : By: [email or web address] Orig Print D/T: S: 12/03/2020 (2603) PAGE 1 [facility]2021-04-24 20:04:00 Test Item Value Reference Range Interpretation Comments Glucose Lvl (test code = Glucose Lvl) 595 70-99 [facility]2021-04-24 20:04:00 Test Item Value Reference Range Interpretation Comments BUN (test code = BUN) 6 7-22 [facility]2021-04-24 20:04:00 Test Item Value Reference Range Interpretation Comments Creatinine Lvl (test code = Creatinine 0.90 0.50-1.40 Lvl) [facility]2021-04-24 20:04:00 Test Item Value Reference Range Interpretation Comments Sodium Lvl (test code = Sodium Lvl) 133 135-145 [facility]2021-04-24 20:04:00 Test Item Value Reference Range Interpretation Comments Potassium Lvl (test code = Potassium 3.9 3.5-5.1 Lvl) [facility]2021-04-24 20:04:00 Test Item Value Reference Range Interpretation Comments Chloride Lvl (test code = Chloride Lvl) 98 95-109 [facility]2021-04-24 20:04:00 Test Item Value Reference Range Interpretation Comments CO2 (test code = CO2) 27 24-32 [facility]2021-04-24 20:04:00 Test Item Value Reference Range Interpretation Comments AGAP (test code = AGAP) 11.9 10.0-20.0 [facility]2021-04-24 20:04:00 Test Item Value Reference Range Interpretation Comments Calcium Lvl (test code = Calcium Lvl) 8.8 8.5-10.5 [facility]2021-04-24 20:04:00 Test Item Value Reference Range Interpretation Comments B/C Ratio (test code = B/C Ratio) 7 1 6-25 [place] [id number] 20:04:00 Test Item Value Reference Range Interpretation Comments Total Protein (test code = Total 7.1 6.4-8.4 Protein) [facility]2021-04-24 20:04:00 Test Item Value Reference Range Interpretation Comments Albumin Lvl (test code = Albumin Lvl) 2.6 3.5-5.0 [place] 897801-04-24 20:04:00 Test Item Value Reference Range Interpretation Comments Globulin (test code = Globulin) 4.5 2.7-4.2 [facility]2021-04-24 20:04:00 Test Item Value Reference Range Interpretation Comments A/G Ratio (test code = A/G Ratio) 0.6 1 0.7-1.6 [facility]2021-04-24 20:04:00 Test Item Value Reference Range Interpretation Comments ALANINE AMINOTRANSFERASE 9 See_Comment [A utomated message] (test code = ALANINE The sys tem which AMINOTRANSFERASE) generated this result transmitted ref erence range: <=65. Th e reference range was not used to int erpret this result as normal/abnormal . [facility]2021-04-24 20:04:00 Test Item Value Reference Range Interpretation Comments ASPARTATE TRANSAMINASE 8 See_Comment [Aut omated message] (test code = ASPARTATE The s ystem which TRANSAMINASE) generated this result transmitted ref erence range: <=37. Th e reference range was not used to interpr et this result as normal/abnormal . [facility]2021-04-24 20:04:00 Test Item Value Reference Range Interpretation Comments Alk Phos (test code = Alk Phos) 105 39-136 [facility]2021-04-24 20:04:00 Test Item Value Reference Range Interpretation Comments Bili Total (test code = Bili Total) 0.4 0.2-1.3 [place] 897801-04-24 20:04:00 Test Item Value Reference Range Interpretation Comments eGFR (test code = eGFR) 75 [facility]2021-04-24 20:04:00 Test Item Value Reference Range Interpretation Comments Ketone Quantitative (test code = Ketone 0.10 Quantitative) [id number] 20:04:00 Test Item Value Reference Range Interpretation Comments WBC X 10x3 (test code = WBC X 10x3) 6.9 3.7-10.4 [facility] H[id number] 20:04:00 Test Item Value Reference Range Interpretation Comments RBC X 10x6 (test code = RBC X 10x6) 3.97 4.20-5.40 [facility] HospitalSskcxmfYIUYFNSRWA2471-86-07 20:04:00 Test Item Value Reference Range Interpretation Comments Hgb (test code = Hgb) 11.5 12.0-16.0 [facility] [id number] 20:04:00 Test Item Value Reference Range Interpretation Comments Hct (test code = Hct) 34.7 36.0-48.0 [facility] Hos[id number] 20:04:00 Test Item Value Reference Range Interpretation Comments MCV (test code = MCV) 87.6 80.0-98.0 [facility] HospitalYvncepfGRRFOZEVMK1701-50-73 20:04:00 Test Item Value Reference Range Interpretation Comments MCH (test code = MCH) 28.9 pg 27.0-31.0 [facility] HospitalOojpthgYNYQBSXSZC7494-31-29 20:04:00 Test Item Value Reference Range Interpretation Comments MCHC (test code = MCHC) 33.0 32.0-36.0 [facility] HospitalAxajulqCOXXLGHOBZ3223-91-63 20:04:00 Test Item Value Reference Range Interpretation Comments RDW (test code = RDW) 12.4 11.5-14.5 [facility] Hos[id number] 20:04:00 Test Item Value Reference Range Interpretation Comments Platelet (test code = Platelet) 406 133-450 [facility] HospitalTanatkzUPISAMCDVK4036-31-23 20:04:00 Test Item Value Reference Range Interpretation Comments MPV (test code = MPV) 8.2 7.4-10.4 [facility] HospitalWsjolkeUPWHMOQDQM7605-54-82 20:04:00 Test Item Value Reference Range Interpretation Comments Segs (test code = Segs) 71.5 45.0-75.0 [facility] HospitalMzpveweURMLNZVAVG1430-16-84 20:04:00 Test Item Value Reference Range Interpretation Comments Lymphocytes (test code = Lymphocytes) 21.1 20.0-40.0 [facility] HospitalDhhtwydGDBAFDKZKF4290-11-92 20:04:00 Test Item Value Reference Range Interpretation Comments Monocytes (test code = Monocytes) 6.4 2.0-12.0 [facility] HospitalRsbkoevWDKPGJJEJJ4217-13-18 20:04:00 Test Item Value Reference Range Interpretation Comments Eosinophils (test code = 0.7 See_Comment [A utomated message] The Eosinophils) system which ge nerated this result tra nsmitted reference range : <=4.0. The reference r maurice was not used to int erpret this result as normal/abnormal . [facility] HospitalPjdsgayZXDLFWCOCR9069-17-49 20:04:00 Test Item Value Reference Range Interpretation Comments Basophils (test code = 0.3 See_Comment [Aut omated message] The Basophils) system which ge nerated this result tra nsmitted reference range : <=1.0. The reference r maurice was not used to int erpret this result as normal/abnormal . [facility] HospitalIkxhqwbUBUTYGWJMP5718-64-91 20:04:00 Test Item Value Reference Range Interpretation Comments Neutrophils # (test code = Neutrophils 4.9 1.5-8.1 #) [facility] HospitalRoiizdsBCNDMCSSNK4789-45-32 20:04:00 Test Item Value Reference Range Interpretation Comments Lymphocytes # (test code = Lymphocytes 1.4 1.0-5.5 #) [facility] HospitalPpcfikeWHOCGWXXZB0963-66-75 20:04:00 Test Item Value Reference Range Interpretation Comments Monocytes # (test code 0.4 See_Comment [Aut omated message] The = Monocytes #) system which generated this result tra nsmitted reference range : <=0.8. The reference r maurice was not used to int erpret this result as normal/abnormal . [facility] AND [id number] 20:04:00 Test Item Value Reference Range Interpretation Comments UA Color (test code = Yellow *NA*(10/03/20 UA Color) 3:04 PM) [facility] AND [id number] 20:04:00 Test Item Value Reference Range Interpretation Comments UA Turbidity (test code = Clear (10/03/20 3:04 UA Turbidity) PM) [facility] AND [id number] 20:04:00 Test Item Value Reference Range Interpretation Comments UA Spec Grav (test code *NA*(10/03/20 3:04 PM) = UA Spec Grav) [facility] AND [id number] 20:04:00 Test Item Value Reference Range Interpretation Comments UA pH (test code = UA pH) 6.0 1 5.0-8.0 [facility] AND [id number] 20:04:00 Test Item Value Reference Range Interpretation Comments UA Protein (test code Negative (10/03/20 3:04 = UA Protein) PM) [facility] [id number] 20:04:00 Test Item Value Reference Range Interpretation Comments UA Glucose (test code = UA >=1000 mg/dL Glucose) [facility] AND [id number] 20:04:00 Test Item Value Reference Range Interpretation Comments UA Ketones (test code Negative *NA*(10/03/20 = UA Ketones) 3:04 PM) [facility] [id number] 20:04:00 Test Item Value Reference Range Interpretation Comments UA Bili (test code = Negative *NA*(10/03/20 UA Bili) 3:04 PM) [facility] AND [id number] 20:04:00 Test Item Value Reference Range Interpretation Comments UA Blood (test code = Trace *ABN*(10/03/20 UA Blood) 3:04 PM) [facility] AND [id number] 20:04:00 Test Item Value Reference Range Interpretation Comments UA Urobilinogen (test code = UA 0.2 0.1-1.0 Urobilinogen) [facility] AND [id number] 20:04:00 Test Item Value Reference Range Interpretation Comments UA Nitrite (test code Negative (10/03/20 3:04 = UA Nitrite) PM) [facility] AND [id number] 20:04:00 Test Item Value Reference Range Interpretation Comments UA Leuk Est (test code Trace *ABN*(10/03/20 = UA Leuk Est) 3:04 PM) [facility] AND [id number] 20:04:00 Test Item Value Reference Range Interpretation Comments Micro? (test code = Performed (10/03/20 3:04 Micro?) PM) [facility] AND [id number] 20:04:00 Test Item Value Reference Range Interpretation Comments UA Sq Epi (test code = UA Sq Epi) Few /LPF [facility] AND [id number] 20:04:00 Test Item Value Reference Range Interpretation Comments UA WBC (test code = UA WBC) 6-10 /HPF [facility] AND [id number] 20:04:00 Test Item Value Reference Range Interpretation Comments UA RBC (test code = UA RBC) 3-5 /HPF [facility] AND [id number] 20:04:00 Test Item Value Reference Range Interpretation Comments UA Bacteria (test code = UA Few /HPF Bacteria) [facility]2020-11-04 05:21:00 Test Item Value Reference Range Interpretation Comments Glucose Lvl (test code = Glucose Lvl) 483 70-99 [facility]2020-11-04 05:21:00 Test Item Value Reference Range Interpretation Comments BUN (test code = BUN) 13 7-22 [facility]2020-11-04 05:21:00 Test Item Value Reference Range Interpretation Comments Creatinine Lvl (test code = Creatinine 0.90 0.50-1.40 Lvl) [facility]2020-11-04 05:21:00 Test Item Value Reference Range Interpretation Comments Sodium Lvl (test code = Sodium Lvl) 135 135-145 [facility]2020-11-04 05:21:00 Test Item Value Reference Range Interpretation Comments Potassium Lvl (test code = Potassium 4.3 3.5-5.1 Lvl) [facility]2020-11-04 05:21:00 Test Item Value Reference Range Interpretation Comments Chloride Lvl (test code = Chloride Lvl) 102 95-109 [facility]2020-11-04 05:21:00 Test Item Value Reference Range Interpretation Comments CO2 (test code = CO2) 24 24-32 [facility]2020-11-04 05:21:00 Test Item Value Reference Range Interpretation Comments AGAP (test code = AGAP) 13.3 10.0-20.0 [facility]2020-11-04 05:21:00 Test Item Value Reference Range Interpretation Comments Calcium Lvl (test code = Calcium Lvl) 9.2 8.5-10.5 [facility]2020-11-04 05:21:00 Test Item Value Reference Range Interpretation Comments B/C Ratio (test code = B/C Ratio) 14 1 6-25 [facility]2020-11-04 05:21:00 Test Item Value Reference Range Interpretation Comments Total Protein (test code = Total 7.7 6.4-8.4 Protein) [place] [address]-11-04 05:21:00 Test Item Value Reference Range Interpretation Comments Albumin Lvl (test code = Albumin Lvl) 3.3 3.5-5.0 [place] 897800-11-04 05:21:00 Test Item Value Reference Range Interpretation Comments Globulin (test code = Globulin) 4.4 2.7-4.2 [place] [address]-11-04 05:21:00 Test Item Value Reference Range Interpretation Comments A/G Ratio (test code = A/G Ratio) 0.8 1 0.7-1.6 [place] [address]-11-04 05:21:00 Test Item Value Reference Range Interpretation Comments ALT (test code = ALT) 14 See_Comment [Auto mated message] The system which ge nerated this result transmit roxana reference range : <=65. The reference range was not used to interpr et this result as spencer l/abnormal. [place] 897800-11-04 05:21:00 Test Item Value Reference Range Interpretation Comments AST (test code = AST) 13 See_Comment [Auto mated message] The system which ge nerated this result transmit roxana reference range : <=37. The reference range was not used to interpr et this result as spencer l/abnormal. [place] 897800-11-04 05:21:00 Test Item Value Reference Range Interpretation Comments Alk Phos (test code = Alk Phos) 89 39-136 [place] 897800-11-04 05:21:00 Test Item Value Reference Range Interpretation Comments Bili Total (test code = Bili Total) 0.3 0.2-1.3 [place] [address]-11-04 05:21:00 Test Item Value Reference Range Interpretation Comments eGFR (test code = eGFR) 75 [place] 738050-11-04 05:21:00 Test Item Value Reference Range Interpretation Comments RBC Morph (test code = Normal (04/14/20 11:21 RBC Morph) PM) [place] [address]-11-04 05:21:00 Test Item Value Reference Range Interpretation Comments Plt Morph (test code = Clumped (04/14/20 11:21 Plt Morph) PM) [facility] HospitalYzazkyaPHORCUFAOY0667-05-82 05:21:00 Test Item Value Reference Range Interpretation Comments Segs (test code = Segs) 65.7 45.0-75.0 [facility] HospitalQtnspfwFPEQQRNSJJ3369-66-15 05:21:00 Test Item Value Reference Range Interpretation Comments Lymphocytes (test code = Lymphocytes) 27.9 20.0-40.0 [facility] HospitalErnmvvsOOHKQFLVDM7591-13-15 05:21:00 Test Item Value Reference Range Interpretation Comments Monocytes (test code = Monocytes) 5.0 2.0-12.0 [facility] HospitalVwwlaghYCUZCTKFTC6955-52-64 05:21:00 Test Item Value Reference Range Interpretation Comments Eosinophils (test code = 0.9 See_Comment [A utomated message] The Eosinophils) system which ge nerated this result tra nsmitted reference range : <=4.0. The reference r maurice was not used to int erpret this result as normal/abnormal . [facility] HospitalLtobvdmDXZZQTUGIN5211-41-97 05:21:00 Test Item Value Reference Range Interpretation Comments Basophils (test code = 0.5 See_Comment [Aut omated message] The Basophils) system which ge nerated this result tra nsmitted reference range : <=1.0. The reference r maurice was not used to int erpret this result as normal/abnormal . [facility] HospitalZxoxymnXDOCAYKOOK8331-72-29 05:21:00 Test Item Value Reference Range Interpretation Comments Neutrophils # (test code = Neutrophils 6.8 1.5-8.1 #) [facility] HospitalKraykyxLBPISAPBQQ5882-50-57 05:21:00 Test Item Value Reference Range Interpretation Comments Lymphocytes # (test code = Lymphocytes 2.9 1.0-5.5 #) [facility] HospitalLacurbhPFTSWCVIHH9468-36-79 05:21:00 Test Item Value Reference Range Interpretation Comments Monocytes # (test code 0.5 See_Comment [Aut omated message] The = Monocytes #) system which generated this result tra nsmitted reference range : <=0.8. The reference r maurice was not used to int erpret this result as normal/abnormal . [facility] HospitalCkepimhASOJUSQXUW5011-65-96 05:21:00 Test Item Value Reference Range Interpretation Comments Eosinophils # (test code 0.1 See_Comment [A utomated message] The = Eosinophils #) system whic h generated this result tra nsmitted reference range : <=0.5. The reference r maurice was not used to int erpret this result as normal/abnormal . [facility] HospitalBgihzzcKNPTBNYDST0779-40-37 05:21:00 Test Item Value Reference Range Interpretation Comments Basophils # (test code 0.1 See_Comment [Aut omated message] The = Basophils #) system which generated this result tra nsmitted reference range : <=0.2. The reference r maurice was not used to int erpret this result as normal/abnormal . [facility] HospitalCijxyslCKRLKIIOOL4811-30-71 05:21:00 Test Item Value Reference Range Interpretation Comments WBC (test code = WBC) 10.4 3.7-10.4 [facility] HospitalMotqdkgWZLYPCFFMS4603-04-65 05:21:00 Test Item Value Reference Range Interpretation Comments RBC (test code = RBC) 3.99 4.20-5.40 [facility] HospitalXwfaykdUKOVVNLOLW9380-94-82 05:21:00 Test Item Value Reference Range Interpretation Comments Hgb (test code = Hgb) 12.1 12.0-16.0 [facility]AyyayrxAEDJRRJSQD8415-91-94 05:21:00 Test Item Value Reference Range Interpretation Comments Hct (test code = Hct) 36.5 36.0-48.0 [facility] HospitalRjptjthGVKTNPICOO6468-14-37 05:21:00 Test Item Value Reference Range Interpretation Comments MCV (test code = MCV) 91.5 80.0-98.0 [facility] HospitalTivdnfgJUEKHYGNDZ2027-19-94 05:21:00 Test Item Value Reference Range Interpretation Comments MCH (test code = MCH) 30.4 pg 27.0-31.0 [facility] HospitalTieyzosXBDNSXLGFS5339-15-68 05:21:00 Test Item Value Reference Range Interpretation Comments MCHC (test code = MCHC) 33.2 32.0-36.0 [facility] HospitalJvubyjuXQIFPECUHV6607-50-91 05:21:00 Test Item Value Reference Range Interpretation Comments RDW (test code = RDW) 12.5 11.5-14.5 [facility] HospitalHpksgtpDHSRQOYPMW1015-14-23 05:21:00 Test Item Value Reference Range Interpretation Comments Platelet (test code = Platelet) 384 133-450 [facility] HospitalFdwwpymTFGZIAYIRI5966-81-41 05:21:00 Test Item Value Reference Range Interpretation Comments MPV (test code = MPV) 8.5 7.4-10.4 [facility] [id number] 16:53:00 Test Item Value Reference Range Interpretation Comments U Amph Scr (test code Negative *NA*(03/03/20 = U Amph Scr) 11:53 AM) [facility] [id number] 16:53:00 Test Item Value Reference Range Interpretation Comments U Paulina Scr (test code Negative *NA*(03/03/20 = U Paulina Scr) 11:53 AM) [facility] [id number] 16:53:00 Test Item Value Reference Range Interpretation Comments U Benzodiaz Scr (test Negative *NA*(03/03/20 code = U Benzodiaz Scr) 11:53 AM) [facility] [id number] 16:53:00 Test Item Value Reference Range Interpretation Comments U Cocaine Scr (test Negative *NA*(03/03/20 code = U Cocaine Scr) 11:53 AM) [facility] [id number] 16:53:00 Test Item Value Reference Range Interpretation Comments U Cannab Scr (test Positive *ABN*(03/03/20 code = U Cannab Scr) 11:53 AM) [facility] [id number] 16:53:00 Test Item Value Reference Range Interpretation Comments U Opiate Scr (test Negative *NA*(03/03/20 code = U Opiate Scr) 11:53 AM) [facility] [id number] 16:53:00 Test Item Value Reference Range Interpretation Comments U Phencyclidine Scr (test Negative code = U Phencyclidine *NA*(03/03/20 11:53 Scr) AM) [facility] [id number] 16:53:00 Test Item Value Reference Range Interpretation Comments UDS Note (test code = See Note (03/03/20 11:53 UDS Note) AM) [facility]C:PT:ISOLATE:ORDQN:[id number] 16:53:00 Test Item Value Reference Range Interpretation Comments Culture: Urine (test >100,000 CFU/mL code = Culture: Escherichia coli . 10,000 Urine) - 50,000 CFU/mL Skin [facility]IC[facility]:SUSC:PT:ISOLATE:ORDQN:[id number] 16:53:00 Test Item Value Reference Range Interpretation Comments Escherichia coli (test code Escherichia coli = Escherichia coli) [facility] AND [id number] 16:53:00 Test Item Value Reference Range Interpretation Comments UA Turbidity (test code Slight *ABN*(03/03/20 = UA Turbidity) 11:53 AM) [facility] AND [id number] 16:53:00 Test Item Value Reference Range Interpretation Comments UA Spec Grav (test code = UA Spec 1.038 1 Grav) [facility] AND [id number] 16:53:00 Test Item Value Reference Range Interpretation Comments UA pH (test code = UA pH) 5.0 1 5.0-8.0 [facility] AND [id number] 16:53:00 Test Item Value Reference Range Interpretation Comments UA Protein (test code = UA Negative mg/dL Protein) [facility] AND [id number] 16:53:00 Test Item Value Reference Range Interpretation Comments UA Glucose (test code = UA Glucose) 500 mg/dL [facility] AND [id number] 16:53:00 Test Item Value Reference Range Interpretation Comments UA Ketones (test code = UA Trace mg/dL Ketones) [facility] AND [id number] 16:53:00 Test Item Value Reference Range Interpretation Comments UA Bili (test code = Negative *NA*(03/03/20 UA Bili) 11:53 AM) [facility] AND [id number] 16:53:00 Test Item Value Reference Range Interpretation Comments UA Blood (test code = Negative (03/03/20 11:53 UA Blood) AM) [facility] AND [id number] 16:53:00 Test Item Value Reference Range Interpretation Comments UA Nitrite (test code Positive *ABN*(03/03/20 = UA Nitrite) 11:53 AM) [facility] AND [id number] 16:53:00 Test Item Value Reference Range Interpretation Comments UA Leuk Est (test code Small *ABN*(03/03/20 = UA Leuk Est) 11:53 AM) [facility] AND [id number] 16:53:00 Test Item Value Reference Range Interpretation Comments UA Sq Epi (test code = UA Sq Occasional /LPF Epi) [facility] AND [id number] 16:53:00 Test Item Value Reference Range Interpretation Comments UA WBC (test code = 57 See_Comment [Automa roxana message] The UA WBC) system which ge nerated this result transmit roxana reference range : <=5. The reference range was not used to interpr et this result as spencer l/abnormal. [facility] AND [id number] 16:53:00 Test Item Value Reference Range Interpretation Comments UA RBC (test code = 3 See_Comment [Automa roxana message] The UA RBC) system which ge nerated this result transmit roxana reference range : <=2. The reference range was not used to interpr et this result as spencer l/abnormal. [facility] AND [id number] 16:53:00 Test Item Value Reference Range Interpretation Comments UA Color (test code = UA Color) Ltyellow [facility] AND [id number] 16:53:00 Test Item Value Reference Range Interpretation Comments UA Urobilinogen (test code = UA <=1.0 mg/dL 0.1-1.0 Urobilinogen) [facility] [id number] 15:15:00 Test Item Value Reference Range Interpretation Comments Total CK (test code = Total CK) 112 12-191 [facility]ARD[facility] [id number] 15:15:00 Test Item Value Reference Range Interpretation Comments Troponin-I (test code no gt See_Comment [Auto mated message] The = Troponin-I) system which g enerated this result transmit roxana reference range : <=0.40. The reference r maurice was not used to interpr et this result as spencer l/abnormal. [facility] [employer] [id number] 15:15:00 Test Item Value Reference Range Interpretation Comments Glucose Lvl (test code = Glucose Lvl) 413 70-99 [facility] [id number] 15:15:00 Test Item Value Reference Range Interpretation Comments BUN (test code = BUN) 9 7-22 [facility] [id number] 15:15:00 Test Item Value Reference Range Interpretation Comments Creatinine Lvl (test code = Creatinine 0.92 0.50-1.40 Lvl) [facility] HoldingsCRITICAL ACCESS HOSPITALMQQFM3938-77-15 15:15:00 Test Item Value Reference Range Interpretation Comments Sodium Lvl (test code = Sodium Lvl) 137 135-145 [facility]2020-09-22 15:15:00 Test Item Value Reference Range Interpretation Comments Potassium Lvl (test code = Potassium 3.9 3.5-5.1 Lvl) [facility]-09-22 15:15:00 Test Item Value Reference Range Interpretation Comments Chloride Lvl (test code = Chloride Lvl) 104 95-109 [facility] HoldingsJ[place] [id number] 15:15:00 Test Item Value Reference Range Interpretation Comments CO2 (test code = CO2) 25 24-32 [place] [id number] 15:15:00 Test Item Value Reference Range Interpretation Comments AGAP (test code = AGAP) 11.9 10.0-20.0 [place] 897800-09-22 15:15:00 Test Item Value Reference Range Interpretation Comments Calcium Lvl (test code = Calcium Lvl) 9.3 8.5-10.5 [facility] HoldingsJ[place] [id number] 15:15:00 Test Item Value Reference Range Interpretation Comments B/C Ratio (test code = B/C Ratio) 10 1 6-25 [place] 897800-09-22 15:15:00 Test Item Value Reference Range Interpretation Comments Total Protein (test code = Total 8.0 6.4-8.4 Protein) [place] 897800-09-22 15:15:00 Test Item Value Reference Range Interpretation Comments Albumin Lvl (test code = Albumin Lvl) 3.8 3.5-5.0 [place] 897800-09-22 15:15:00 Test Item Value Reference Range Interpretation Comments Globulin (test code = Globulin) 4.2 2.7-4.2 [place] 897800-09-22 15:15:00 Test Item Value Reference Range Interpretation Comments A/G Ratio (test code = A/G Ratio) 0.9 1 0.7-1.6 [place] 897800-09-22 15:15:00 Test Item Value Reference Range Interpretation Comments ALT (test code = ALT) 22 See_Comment [Auto mated message] The system which ge nerated this result transmit roxana reference range : <=65. The reference range was not used to interpr et this result as spencer l/abnormal. [facility] [id number] 15:15:00 Test Item Value Reference Range Interpretation Comments AST (test code = AST) 16 See_Comment [Auto mated message] The system which ge nerated this result transmit roxana reference range : <=37. The reference range was not used to interpr et this result as spencer l/abnormal. [facility] [id number] 15:15:00 Test Item Value Reference Range Interpretation Comments Alk Phos (test code = Alk Phos) 79 39-136 [facility] [id number] 15:15:00 Test Item Value Reference Range Interpretation Comments Bili Total (test code = Bili Total) 0.8 0.2-1.3 [facility] [id number] 15:15:00 Test Item Value Reference Range Interpretation Comments eGFR (test code = eGFR) 74 [facility] [id number] 15:15:00 Test Item Value Reference Range Interpretation Comments Magnesium Lvl (test code = Magnesium 1.8 1.8-2.4 Lvl) [facility] PasoJobdoh [id number] 15:15:00 Test Item Value Reference Range Interpretation Comments Lactic Acid Lvl (test code = Lactic 2.2 0.5-2.2 Acid Lvl) [facility] Hospit[id number] 15:15:00 Test Item Value Reference Range Interpretation Comments S Preg (test code = S Negative *NA*(03/03/20 Preg) 10:15 AM) [facility] PasoJcobjmcHAOLGUKAFT0879-58-92 15:15:00 Test Item Value Reference Range Interpretation Comments WBC (test code = WBC) 9.5 3.7-10.4 [facility] PasoUdwdlrePGMSWOKXBG1970 15:15:00 Test Item Value Reference Range Interpretation Comments RBC (test code = RBC) 4.60 4.20-5.40 [place] [id number] 15:15:00 Test Item Value Reference Range Interpretation Comments Hgb (test code = Hgb) 14.0 12.0-16.0 [facility] PasoTucxlnvPHNFUEHAVD0248-84-98 15:15:00 Test Item Value Reference Range Interpretation Comments Hct (test code = Hct) 42.4 36.0-48.0 [facility] HospitalAkfvbcqJADJHKMLUE6149-50-41 15:15:00 Test Item Value Reference Range Interpretation Comments MCV (test code = MCV) 92.3 80.0-98.0 [facility] HospitalUktvqozOGPNNWIPRM6100-59-80 15:15:00 Test Item Value Reference Range Interpretation Comments MCH (test code = MCH) 30.4 pg 27.0-31.0 [facility] HospitalTgmonmvVVSYYVWEBU5378-70-50 15:15:00 Test Item Value Reference Range Interpretation Comments MCHC (test code = MCHC) 32.9 32.0-36.0 [facility] HospitalMpfbadtMQFJFAIVFW8750-52-23 15:15:00 Test Item Value Reference Range Interpretation Comments RDW (test code = RDW) 12.9 11.5-14.5 [facility] HospitalSacxskmZEEIVXKIRF3389-87-94 15:15:00 Test Item Value Reference Range Interpretation Comments Platelet (test code = Platelet) 352 133-450 [facility] HospitalPdjgynzLXEKSQZAHD6752-01-71 15:15:00 Test Item Value Reference Range Interpretation Comments MPV (test code = MPV) 8.8 7.4-10.4 [facility] HospitalJxcdurtJCREVYQTOT4877-07-91 15:15:00 Test Item Value Reference Range Interpretation Comments PT (test code = PT) 12.1 s 12.0-14.7 [facility] HospitalOsabbttLDSMWRNSEB6749-93-51 15:15:00 Test Item Value Reference Range Interpretation Comments INR (test code = INR) 0.90 1 0.85-1.17 [facility] HospitalCedeuexKDNBVHULAY3792-76-47 15:15:00 Test Item Value Reference Range Interpretation Comments Segs (test code = Segs) 80.0 45.0-75.0 [facility] HospitalEenngzpAFUGFOCCQD5967-66-20 15:15:00 Test Item Value Reference Range Interpretation Comments Lymphocytes (test code = Lymphocytes) 12.5 20.0-40.0 [facility] HospitalWprslpgATQYPTHGGS4414-64-67 15:15:00 Test Item Value Reference Range Interpretation Comments Monocytes (test code = Monocytes) 6.5 2.0-12.0 [facility] HospitalLswxygrZXKDMRQRHX5046-04-89 15:15:00 Test Item Value Reference Range Interpretation Comments Eosinophils (test code = 0.5 See_Comment [A utomated message] The Eosinophils) system which ge nerated this result tra nsmitted reference range : <=4.0. The reference r maurice was not used to int erpret this result as normal/abnormal . [facility] HospitalKqvmbmlHLBDIFIXKN2734-16-96 15:15:00 Test Item Value Reference Range Interpretation Comments Basophils (test code = 0.5 See_Comment [Aut omated message] The Basophils) system which ge nerated this result tra nsmitted reference range : <=1.0. The reference r maurice was not used to int erpret this result as normal/abnormal . [facility] HospitalHprybnvMDNGMLRJSA3290-99-55 15:15:00 Test Item Value Reference Range Interpretation Comments Neutrophils # (test code = Neutrophils 7.6 1.5-8.1 #) [facility] HospitalQmnskbgKNMHFPSHMN4350-09-33 15:15:00 Test Item Value Reference Range Interpretation Comments Lymphocytes # (test code = Lymphocytes 1.2 1.0-5.5 #) [facility] HospitalEjaiebtQINWWBDJOQ2549-71-22 15:15:00 Test Item Value Reference Range Interpretation Comments Monocytes # (test code 0.6 See_Comment [Aut omated message] The = Monocytes #) system which generated this result tra nsmitted reference range : <=0.8. The reference r maurice was not used to int erpret this result as normal/abnormal . [facility] HospitalLltbhffOBTLPMGMNW0955-44-49 15:15:00 Test Item Value Reference Range Interpretation Comments Eosinophils # (test code 0.1 See_Comment [A utomated message] The = Eosinophils #) system whic h generated this result tra nsmitted reference range : <=0.5. The reference r maurice was not used to int erpret this result as normal/abnormal . [facility]KlpexjoRTOVYFLMBR9807-62-05 15:15:00 Test Item Value Reference Range Interpretation Comments Ethanol Lvl (test code = Ethanol Lvl) no gt [facility]manTafcaafJVCEHFDNSL9487-87-48 15:15:00 Test Item Value Reference Range Interpretation Comments Etoh (%) (test code = Etoh (%)) no [facility]2019-04-03 03:29:00 Test Item Value Reference Range Interpretation Comments Lipase Lvl (test code = Lipase Lvl) 279 73-393 [place] 053829-04-03 03:29:00 Test Item Value Reference Range Interpretation Comments Total Protein (test code = Total 7.4 6.4-8.4 Protein) [place] 053829-04-03 03:29:00 Test Item Value Reference Range Interpretation Comments AST (test code = AST) 16 See_Comment [Auto mated message] The system which ge nerated this result transmit roxana reference range : <=37. The reference range was not used to interpr et this result as spencer l/abnormal. [place] [address]-04-03 03:29:00 Test Item Value Reference Range Interpretation Comments Bili Direct (test code no gt See_Comment [Aut omated message] The = Bili Direct) system which generated this result tra nsmitted reference range : <=0.3. The reference r maurice was not used to int erpret this result as spencer l/abnormal. [place] 053829-04-03 03:29:00 Test Item Value Reference Range Interpretation Comments ALT (test code = ALT) 25 See_Comment [Auto mated message] The system which ge nerated this result transmit roxana reference range : <=65. The reference range was not used to interpr et this result as spencer l/abnormal. [facility]2019-04-03 03:29:00 Test Item Value Reference Range Interpretation Comments Albumin Lvl (test code = Albumin Lvl) 3.3 3.5-5.0 [facility]2019-04-03 03:29:00 Test Item Value Reference Range Interpretation Comments Alk Phos (test code = Alk Phos) 77 39-136 [facility]2019-04-03 03:29:00 Test Item Value Reference Range Interpretation Comments Bili Total (test code = Bili Total) 0.3 0.2-1.3 [place] 053829-04-03 03:29:00 Test Item Value Reference Range Interpretation Comments Bili Indirect (test no gt See_Comment [Automa roxana message] The code = Bili Indirect) system which generated this result tra nsmitted reference range : <=1.0. The reference r maurice was not used to int erpret this result as normal/abnormal . [facility]2019-04-03 03:29:00 Test Item Value Reference Range Interpretation Comments Globulin (test code = Globulin) 4.1 2.7-4.2 [facility] PasoCHEM [id number] 03:29:00 Test Item Value Reference Range Interpretation Comments A/G Ratio (test code = A/G Ratio) 0.8 1 0.7-1.6 [facility]GjcgeqsBZWSSXPGDDQM4669-63-71 03:29:00 Test Item Value Reference Range Interpretation Comments AGAP (test code = AGAP) 13.8 10.0-20.0 [facility] HospitalThqvryuMTJFMRYBRAJT1374-16-91 03:29:00 Test Item Value Reference Range Interpretation Comments eGFR (test code = eGFR) 87 [facility] HospitalJsdzrvyFDFOYUZTXCLS4349-85-75 03:29:00 Test Item Value Reference Range Interpretation Comments CO2 (test code = CO2) 24 24-32 [facility] HospitalModbzrjDFWNAZNVKHIV4713-44-80 03:29:00 Test Item Value Reference Range Interpretation Comments Calcium Lvl (test code = Calcium Lvl) 9.6 8.5-10.5 [facility]QdwgvuwRXJOSXTVSVQQ2030-55-24 03:29:00 Test Item Value Reference Range Interpretation Comments Creatinine Lvl (test code = Creatinine 0.81 0.50-1.40 Lvl) [facility] HospitalRgpwbvxOIMBROTEMXHH1500-42-56 03:29:00 Test Item Value Reference Range Interpretation Comments Sodium Lvl (test code = Sodium Lvl) 140 135-145 [facility] HospitalPtkzqwxDMVGGSSWQSMY8032-51-14 03:29:00 Test Item Value Reference Range Interpretation Comments Potassium Lvl (test code = Potassium 3.8 3.5-5.1 Lvl) [facility] HospitalTkhmufkZNYFQNBVSOYT0038-59-81 03:29:00 Test Item Value Reference Range Interpretation Comments Chloride Lvl (test code = Chloride Lvl) 106 95-109 [facility] HospitalDndmxmbMAZJOMMUSLDB2060-23-12 03:29:00 Test Item Value Reference Range Interpretation Comments BUN (test code = BUN) 14 7-22 [facility] HospitalXtxjqvrHGYOJRCRTQEO8541-69-05 03:29:00 Test Item Value Reference Range Interpretation Comments Glucose Lvl (test code = Glucose Lvl) 250 70-99 [facility] LakeQsbcfgaBQVXMAEMIELEC7719-85-56 03:29:00 Test Item Value Reference Range Interpretation Comments S Preg (test code = S Negative *NA*(09/11/18 Preg) 10:29 PM) [facility] HospitalViltoviVINIFPOYKQ3228-46-61 03:29:00 Test Item Value Reference Range Interpretation Comments Segs (test code = Segs) 50.9 45.0-75.0 [facility] HospitalOvefwwjFKJXWDTCWO7383-11-30 03:29:00 Test Item Value Reference Range Interpretation Comments Lymphocytes (test code = Lymphocytes) 39.5 20.0-40.0 [facility] HospitalShgxxleUHRGGGRERM3640-60-03 03:29:00 Test Item Value Reference Range Interpretation Comments Basophils (test code = 0.8 See_Comment [Aut omated message] The Basophils) system which ge nerated this result tra nsmitted reference range : <=1.0. The reference r maurice was not used to int erpret this result as normal/abnormal . [facility] HospitalLxwpfmlZGJXITMSYD9612-80-62 03:29:00 Test Item Value Reference Range Interpretation Comments Neutrophils # (test code = Neutrophils 4.4 1.5-8.1 #) [facility] HospitalIsglvurKPYPKTTSLZ8052-87-77 03:29:00 Test Item Value Reference Range Interpretation Comments Monocytes (test code = Monocytes) 6.2 2.0-12.0 [facility] HospitalQfhuevyJDRXTHUYXL2846-32-95 03:29:00 Test Item Value Reference Range Interpretation Comments Eosinophils (test code = 2.6 See_Comment [A utomated message] The Eosinophils) system which ge nerated this result tra nsmitted reference range : <=4.0. The reference r maurice was not used to int erpret this result as normal/abnormal . [facility] HospitalKkozbzkALETLLTWLP5172-26-24 03:29:00 Test Item Value Reference Range Interpretation Comments Eosinophils # (test code 0.2 See_Comment [A utomated message] The = Eosinophils #) system whic h generated this result tra nsmitted reference range : <=0.5. The reference r maurice was not used to int erpret this result as normal/abnormal . [facility] HospitalIwvenmnKEGVDGURWW4190-63-18 03:29:00 Test Item Value Reference Range Interpretation Comments Basophils # (test code 0.1 See_Comment [Aut omated message] The = Basophils #) system which generated this result tra nsmitted reference range : <=0.2. The reference r maurice was not used to int erpret this result as normal/abnormal . [facility] HospitalJloouhiXQTJHZZJQP3255-77-26 03:29:00 Test Item Value Reference Range Interpretation Comments Lymphocytes # (test code = Lymphocytes 3.4 1.0-5.5 #) [facility] HospitalCjkqoiuXMRHJUCGYU4332-49-93 03:29:00 Test Item Value Reference Range Interpretation Comments Monocytes # (test code 0.5 See_Comment [Aut omated message] The = Monocytes #) system which generated this result tra nsmitted reference range : <=0.8. The reference r maurice was not used to int erpret this result as normal/abnormal . [facility] HospitalCuxlsjfLVRCSISSUM0946-98-99 03:29:00 Test Item Value Reference Range Interpretation Comments MCHC (test code = MCHC) 33.3 32.0-36.0 [facility] HospitalKzqlgnbWCZLARWOBL8451-45-60 03:29:00 Test Item Value Reference Range Interpretation Comments RDW (test code = RDW) 12.4 11.5-14.5 [facility] HospitalWkjoslcXZBLYNHGRR7274-63-60 03:29:00 Test Item Value Reference Range Interpretation Comments Platelet (test code = Platelet) 380 133-450 [facility] HospitalSivdpvxMWJMGBBRTU2156-48-69 03:29:00 Test Item Value Reference Range Interpretation Comments MPV (test code = MPV) 8.0 7.4-10.4 [facility] HospitalXjpjlyzBQSUUVRSKT8214-41-21 03:29:00 Test Item Value Reference Range Interpretation Comments WBC (test code = WBC) 8.6 3.7-10.4 [facility] HospitalJmfxmptEWSVFVFMUS1185-39-20 03:29:00 Test Item Value Reference Range Interpretation Comments RBC (test code = RBC) 4.41 4.20-5.40 [facility] HospitalOoilxlkHXPUWLOPGU5630-14-99 03:29:00 Test Item Value Reference Range Interpretation Comments Hct (test code = Hct) 39.8 36.0-48.0 [facility] HospitalGzrlpoiHZDCHWRIYC3236-14-18 03:29:00 Test Item Value Reference Range Interpretation Comments Hgb (test code = Hgb) 13.3 12.0-16.0 [facility] HospitalGvbgojhTJIZRQBLFK3842-37-51 03:29:00 Test Item Value Reference Range Interpretation Comments MCV (test code = MCV) 90.2 80.0-98.0 [facility] HospitalPgsmprjAOYTLHMDFK2112-80-58 03:29:00 Test Item Value Reference Range Interpretation Comments MCH (test code = MCH) 30.1 pg 27.0-31.0 [facility] AND NSSNX0823-01-19 03:29:00 Test Item Value Reference Range Interpretation Comments UA Urobilinogen (test code = UA 0.2 0.1-1.0 Urobilinogen) [facility] AND [id number] 03:29:00 Test Item Value Reference Range Interpretation Comments UA Bacteria (test code = UA Many /HPF Bacteria) [facility] AND [id number] 03:29:00 Test Item Value Reference Range Interpretation Comments UA Amorph Lizy (test code = Occasional /HPF UA Amorph Lizy) [facility] AND [id number] 03:29:00 Test Item Value Reference Range Interpretation Comments UA Sq Epi (test code = UA Sq Epi) Many /LPF [facility] AND [id number] 03:29:00 Test Item Value Reference Range Interpretation Comments UA Nitrite (test code Negative (09/11/18 10:29 = UA Nitrite) PM) [facility] AND [id number] 03:29:00 Test Item Value Reference Range Interpretation Comments UA Leuk Est (test Negative (09/11/18 10:29 code = UA Leuk Est) PM) [facility] AND [id number] 03:29:00 Test Item Value Reference Range Interpretation Comments UA Blood (test code = Negative (09/11/18 10:29 UA Blood) PM) [facility] AND [id number] 03:29:00 Test Item Value Reference Range Interpretation Comments UA Bili (test code = Negative *NA*(09/11/18 UA Bili) 10:29 PM) [facility] AND [id number] 03:29:00 Test Item Value Reference Range Interpretation Comments UA Ketones (test code Negative *NA*(09/11/18 = UA Ketones) 10:29 PM) [facility] AND [id number] 03:29:00 Test Item Value Reference Range Interpretation Comments UA Protein (test code Negative (09/11/18 10:29 = UA Protein) PM) [facility] AND [id number] 03:29:00 Test Item Value Reference Range Interpretation Comments UA Glucose (test code = UA Glucose) 500 mg/dL [facility] AND [id number] 03:29:00 Test Item Value Reference Range Interpretation Comments UA pH (test code = UA pH) 6.5 1 5.0-8.0 [facility] AND [id number] 03:29:00 Test Item Value Reference Range Interpretation Comments UA Spec Grav (test code = UA Spec 1.020 1 Grav) [facility] AND [id number] 03:29:00 Test Item Value Reference Range Interpretation Comments UA Turbidity (test code Turbid *ABN*(09/11/18 = UA Turbidity) 10:29 PM) [facility] AND [id number] 03:29:00 Test Item Value Reference Range Interpretation Comments UA Color (test code = Yellow *NA*(09/11/18 UA Color) 10:29 PM) [facility]VO0166[facility]99-20 09:57:00 Test Item Value Reference Range Interpretation Comments AGAP (test code = AGAP) 9.7 10.0-20.0 [facility]FkxiogzHCYJQBRNEOQJ0998-21-22 09:57:00 Test Item Value Reference Range Interpretation Comments A/G Ratio (test code = A/G Ratio) 0.8 1 0.7-1.6 [facility]PlyaktkFYRFZKFNEAKV1417-31-12 09:57:00 Test Item Value Reference Range Interpretation Comments Globulin (test code = Globulin) 3.1 2.7-4.2 [facility]JteqgnmTPVODQUXFLBH3276-73-67 09:57:00 Test Item Value Reference Range Interpretation Comments B/C Ratio (test code = B/C Ratio) 12 1 6-25 [facility]EabeovcJKRIMCBIHMHH0698-12-64 09:57:00 Test Item Value Reference Range Interpretation Comments eGFR (test code = eGFR) 96 [facility] HospitalCowpzbgYMMIBQAMCSRW0332-44-63 09:57:00 Test Item Value Reference Range Interpretation Comments AST (test code = AST) 36 See_Comment [Auto mated message] The system which ge nerated this result transmit roxana reference range : <=37. The reference range was not used to interpr et this result as spencer l/abnormal. [facility] HospitalImwugopBJSEKKPHQDXJ8094-12-05 09:57:00 Test Item Value Reference Range Interpretation Comments Chloride Lvl (test code = Chloride Lvl) 109 95-109 [facility] HospitalDpwdlttDAYSQAFKXYIL9876-76-31 09:57:00 Test Item Value Reference Range Interpretation Comments CO2 (test code = CO2) 27 24-32 [facility]HiujewnIWQZPXDCCTLG4553-62-22 09:57:00 Test Item Value Reference Range Interpretation Comments Total Protein (test code = Total 5.6 6.4-8.4 Protein) [facility]GvssywlXAMBKUGDIIOW8755-37-83 09:57:00 Test Item Value Reference Range Interpretation Comments Calcium Lvl (test code = Calcium Lvl) 8.4 8.5-10.5 [facility] HospitalRkuvqlzTOSJPOAINPAY1531-08-66 09:57:00 Test Item Value Reference Range Interpretation Comments Potassium Lvl (test code = Potassium 3.7 3.5-5.1 Lvl) [facility]KsddpiqJTYYEYLFJGKO1794-41-87 09:57:00 Test Item Value Reference Range Interpretation Comments Sodium Lvl (test code = Sodium Lvl) 142 135-145 [facility] HospitalReepjazOKVUYBWCMCOU7540-47-19 09:57:00 Test Item Value Reference Range Interpretation Comments Creatinine Lvl (test code = Creatinine 0.74 0.50-1.40 Lvl) [facility] HospitalPwqwlgpKKUFQVUYHVKR7855-03-97 09:57:00 Test Item Value Reference Range Interpretation Comments BUN (test code = BUN) 9 7-22 [facility] HospitalTphahkyJYARDZEWGISA5706-89-70 09:57:00 Test Item Value Reference Range Interpretation Comments ALT (test code = ALT) 42 See_Comment [Auto mated message] The system which ge nerated this result transmit roxana reference range : <=65. The reference range was not used to interpr et this result as spencer l/abnormal. [facility] HospitalDdjzqetXOXZLXGGTKOF8182-41-46 09:57:00 Test Item Value Reference Range Interpretation Comments Albumin Lvl (test code = Albumin Lvl) 2.5 3.5-5.0 [facility] HospitalFxprrciVHKSVXBQWESK2107-73-80 09:57:00 Test Item Value Reference Range Interpretation Comments Bili Total (test code = Bili Total) 0.4 0.2-1.3 [facility] HospitalThewawmQXHOCXPXTQEO5688-97-90 09:57:00 Test Item Value Reference Range Interpretation Comments Alk Phos (test code = Alk Phos) 60 39-136 [facility]qFNGCLJNVOOOD8153-48-68 09:57:00 Test Item Value Reference Range Interpretation Comments Glucose Lvl (test code = Glucose Lvl) 179 70-99 [facility]IxtjfrvMSFWNIRJFM5793-56-41 09:57:00 Test Item Value Reference Range Interpretation Comments Neutrophils # (test code = Neutrophils 5.1 1.5-8.1 #) [facility] HospitalYtxrqxkXOSFURSEHY7028-94-42 09:57:00 Test Item Value Reference Range Interpretation Comments Lymphocytes # (test code = Lymphocytes 1.5 1.0-5.5 #) [facility] HospitalVnvmgajCVSMEKVZLO0302-15-60 09:57:00 Test Item Value Reference Range Interpretation Comments Monocytes # (test code 0.5 See_Comment [Aut omated message] The = Monocytes #) system which generated this result tra nsmitted reference range : <=0.8. The reference r maurice was not used to int erpret this result as normal/abnormal . [facility] HospitalTotwehlFKTJZTOWSG3817-71-07 09:57:00 Test Item Value Reference Range Interpretation Comments Basophils (test code = 0.1 See_Comment [Aut omated message] The Basophils) system which ge nerated this result tra nsmitted reference range : <=1.0. The reference r maurice was not used to int erpret this result as normal/abnormal . [facility] HospitalQzfvuaiCQHQAVWXXC8394-41-19 09:57:00 Test Item Value Reference Range Interpretation Comments Eosinophils (test code = 0.4 See_Comment [A utomated message] The Eosinophils) system which ge nerated this result tra nsmitted reference range : <=4.0. The reference r maurice was not used to int erpret this result as normal/abnormal . [facility] HospitalEekqmibDREQHBDQUG9859-39-67 09:57:00 Test Item Value Reference Range Interpretation Comments Lymphocytes (test code = Lymphocytes) 21.2 20.0-40.0 [facility] HospitalLhuvhllBYPYSUSUIO0885-97-58 09:57:00 Test Item Value Reference Range Interpretation Comments Monocytes (test code = Monocytes) 6.7 2.0-12.0 [facility] HospitalNdnqklxAERYZFGZGR5016-19-84 09:57:00 Test Item Value Reference Range Interpretation Comments Segs (test code = Segs) 71.6 45.0-75.0 [facility]HxsdsezWVMHVYYIKJ0110-71-10 09:57:00 Test Item Value Reference Range Interpretation Comments RDW (test code = RDW) 12.5 11.5-14.5 [facility] HospitalMlvwcujUQIFAUQKKA8215-99-03 09:57:00 Test Item Value Reference Range Interpretation Comments Platelet (test code = Platelet) 252 133-450 [facility] HospitalHiiqmbaKGYQEDGZCH0160-79-14 09:57:00 Test Item Value Reference Range Interpretation Comments MPV (test code = MPV) 8.6 7.4-10.4 [facility] HospitalUlkwojnFKHJQBRTIZ3879-06-64 09:57:00 Test Item Value Reference Range Interpretation Comments MCHC (test code = MCHC) 33.0 32.0-36.0 [facility] HospitalZzuqrqzRHADKANTQE9961-75-53 09:57:00 Test Item Value Reference Range Interpretation Comments Hgb (test code = Hgb) 11.9 12.0-16.0 [facility] HospitalDlogyffAVIVIUWHGB2022-70-71 09:57:00 Test Item Value Reference Range Interpretation Comments Hct (test code = Hct) 36.0 36.0-48.0 [facility] HospitalRdsnyrdFUEWPJDEDL1713-06-51 09:57:00 Test Item Value Reference Range Interpretation Comments MCV (test code = MCV) 90.5 80.0-98.0 [facility] HospitalNnxmkptBOPPSALECB3727-88-90 09:57:00 Test Item Value Reference Range Interpretation Comments MCH (test code = MCH) 29.9 pg 27.0-31.0 [facility] HospitalHelzbzzSOJLFBUMJX8928-42-39 09:57:00 Test Item Value Reference Range Interpretation Comments RBC (test code = RBC) 3.98 4.20-5.40 [facility] HospitalYrmjmtuLFOXBSURDS9698-74-28 09:57:00 Test Item Value Reference Range Interpretation Comments WBC (test code = WBC) 7.1 3.7-10.4 [facility] MADDWAYKG2917-61-17 20:46:00 Test Item Value Reference Range Interpretation Comments Hgb A1C (test code = Hgb A1C) 12.0 [facility] WRMJV6738-49-07 01:05:00 Test Item Value Reference Range Interpretation Comments Phosphorus (test code = Phosphorus) 2.0 2.5-4.5 [facility] [id number] 01:05:00 Test Item Value Reference Range Interpretation Comments Magnesium Lvl (test code = Magnesium 1.5 1.8-2.4 Lvl) [facility] 01:05:00 Test Item Value Reference Range Interpretation Comments Lipase Lvl (test code = Lipase Lvl) 164 73-393 [facility]2019-03-20 01:05:00 Test Item Value Reference Range Interpretation Comments eGFR (test code = eGFR) 60 [facility]2019-03-20 01:05:00 Test Item Value Reference Range Interpretation Comments ALT (test code = ALT) 36 See_Comment [Auto mated message] The system which ge nerated this result transmit roxana reference range : <=65. The reference range was not used to interpr et this result as spencer l/abnormal. [facility]2019-03-20 01:05:00 Test Item Value Reference Range Interpretation Comments A/G Ratio (test code = A/G Ratio) 0.9 1 0.7-1.6 [facility]2019-03-20 01:05:00 Test Item Value Reference Range Interpretation Comments Globulin (test code = Globulin) 4.2 2.7-4.2 [facility]2019-03-20 01:05:00 Test Item Value Reference Range Interpretation Comments Total Protein (test code = Total 7.9 6.4-8.4 Protein) [facility]2019-03-20 01:05:00 Test Item Value Reference Range Interpretation Comments Albumin Lvl (test code = Albumin Lvl) 3.7 3.5-5.0 [facility]2019-03-20 01:05:00 Test Item Value Reference Range Interpretation Comments Bili Total (test code = Bili Total) 0.4 0.2-1.3 [facility]2019-03-20 01:05:00 Test Item Value Reference Range Interpretation Comments AST (test code = AST) 28 See_Comment [Auto mated message] The system which ge nerated this result transmit roxana reference range : <=37. The reference range was not used to interpr et this result as spencer l/abnormal. [place] 053829-03-20 01:05:00 Test Item Value Reference Range Interpretation Comments Alk Phos (test code = Alk Phos) 80 39-136 [facility]2019-03-20 01:05:00 Test Item Value Reference Range Interpretation Comments Potassium Lvl (test code = Potassium 3.0 3.5-5.1 Lvl) [facility]2019-03-20 01:05:00 Test Item Value Reference Range Interpretation Comments Sodium Lvl (test code = Sodium Lvl) 136 135-145 [facility]2019-03-20 01:05:00 Test Item Value Reference Range Interpretation Comments B/C Ratio (test code = B/C Ratio) 5 1 6-25 [facility]2019-03-20 01:05:00 Test Item Value Reference Range Interpretation Comments Calcium Lvl (test code = Calcium Lvl) 9.1 8.5-10.5 [facility]2019-03-20 01:05:00 Test Item Value Reference Range Interpretation Comments CO2 (test code = CO2) 22 24-32 [facility]2019-03-20 01:05:00 Test Item Value Reference Range Interpretation Comments Chloride Lvl (test code = Chloride Lvl) 106 95-109 [facility]2019-03-20 01:05:00 Test Item Value Reference Range Interpretation Comments AGAP (test code = AGAP) 11.0 10.0-20.0 [facility]2019-03-20 01:05:00 Test Item Value Reference Range Interpretation Comments Creatinine Lvl (test code = Creatinine 1.10 0.50-1.40 Lvl) [facility]2019-03-20 01:05:00 Test Item Value Reference Range Interpretation Comments BUN (test code = BUN) 6 7-22 [facility]2019-03-20 01:05:00 Test Item Value Reference Range Interpretation Comments Glucose Lvl (test code = Glucose Lvl) 349 70-99 [facility]owfkSGTNNITZAJOTJ7234-48-55 01:05:00 Test Item Value Reference Range Interpretation Comments S Preg (test code = S Negative *NA*(08/28/18 Preg) 8:05 PM) [facility] HospitalErroekyWNXJTVTNRU6911-49-19 01:05:00 Test Item Value Reference Range Interpretation Comments Segs (test code = Segs) 67.0 45.0-75.0 [facility] HospitalZqsejdxJNNDHUQMEE2536-30-72 01:05:00 Test Item Value Reference Range Interpretation Comments Lymphocytes (test code = Lymphocytes) 25.3 20.0-40.0 [facility] HospitalPinhefiPIBIJLIEYF9143-55-50 01:05:00 Test Item Value Reference Range Interpretation Comments Basophils # (test code 0.1 See_Comment [Aut omated message] The = Basophils #) system which generated this result tra nsmitted reference range : <=0.2. The reference r maurice was not used to int erpret this result as normal/abnormal . [facility] HospitalXiegsokALOHJCBTUB3961-41-67 01:05:00 Test Item Value Reference Range Interpretation Comments Lymphocytes # (test code = Lymphocytes 2.6 1.0-5.5 #) [facility] HospitalNwhcbryLRWKTLCOFD3237-01-65 01:05:00 Test Item Value Reference Range Interpretation Comments Basophils (test code = 0.6 See_Comment [Aut omated message] The Basophils) system which ge nerated this result tra nsmitted reference range : <=1.0. The reference r maurice was not used to int erpret this result as normal/abnormal . [facility] HospitalIrrlifgONXMTZFXHZ3324-80-25 01:05:00 Test Item Value Reference Range Interpretation Comments Monocytes # (test code 0.7 See_Comment [Aut omated message] The = Monocytes #) system which generated this result tra nsmitted reference range : <=0.8. The reference r maurice was not used to int erpret this result as normal/abnormal . [facility] HospitalHlaabeqREGQFSGWZH8399-94-29 01:05:00 Test Item Value Reference Range Interpretation Comments Neutrophils # (test code = Neutrophils 7.0 1.5-8.1 #) [facility] HospitalQyjojicSNVKJJJDVV4415-48-70 01:05:00 Test Item Value Reference Range Interpretation Comments Eosinophils # (test code 0.1 See_Comment [A utomated message] The = Eosinophils #) system whic h generated this result tra nsmitted reference range : <=0.5. The reference r maurice was not used to int erpret this result as normal/abnormal . [facility] HospitalMnhxoevNVDNAVUZFN6767-61-07 01:05:00 Test Item Value Reference Range Interpretation Comments Eosinophils (test code = 0.7 See_Comment [A utomated message] The Eosinophils) system which ge nerated this result tra nsmitted reference range : <=4.0. The reference r maurice was not used to int erpret this result as normal/abnormal . [facility] HospitalAbyrkwsNBVOSLGNZJ6173-52-36 01:05:00 Test Item Value Reference Range Interpretation Comments Monocytes (test code = Monocytes) 6.4 2.0-12.0 [facility] HospitalLdysqedJARMESZSLN6553-91-00 01:05:00 Test Item Value Reference Range Interpretation Comments RBC (test code = RBC) 5.16 4.20-5.40 [facility] HospitalEbpqvglLLDANXERMA1648-69-05 01:05:00 Test Item Value Reference Range Interpretation Comments Hgb (test code = Hgb) 15.7 12.0-16.0 [facility] HospitalFngydnlQANDWNEAUS9886-74-77 01:05:00 Test Item Value Reference Range Interpretation Comments WBC (test code = WBC) 10.4 3.7-10.4 [facility] HospitalLuryzecJEYAGKNXGE6640-84-55 01:05:00 Test Item Value Reference Range Interpretation Comments MCH (test code = MCH) 30.4 pg 27.0-31.0 [facility] HospitalGwnregmYSISKFCHZW2788-51-17 01:05:00 Test Item Value Reference Range Interpretation Comments RDW (test code = RDW) 12.5 11.5-14.5 [facility] HospitalNnszrilDEBPOTDFPP0656-63-64 01:05:00 Test Item Value Reference Range Interpretation Comments Platelet (test code = Platelet) 358 133-450 [facility] HospitalUwwnpvmSHCNNWSKOR9017-56-98 01:05:00 Test Item Value Reference Range Interpretation Comments MPV (test code = MPV) 8.8 7.4-10.4 [facility] HospitalVwmertrYBMAWOASOE2936-60-95 01:05:00 Test Item Value Reference Range Interpretation Comments MCHC (test code = MCHC) 34.2 32.0-36.0 [facility] HospitalBlfqnhcHAVESWFMZI6132-06-70 01:05:00 Test Item Value Reference Range Interpretation Comments MCV (test code = MCV) 89.1 80.0-98.0 [facility] HospitalVkyobstXDWKRCDNEM9059-62-55 01:05:00 Test Item Value Reference Range Interpretation Comments Hct (test code = Hct) 46.0 36.0-48.0 [facility] KJSSX4097-49-72 01:05:00 Test Item Value Reference Range Interpretation Comments UA Bacteria (test code = UA Occasional /HPF Bacteria) [facility] AND [id number] 01:05:00 Test Item Value Reference Range Interpretation Comments UA RBC (test code = 4 See_Comment [Automa roxana message] The UA RBC) system which ge nerated this result transmit roxana reference range : <=2. The reference range was not used to interpr et this result as spencer l/abnormal. [facility] AND [id number] 01:05:00 Test Item Value Reference Range Interpretation Comments UA WBC (test code = 1 See_Comment [Automa roxana message] The UA WBC) system which ge nerated this result transmit roxana reference range : <=5. The reference range was not used to interpr et this result as spencer l/abnormal. [facility] AND [id number] 01:05:00 Test Item Value Reference Range Interpretation Comments UA Blood (test code = Moderate *ABN*(08/28/18 UA Blood) 8:05 PM) [facility] AND [id number] 01:05:00 Test Item Value Reference Range Interpretation Comments UA Bili (test code = Negative *NA*(08/28/18 UA Bili) 8:05 PM) [facility] AND [id number] 01:05:00 Test Item Value Reference Range Interpretation Comments UA Ketones (test code = UA Ketones) 20 mg/dL [facility] AND [id number] 01:05:00 Test Item Value Reference Range Interpretation Comments UA Glucose (test code = UA Glucose) 500 mg/dL [facility] AND [id number] 01:05:00 Test Item Value Reference Range Interpretation Comments UA Protein (test code Negative (08/28/18 8:05 = UA Protein) PM) [facility] AND [id number] 01:05:00 Test Item Value Reference Range Interpretation Comments UA Sq Epi (test code = UA Sq Epi) Many /LPF [facility] AND [id number] 01:05:00 Test Item Value Reference Range Interpretation Comments UA Leuk Est (test code Small *ABN*(08/28/18 = UA Leuk Est) 8:05 PM) [facility] AND [id number] 01:05:00 Test Item Value Reference Range Interpretation Comments UA Urobilinogen (test code = UA <=1.0 mg/dL 0.1-1.0 Urobilinogen) [facility] AND [id number] 01:05:00 Test Item Value Reference Range Interpretation Comments UA Nitrite (test code Negative (08/28/18 8:05 = UA Nitrite) PM) [facility] AND [id number] 01:05:00 Test Item Value Reference Range Interpretation Comments UA Spec Grav (test code = UA Spec 1.037 1 Grav) [facility] AND [id number] 01:05:00 Test Item Value Reference Range Interpretation Comments UA pH (test code = UA pH) 6.0 1 5.0-8.0 [facility] AND [id number] 01:05:00 Test Item Value Reference Range Interpretation Comments UA Turbidity (test code Slight *ABN*(08/28/18 = UA Turbidity) 8:05 PM) [facility] AND [id number] 01:05:00 Test Item Value Reference Range Interpretation Comments UA Color (test code = Yellow *NA*(08/28/18 UA Color) 8:05 PM) [facility]
--- NOTE | 2022-06-14 14:11 | EDPHYS ---
Physician Documentation [facility] Name: Asia Cole Age: 52 yrs Sex: Female : 1970 Arrival Date: 06/14/2022 Time: 13:38 Bed IW1 Private MD: ED Physician Johnie Sepulveda HPI: 06/14 14:05 This 52 yrs old Female presents to ER via Ambulatory with complaints of Tooth pain, R jh7 ear pain, R jaw pain. 14:05 Onset: The symptoms/episode began/occurred 1 week(s) ago. Associated signs and jh7 symptoms: Pertinent negatives: abdominal pain, chest pain, fever, shortness of breath, vomiting. Patient reports a history of poor dentition with her last dental visit being 3 to 4 years ago. Reports that her right lower premolar is painful to the touch and that the pain is radiating up her jaw to her right ear. States that she is attempting to schedule an appointment with a dentist.. 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 - Social history:: Smoking status: Patient denies any tobacco usage or history of. ROS: 14:05 Constitutional: Negative for fever, chills, and weight loss, Eyes: Negative for injury, jh7 pain, redness, and discharge, Neck: Negative for injury, pain, and swelling, Cardiovascular: Negative for chest pain, palpitations, and edema, Respiratory: Negative for shortness of breath, cough, wheezing, and pleuritic chest pain, Abdomen/GI: Negative for abdominal pain, nausea, vomiting, diarrhea, and constipation, Back: Negative for injury and pain, MS/Extremity: Negative for injury and deformity, Skin: Negative for injury, rash, and discoloration, Neuro: Negative for headache, weakness, numbness, tingling, and seizure. 14:05 ENT: Positive for dental pain, ear pain, Negative for sore throat, difficulty swallowing. 14:05 All other systems are negative. Exam: 14:05 Constitutional: This is a well developed, well nourished patient who is awake, alert, jh7 and in no acute distress. Head/Face: Normocephalic, atraumatic. Neck: Trachea midline, no thyromegaly or masses palpated, and no cervical lymphadenopathy. Supple, full range of motion without nuchal rigidity, or vertebral point tenderness. No Meningismus. Cardiovascular: Regular rate and rhythm with a normal S1 and S2. No gallops, murmurs, or rubs. Normal PMI, no JVD. No pulse deficits. Respiratory: Lungs have equal breath sounds bilaterally, clear to auscultation and percussion. No rales, rhonchi or wheezes noted. No increased work of breathing, no retractions or nasal flaring. Skin: Warm, dry with normal turgor. Normal color with no rashes, no lesions, and no evidence of cellulitis. MS/ Extremity: Pulses equal, no cyanosis. Neurovascular intact. Full, normal range of motion. Neuro: Awake and alert, GCS 15, oriented to person, place, time, and situation. Motor strength 5/5 in all extremities. Sensory grossly intact. Normal gait. 14:05 ENT: Ear canal(s): are normal, TM's: are normal, Nose: is normal, Dental exam: dental caries, specifically in the lower right first molar (#30), pain, specifically in the lower right second bicuspid (#29) and lower right first molar (#30). Vital Signs: 14:02 BP 171 / 95; Pulse 103; Resp 18; Temp 97.9; Pulse Ox 100% ; Weight 72.57 kg; Height 4 ap3 ft. 6 in. (137.16 cm); 14:06 BP 154 / 94; ap3 14:02 Body Mass Index 38.58 (72.57 kg, 137.16 cm) ap3 MDM: 13:58 Patient medically screened. [facility] 14:10 Differential diagnosis: Dental caries, dental abscess, fractured tooth. Data reviewed: [facility] vital signs, nurses notes. Data interpreted: Pulse oximetry: is 100 %. Interpretation: normal. Counseling: I had a detailed discussion with the patient and/or guardian regarding: the historical points, exam findings, and any diagnostic results supporting the discharge/admit diagnosis, the need for outpatient follow up, a dentist, to return to the emergency department if symptoms worsen or persist or if there are any questions or concerns that arise at home. Administered Medications: 14:15 Drug: HYDROcodone-acetaminophen 5 mg-325 mg 1 tabs Route: PO; ap3 14:16 Follow up: Response: No adverse reaction ap3 Disposition: 17:23 Co-signature as Attending Physician, Johnie Sepulveda MD I agree with the assessment and rt plan of care. Disposition Summary: 06/14/22 14:10 Discharge Ordered Location: Home jh Problem: an ongoing problem jh7 Symptoms: have worsened jh7 Condition: Stable jh7 Diagnosis - Dental caries, unspecified jh7 Followup: [facility] - With: Private Physician - When: 2 - 3 days - Reason: Recheck today's complaints Discharge Instructions: - Discharge Summary Sheet jh7 - Dental Caries, Adult jh7 - Dental Pain [facility] Forms: - Medication Reconciliation Form 7 - Thank You Letter 7 - Antibiotic Education [facility] Prescriptions: - Augmentin 875-125 mg Oral Tablet - take 1 tablet by ORAL route every 12 hours for 10 days; 20 tablet; Refills: 0, jh7 Product Selection Permitted Signatures: Keena Aguero, RN RN ap3 Aundrea Reinoso, PROJECT MANAGER PROJECT MANAGER jh7 Johnie Sepulveda MD MD rt Corrections: (The following items were deleted from the chart) 16:10 14:05 This 52 yrs old Female presents to ER via Ambulatory with complaints of Tooth jh7 pain, R ear pain, R jaw pain. jh7
--- NOTE | 2022-06-14 14:11 | ER ---
Nurse's Notes [facility] Name: Asia Coel Age: 52 yrs Sex: Female : 1970 Arrival Date: 06/14/2022 Time: 13:38 Bed IW1 Private MD: Diagnosis: Dental caries, unspecified Presentation: 06/14 14:02 Chief complaint: Patient states: she has poor teeth, and is having right sided jaw ap3 pain, ear pain an it is radiating into her head. Coronavirus screen: At this time, the client does not indicate any symptoms associated with coronavirus-19. Ebola Screen: No symptoms or risks identified at this time. Initial Sepsis Screen: Does the patient meet any 2 criteria? No. Patient's initial sepsis screen is negative. Does the patient have a suspected source of infection? No. Patient's initial sepsis screen is negative. Risk Assessment: Do you want to hurt yourself or someone else? Patient reports no desire to harm self or others. Onset of symptoms was June 14, 2022. 14:02 Method Of Arrival: Ambulatory ap3 14:02 Acuity: DIYA 3 ap3 Triage Assessment: 14:05 General: Appears in no apparent distress. Behavior is calm, cooperative, appropriate ap3 for age. Pain: Complains of pain in right ear and right jaw. EENT: Reports pain in right ear and right jaw. 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 - Social history:: Smoking status: Patient denies any tobacco usage or history of. Screenin:06 [facility] ED Fall Risk Assessment (Adult) History of falling in the last 3 months, ap3 including since admission. Abuse screen: Denies threats or abuse. Nutritional screening: No deficits noted. Tuberculosis screening: No symptoms or risk factors identified. Vital Signs: 14:02 BP 171 / 95; Pulse 103; Resp 18; Temp 97.9; Pulse Ox 100% ; Weight 72.57 kg; Height 4 ap3 ft. 6 in. (137.16 cm); 14:06 BP 154 / 94; ap3 14:02 Body Mass Index 38.58 (72.57 kg, 137.16 cm) ap3 ED Course: 13:38 Patient arrived in ED. rg4 13:58 Aundrea Reinoso FNP is [facility]. jh7 13:58 Johnie Sepulveda MD is Attending Physician. jh7 14:05 Triage completed. ap3 14:07 Arm band placed on right wrist. ap3 14:09 Patient has correct armband on for positive identification. ap3 14:09 No provider procedures requiring assistance completed. Patient did not have IV access ap3 during this emergency room visit. Administered Medications: 14:15 Drug: HYDROcodone-acetaminophen 5 mg-325 mg 1 tabs Route: PO; ap3 14:16 Follow up: Response: No adverse reaction ap3 Medication: 14:09 VIS not applicable for this client. ap3 Outcome: 14:10 Discharge ordered by . jh7 14:16 Discharged to home ambulatory. ap3 14:16 Condition: good 14:16 Discharge instructions given to patient, Instructed on discharge instructions, follow up and referral plans. medication usage, Demonstrated understanding of instructions, follow-up care, medications. 14:16 Patient left the ED. ap3 Signatures: Tiff Guerra rg4 Keena Aguero, RN RN ap3 Aundrea Reinoso FNP SR. OPERATIONS MANAGER [facility]
[2022-06-14] MEDS ORDERED: HYDROCODONE/APAP 5/325 MG TAB ONE (14:14)
[2022-06-14 14:20] VITALS: TEMP 97.9; O2SAT 100
[2022-06-14 14:21] VITALS: BP 154/94
== END 2022-06-14 14:16 | disposition home or self-care (01) ==
LOC: ER 12:56
DX: K02.9 Dental caries, unspecified (principal)
CPT/HCPCS: 99283

== ENCOUNTER 2023-01-05 12:28 | Emergency (ER) | payer SELFPAY ==
--- OUTSIDE RECORDS SUMMARY | 2023-01-05 12:38 | XMS REPORT | Continuity of Care Document ---
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 less than 14 [place] (Dobhoff, J-tube etc) and pediatric and patients. Benadryl 2019- No Notes: Memoria 3-20 (Same as: l 04:58: Benadryl) Shekhar 00 Reglan 2018-0 No Notes: Memoria 3-20 (Same as: l 04:58: Reglan) Shekhar 00 Sodium 2019-0 No 1,000 mL, Memori a Chloride 3-20 1000 l 0.9% 04:56: ml/hr, Shekhar (Bolus) IV 00 Infuse Over: 1 hr, Route: IV, 1,000, Drug form: INJ, ONCE, Priority: STAT, Dosing Weight 83.182 kg, Start date: 08/28/18 23:56:00 CDT, Stop date: 08/28/18 23:56:00 CDT metFORMIN 2018-0 Yes 1000mg Q.5D Take 1,000 Methodi (GLUCOPHAGE 9-[address] ) 1,000 mg 06:24: mouth 2 Hosp maxim[facility] tablet 18 (two) l times a day with meals. Immunizations Ordered Immunization Filled Immunization Date Status Commen ts Source Name Name FLUCELVAX QUAD 2022-03-[address] [facility] FLUCELVAX QUAD PF 2022-03-[address] 00:[facility]00 Hospital Pneumococcal 2022-03-03 Completed [facility] 20-valent Conjugate 00:00:00 [facility] Vaccine Pneumococcal 2022-03-03 Completed [facility] 20-valent Conjugate 00:00:00 [facility] Vaccine diphtheria/pertussis 2020-04-15 Completed Luis Corrigan , acel/tetanus adult 06:20:00 pneumococcal 2018-08-31 Completed Guillermo garner 23-valent vaccine 17:37:00 FLUCELVAX QUAD PF 2017-06-[address] 00[facility] Hospital FLUCELVAX QUAD PF 2017-06-[address] 00:[facility]:00 Hospital FLUCELVAX QUAD PF 2017-06-[address] 00:[facility]:00 Hospital Vital Signs Vital Name Observation Time Observation Value Comments Source Systolic blood 2022-03-05 13:16:09 146 mm[Hg] [facility] pressure Diastolic blood 2022-03-05 13:16:09 80 mm[Hg] [facility] pressure Heart rate 2022-03-05 13:16:09 68 /min [facility] Body temperature 2022-03-05 13:16:09 36.78 [facility] rate 2022-03-05 13:16:09 16 /min [facility] Oxygen saturation in 2022-03-05 13:16:09 96 /min [facility] Arterial blood by Pulse oximetry Body height 2022-03-02 07:05:00 137.2 cm [facility] Body weight 2022-03-02 07:05:00 77.1 kg [facility] BMI 2022-03-02 07:05:00 40.98 kg/m2 [facility] Respitory Rate 2020-10-03 22:29:00 Memori al [facility] Systolic (mm Hg) 2020-10-03 22:29:00 Luis rial Drain Diastolic (mm Hg) 2020-10-03 22:29:00 Mem orial [facility] Respitory Rate 2020-10-03 20:21:00 Memori al Drain Systolic (mm Hg) 2020-10-03 20:21:00 Luis rial Drain Diastolic (mm Hg) 2020-10-03 20:21:00 Mem orial [facility] Systolic (mm Hg) 2020-10-03 20:16:00 Luis rial [facility] Diastolic (mm Hg) 2020-10-03 20:16:00 Mem orial Drain Height 2020-10-03 19:29:00 137.16 cm [facility] BMI Calculated 2020-10-03 19:29:00 [facility] Weight 2020-10-03 19:29:00 [facility] Heart Rate 2020-10-03 19:29:00 [facility] Drain Respitory Rate 2020-10-03 19:29:00 Memori al [facility] Heart Rate 2020-04-15 08:10:00 [facility] Drain Systolic (mm Hg) 2020-04-15 08:10:00 Luis rial Drain Diastolic (mm Hg) 2020-04-15 08:10:00 Mem orial Drain Heart Rate 2020-04-15 06:05:00 [facility] Drain Systolic (mm Hg) 2020-04-15 06:05:00 Luis rial [facility] Diastolic (mm Hg) 2020-04-15 06:05:00 Mem orial [facility] Height 2020-04-15 00:45:00 144.78 cm [facility] BMI Calculated 2020-04-15 00:45:00 [facility] Weight 2020-04-15 00:45:00 [facility] Drain Systolic (mm Hg) 2020-04-15 00:45:00 Luis rial [facility] Diastolic (mm Hg) 2020-04-15 00:45:00 Mem orial Drain Heart Rate 2020-04-15 00:45:00 Memorial Drain Respitory Rate 2020-04-15 00:45:00 Memori al Drain Temperature Oral (F) 2020-04-15 00:45:00 98.2 F [facility] Drain Respitory Rate 2020-03-03 18:46:00 Memori al [facility] Systolic (mm Hg) 2020-03-03 18:46:00 Lius rial Drain Diastolic (mm Hg) 2020-03-03 18:46:00 Mem orial [place] Temperature Oral (F) 2020-03-03 18:46:00 98.1 F [facility] Respitory Rate 2020-03-03 16:58:00 Memori al Drain Systolic (mm Hg) 2020-03-03 16:58:00 Luis rial [facility] Diastolic (mm Hg) 2020-03-03 16:58:00 Mem orial [facility] Respitory Rate 2020-03-03 15:19:00 Memori al Drain Systolic (mm Hg) 2020-03-03 15:19:00 Luis rial Drain Diastolic (mm Hg) 2020-03-03 15:19:00 Mem orial Drain Height 2020-03-03 14:34:00 167.64 cm [facility] BMI Calculated 2020-03-03 14:34:00 [facility] Weight 2020-03-03 14:34:00 [facility] Heart Rate 2020-03-03 14:34:00 Memorial Drain Temperature Oral (F) 2020-03-03 14:34:00 99.1 F [facility] Drain Temperature Oral (F) 2018-09-12 08:06:00 97.8 F [facility] Heart Rate 2018-09-12 08:06:00 Memorial Drain Respitory Rate 2018-09-12 08:06:00 [facility] Systolic (mm Hg) 2018-09-12 08:06:00 Luis rial [facility] Diastolic (mm Hg) 2018-09-12 08:06:00 Mem orial Drain Systolic (mm Hg) 2018-09-12 06:52:00 Luis rial Drain Diastolic (mm Hg) 2018-09-12 06:52:00 Mem orial Drain Respitory Rate 2018-09-12 06:52:00 Memori al Drain Heart Rate 2018-09-12 06:52:00 Memorial Drain Respitory Rate 2018-09-12 03:17:00 Memori al [facility] Systolic (mm Hg) 2018-09-12 03:17:00 Luis rial [facility] Diastolic (mm Hg) 2018-09-12 03:17:00 Mem orial [facility] Heart Rate 2018-09-12 03:17:00 [facility] Temperature Oral (F) 2018-09-12 03:17:00 98.0 F [facility] Heart Rate 2018-08-31 17:24:00 [facility] Drain Respitory Rate 2018-08-31 17:24:00 Memori al Drain Systolic (mm Hg) 2018-08-31 17:24:00 Luis rial Drain Diastolic (mm Hg) 2018-08-31 17:24:00 Mem orial Drain Temperature Oral (F) 2018-08-31 17:24:00 97.8 F [facility] Drain Temperature Oral (F) 2018-08-31 12:55:00 97.8 F [facility] Heart Rate 2018-08-31 12:55:00 [facility] Systolic (mm Hg) 2018-08-31 12:55:00 Luis rial Drain Diastolic (mm Hg) 2018-08-31 12:55:00 Mem orial [place] Respitory Rate 2018-08-31 12:55:00 Memori al [facility] Respitory Rate 2018-08-31 06:38:00 Memori al Drain Temperature Oral (F) 2018-08-31 00:59:00 98.3 F [facility] Systolic (mm Hg) 2018-08-31 00:59:00 Luis rial [facility] Diastolic (mm Hg) 2018-08-31 00:59:00 Mem orial [facility] Heart Rate 2018-08-31 00:59:00 [facility] Height 2018-08-29 11:00:00 144.78 cm [facility] Weight 2018-08-29 11:00:00 [facility] Drain BMI Calculated 2018-08-29 11:00:00 Memori al Drain Weight 2018-08-29 00:59:00 [facility] Height 2018-08-29 00:59:00 144.78 cm [facility] BMI Calculated 2018-08-29 00:59:00 Mónica Leija Procedures Procedure Date / Time Performing Clinician Source Performed POC GLUCOSE 2022-03-05 17:10:00 Lien Posadas [facility]ital POC GLUCOSE 2022-03-05 13:12:00 Lien Posadas [facility] BASIC METABOLIC PANEL 2022-03-05 12:32:[address] [facility] CBC WITH PLATELET AND 2022-03-05 12:32:[address] [facility] DIFFERENTIAL ESTIMATED GFR 2022-03-05 12:32:00 Yuli Mckee Ho spital POC GLUCOSE 2022-03-05 01:21:00 Lien Posadas [facility]ital POC GLUCOSE 2022-03-04 22:09:00 Lien Posadas [facility] spital POC GLUCOSE 2022-03-04 16:53:00 Lien Posadas Ho spital POC GLUCOSE 2022-03-04 13:22:00 Lien Posadas spital BASIC METABOLIC PANEL 2022-03-04 12:05:[address] [facility] CBC WITH PLATELET AND 2022-03-04 12:05:[address] [facility] DIFFERENTIAL ESTIMATED GFR 2022-03-04 12:05:00 Yuli Mckee spital US DUPLEX VENOUS UPPER 2022-03-04 02:14:00 [facility] EXTREM[facility] BILATERAL POC GLUCOSE 2022-03-04 01:54:00 Lien Posadas [facility] POC GLUCOSE 2022-03-03 21:05:00 Lien Posadas [facility] BLOOD CULTURE, AEROBIC & 2022-03-03 18:06:00 Lien Posadas [facility] ANAEROBIC POC GLUCOSE 2022-03-03 16:42:00 Lien Posadas Ho spital POC GLUCOSE 2022-03-03 13:24:00 Triston Harden [facility] ZZCOVID-19 ANTI-SPIKE 2022-03-03 11:21:00 Pedro, [facility] IGG ANTIBODY TITER BASIC METABOLIC PANEL 2022-03-03 11:21:00 [facility] WITH [facility] AND 2022-03-03 11:21:[address] [facility] DIFFERENTIAL ZZCOVID-19 SEROLOGY 2022-03-03 11:21:00 Farhan Vasquez [facility] PATIENT SURVEILLANCE ESTIMATED GFR 2022-03-03 11:21:00 Yuli Mckee spital POC GLUCOSE 2022-03-03 01:53:[address] [facility] POC GLUCOSE 2022-03-02 23:48:[address] [facility] POC GLUCOSE 2022-03-02 22:52:[address] [facility] POC GLUCOSE 2022-03-02 18:04:[address] [facility] POC GLUCOSE 2022-03-02 13:51:[address] [facility] BASIC METABOLIC PANEL 2022-03-02 11:46:00 [facility] WITH PLATELET AND 2022-03-02 11:46:[address] [facility] DIFFERENTIAL ESTIMATED GFR 2022-03-02 11:46:00 Yuli Mckee [facility]ital ESTIMATED GFR 2022-03-02 11:44:00 [facility] C-REACTIVE PROTEIN 2022-03-02 11:02:00 Hina Aranda [facility] POC GLUCOSE 2022-03-02 06:00:00 [facility] POC GLUCOSE 2022-03-02 05:23:00 [facility] POC GLUCOSE 2022-03-02 01:21:00 Beth [facility] COVID-19 QUALITATIVE 2022-03-02 00:46:00 [facility] CT RENAL STONE PROTOCOL 2022-03-01 22:20:45 Rothman [facility] URINE CULTURE 2022-03-01 20:01:00 Dax, [facility] CBC WITH PLATELET AND 2022-03-01 19:39:00 Dax [facility] DIFFERENTIAL COMPREHENSIVE METABOLIC 2022-03-01 19:39:00 Aldair Verduzco [facility] PANEL LIPASE LEVEL 2022-03-01 19:39:00 Dax [facility] HCG QUALITATIVE, SERUM 2022-03-01 19:39:00 Aldair Verduzco [facility] SCREEN ESTIMATED GFR 2022-03-01 19:39:[facility] 2022-03-01 19:39:00 Yuli Mckee spital LIPID PANEL 2022-03-01 19:39:00 Yuli Mckee spital URINALYSIS SCREEN AND 2022-03-01 17:48:00 [facility] MICROSCOPY, WITH REFLEX TO CULTURE CT ABDOMEN PELVIS W 2022-02-03 17:04:17 [facility] CONTRAST URINE CULTURE 2022-02-03 16:08:00 [facility] URINALYSIS SCREEN AND 2022-02-03 14:41:[address] [facility] MICROSCOPY, WITH REFLEX TO CULTURE CBC WITH PLATELET AND 2022-02-03 14:16:[address] [facility] DIFFERENTIAL COMPREHENSIVE METABOLIC 2022-02-03 14:16:00 [facility] PANEL LIPASE LEVEL 2022-02-03 14:16:00 Vic [facility] HCG QUALITATIVE, SERUM 2022-02-03 14:16:00 [facility] SCREEN ESTIMATED GFR 2022-02-03 14:16:00 [facility] Plan of Care Planned Activity Planned Date Details Comments Source Future Scheduled 2022-12-01 Screening for [facility] Test 06:04:07 malignant neoplasm of colon (procedure) [code = 517305171] Future Scheduled 2022-12-01 Screening for [facility] Test 06:04:07 malignant neoplasm of colon (procedure) [code = 317017165] Future Scheduled 2022-12-01 [facility] Test 06:04:07 malignant neoplasm of colon (procedure) [code = 802235968] Future Scheduled 2022-12-01 Hepatitis C screening [facility] Test 06:04:07 (procedure) [code = 259474260] Future Scheduled 2022-12-01 [facility] Test 06:04:07 malignant neoplasm of cervix (procedure) [code = 986234833] Future Scheduled 2022-12-01 [facility] CAN[facility]ER [facility] Test 06:04:07 SCREENING [code = BREAST CANCER SCREENING] Future Scheduled 2022-12-01 [facility] Test 06:04:07 malignant neoplasm of colon (procedure) [code = 009322720] Future Scheduled 2022-12-01 [facility] Test 06:04:07 malignant neoplasm of colon (procedure) [code = 416391486] Future Scheduled 2022-12-01 SHINGLES VACCINES (1 Met [facility] Test 06:04:07 of 2) [code = SHINGLES VACCINES (1 of 2)] Future Scheduled 2022-12-01 COVID-19 VACCINE (4 - [facility] Test 06:04:07 Pfizer series) [code = COVID-19 VACCINE (4 - Pfizer series)] Future Scheduled 2022-12-01 INFLUENZA VACCINE [facility] Test 06:04:07 [code = INFLUENZA VACCINE] Future Scheduled 2022-06-02 Hepatitis C screening [facility] Test 08:50:50 (procedure) [code = 733405314] Future Scheduled 2022-06-02 [facility] Test 08:50:50 malignant neoplasm of cervix (procedure) [code = 600123902] Future Scheduled 2022-06-02 [facility] CANCER [facility] Test 08:50:50 SCREENING [code = BREAST CANCER SCREENING] Future Scheduled 2022-06-02 COLONOSCOPY SCREENING [facility] Test 08:50:50 [code = COLONOSCOPY SCREENING] Future Scheduled 2022-06-02 SHINGLES VACCINES (1 [facility] Test 08:50:50 of 2) [code = SHINGLES VACCINES (1 of 2)] Future Scheduled 2022-06-02 COVID-19 VACCINE (4 - [facility] Test 08:50:50 Booster for Pfizer series) [code = COVID-19 VACCINE (4 - Booster for Pfizer series)] Future Scheduled COVID-19 [facility]ACCINE (1) [facility] [code = COVID-19 VACCINE (1)] Future Scheduled [facility] Test malignant neoplasm of cervix (procedure) [code = 571278872] Future Scheduled [facility] CANCER [facility] Test SCREENING [code = BREAST CANCER SCREENING] Future Scheduled COLONOSCOPY [facility]CRE[facility]ING [facility] [code = COLONOSCOPY SCREENING] Future Scheduled SHINGLES VACCINES [facility] Test (#1) [code = SHINGLES VACCINES (#1)] Future Scheduled INFLUENZA VACCINE [facility] Test [code = INFLUENZA VACCINE] Encounters Start End Encounter Admission Attending Care Care Encounter Source Date/Time Date/Time Type Type Clinicians Facility Department ID 2021-09-10 Outpatient [facility] [id number] 14:00:47 [id number] [facility] 2021-09-08 Outpatient [facility] [id number] [place] 12:35:35 [id number] [facility] 2022-10-05 2022-10-05 [facility] [id number] [facility]00 CALLIE [id number] [facility] 2022-03-01 2022-03-05 [facility]840 .1 [id number] Methodi 15:52:00 13:36:00 Encounter Beth Jackson [address]46.1.[address] [place] [address] Amod 3.430.2.7 [facility], Lien .3.530778 l .8 2022-03-01 2022-03-05 [facility] 1.2.840 .1 [id number] Methodi 15:52:00 13:36:00 Encounter Beth Jackson [address]78.1.[address] [place] [address] Amod 3.430.2.7 [facility], Lien .3.400376 l .8 2022-03-01 2022-03-01 Travel 1.2.840.1 1.2.699.082 [id number] Methodi 00:00:00 00:00:[address] 3.430.2.7 0.2.7.3.698 Ho spita .3.465021 084.8 l .8 2022-03-01 2022-03-01 Travel 1.2.840.1 1.2.273.932 [id number] Methodi 00:00:00 00:00:[address] 3.430.2.7 0.2.7.3.698 Ho spita .3.833787 084.8 l .8 2022-02-14 2022-02-14 [id number] 10:50[facility]00 15:07:00 [facility] daniel [facility] 2022-02-03 2022-02-03 Emergency Ip, Kaylin 1.2.840.1 [id number] Methodi 09:11:00 13:02:[address] 3.430.2.7 Hospit a .3.991128 l .8 2022-02-03 2022-02-03 Emergency Ip, Kaylin 1.2.840.1 [id number] Methodi 09:11:00 13:02:[address] 3.430.2.7 Hospit a .3.810376 l .8 2022-02-03 2022-02-03 Travel 1.2.840.1 1.2.702.326 [id number] Methodi 00:00:00 00:00:[address] 3.430.2.7 0.2.7.3.698 Ho spita .3.446446 084.8 l .8 2022-02-03 2022-02-03 Travel 1.2.840.1 1.2.843.052 [id number] Methodi 00:00:00 00:00:[address] 3.430.2.7 0.2.7.3.698 Ho spita .3.910065 084.8 l .8 2021-12-12 2021-12-12 Emergency EM Steph, [facility] [id number] [facility] 12:43:00 15:59:00 Ailyn 49 [facility] 2021-12-12 2021-12-12 Emergency EM Steph, [facility] [id number] [facility] 12:43:00 15:59:00 Ailyn [id number] [facility] 2021-12-05 2021-12-05 Emergency EM Barber, [facility] NCER [id number] [facility] 19:30:00 22:45:00 Isidoro 35 [facility] 2021-12-05 2021-12-05 Emergency [facility] [id number] [facility] 19:30:00 19:30:00 Isidoro [id number] [facility] 2021-06-02 2021-06-02 [id number] 10:03:00 10:54:00 Mio 10 [facility] 2021-05-19 2021-05-19 Emergency EM Miguel Batista [facility] NCER [id number] [facility] 13:18:00 14:35:00 76 [facility] 2021-05-19 2021-05-19 Outpatient Miguel Batista [facility] LABO [id number] [facility] 14:01:00 14:01:00 05 [facility] 2021-03-30 2021-03-30 Outpatient Young_J MMG MMG [id number] [place] 01:19:00 01:19:00 [facility] 2021-03-24 2021-03-25 Inpatient EM Franki [facility] [id number] [facility] 21:58:00 16:59:00 Mia 53 [facility] 2021-03-17 2021-03-17 Inpatient EM David [facility] NCER [id number] [facility] 13:17:00 15:33:00 Jacob 67 [facility] 2021-03-17 2021-03-17 Outpatient SHUN Hernandez LABO [id number] [facility] 14:06:00 14:06:00 Jacob 01 [facility] 2021-02-09 2021-02-09 Emergency [facility] [id number] [facility] 12:41:00 13:38:00 Vitaliy 31 [facility] 2021-02-06 2021-02-06 Emergency EM Gisselle, [facility] NCER [id number] [facility] 09:23:00 12:09:00 Mio 77 [facility] 2021-02-05 2021-02-05 Emergency EM Jamee, [facility] NCER [id number] [facility] 14:28:00 19:30:00 Vitaliy 37 [facility] 2020-12-03 2020-12-03 Emergency EM Kandis, [facility] NCER [id number] [facility] 16:35:00 19:46:00 Cesilia 73 [facility] 2020-10-03 2020-10-03 Emergency [facility] [id number] Memoria 19:27:43 22:35:[address] 2020-10-03 2020-10-03 Emergency E JESSICA, MHCY MHCY [id number] MHCY 14:27:00 17:35:00 ANGELICA 2020-09-23 2020-09-23 Outpatient Young_J MMG G [id number] [place] 01:18:00 01:18:00 [facility] 2020-09-17 2020-09-17 Outpatient Young_J MMG MMG [id number] [place] 01:02:00 01:02:00 [facility] 2020-09-15 2020-09-15 Outpatient Young_J MMG MMG [id number] [place] 05:17:00 05:17:00 0[facility] 2020-08-23 2020-08-23 Outpatient Young_J MMG MMG [id number] [place] 01:05:00 01:05:00 0314 [facility] 2020-07-19 2020-07-19 Outpatient Young_J MMG MMG [id number] [place] 01:06:00 01:06:00 0207 [facility] 2020-07-17 2020-07-17 Outpatient Young_J MMG G [id number] [place] 11:32:00 11:32:00 0205 [facility] 2020-06-16 2020-06-16 Outpatient Obisesan_ad MEHOP MEHOP [id number] [place] 11:10:00 11:10:00 ekunbi 51703 [facility] 2020-04-15 2020-04-15 [facility] [id number] Memoria 00:41:10 08:18:00 jose manuel Corrigan 03 [facility] 2020-04-14 2020-04-15 Emergency E AYAKA, MHSE MHSE [id number] MH 18:41:00 02:18:00 [facility] 2020-04-07 2020-04-07 Outpatient AMBREEN_FAR ALHOP ALHOP [id number] [place] 12:01:00 12:01:00 HANA 01476 [facility] 2020-03-03 2020-03-03 [facility] [id number] Memoria 14:30:08 18:52:00 jose manuel Corrigan 02 [facility] 2020-03-03 2020-03-03 Emergency E CY, MHSE MHSE [id number] MH 09:30:00 13:52:00 [facility] 2020-01-16 2020-01-16 Outpatient AMBREEN_FAR ALHOP ALHOP [id number] [place] 10:06:00 10:06:00 HANA 12784 [facility] 2018-09-12 2018-09-12 [facility] [id number] Memoria 02:54:00 08:32:00 jose manuel Corrigan 01 l [facility] 2018-08-29 2018-08-31 Inpatient [facility] [id number] Memoria 00:50:00 19:30:00 jose manuel Corrigan 00 [facility] 2018-04-20 2018-04-20 Outpatient GAVIN Myles Malcom [id number] [facility] 13:00:00 13:00:00 [facility] 2018-04-07 2018-04-07 Outpatient Nixon GAVIN W [id number] [place] 08:00:00 08:00:00 [facility] 2018-03-20 2018-03-20 Outpatient Shameka, GAVIN W [id number] [facility] 13:30:00 13:30:00 [facility] Results Test Description Test Time Test Comments Results Result Comments Source POC glucose 2022-03-05 17:15:00 Test Item Value Reference Range Interpretation Comme nts POC glucose (test code = 70761-3) 242 mg/dL 65-100 H Subsurface Augmentee Operator Name: Galileo TorresSubhae ID : [id number] Lab Interpretation (test code = Abnormal 37535-9) [facility] [id number] 17:15:00 Test Item Value Reference Range Interpretation Comments POC glucose (test code 242 mg/dL 65-100 H Opera tor Name: = 78461-0) Galileo Pulido Device ID: [id number] Lab Interpretation Abnormal (test code = 57814-8) [facility] [Presence] in Respiratory specimen by WHITNEY with probe [id number] 01:42:51 Test Item Value Reference Range Interpretation Comments SARS-CoV-2 (COVID-19) RNA Not detected [Presence] in Respiratory specimen by WHITNEY with probe detection (test code = 80915-5) Whether patient is employed in a Unknown healthcare setting (test code = 90454-8) Whether the patient has symptoms Unknown related to condition of interest (test code = 21326-5) Whether the patient was Unknown hospitalized for condition of interest (test code = 81088-1) Whether the patient was admitted Unknown to intensive care unit (ICU) for condition of interest (test code = 90367-1) Whether patient resides in a Unknown congregate care setting (test code = 00186-8) status (test code = Unknown 12372-5) Date and time of symptom onset Unknown (test code = 68270-7) [facility] ABD PELVIS [id number] 15:13:00 [facility] ([facility])Name: DAVID BRANDT : 1970 Sex: F Name: DAVID BRANDT [facility] FSED : 1970 Age/S: 51 / F [address] Unit #: [id number] Loc: [address] Phys: Ailyn Choi MD [place], [place] [address] Acct: [id number] Dis Date: Status: REG ER PHONE #: Exam Date: 12/12/2021 7676 FAX #: Reason: ABD PAIN N/V EXAMS: CPT CODE: [id number] CT ABD PELVIS W/CONT [id number] REASON FOR EXAM: ABD PAIN N/V EXAM ORDER DATE: 12/12/2021 1:49 PM Ordering M.D.: Ailyn Choi MD PROCEDURE: Axial CT images were acquired through the abdomen/pelvis at 5 mm intervals. Sagittal and coronal reformatted images were generated. CT dose reduction protocol: Automated exposure control adjustment of mA and/or kV according to patient size or iterative reconstruction dose optimization techniques were used. Phases of contrast: venous and delayed COMPARISON: Abdominal CT December 05, 2021 FINDINGS: Visualized thorax: Grossly normal Hepatobiliary system: Cholecystectomy. Liver is within normal limits Pancreas: Grossly normal Spleen: Grossly normal Adrenal glands: Grossly normal Genitourinary system: There is a punctate stone inthe midpole of the left kidney. No signs of obstruction Gastrointestinal tract and appendix: Antimesenteric side of a short segment of the small bowel herniates through a defect in the abdominal wall at the umbilicus Abdominal vascular structures: Grossly normal Other: No free fluid or free air. No abnormal lymph nodes. Musculoskeletal structures and abdominal wall: Mild degenerative changes are present in the spine. There is an umbilical hernia containing the antimesenteric side of a short segment of small bowel PAGE 1 Signed Report (CONTINUED) Name: DAVID BRANDT [facility] ([facility] FSED : 1970 Age/S: 51 / F [address] Unit #: [id number] Loc: [address] Phys: Ailyn Choi MD [place], [place] [address] Acct: [id number] Dis Date: Status: REG ER PHONE #: Exam Date: 12/12/2021 1433 FAX #: Reason: ABD PAIN N/V EXAMS: CPT CODE: [id number] CT ABD PELVIS W/CONT 14211 <Continued> IMPRESSION: Punctate nonobstructing stone in the midpole of the left kidney. Wheeler's hernia involving the umbilicus. Location: RR Electronically Signed by Edson Desai MD on 2at 1513 Reported and signed by: Edson Desai MD CC: Ailyn Choi MD Technologist:Noelle Baird RT(R)(CT) CTDI: DLP: Trnscb Date/Time: 12/12/2021 (1513) t.[email or web address] Orig Print D/T: S: 12/12/2021 (1 271) PAGE 2 Signed ReportCOVID 19 INHOUSE [id number] 14:15:00 Test Item Value Reference Range Interpretation Comments COVID 19 INHOUSE AG (test code = NEGATIVE NEGATIVE [id number]) BASIC METABOLIC [id number] 14:06:00 Test Item Value Reference Range Interpretation [...] >3 months. [Automated mess age] The system [employer] generated this result transmitted ref erence range: >=60. Th e reference range was not used to int erpret this result as normal/abnormal . CREATININE (test code 0.78 mg/dL 0.55-1.3 N = CREAT) BUN/CREATININE RATIO 16.7 10-20 N (test code = BUN/CREA) CALCIUM (test code = 9.2 mg/dL 8.0-10.5 N CA) HEPATIC FUNCTION [id number] 14:06:00 Test Item Value Reference Range Interpretation [...] 88 U/L 50-139 N code = ALKP) [id number] 14:06:00 Test Item Value Reference Range Interpretation Comments LIPASE (test code = LIP) 157 Unit/L 144-286 N CBC W/O [id number] 13:51:00 Test Item Value Reference Range Interpretation [...] 9.7 fL 6.7-11.0 N = MPV) URINALYSIS [id number] 13:45:00 Test Item Value Reference Range Interpretation [...] W REFLEX (test NEGATIVE NEGATIVE code = LEUASHWIN) Indication for culture: RiskForSepsis-no oth src- CT ABD PELVIS W/[id number] 21:39:00[facility] 1970 Sex: F Name: DAVID BRANDT [facility] FSED : 1970 Age/S: 51 / F [address] Unit #: [id number] Loc: [address] Phys: Isidoro Blandon MD [place], [place] [address] Acct: [id number] Dis Date: Status: REG ER PHONE #: Exam Date: 12/05/20210 FAX #: Reason: epigastric abd pain EXAMS: CPT CODE: [id number] CT ABD PELVIS W/CONT 82942 AFTER HOURS SERVICE ON: 12/05/2021 9:[address] Scan of the Abdomen [...] findings. KIDNEYS: No hydronephrosis. BLADDER: No significant findings.GASTROINTESTINAL: There is a 2.8 cm fat-containing ventral hernia to the right of midline above the umbilicus with a tight hernia neck measuring 4 mm but no evidence of strangulation. At the umbilicus,there is a 2.6 x 2.1 cm hernia [...] fat strangulation. 2.6 cm umbilical hernia containing ashort small bowel segment also demonstrating a tight hernia neck measuring 5 mm. No bowel obstruction. PAGE 1 Signed Report (CONTINUED) Name: DAVID BRANDT [facility] FSED : 1970 Age/S: 51 / F [address] Unit #: [id number] Loc: [address] Phys: Isidoro Blandon [place], [place] [address] Acct: [id number] Dis Date: Status: REG ER PHONE #: Exam Date: 12/05/20212114 FAX #: Reason: epigastric abd pain EXAMS: CPT CODE: [id number] CT ABD PELVIS W/CONT 48194 <Continued> Cholecystectomy. t 2138 Reported and signed by: Arron Licona M.D. CC: Isidoro Blandon MD Technologist:KAYLIN DEL RIO RT(R)(CT) CTDI: DLP: Trnscb Date/Time: 12/05/2021 (2138) [email or web address] Orig Print D/T: S: 12/05/2021 (2141) PAGE 2 Signed ReportBASIC METABOLIC [id number] 20:20:00 Test Item Value Reference Range Interpretation [...] Modifi ed MDRD (test code = GFR) formula. ronic kidney disease is defined as eith er kidney damageor GFR <60 mL/min/1.73 m2 for >3 months. [Automated mess age] The system [employer] generated this result transmitted ref erence range: >=60. Th e reference range was not used to int erpret this result as normal/abnormal . CREATININE (test 0.87 mg/dL 0.55-1.3 N code = CREAT) BUN/CREATININE RATIO 13.8 10-20 N (test code = BUN/CREA) CALCIUM (test code = 9.0 mg/dL 8.0-10.5 N CA) HEPATIC FUNCTION [id number] 20:20:00 Test Item Value Reference Range Interpretation [...] 89 U/L 50-139 N code = ALKP) [id number] 20:20:00 Test Item Value Reference Range Interpretation Comments LIPASE (test code = LIP) 194 Unit/L 144-286 N HCG SERUM [id number] 20:20:00 Test Item Value Reference Range Interpretation Comments HCG SERUM QUAL (test NEGATIVE NEGATIVE This HC GQL test is NOT code = HCGQL) applicable for MALE patients.Check with nurse about probable order error.If Tumor Marker Test needed, nu rse should order test "HCG TU"(Test #550.34224)---- - [id number] 20:20:00 Test Item Value Reference Range Interpretation Comments TROPONIN-HS (test 4.5 pg/mL 0-60 N CAUTION: U nits of the code = TROPI) current test m ethodology (pg/mL)differ f rom the prior test meth odology (ng/mL) by a fa ctorof 1000. CBC W/O [id number] 19:59:00 Test Item Value Reference Range Interpretation [...] fL 6.7-11.0 N = MPV) BASIC METABOLIC [id number] 14:39:00 Test Item Value Reference Range Interpretation [...] Modifi ed MDRD (test code = GFR) formula. ronic kidney disease is defined as eith er kidney damageor GFR <60 mL/min/1.73 m2 for >3 months. [Automated mess age] The system [employer] generated this result transmitted ref erence range: >=60. Th e reference range was not used to int erpret this result as normal/abnormal . CREATININE (test 0.74 mg/dL 0.55-1.3 N code = CREAT) BUN/CREATININE RATIO 20.3 10-20 H (test code = BUN/CREA) CALCIUM (test code = 8.0 mg/dL 8.0-10.5 N CA) HEPATIC FUNCTION [id number] 14:39:00 Test Item Value Reference Range Interpretation [...] U/L 50-139 N code = ALKP) URINALYSIS [id number] 14:00:00 Test Item Value Reference Range Interpretation [...] BACU) Urine Source? Clean CatchCOVID 19 INHOUSE [id number] 13:53:00 Test Item Value Reference Range Interpretation Comments COVID 19 INHOUSE AG (test code = NEGATIVE NEGATIVE [id number]) - XR CHEST 1 [id number] 13:53:00 [facility] ([facility])Name: SERATIFFANIE DAVID SAVANNAHEmma MOSES : 1970 Sex: F FAX: Rosa Terrazas NP [place]: [place] St: PRE Name: DAVID BRANDT FSED : 1970 Age/S: 51/F [address] Unit #: [id number] Loc: [facility] [address] Phys: Rosa Terrazas NP [place], [place] [address] Acct: [id number] Dis Date: Status: PRE ER PHONE #: Exam Date: 05/19/2021 7597 FAX #: Reason: Abdominal Pain EXAMS: CPT CODE: [id number] XR CHEST 1 V 24805 REASONFOR EXAM: Abdominal Pain Exam Order Date: 05/19/2021 1:26 PM Ordering MBrandon: Rosa Terrazas NP PROCEDURE: - XR CHEST 1 V COMPARISON: Chest x-ray June 2007 FINDINGS: The lungs are clear. There is nopleural effusion or pneumothorax. Pulmonary vascularity is within normal limits. Cardiomediastinal silhouette is normal in size for technique. The mediastinal contours are within normal limits. Musculoskeletal structures are within normal limits. The visualized upper abdomen is within normal limits.IMPRESSION: No acute cardiopulmonary process. Location: [facility] at 1353 Reported and signed by: Edson Desai MD CC: Rosa Terrazas NP Technologist: Herbert Sethi Trnscrd Date/Time/By: 05/19/2021 (2132) : By: [email or web address] [facility] Print D/T: S: 05/19/2021 (7355) PAGE 1 Signed ReportCBC W/O [id number] 13:48:00 Test Item Value Reference Range Interpretation [...] code 9.5 fL 6.7-11.0 N = MPV) [id number] 11:22:00 Test Item Value Reference Range Interpretation Comments GLUBED (test code = 184 mg/dL 74-106 H Performe d by certified GLUBED) mottler operator at [facility] [id number] 08:38:00 Test Item Value Reference Range Interpretation Comments GLUBED (test code = 179 mg/dL 74-106 H Performe d by certified GLUBED) mottler operator at [facility] BASIC METABOLIC [id number] 06:27:00 Test Item Value Reference Range Interpretation [...] >3 months. [Automated mess age] The system [employer] generated this result transmitted ref erence range: >=60. Th e reference range was not used to int erpret this result as normal/abnormal . CREATININE (test 0.60 mg/dL 0.55-1.3 N code = CREAT) BUN/CREATININE RATIO 18.3 10-20 N (test code = BUN/CREA) CALCIUM (test code = 7.2 mg/dL 8.0-10.5 L CA) CBC W/AUTO [id number] 06:16:00 Test Item Value Reference Range Interpretation [...] DIFF REQUIRED (test code NO = MDIFF) [id number] 04:52:00 Test Item Value Reference Range Interpretation Comments GLUBED (test code = 312 mg/dL 74-106 H Performe d by certified GLUBED) mottler operator at [facility] BASIC METABOLIC [id number] 00:38:00 Test Item Value Reference Range Interpretation [...] Modifi ed MDRD (test code = GFR) formula.[facility] kidney disease is defined as eith er kidney damageor GFR <60 mL/min/1.73 m2 for >3 months. [Automated mess age] The system [employer] generated this result transmitted ref erence range: >=60. Th e reference range was not used to int erpret this result as normal/abnormal . CREATININE (test 0.86 mg/dL 0.55-1.3 N code = CREAT) BUN/CREATININE RATIO 11.6 10-20 N (test code = BUN/CREA) CALCIUM (test code = 7.4 mg/dL 8.0-10.5 L CA) [id number] 00:30:00 Test Item Value Reference Range Interpretation Comments GLUBED (test code = 434 mg/dL 74-106 H Performe d by certified GLUBED) mottler operator at [facility] COVID 19 INHOUSE [id number] 00:22:00 Test Item Value Reference Range Interpretation Comments COVID 19 INHOUSE AG (test code = NEGATIVE NEGATIVE [id number]) [id number] 23:50:00 Test Item Value Reference Range Interpretation Comments GLYCOSYLATED HEMOGLOBIN (HA1C) 13.8 % 4.5-6.2 H (test code = GLYHGB) ESTIMATED AVERAGE GLUCOSE (test 349 MG/DL code = EAG) URINALYSIS [id number] 23:14:00 Test Item Value Reference Range Interpretation [...] NONE BACU) Urine Source? Clean CatchBASIC METABOLIC [id number] 23:07:00 Test Item Value Reference Range Interpretation [...] mg/dL 70-110 HH Results called to GLU) [id number] by МАРИЯ JAIN 03/24/21 2256Cr itical results [...] >3 months. [Automated mess age] The system [employer] generated this result transmitted ref erence range: >=60. Th e reference range was not used to int erpret this result as normal/abnormal . CREATININE (test code 1.28 mg/dL 0.55-1.3 N = CREAT) BUN/CREATININE RATIO 9.4 10-20 L (test code = BUN/CREA) CALCIUM (test code = 8.1 mg/dL 8.0-10.5 N CA) HEPATIC FUNCTION [id number] 23:07:00 Test Item Value Reference Range Interpretation [...] 91 U/L 50-139 N code = ALKP) [id number] 23:07:00 Test Item Value Reference Range Interpretation Comments LIPASE (test code = LIP) 293 Unit/L 144-286 H HCG SERUM [id number] 23:07:00 Test Item Value Reference Range Interpretation Comments HCG SERUM QUAL (test NEGATIVE NEGATIVE This HC GQL test is NOT code = HCGQL) applicable for MALE patients.Check with nurse about probable order error.If Tumor Marker Test needed, nu rse should order test "HCG TU"(Test #550.62880)---- - [id number] 23:07:00 Test Item Value Reference Range Interpretation Comments TROPONIN-HS (test 5.4 pg/mL 0-60 N CAUTION: U nits of the code = TROPI) current test m ethodology (pg/mL)differ f rom the prior test meth odology (ng/mL) by a fa ctorof 1000. CBC W/O [id number] 22:42:00 Test Item Value Reference Range Interpretation [...] 9.6 fL 6.7-11.0 N = MPV) URINALYSIS [id number] 14:04:00 Test Item Value Reference Range Interpretation [...] HPF NONE A BACU) COVID 19 INHOUSE [id number] 11:22:00 Test Item Value Reference Range Interpretation Comments COVID 19 INHOUSE AG (test code = NEGATIVE NEGATIVE [id number]) BASIC METABOLIC [id number] 11:20:00 Test Item Value Reference Range Interpretation [...] >3 months. [Automated mess age] The system [employer] generated this result transmitted ref erence range: >=60. Th e reference range was not used to int erpret this result as normal/abnormal . CREATININE (test 0.65 mg/dL 0.55-1.3 N code = CREAT) BUN/CREATININE RATIO 18.5 10-20 N (test code = BUN/CREA) CALCIUM (test code = 8.3 mg/dL 8.0-10.5 N CA) HEPATIC FUNCTION [id number] 11:20:00 Test Item Value Reference Range Interpretation [...] 83 U/L 50-139 N code = ALKP) [id number] 11:20:00 Test Item Value Reference Range Interpretation Comments LIPASE (test code = LIP) 150 Unit/L 144-286 N HCG SERUM [id number] 11:20:00 Test Item Value Reference Range Interpretation Comments HCG SERUM QUAL (test NEGATIVE NEGATIVE This HC GQL test is NOT code = HCGQL) applicable for MALE patients.Check with nurse about probable order error.If Tumor Marker Test needed, nu rse should order test "HCG TU"(Test #550.69799)---- - URINALYSIS [id number] 11:13:00 Test Item Value Reference Range Interpretation [...] NONE BACU) Urine Source? Clean CatchBASIC METABOLIC [id number] 11:06:00 Test Item Value Reference Range Interpretation [...] RATE (test code = GFR) The s [employer] which generated this result transmitted ref erence range: >=60. Th e reference range was not used to interpr et this result as normal/abnormal . CREATININE (test code = mg/dL 0.55-1.02 CREAT) BUN/CREATININE RATIO 10-20 (test code = BUN/CREA) CALCIUM (test code = mg/dL 8.5-10.1 CA) HEPATIC FUNCTION [id number] 11:06:00 Test Item Value Reference Range Interpretation [...] TOTAL (test IUnit/L 45-117 code = ALKP) [id number] 11:06:00 Test Item Value Reference Range Interpretation Comments LIPASE (test code = LIP) Unit/L 144-286 HCG SERUM [id number] 11:06:00 Test Item Value Reference Range Interpretation Comments HCG SERUM QUAL (test NEGATIVE NEGATIVE This HC GQL test is NOT code = HCGQL) applicable for MALE patients.Check with nurse about probable order error.If Tumor Marker Test needed, nu rse should order test "HCG TU"(Test #550.95108)---- - URINALYSIS [id number] 11:05:00 Test Item Value Reference Range Interpretation [...] NONE BACU) Urine Source? Clean CatchCBC W/O [id number] 10:54:00 Test Item Value Reference Range Interpretation [...] code 9.5 fL 6.7-11.0 N = MPV) [id number] 18:50:00 Test Item Value Reference Range Interpretation Comments GLUBED (test code = 298 mg/dL 74-106 H Performe d by certified GLUBED) mottler operator at [facility] [id number] 17:39:00 Test Item Value Reference Range Interpretation Comments GLUBED (test code = 388 mg/dL 74-106 H Performe d by certified GLUBED) mottler operator at [facility] - XR HAND 3 + V [id number] 17:31:00 [facility])Name: DAVID BRANDT : 1970 Sex: F FAX: Cesilia Marquis MD [phone] [place]: [place] St: PRE Name: DAVID BRANDT [facility] FSED : 1970 Age/S: 50/F [address] Unit #: [id number] Loc: [facility] [address] Phys: Cesilia Marquis MD [place], [place] [address] Acct: [id number] Dis Date: Status: PRE ER PHONE #: Exam Date: 12/03/2020 1703 FAX #: Reason: attn middle finger, paronychia EXAMS: CPT CODE: [id number] XR HAND 3 + V RT 90694 REASON FOR EXAM: attn middle finger, paronychia EXAM ORDER DATE: 12/03/2020 5:13 PM Ordering: Cesilia Marquis MD Attending:Cesilia Marquis MD Location:[facility] PROCEDURE: - XR HAND 3 + V RTFINDINGS: 3 views of the right hand were obtained. The osseous structures are unremarkable in size and shape. The joint spaces are maintained. No evidence of fracture. The phalanges are intact. The carpal and metacarpal bones are unremarkable. There is normal alignment of the radiocarpal joint space IMPRESSION: No acute osseous lesions. at 1731 Reported and signed by: Farhan Pickard M.D. CC: Cesilia Marquis MD Technologist: Herbert Sethi Trnscrd Date/Time/By: 12/03/2020 (173) : By: TaylaDKH1 Orig Print D/T: S: 12/03/2020 (1562) PAGE 1 [facility]2021-04-24 20:04:00 Test Item Value Reference Range Interpretation Comments Glucose Lvl (test code = Glucose Lvl) 595 70-99 [facility]2021-04-24 20:04:00 Test Item Value Reference Range Interpretation Comments BUN (test code = BUN) 6 7-22 [place] [id number] 20:04:00 Test Item Value Reference Range Interpretation Comments Creatinine Lvl (test code = Creatinine 0.90 0.50-1.40 Lvl) [facility]2021-04-24 20:04:00 Test Item Value Reference Range Interpretation Comments Sodium Lvl (test code = Sodium Lvl) 133 135-145 [place] 605521-04-24 20:04:00 Test Item Value Reference Range Interpretation Comments Potassium Lvl (test code = Potassium 3.9 3.5-5.1 Lvl) [place] 605521-04-24 20:04:00 Test Item Value Reference Range Interpretation Comments Chloride Lvl (test code = Chloride Lvl) 98 95-109 [place] 605521-04-24 20:04:00 Test Item Value Reference Range Interpretation Comments CO2 (test code = CO2) 27 24-32 [facility]2021-04-24 20:04:00 Test Item Value Reference Range Interpretation Comments AGAP (test code = AGAP) 11.9 10.0-20.0 [place] 605521-04-24 20:04:00 Test Item Value Reference Range Interpretation Comments Calcium Lvl (test code = Calcium Lvl) 8.8 8.5-10.5 [facility] [id number] 20:04:00 Test Item Value Reference Range Interpretation Comments B/C Ratio (test code = B/C Ratio) 7 1 6-25 [place] 605521-04-24 20:04:00 Test Item Value Reference Range Interpretation Comments Total Protein (test code = Total 7.1 6.4-8.4 Protein) [facility] [id number] 20:04:00 Test Item Value Reference Range Interpretation Comments Albumin Lvl (test code = Albumin Lvl) 2.6 3.5-5.0 [facility] [id number] 20:04:00 Test Item Value Reference Range Interpretation Comments Globulin (test code = Globulin) 4.5 2.7-4.2 [facility] [id number] 20:04:00 Test Item Value Reference Range Interpretation Comments A/G Ratio (test code = A/G Ratio) 0.6 1 0.7-1.6 [facility] [id number] 20:04:00 Test Item Value Reference Range Interpretation Comments ALANINE AMINOTRANSFERASE 9 See_Comment [A utomated message] (test code = ALANINE The sys tem which AMINOTRANSFERASE) generated this result transmitted ref erence range: <=65. Th e reference range was not used to int erpret this result as normal/abnormal . [facility] [id number] 20:04:00 Test Item Value Reference Range Interpretation Comments ASPARTATE TRANSAMINASE 8 See_Comment [Aut omated message] (test code = ASPARTATE The s ystem which TRANSAMINASE) generated this result transmitted ref erence range: <=37. Th e reference range was not used to interpr et this result as normal/abnormal . [facility] [id number] 20:04:00 Test Item Value Reference Range Interpretation Comments Alk Phos (test code = Alk Phos) 105 39-136 [facility] [id number] 20:04:00 Test Item Value Reference Range Interpretation Comments Bili Total (test code = Bili Total) 0.4 0.2-1.3 [facility] [id number] 20:04:00 Test Item Value Reference Range Interpretation Comments eGFR (test code = eGFR) 75 [facility]2021-04-24 20:04:00 Test Item Value Reference Range Interpretation Comments Ketone Quantitative (test code = Ketone 0.10 Quantitative) [facility]IjwixduTNXDQGIFIT0028-66-25 20:04:00 Test Item Value Reference Range Interpretation Comments WBC X 10x3 (test code = WBC X 10x3) 6.9 3.7-10.4 [facility] CampusXtzabotZDMJIRQSAM1645-66-20 20:04:00 Test Item Value Reference Range Interpretation Comments RBC X 10x6 (test code = RBC X 10x6) 3.97 4.20-5.40 [facility] CampusJbcxcavQKBDPCPAZQ3896-89-29 20:04:00 Test Item Value Reference Range Interpretation Comments Hgb (test code = Hgb) 11.5 12.0-16.0 [facility] CampusQxywscjLHINDJWVWZ7161-10-19 20:04:00 Test Item Value Reference Range Interpretation Comments Hct (test code = Hct) 34.7 36.0-48.0 [facility] CampusPucbhfmVQHRTWFRBU0590-56-99 20:04:00 Test Item Value Reference Range Interpretation Comments MCV (test code = MCV) 87.6 80.0-98.0 [facility] CampusKmcuztaXJMDWVHKFV7875-39-06 20:04:00 Test Item Value Reference Range Interpretation Comments MCH (test code = MCH) 28.9 pg 27.0-31.0 [facility] CampusOzcojtaBBMWZPBCSE4938-52-87 20:04:00 Test Item Value Reference Range Interpretation Comments MCHC (test code = MCHC) 33.0 32.0-36.0 [facility] CampusVvzfjazSWCCLSOPVJ6963-35-67 20:04:00 Test Item Value Reference Range Interpretation Comments RDW (test code = RDW) 12.4 11.5-14.5 [facility] CampusLqruwvdVQHHJMUJXY1986-47-86 20:04:00 Test Item Value Reference Range Interpretation Comments Platelet (test code = Platelet) 406 133-450 [facility] CampusWynhylwYWETCSIKRX7978-25-80 20:04:00 Test Item Value Reference Range Interpretation Comments MPV (test code = MPV) 8.2 7.4-10.4 [facility] CampusWngldffLHKHIGWPXZ9375-75-95 20:04:00 Test Item Value Reference Range Interpretation Comments Segs (test code = Segs) 71.5 45.0-75.0 [facility] CampusHdoxcjbSDPQLRQMOH1499-10-09 20:04:00 Test Item Value Reference Range Interpretation Comments Lymphocytes (test code = Lymphocytes) 21.1 20.0-40.0 [facility] CampusAgjttjpWTMPSZYEOV9815-47-76 20:04:00 Test Item Value Reference Range Interpretation Comments Monocytes (test code = Monocytes) 6.4 2.0-12.0 [facility] CampusIatppvuFDXXTAUPHY8329-29-07 20:04:00 Test Item Value Reference Range Interpretation Comments Eosinophils (test code = 0.7 See_Comment [A utomated message] The Eosinophils) system which ge nerated this result tra nsmitted reference range : <=4.0. The reference r muarice was not used to int erpret this result as normal/abnormal . [facility] CampusGrdnkfuCMAGHOBSXG9785-06-80 20:04:00 Test Item Value Reference Range Interpretation Comments Basophils (test code = 0.3 See_Comment [Aut omated message] The Basophils) system which ge nerated this result tra nsmitted reference range : <=1.0. The reference r maurice was not used to int erpret this result as normal/abnormal . [facility] CampusYffdyvzSCNHSUPCGK1459-19-50 20:04:00 Test Item Value Reference Range Interpretation Comments Neutrophils # (test code = Neutrophils 4.9 1.5-8.1 #) [facility] CampusXhejunbNHZNODXEPM3032-65-17 20:04:00 Test Item Value Reference Range Interpretation Comments Lymphocytes # (test code = Lymphocytes 1.4 1.0-5.5 #) [facility] CampusQujvukhGORTHCMOJS7184-59-40 20:04:00 Test Item Value Reference Range Interpretation Comments Monocytes # (test code 0.4 See_Comment [Aut omated message] The = Monocytes #) system which generated this result tra nsmitted reference range : <=0.8. The reference r maurice was not used to int erpret this result as normal/abnormal . [facility] AND [id number] 20:04:00 Test Item Value Reference Range Interpretation Comments UA Color (test code = Yellow *NA*(10/03/20 UA Color) 3:04 PM) [facility] AND [id number] 20:04:00 Test Item Value Reference Range Interpretation Comments UA Turbidity (test code = Clear (10/03/20 3:04 [facility] Turbidity) PM) [facility] [id number] 20:04:00 Test Item Value Reference Range Interpretation Comments UA Spec Grav (test code *NA*(10/03/20 3:04 PM) = UA Spec Grav) [facility] [id number] 20:04:00 Test Item Value Reference Range Interpretation Comments UA pH (test code = UA pH) 6.0 1 5.0-8.0 [facility] [id number] 20:04:00 Test Item Value Reference Range Interpretation Comments UA Protein (test code Negative (10/03/20 3:04 = UA Protein) PM) [facility] [id number] 20:04:00 Test Item Value Reference Range Interpretation Comments UA Glucose (test code = UA >=1000 mg/dL Glucose) [facility] [id number] 20:04:00 Test Item Value Reference Range Interpretation Comments UA Ketones (test code Negative *NA*(10/03/20 = UA Ketones) 3:04 PM) [facility] [id number] 20:04:00 Test Item Value Reference Range Interpretation Comments UA Bili (test code = Negative *NA*(10/03/20 UA Bili) 3:04 PM) [facility] [id number] 20:04:00 Test Item Value Reference Range Interpretation Comments UA Blood (test code = Trace *ABN*(10/03/20 UA Blood) 3:04 PM) [facility] [id number] 20:04:00 Test Item Value Reference Range Interpretation Comments UA Urobilinogen (test code = UA 0.2 0.1-1.0 Urobilinogen) [facility] [id number] 20:04:00 Test Item Value Reference Range Interpretation Comments UA Nitrite (test code Negative (10/03/20 3:04 = UA Nitrite) PM) [facility] [id number] 20:04:00 Test Item Value Reference Range Interpretation Comments UA Leuk Est (test code Trace *ABN*(10/03/20 = UA Leuk Est) 3:04 PM) [facility] [id number] 20:04:00 Test Item Value Reference Range Interpretation Comments Micro? (test code = Performed (10/03/20 3:04 Micro?) PM) [facility] AND [id number] 20:04:00 Test Item Value Reference Range Interpretation Comments UA Sq Epi (test code = UA Sq Epi) Few /LPF [facility] AND [id number] 20:04:00 Test Item Value Reference Range Interpretation Comments UA WBC (test code = UA WBC) 6-10 /HPF [facility] AND [id number] 20:04:00 Test Item Value Reference Range Interpretation Comments UA RBC (test code = UA RBC) 3-5 /HPF [facility] AND [id number] 20:04:00 Test Item Value Reference Range Interpretation Comments UA Bacteria (test code = UA Few /HPF Bacteria) [facility]2020-11-04 05:21:00 Test Item Value Reference Range Interpretation Comments Glucose Lvl (test code = Glucose Lvl) 483 70-99 [facility]2020-11-04 05:21:00 Test Item Value Reference Range Interpretation Comments BUN (test code = BUN) 13 7-22 [facility]2020-11-04 05:21:00 Test Item Value Reference Range Interpretation Comments Creatinine Lvl (test code = Creatinine 0.90 0.50-1.40 Lvl) [facility]2020-11-04 05:21:00 Test Item Value Reference Range Interpretation Comments Sodium Lvl (test code = Sodium Lvl) 135 135-145 [facility]2020-11-04 05:21:00 Test Item Value Reference Range Interpretation Comments Potassium Lvl (test code = Potassium 4.3 3.5-5.1 Lvl) [facility]2020-11-04 05:21:00 Test Item Value Reference Range Interpretation Comments Chloride Lvl (test code = Chloride Lvl) 102 95-109 [facility]2020-11-04 05:21:00 Test Item Value Reference Range Interpretation Comments CO2 (test code = CO2) 24 24-32 [facility]2020-11-04 05:21:00 Test Item Value Reference Range Interpretation Comments AGAP (test code = AGAP) 13.3 10.0-20.0 [facility]2020-11-04 05:21:00 Test Item Value Reference Range Interpretation Comments Calcium Lvl (test code = Calcium Lvl) 9.2 8.5-10.5 [place] 605520-11-04 05:21:00 Test Item Value Reference Range Interpretation Comments B/C Ratio (test code = B/C Ratio) 14 1 6-25 [place] [address]-11-04 05:21:00 Test Item Value Reference Range Interpretation Comments Total Protein (test code = Total 7.7 6.4-8.4 Protein) [place] 605520-11-04 05:21:00 Test Item Value Reference Range Interpretation Comments Albumin Lvl (test code = Albumin Lvl) 3.3 3.5-5.0 [place] [address]-11-04 05:21:00 Test Item Value Reference Range Interpretation Comments Globulin (test code = Globulin) 4.4 2.7-4.2 [place] 605520-11-04 05:21:00 Test Item Value Reference Range Interpretation Comments A/G Ratio (test code = A/G Ratio) 0.8 1 0.7-1.6 [place] [address]-11-04 05:21:00 Test Item Value Reference Range Interpretation Comments ALT (test code = ALT) 14 See_Comment [Auto mated message] The system which ge nerated this result transmit roxana reference range : <=65. The reference range was not used to interpr et this result as spencer l/abnormal. [facility]2020-11-04 05:21:00 Test Item Value Reference Range Interpretation Comments AST (test code = AST) 13 See_Comment [Auto mated message] The system which ge nerated this result transmit roxana reference range : <=37. The reference range was not used to interpr et this result as spencer l/abnormal. [place] 605520-11-04 05:21:00 Test Item Value Reference Range Interpretation Comments Alk Phos (test code = Alk Phos) 89 39-136 [place] 605520-11-04 05:21:00 Test Item Value Reference Range Interpretation Comments Bili Total (test code = Bili Total) 0.3 0.2-1.3 [place] 605520-11-04 05:21:00 Test Item Value Reference Range Interpretation Comments eGFR (test code = eGFR) 75 [facility] CampusQiffrkyGSIGWYTWVV0946-98-23 05:21:00 Test Item Value Reference Range Interpretation Comments RBC Morph (test code = Normal (04/14/20 11:21 RBC Morph) PM) [facility] CampusLtyhynyJSIAFQDCUU7151-96-98 05:21:00 Test Item Value Reference Range Interpretation Comments Plt Morph (test code = Clumped (04/14/20 11:21 Plt Morph) PM) [facility] CampusGqmqvqpFXTJAJXUGX9386-46-84 05:21:00 Test Item Value Reference Range Interpretation Comments Segs (test code = Segs) 65.7 45.0-75.0 [facility] CampusIdvsoxfGVVDVWCNBM1758-74-52 05:21:00 Test Item Value Reference Range Interpretation Comments Lymphocytes (test code = Lymphocytes) 27.9 20.0-40.0 [facility] CampusTrsgekbUBTDKQYQPY5335-24-28 05:21:00 Test Item Value Reference Range Interpretation Comments Monocytes (test code = Monocytes) 5.0 2.0-12.0 [facility] CampusQelxqmuIXSXFETEEI6761-50-29 05:21:00 Test Item Value Reference Range Interpretation Comments Eosinophils (test code = 0.9 See_Comment [A utomated message] The Eosinophils) system which ge nerated this result tra nsmitted reference range : <=4.0. The reference r maurice was not used to int erpret this result as normal/abnormal . [facility] CampusSoczsawTXVDCLZMHQ1235-15-13 05:21:00 Test Item Value Reference Range Interpretation Comments Basophils (test code = 0.5 See_Comment [Aut omated message] The Basophils) system which ge nerated this result tra nsmitted reference range : <=1.0. The reference r maurice was not used to int erpret this result as normal/abnormal . [facility] CampusNjihyibPCZKVHXSNG8186-76-92 05:21:00 Test Item Value Reference Range Interpretation Comments Neutrophils # (test code = Neutrophils 6.8 1.5-8.1 #) [facility] CampusBjgxropPFVXLZZGAG1193-54-93 05:21:00 Test Item Value Reference Range Interpretation Comments Lymphocytes # (test code = Lymphocytes 2.9 1.0-5.5 #) [facility] CampusExoieafNLKTKDAZVJ3511-38-39 05:21:00 Test Item Value Reference Range Interpretation Comments Monocytes # (test code 0.5 See_Comment [Aut omated message] The = Monocytes #) system which generated this result tra nsmitted reference range : <=0.8. The reference r maurice was not used to int erpret this result as normal/abnormal . [facility] CampusWwscswfRMRGHBOZPH7088-55-78 05:21:00 Test Item Value Reference Range Interpretation Comments Eosinophils # (test code 0.1 See_Comment [A utomated message] The = Eosinophils #) system whic h generated this result tra nsmitted reference range : <=0.5. The reference r maurice was not used to int erpret this result as normal/abnormal . [facility] CampusFkfoiptDTTBXYXIGV3276-09-07 05:21:00 Test Item Value Reference Range Interpretation Comments Basophils # (test code 0.1 See_Comment [Aut omated message] The = Basophils #) system which generated this result tra nsmitted reference range : <=0.2. The reference r maurice was not used to int erpret this result as normal/abnormal . [facility] CampusKrtidapKVVQAISJVK7653-87-71 05:21:00 Test Item Value Reference Range Interpretation Comments WBC (test code = WBC) 10.4 3.7-10.4 [facility] CampusCdgztmkJTKPDLIHHI2947-63-61 05:21:00 Test Item Value Reference Range Interpretation Comments RBC (test code = RBC) 3.99 4.20-5.40 [facility] CampusFkvsgfdODZWCOMGZL5532-11-61 05:21:00 Test Item Value Reference Range Interpretation Comments Hgb (test code = Hgb) 12.1 12.0-16.0 [facility] CampusBmktbwsZHWWVRAELC1559-14-99 05:21:00 Test Item Value Reference Range Interpretation Comments Hct (test code = Hct) 36.5 36.0-48.0 [facility] CampusKhivtzpAXGLBHQTTM7144-59-97 05:21:00 Test Item Value Reference Range Interpretation Comments MCV (test code = MCV) 91.5 80.0-98.0 [facility] CampusWjdhrtrPOEJCAZHBV7816-07-18 05:21:00 Test Item Value Reference Range Interpretation Comments MCH (test code = MCH) 30.4 pg 27.0-31.0 [facility] CampusBtbbojtSCESZKVDWL4920-88-56 05:21:00 Test Item Value Reference Range Interpretation Comments MCHC (test code = MCHC) 33.2 32.0-36.0 [facility] CampusStpmynqFHGAGUBMLF6309-41-83 05:21:00 Test Item Value Reference Range Interpretation Comments RDW (test code = RDW) 12.5 11.5-14.5 [facility]NgfxnhcPMTZEGLNUT4053-03-02 05:21:00 Test Item Value Reference Range Interpretation Comments Platelet (test code = Platelet) 384 911-450 [facility]OdkbzfqIUJWDXGSUU0369-32-29 05:21:00 Test Item Value Reference Range Interpretation Comments MPV (test code = MPV) 8.5 7.4-10.4 [facility] [id number] 16:53:00 Test Item Value Reference Range Interpretation Comments U Amph Scr (test code Negative *NA*(03/03/20 = U Amph Scr) 11:53 AM) [facility] [id number] 16:53:00 Test Item Value Reference Range Interpretation Comments U Paulina Scr (test code Negative *NA*(03/03/20 = U Paulina Scr) 11:53 AM) [facility] [id number] 16:53:00 Test Item Value Reference Range Interpretation Comments U Benzodiaz Scr (test Negative *NA*(03/03/20 code = U Benzodiaz Scr) 11:53 AM) [facility] [id number] 16:53:00 Test Item Value Reference Range Interpretation Comments U Cocaine Scr (test Negative *NA*(03/03/20 code = U Cocaine Scr) 11:53 AM) [facility] [id number] 16:53:00 Test Item Value Reference Range Interpretation Comments U Cannab Scr (test Positive *ABN*(03/03/20 code = U Cannab Scr) 11:53 AM) [facility] [id number] 16:53:00 Test Item Value Reference Range Interpretation Comments U Opiate Scr (test Negative *NA*(03/03/20 code = U Opiate Scr) 11:53 AM) [facility] [id number] 16:53:00 Test Item Value Reference Range Interpretation Comments U Phencyclidine Scr (test Negative code = U Phencyclidine *NA*(03/03/20 11:53 Scr) AM) [facility] [id number] 16:53:00 Test Item Value Reference Range Interpretation Comments UDS Note (test code = See Note (03/03/20 11:53 UDS Note) AM) [facility]C:PT:ISOLATE:ORDQN:[id number] 16:53:00 Test Item Value Reference Range Interpretation Comments Culture: Urine (test >100,000 CFU/mL code = Culture: Escherichia coli . 10,000 Urine) - 50,000 CFU/mL [facility]C:PT:ISOLATE:ORDQN:[id number] 16:53:00 Test Item Value Reference Range Interpretation Comments Escherichia coli (test code Escherichia coli = Escherichia coli) [facility] AND [id number] 16:53:00 Test Item Value Reference Range Interpretation Comments UA Turbidity (test code Slight *ABN*(03/03/20 = UA Turbidity) 11:53 AM) [facility] AND [id number] 16:53:00 Test Item Value Reference Range Interpretation Comments UA Spec Grav (test code = UA Spec 1.038 1 Grav) [facility] AND [id number] 16:53:00 Test Item Value Reference Range Interpretation Comments UA pH (test code = UA pH) 5.0 1 5.0-8.0 [facility] AND [id number] 16:53:00 Test Item Value Reference Range Interpretation Comments UA Protein (test code = UA Negative mg/dL Protein) [facility] AND [id number] 16:53:00 Test Item Value Reference Range Interpretation Comments UA Glucose (test code = UA Glucose) 500 mg/dL [facility] AND [id number] 16:53:00 Test Item Value Reference Range Interpretation Comments UA Ketones (test code = UA Trace mg/dL Ketones) [facility] AND [id number] 16:53:00 Test Item Value Reference Range Interpretation Comments UA Bili (test code = Negative *NA*(03/03/20 UA Bili) 11:53 AM) [facility] AND [id number] 16:53:00 Test Item Value Reference Range Interpretation Comments UA Blood (test code = Negative (03/03/20 11:53 UA Blood) AM) [facility] AND [id number] 16:53:00 Test Item Value Reference Range Interpretation Comments UA Nitrite (test code Positive *ABN*(03/03/20 = UA Nitrite) 11:53 AM) [facility] AND [id number] 16:53:00 Test Item Value Reference Range Interpretation Comments UA Leuk Est (test code Small *ABN*(03/03/20 = UA Leuk Est) 11:53 AM) [facility] Herm[facility] AND [id number] 16:53:00 Test Item Value Reference Range Interpretation Comments UA Sq Epi (test code = UA Sq Occasional /LPF Epi) [facility] [id number] 16:53:00 Test Item Value Reference Range Interpretation Comments UA WBC (test code = 57 See_Comment [Automa roxana message] The UA WBC) system which ge nerated this result transmit roxana reference range : <=5. The reference range was not used to interpr et this result as spencer l/abnormal. [facility] AND [id number] 16:53:00 Test Item Value Reference Range Interpretation Comments UA RBC (test code = 3 See_Comment [Automa roxana message] The UA RBC) system which ge nerated this result transmit roxana reference range : <=2. The reference range was not used to interpr et this result as spencer l/abnormal. [facility] AND [id number] 16:53:00 Test Item Value Reference Range Interpretation Comments UA Color (test code = UA Color) Ltyellow [facility] AND [id number] 16:53:00 Test Item Value Reference Range Interpretation Comments UA Urobilinogen (test code = UA <=1.0 mg/dL 0.1-1.0 Urobilinogen) [facility] [id number] 15:15:00 Test Item Value Reference Range Interpretation Comments Total CK (test code = Total CK) 112 12-191 [facility]CARD[facility] [id number] 15:15:00 Test Item Value Reference Range Interpretation Comments Troponin-I (test code no gt See_Comment [Auto mated message] The = Troponin-I) system which g enerated this result transmit roxana reference range : <=0.40. The reference r maurice was not used to interpr et this result as spencer l/abnormal. [facility] [id number] 15:15:00 Test Item Value Reference Range Interpretation Comments Glucose Lvl (test code = Glucose Lvl) 413 70-99 [facility]2020-09-22 15:15:00 Test Item Value Reference Range Interpretation Comments BUN (test code = BUN) 9 7-22 [place] [id number] 15:15:00 Test Item Value Reference Range Interpretation Comments Creatinine Lvl (test code = Creatinine 0.92 0.50-1.40 Lvl) [facility]2020-09-22 15:15:00 Test Item Value Reference Range Interpretation Comments Sodium Lvl (test code = Sodium Lvl) 137 135-145 [place] 605520-09-22 15:15:00 Test Item Value Reference Range Interpretation Comments Potassium Lvl (test code = Potassium 3.9 3.5-5.1 Lvl) [facility]2020-09-22 15:15:00 Test Item Value Reference Range Interpretation Comments Chloride Lvl (test code = Chloride Lvl) 104 95-109 [facility]2020-09-22 15:15:00 Test Item Value Reference Range Interpretation Comments CO2 (test code = CO2) 25 24-32 [facility]2020-09-22 15:15:00 Test Item Value Reference Range Interpretation Comments AGAP (test code = AGAP) 11.9 10.0-20.0 [facility]2020-09-22 15:15:00 Test Item Value Reference Range Interpretation Comments Calcium Lvl (test code = Calcium Lvl) 9.3 8.5-10.5 [facility]2020-09-22 15:15:00 Test Item Value Reference Range Interpretation Comments B/C Ratio (test code = B/C Ratio) 10 1 6-25 [place] 605520-09-22 15:15:00 Test Item Value Reference Range Interpretation Comments Total Protein (test code = Total 8.0 6.4-8.4 Protein) [facility]2020-09-22 15:15:00 Test Item Value Reference Range Interpretation Comments Albumin Lvl (test code = Albumin Lvl) 3.8 3.5-5.0 [facility]2020-09-22 15:15:00 Test Item Value Reference Range Interpretation Comments Globulin (test code = Globulin) 4.2 2.7-4.2 [place] 605520-09-22 15:15:00 Test Item Value Reference Range Interpretation Comments A/G Ratio (test code = A/G Ratio) 0.9 1 0.7-1.6 [facility]cosCUneX[facility] Solutions [id number] 15:15:00 Test Item Value Reference Range Interpretation Comments ALT (test code = ALT) 22 See_Comment [Auto mated message] The system which ge nerated this result transmit roxana reference range : <=65. The reference range was not used to interpr et this result as spencer l/abnormal. [facility] [id number] 15:15:00 Test Item Value Reference Range Interpretation Comments AST (test code = AST) 16 See_Comment [Auto mated message] The system which ge nerated this result transmit roxana reference range : <=37. The reference range was not used to interpr et this result as spencer l/abnormal. [facility]CU[facility] [id number] 15:15:00 Test Item Value Reference Range Interpretation Comments Alk Phos (test code = Alk Phos) 79 39-136 [facility] [id number] 15:15:00 Test Item Value Reference Range Interpretation Comments Bili Total (test code = Bili Total) 0.8 0.2-1.3 [facility] [id number] 15:15:00 Test Item Value Reference Range Interpretation Comments eGFR (test code = eGFR) 74 [facility] [id number] 15:15:00 Test Item Value Reference Range Interpretation Comments Magnesium Lvl (test code = Magnesium 1.8 1.8-2.4 Lvl) [facility] [id number] 15:15:00 Test Item Value Reference Range Interpretation Comments Lactic Acid Lvl (test code = Lactic 2.2 0.5-2.2 Acid Lvl) [facility]AoizijuJNYLTSSUPHNSP5196-08-09 15:15:00 Test Item Value Reference Range Interpretation Comments S Preg (test code = S Negative *NA*(03/03/20 Preg) 10:15 AM) [place] [address]-09-22 15:15:00 Test Item Value Reference Range Interpretation Comments WBC (test code = WBC) 9.5 3.7-10.4 [facility] MarcosAxqksxpAQUCDNZORO7207-08-02 15:15:00 Test Item Value Reference Range Interpretation Comments RBC (test code = RBC) 4.60 4.20-5.40 [facility] CampusSdcacpsPVQPIVKUCK3264-46-21 15:15:00 Test Item Value Reference Range Interpretation Comments Hgb (test code = Hgb) 14.0 12.0-16.0 [place] 097050-09-22 15:15:00 Test Item Value Reference Range Interpretation Comments Hct (test code = Hct) 42.4 36.0-48.0 [facility] CampusUqlrweqBKASQIUWJS3851-79-55 15:15:00 Test Item Value Reference Range Interpretation Comments MCV (test code = MCV) 92.3 80.0-98.0 [facility] CampusRnjcfhdOBSUMWNYDN3132-48-00 15:15:00 Test Item Value Reference Range Interpretation Comments MCH (test code = MCH) 30.4 pg 27.0-31.0 [facility] CampusXsjhmzbGYZUEZEQXD3713-41-31 15:15:00 Test Item Value Reference Range Interpretation Comments MCHC (test code = MCHC) 32.9 32.0-36.0 [facility] CampusBnfswdjNBCBYRXZSL9249-90-23 15:15:00 Test Item Value Reference Range Interpretation Comments RDW (test code = RDW) 12.9 11.5-14.5 [facility] CampusOjfbsaiVTCKPCLHHB2194-94-60 15:15:00 Test Item Value Reference Range Interpretation Comments Platelet (test code = Platelet) 352 133-450 [facility] CampusNtbfubaCPAKLZZSDQ3290-13-91 15:15:00 Test Item Value Reference Range Interpretation Comments MPV (test code = MPV) 8.8 7.4-10.4 [place] 097050-09-22 15:15:00 Test Item Value Reference Range Interpretation Comments PT (test code = PT) 12.1 s 12.0-14.7 [place] 097050-09-22 15:15:00 Test Item Value Reference Range Interpretation Comments INR (test code = INR) 0.90 1 0.85-1.17 [place] 097050-09-22 15:15:00 Test Item Value Reference Range Interpretation Comments Segs (test code = Segs) 80.0 45.0-75.0 [place] 097050-09-22 15:15:00 Test Item Value Reference Range Interpretation Comments Lymphocytes (test code = Lymphocytes) 12.5 20.0-40.0 [facility] CampusZmooeooSCASIQHCFZ0327-01-25 15:15:00 Test Item Value Reference Range Interpretation Comments Monocytes (test code = Monocytes) 6.5 2.0-12.0 [facility] CampusUoavyzbGKBBVJLVAV5392-54-08 15:15:00 Test Item Value Reference Range Interpretation Comments Eosinophils (test code = 0.5 See_Comment [A utomated message] The Eosinophils) system which ge nerated this result tra nsmitted reference range : <=4.0. The reference r maurice was not used to int erpret this result as normal/abnormal . [facility] CampusHicjhtgWVTIHQYIDJ6676-17-82 15:15:00 Test Item Value Reference Range Interpretation Comments Basophils (test code = 0.5 See_Comment [Aut omated message] The Basophils) system which ge nerated this result tra nsmitted reference range : <=1.0. The reference r maurice was not used to int erpret this result as normal/abnormal . [facility] CampusHycwktjFYRUNTZNEY7734-19-61 15:15:00 Test Item Value Reference Range Interpretation Comments Neutrophils # (test code = Neutrophils 7.6 1.5-8.1 #) [facility] [facility]GcajhvfTFAUGARUKN8526-81-79 15:15:00 Test Item Value Reference Range Interpretation Comments Lymphocytes # (test code = Lymphocytes 1.2 1.0-5.5 #) [facility]SzwgcxhYWGNMWQVWQ6839-67-77 15:15:00 Test Item Value Reference Range Interpretation Comments Monocytes # (test code 0.6 See_Comment [Aut omated message] The = Monocytes #) system which generated this result tra nsmitted reference range : <=0.8. The reference r maurice was not used to int erpret this result as normal/abnormal . [facility] CampusMrppeyfMUHGEAJOQJ1520-50-60 15:15:00 Test Item Value Reference Range Interpretation Comments Eosinophils # (test code 0.1 See_Comment [A utomated message] The = Eosinophils #) system whic h generated this result tra nsmitted reference range : <=0.5. The reference r maurice was not used to int erpret this result as normal/abnormal . [facility]KtzamgiPDNPQQHSHG5379-17-94 15:15:00 Test Item Value Reference Range Interpretation Comments Ethanol Lvl (test code = Ethanol Lvl) no gt [facility]c[id number] 15:15:00 Test Item Value Reference Range Interpretation Comments Etoh (%) (test code = Etoh (%)) no gt [facility]2019-04-03 03:29:00 Test Item Value Reference Range Interpretation Comments Lipase Lvl (test code = Lipase Lvl) 279 73-393 [facility]2019-04-03 03:29:00 Test Item Value Reference Range Interpretation Comments Total Protein (test code = Total 7.4 6.4-8.4 Protein) [facility]2019-04-03 03:29:00 Test Item Value Reference Range Interpretation Comments AST (test code = AST) 16 See_Comment [Auto mated message] The system which ge nerated this result transmit roxana reference range : <=37. The reference range was not used to interpr et this result as spencer l/abnormal. [facility]CUne[facility] Solutions [id number] 03:29:00 Test Item Value Reference Range Interpretation Comments Bili Direct (test code no gt See_Comment [Aut omated message] The = Bili Direct) system which generated this result tra nsmitted reference range : <=0.3. The reference r maurice was not used to int erpret this result as spencer l/abnormal. [facility] [id number] 03:29:00 Test Item Value Reference Range Interpretation Comments ALT (test code = ALT) 25 See_Comment [Auto mated message] The system which ge nerated this result transmit roxana reference range : <=65. The reference range was not used to interpr et this result as spencer l/abnormal. [facility] [id number] 03:29:00 Test Item Value Reference Range Interpretation Comments Albumin Lvl (test code = Albumin Lvl) 3.3 3.5-5.0 [facility] [id number] 03:29:00 Test Item Value Reference Range Interpretation Comments Alk Phos (test code = Alk Phos) 77 39-136 [facility]2019-04-03 03:29:00 Test Item Value Reference Range Interpretation Comments Bili Total (test code = Bili Total) 0.3 0.2-1.3 [facility] [id number] 03:29:00 Test Item Value Reference Range Interpretation Comments Bili Indirect (test no gt See_Comment [Automa roxana message] The code = Bili Indirect) system which generated this result tra nsmitted reference range : <=1.0. The reference r maurice was not used to int erpret this result as normal/abnormal . [facility] [id number] 03:29:00 Test Item Value Reference Range Interpretation Comments Globulin (test code = Globulin) 4.1 2.7-4.2 [facility] [id number] 03:29:00 Test Item Value Reference Range Interpretation Comments A/G Ratio (test code = A/G Ratio) 0.8 1 0.7-1.6 [facility] HospitalRtivocuMLOAQOFGNPDP2079-60-21 03:29:00 Test Item Value Reference Range Interpretation Comments AGAP (test code = AGAP) 13.8 10.0-20.0 [facility] HospitalZjomgltRJDENSBKBHKR7929-54-94 03:29:00 Test Item Value Reference Range Interpretation Comments eGFR (test code = eGFR) 87 [facility] HospitalManfoweNEAMDPWCPNWI8297-46-95 03:29:00 Test Item Value Reference Range Interpretation Comments CO2 (test code = CO2) 24 24-32 [facility] HospitalXmopsexIGXOZTKXFBSS8322-62-37 03:29:00 Test Item Value Reference Range Interpretation Comments Calcium Lvl (test code = Calcium Lvl) 9.6 8.5-10.5 [facility] HospitalXdcmrviGFIKUMCTGDUE3800-72-45 03:29:00 Test Item Value Reference Range Interpretation Comments Creatinine Lvl (test code = Creatinine 0.81 0.50-1.40 Lvl) [facility] HospitalIierbhdCEHWTTZZXHIZ0591-48-37 03:29:00 Test Item Value Reference Range Interpretation Comments Sodium Lvl (test code = Sodium Lvl) 140 135-145 [facility] HospitalWaukvspPOSJTPFLOJAC7928-32-04 03:29:00 Test Item Value Reference Range Interpretation Comments Potassium Lvl (test code = Potassium 3.8 3.5-5.1 Lvl) [facility] HospitalYlqlvobHZIDOCIJBQBQ4700-74-62 03:29:00 Test Item Value Reference Range Interpretation Comments Chloride Lvl (test code = Chloride Lvl) 106 95-109 [facility] HospitalYuvweppOQFNKSFQVALX5586-21-73 03:29:00 Test Item Value Reference Range Interpretation Comments BUN (test code = BUN) 14 7-22 [facility]HoyrqjpEXJCURVYEGMZ5156-59-81 03:29:00 Test Item Value Reference Range Interpretation Comments Glucose Lvl (test code = Glucose Lvl) 250 70-99 [facility]CwpklfsMULHSMMKKNJLK7798-01-03 03:29:00 Test Item Value Reference Range Interpretation Comments S Preg (test code = S Negative *NA*(09/11/18 Preg) 10:29 PM) [facility] CampusSgsegwoWMNLYCLXND4873-80-72 03:29:00 Test Item Value Reference Range Interpretation Comments Segs (test code = Segs) 50.9 45.0-75.0 [facility] CampusNbjenqjZUVJONGPLJ6134-37-09 03:29:00 Test Item Value Reference Range Interpretation Comments Lymphocytes (test code = Lymphocytes) 39.5 20.0-40.0 [facility] CampusQfzqyluSRKOUQNMYU6699-57-23 03:29:00 Test Item Value Reference Range Interpretation Comments Basophils (test code = 0.8 See_Comment [Aut omated message] The Basophils) system which ge nerated this result tra nsmitted reference range : <=1.0. The reference r maurice was not used to int erpret this result as normal/abnormal . [facility] CampusApjpnshZOIVKVHJEF1487-74-42 03:29:00 Test Item Value Reference Range Interpretation Comments Neutrophils # (test code = Neutrophils 4.4 1.5-8.1 #) [facility] CampusRqwnseqEHHACQBSZC8589-73-58 03:29:00 Test Item Value Reference Range Interpretation Comments Monocytes (test code = Monocytes) 6.2 2.0-12.0 [facility] CampusYyfcfafDFKHMGYEQR4273-56-49 03:29:00 Test Item Value Reference Range Interpretation Comments Eosinophils (test code = 2.6 See_Comment [A utomated message] The Eosinophils) system which ge nerated this result tra nsmitted reference range : <=4.0. The reference r maurice was not used to int erpret this result as normal/abnormal . [facility] CampusXtizahdXHOYNKHJLK4357-00-10 03:29:00 Test Item Value Reference Range Interpretation Comments Eosinophils # (test code 0.2 See_Comment [A utomated message] The = Eosinophils #) system whic h generated this result tra nsmitted reference range : <=0.5. The reference r maurice was not used to int erpret this result as normal/abnormal . [facility] CampusRqyldtlPWIFYXWFCH2127-23-71 03:29:00 Test Item Value Reference Range Interpretation Comments Basophils # (test code 0.1 See_Comment [Aut omated message] The = Basophils #) system which generated this result tra nsmitted reference range : <=0.2. The reference r maurice was not used to int erpret this result as normal/abnormal . [facility] CampusTxfswahAOWJYPJZFV7112-43-97 03:29:00 Test Item Value Reference Range Interpretation Comments Lymphocytes # (test code = Lymphocytes 3.4 1.0-5.5 #) [facility] CampusKcdnozkMCISJLNFQI8940-91-94 03:29:00 Test Item Value Reference Range Interpretation Comments Monocytes # (test code 0.5 See_Comment [Aut omated message] The = Monocytes #) system which generated this result tra nsmitted reference range : <=0.8. The reference r maurice was not used to int erpret this result as normal/abnormal . [facility] CampusXbwepekVHSVCGWPLG8225-01-75 03:29:00 Test Item Value Reference Range Interpretation Comments MCHC (test code = MCHC) 33.3 32.0-36.0 [facility] CampusWnetgpePQSIYVHBJR5210-03-11 03:29:00 Test Item Value Reference Range Interpretation Comments RDW (test code = RDW) 12.4 11.5-14.5 [facility] CampusWcfgsomRSGAMRNTLG3964-21-30 03:29:00 Test Item Value Reference Range Interpretation Comments Platelet (test code = Platelet) 380 133-450 [facility] CampusGjpuvjtICAHDZESEV3968-35-89 03:29:00 Test Item Value Reference Range Interpretation Comments MPV (test code = MPV) 8.0 7.4-10.4 [facility] CampusRilqbrkJYWGVQRAXZ5688-63-68 03:29:00 Test Item Value Reference Range Interpretation Comments WBC (test code = WBC) 8.6 3.7-10.4 [facility] CampusVmlaznyDGLQKJHQLE2179-48-07 03:29:00 Test Item Value Reference Range Interpretation Comments RBC (test code = RBC) 4.41 4.20-5.40 [facility] CampusJfifvatWTVYLWNJLW3093-38-13 03:29:00 Test Item Value Reference Range Interpretation Comments Hct (test code = Hct) 39.8 36.0-48.0 [facility] CampusGzoctchPGUSOALNLL6508-21-68 03:29:00 Test Item Value Reference Range Interpretation Comments Hgb (test code = Hgb) 13.3 12.0-16.0 [facility] CampusZoxqkgrDSWXWEODCP8229-33-30 03:29:00 Test Item Value Reference Range Interpretation Comments MCV (test code = MCV) 90.2 80.0-98.0 [facility] CampusBnmvxfoOKJNVBIBJX9762-03-51 03:29:00 Test Item Value Reference Range Interpretation Comments MCH (test code = MCH) 30.1 pg 27.0-31.0 [facility] [id number] 03:29:00 Test Item Value Reference Range Interpretation Comments UA Urobilinogen (test code = UA 0.2 0.1-1.0 Urobilinogen) [facility] [id number] 03:29:00 Test Item Value Reference Range Interpretation Comments UA Bacteria (test code = UA Many /HPF Bacteria) [facility] [id number] 03:29:00 Test Item Value Reference Range Interpretation Comments UA Amorph Lizy (test code = Occasional /HPF UA Amorph Lizy) [facility] [id number] 03:29:00 Test Item Value Reference Range Interpretation Comments UA Sq Epi (test code = UA Sq Epi) Many /LPF [facility] [id number] 03:29:00 Test Item Value Reference Range Interpretation Comments UA Nitrite (test code Negative (09/11/18 10:29 = UA Nitrite) PM) [facility] [id number] 03:29:00 Test Item Value Reference Range Interpretation Comments UA Leuk Est (test Negative (09/11/18 10:29 code = UA Leuk Est) PM) [facility] [id number] 03:29:00 Test Item Value Reference Range Interpretation Comments UA Blood (test code = Negative (09/11/18 10:29 UA Blood) PM) [facility] [id number] 03:29:00 Test Item Value Reference Range Interpretation Comments UA Bili (test code = Negative *NA*(09/11/18 UA Bili) 10:29 PM) [facility] [id number] 03:29:00 Test Item Value Reference Range Interpretation Comments UA Ketones (test code Negative *NA*(09/11/18 = UA Ketones) 10:29 PM) [facility] [id number] 03:29:00 Test Item Value Reference Range Interpretation Comments UA Protein (test code Negative (09/11/18 10:29 = UA Protein) PM) [facility] [id number] 03:29:00 Test Item Value Reference Range Interpretation Comments UA Glucose (test code = UA Glucose) 500 mg/dL [facility] [id number] 03:29:00 Test Item Value Reference Range Interpretation Comments UA pH (test code = UA pH) 6.5 1 5.0-8.0 [facility] [id number] 03:29:00 Test Item Value Reference Range Interpretation Comments UA Spec Grav (test code = UA Spec 1.020 1 Grav) [facility] [id number] 03:29:00 Test Item Value Reference Range Interpretation Comments UA Turbidity (test code Turbid *ABN*(09/11/18 = UA Turbidity) 10:29 PM) [facility] [id number] 03:29:00 Test Item Value Reference Range Interpretation Comments UA Color (test code = Yellow *NA*(09/11/18 UA Color) 10:29 PM) [facility] HospitalTvgewbwZMRJEPPXUFEH8432-53-99 09:57:00 Test Item Value Reference Range Interpretation Comments AGAP (test code = AGAP) 9.7 10.0-20.0 [facility] HospitalWowrwfnDGZYSECGEQJH7026-71-60 09:57:00 Test Item Value Reference Range Interpretation Comments A/G Ratio (test code = A/G Ratio) 0.8 1 0.7-1.6 [facility] HospitalAquvkdvKBQIYBZBNYTU3284-18-22 09:57:00 Test Item Value Reference Range Interpretation Comments Globulin (test code = Globulin) 3.1 2.7-4.2 [facility] HospitalIkzqwqvYWUDUAMGQTOQ6985-26-64 09:57:00 Test Item Value Reference Range Interpretation Comments B/C Ratio (test code = B/C Ratio) 12 1 6-25 [facility] HospitalYeqzplgHPFGNMZLWOCH6704-85-27 09:57:00 Test Item Value Reference Range Interpretation Comments eGFR (test code = eGFR) 96 [facility] HospitalGkezltyQIBMTFTHCYVI6466-92-64 09:57:00 Test Item Value Reference Range Interpretation Comments AST (test code = AST) 36 See_Comment [Auto mated message] The system which ge nerated this result transmit roxana reference range : <=37. The reference range was not used to interpr et this result as spencer l/abnormal. [facility] HospitalLcyituwUERMKZCMYMBJ5208-32-35 09:57:00 Test Item Value Reference Range Interpretation Comments Chloride Lvl (test code = Chloride Lvl) 109 95-109 [facility] HospitalSyyedobYESRQEOSCQLG9232-13-87 09:57:00 Test Item Value Reference Range Interpretation Comments CO2 (test code = CO2) 27 24-32 [facility] HospitalOqvalidBAFJLKBCVPMK8415-44-14 09:57:00 Test Item Value Reference Range Interpretation Comments Total Protein (test code = Total 5.6 6.4-8.4 Protein) [facility] HospitalOxrbnjrKLCTLMFQKXKS7129-87-17 09:57:00 Test Item Value Reference Range Interpretation Comments Calcium Lvl (test code = Calcium Lvl) 8.4 8.5-10.5 [facility] HospitalXhbnopnLBFZDKPVUBVO8435-71-44 09:57:00 Test Item Value Reference Range Interpretation Comments Potassium Lvl (test code = Potassium 3.7 3.5-5.1 Lvl) [facility] HospitalBjmtmonHQPSHLGIYDUJ9849-25-57 09:57:00 Test Item Value Reference Range Interpretation Comments Sodium Lvl (test code = Sodium Lvl) 142 135-145 [facility] HospitalQthxigxMIKWUMTSAQTG3631-22-30 09:57:00 Test Item Value Reference Range Interpretation Comments Creatinine Lvl (test code = Creatinine 0.74 0.50-1.40 Lvl) [facility] HospitalCihvxkaHJBYVHTDNNFM9314-27-61 09:57:00 Test Item Value Reference Range Interpretation Comments BUN (test code = BUN) 9 7-22 [facility] HospitalToczuqwOBZBRRWHCKND8421-28-11 09:57:00 Test Item Value Reference Range Interpretation Comments ALT (test code = ALT) 42 See_Comment [Auto mated message] The system which ge nerated this result transmit roxana reference range : <=65. The reference range was not used to interpr et this result as spencer l/abnormal. [facility] HospitalJemejlbZNYOYWIRBJLA2404-77-46 09:57:00 Test Item Value Reference Range Interpretation Comments Albumin Lvl (test code = Albumin Lvl) 2.5 3.5-5.0 [facility] HospitalOhdzmhzCNEGPZPLZNWQ7344-21-58 09:57:00 Test Item Value Reference Range Interpretation Comments Bili Total (test code = Bili Total) 0.4 0.2-1.3 [facility] HospitalBujbhuuIVPTDQBDTUZX0511-92-48 09:57:00 Test Item Value Reference Range Interpretation Comments Alk Phos (test code = Alk Phos) 60 39-136 [facility] HospitalCwijdnmRJZPIZWJHSAG1546-70-00 09:57:00 Test Item Value Reference Range Interpretation Comments Glucose Lvl (test code = Glucose Lvl) 179 70-99 [facility] CampusTcsuqlcFJDGCSKAVY8265-23-85 09:57:00 Test Item Value Reference Range Interpretation Comments Neutrophils # (test code = Neutrophils 5.1 1.5-8.1 #) [facility] CampusMmrawhaFTUCDNIDIF6073-54-77 09:57:00 Test Item Value Reference Range Interpretation Comments Lymphocytes # (test code = Lymphocytes 1.5 1.0-5.5 #) [facility] CampusQduzzgdCPZBINTKBK0881-68-03 09:57:00 Test Item Value Reference Range Interpretation Comments Monocytes # (test code 0.5 See_Comment [Aut omated message] The = Monocytes #) system which generated this result tra nsmitted reference range : <=0.8. The reference r maurice was not used to int erpret this result as normal/abnormal . [facility] CampusUivfkpmQJRYADARWM8682-29-51 09:57:00 Test Item Value Reference Range Interpretation Comments Basophils (test code = 0.1 See_Comment [Aut omated message] The Basophils) system which ge nerated this result tra nsmitted reference range : <=1.0. The reference r maurice was not used to int erpret this result as normal/abnormal . [facility] CampusKyycfreRCKDLWUWPJ6444-48-25 09:57:00 Test Item Value Reference Range Interpretation Comments Eosinophils (test code = 0.4 See_Comment [A utomated message] The Eosinophils) system which ge nerated this result tra nsmitted reference range : <=4.0. The reference r maurice was not used to int erpret this result as normal/abnormal . [facility] CampusRvzuuoqLHLIGISAOM3801-30-63 09:57:00 Test Item Value Reference Range Interpretation Comments Lymphocytes (test code = Lymphocytes) 21.2 20.0-40.0 [facility] CampusUlatytpDMSJAPMMYE4477-99-99 09:57:00 Test Item Value Reference Range Interpretation Comments Monocytes (test code = Monocytes) 6.7 2.0-12.0 [facility] CampusErnjqptCBURVWWVNW2779-20-56 09:57:00 Test Item Value Reference Range Interpretation Comments Segs (test code = Segs) 71.6 45.0-75.0 [facility] CampusTiryfbjUSEKKCJXSS7076-01-52 09:57:00 Test Item Value Reference Range Interpretation Comments RDW (test code = RDW) 12.5 11.5-14.5 [facility] CampusSbqkwsyDKAPQRLIAZ2241-81-16 09:57:00 Test Item Value Reference Range Interpretation Comments Platelet (test code = Platelet) 252 133-450 [facility] CampusUeaylexCJVRGNPROU4218-74-36 09:57:00 Test Item Value Reference Range Interpretation Comments MPV (test code = MPV) 8.6 7.4-10.4 [facility] CampusUwqogerSAZXRROMUC6505-12-63 09:57:00 Test Item Value Reference Range Interpretation Comments MCHC (test code = MCHC) 33.0 32.0-36.0 [facility] CampusPyjjvkjZAJGOMUOQF3860-19-75 09:57:00 Test Item Value Reference Range Interpretation Comments Hgb (test code = Hgb) 11.9 12.0-16.0 [facility] CampusLlqpytnNVKLHLAOGY8489-52-81 09:57:00 Test Item Value Reference Range Interpretation Comments Hct (test code = Hct) 36.0 36.0-48.0 [facility] CampusFnfqupdMLTWIKVYGE7913-39-65 09:57:00 Test Item Value Reference Range Interpretation Comments MCV (test code = MCV) 90.5 80.0-98.0 [facility] CampusYbdybptDWARXGZVUR7163-11-20 09:57:00 Test Item Value Reference Range Interpretation Comments MCH (test code = MCH) 29.9 pg 27.0-31.0 [facility] CampusYadzcbvBJVPBBORYD7468-91-87 09:57:00 Test Item Value Reference Range Interpretation Comments RBC (test code = RBC) 3.98 4.20-5.40 [facility] CampusGtkjjelSOQGSNYBJL4060-89-10 09:57:00 Test Item Value Reference Range Interpretation Comments WBC (test code = WBC) 7.1 3.7-10.4 [facility] NFOBJHKWS8141-99-75 20:46:00 Test Item Value Reference Range Interpretation Comments Hgb A1C (test code = Hgb A1C) 12.0 [facility]2019-03-20 01:05:00 Test Item Value Reference Range Interpretation Comments Phosphorus (test code = Phosphorus) 2.0 2.5-4.5 [facility]2019-03-20 01:05:00 Test Item Value Reference Range Interpretation Comments Magnesium Lvl (test code = Magnesium 1.5 1.8-2.4 Lvl) [facility]2019-03-20 01:05:00 Test Item Value Reference Range Interpretation Comments Lipase Lvl (test code = Lipase Lvl) 164 73-393 [facility]2019-03-20 01:05:00 Test Item Value Reference Range Interpretation Comments eGFR (test code = eGFR) 60 [facility]2019-03-20 01:05:00 Test Item Value Reference Range Interpretation Comments ALT (test code = ALT) 36 See_Comment [Auto mated message] The system which ge nerated this result transmit roxana reference range : <=65. The reference range was not used to interpr et this result as spencer l/abnormal. [facility]2019-03-20 01:05:00 Test Item Value Reference Range Interpretation Comments A/G Ratio (test code = A/G Ratio) 0.9 1 0.7-1.6 [facility]2019-03-20 01:05:00 Test Item Value Reference Range Interpretation Comments Globulin (test code = Globulin) 4.2 2.7-4.2 [facility]2019-03-20 01:05:00 Test Item Value Reference Range Interpretation Comments Total Protein (test code = Total 7.9 6.4-8.4 Protein) [facility]2019-03-20 01:05:00 Test Item Value Reference Range Interpretation Comments Albumin Lvl (test code = Albumin Lvl) 3.7 3.5-5.0 [facility]2019-03-20 01:05:00 Test Item Value Reference Range Interpretation Comments Bili Total (test code = Bili Total) 0.4 0.2-1.3 [facility]2019-03-20 01:05:00 Test Item Value Reference Range Interpretation Comments AST (test code = AST) 28 See_Comment [Auto mated message] The system which ge nerated this result transmit roxana reference range : <=37. The reference range was not used to interpr et this result as spencer l/abnormal. [facility] [id number] 01:05:00 Test Item Value Reference Range Interpretation Comments Alk Phos (test code = Alk Phos) 80 39-136 [facility]2019-03-20 01:05:00 Test Item Value Reference Range Interpretation Comments Potassium Lvl (test code = Potassium 3.0 3.5-5.1 Lvl) [facility]2019-03-20 01:05:00 Test Item Value Reference Range Interpretation Comments Sodium Lvl (test code = Sodium Lvl) 136 135-145 [facility]2019-03-20 01:05:00 Test Item Value Reference Range Interpretation Comments B/C Ratio (test code = B/C Ratio) 5 1 6-25 [facility]2019-03-20 01:05:00 Test Item Value Reference Range Interpretation Comments Calcium Lvl (test code = Calcium Lvl) 9.1 8.5-10.5 [facility] [id number] 01:05:00 Test Item Value Reference Range Interpretation Comments CO2 (test code = CO2) 22 24-32 [facility] [id number] 01:05:00 Test Item Value Reference Range Interpretation Comments Chloride Lvl (test code = Chloride Lvl) 106 95-109 [facility] [id number] 01:05:00 Test Item Value Reference Range Interpretation Comments AGAP (test code = AGAP) 11.0 10.0-20.0 [facility] [id number] 01:05:00 Test Item Value Reference Range Interpretation Comments Creatinine Lvl (test code = Creatinine 1.10 0.50-1.40 Lvl) [facility] [id number] 01:05:00 Test Item Value Reference Range Interpretation Comments BUN (test code = BUN) 6 7-22 [facility]2019-03-20 01:05:00 Test Item Value Reference Range Interpretation Comments Glucose Lvl (test code = Glucose Lvl) 349 70-99 [id number] 01:05:00 Test Item Value Reference Range Interpretation Comments S Preg (test code = S Negative *NA*(08/28/18 Preg) 8:05 PM) [id number] 01:05:00 Test Item Value Reference Range Interpretation Comments Segs (test code = Segs) 67.0 45.0-75.0 [id number] 01:05:00 Test Item Value Reference Range Interpretation Comments Lymphocytes (test code = Lymphocytes) 25.3 20.0-40.0 [id number] 01:05:00 Test Item Value Reference Range Interpretation Comments Basophils # (test code 0.1 See_Comment [Aut omated message] The = Basophils #) system which generated this result tra nsmitted reference range : <=0.2. The reference r maurice was not used to int erpret this result as normal/abnormal . [facility] Camp[id number] 01:05:00 Test Item Value Reference Range Interpretation Comments Lymphocytes # (test code = Lymphocytes 2.6 1.0-5.5 #) [id number] 01:05:00 Test Item Value Reference Range Interpretation Comments Basophils (test code = 0.6 See_Comment [Aut omated message] The Basophils) system which ge nerated this result tra nsmitted reference range : <=1.0. The reference r maurice was not used to int erpret this result as normal/abnormal . [facility] CampusOduzpoqZWCMYUZFUZ5113-01-73 01:05:00 Test Item Value Reference Range Interpretation Comments Monocytes # (test code 0.7 See_Comment [Aut omated message] The = Monocytes #) system which generated this result tra nsmitted reference range : <=0.8. The reference r maurice was not used to int erpret this result as normal/abnormal . [facility] [id number] 01:05:00 Test Item Value Reference Range Interpretation Comments Neutrophils # (test code = Neutrophils 7.0 1.5-8.1 #) [facility] CampusCocgabqDPWBFKEFAP8658-27-03 01:05:00 Test Item Value Reference Range Interpretation Comments Eosinophils # (test code 0.1 See_Comment [A utomated message] The = Eosinophils #) system wh h generated this result tra nsmitted reference range : <=0.5. The reference r maurice was not used to int erpret this result as normal/abnormal . [facility] Camp[id number] 01:05:00 Test Item Value Reference Range Interpretation Comments Eosinophils (test code = 0.7 See_Comment [A utomated message] The Eosinophils) system which ge nerated this result tra nsmitted reference range : <=4.0. The reference r maurice was not used to int erpret this result as normal/abnormal . [facility] Camp[id number] 01:05:00 Test Item Value Reference Range Interpretation Comments Monocytes (test code = Monocytes) 6.4 2.0-12.0 [facility] CampusBoyvjacWIXBHMSMKL7298-28-67 01:05:00 Test Item Value Reference Range Interpretation Comments RBC (test code = RBC) 5.16 4.20-5.40 [facility] CampusCwwtpmcQNYMSWZDBT6448-42-09 01:05:00 Test Item Value Reference Range Interpretation Comments Hgb (test code = Hgb) 15.7 12.0-16.0 [facility] CampusKkflydiJHYFUSPXQR7260-05-96 01:05:00 Test Item Value Reference Range Interpretation Comments WBC (test code = WBC) 10.4 3.7-10.4 [facility] CampusShmijumLGCODJHKKJ9250-26-31 01:05:00 Test Item Value Reference Range Interpretation Comments MCH (test code = MCH) 30.4 pg 27.0-31.0 [facility] CampusYegbkjxPKWVOPIFZF8241-74-05 01:05:00 Test Item Value Reference Range Interpretation Comments RDW (test code = RDW) 12.5 11.5-14.5 [facility] CampusUjafofjRVYEMARSHL3550-20-02 01:05:00 Test Item Value Reference Range Interpretation Comments Platelet (test code = Platelet) 358 133-450 [facility] [id number] 01:05:00 Test Item Value Reference Range Interpretation Comments MPV (test code = MPV) 8.8 7.4-10.4 [facility] [id number] 01:05:00 Test Item Value Reference Range Interpretation Comments MCHC (test code = MCHC) 34.2 32.0-36.0 [facility] CampusHjwtjxmJHWXCYDXER5964-18-15 01:05:00 Test Item Value Reference Range Interpretation Comments MCV (test code = MCV) 89.1 80.0-98.0 [facility]gwdydXBVZHRKYOY3387-63-61 01:05:00 Test Item Value Reference Range Interpretation Comments Hct (test code = Hct) 46.0 36.0-48.0 [facility] [id number] 01:05:00 Test Item Value Reference Range Interpretation Comments UA Bacteria (test code = UA Occasional /HPF Bacteria) [facility] [id number] 01:05:00 Test Item Value Reference Range Interpretation Comments UA RBC (test code = 4 See_Comment [Automa roxana message] The UA RBC) system which ge nerated this result transmit roxana reference range : <=2. The reference range was not used to interpr et this result as spencer l/abnormal. [facility] [id number] 01:05:00 Test Item Value Reference Range Interpretation Comments UA WBC (test code = 1 See_Comment [Automa roxana message] The UA WBC) system which ge nerated this result transmit roxana reference range : <=5. The reference range was not used to interpr et this result as spencer l/abnormal. [facility] [id number] 01:05:00 Test Item Value Reference Range Interpretation Comments UA Blood (test code = Moderate *ABN*(08/28/18 UA Blood) 8:05 PM) [facility] [id number] 01:05:00 Test Item Value Reference Range Interpretation Comments UA Bili (test code = Negative *NA*(08/28/18 UA Bili) 8:05 PM) [facility] [id number] 01:05:00 Test Item Value Reference Range Interpretation Comments UA Ketones (test code = UA Ketones) 20 mg/dL [facility] [id number] 01:05:00 Test Item Value Reference Range Interpretation Comments UA Glucose (test code = UA Glucose) 500 mg/dL [facility] [id number] 01:05:00 Test Item Value Reference Range Interpretation Comments UA Protein (test code Negative (08/28/18 8:05 = UA Protein) PM) [facility] [id number] 01:05:00 Test Item Value Reference Range Interpretation Comments UA Sq Epi (test code = UA Sq Epi) Many /LPF [facility] [id number] 01:05:00 Test Item Value Reference Range Interpretation Comments UA Leuk Est (test code Small *ABN*(08/28/18 = UA Leuk Est) 8:05 PM) [facility] [id number] 01:05:00 Test Item Value Reference Range Interpretation Comments UA Urobilinogen (test code = UA <=1.0 mg/dL 0.1-1.0 Urobilinogen) [facility] [id number] 01:05:00 Test Item Value Reference Range Interpretation Comments UA Nitrite (test code Negative (08/28/18 8:05 = UA Nitrite) PM) [facility] [id number] 01:05:00 Test Item Value Reference Range Interpretation Comments UA Spec Grav (test code = UA Spec 1.037 1 Grav) [facility] [id number] 01:05:00 Test Item Value Reference Range Interpretation Comments UA pH (test code = UA pH) 6.0 1 5.0-8.0 [facility] [id number] 01:05:00 Test Item Value Reference Range Interpretation Comments UA Turbidity (test code Slight *ABN*(08/28/18 = UA Turbidity) 8:05 PM) [facility] [id number] 01:05:00 Test Item Value Reference Range Interpretation Comments UA Color (test code = Yellow *NA*(08/28/18 UA Color) 8:05 PM) [facility] Notes Date/Time Note Provider Source 2021-12-12 12:47:00-00:00 [facility] ([facility]) EMERGENCY PROVIDER REPORT REPORT#:[id number] REPORT STATUS: Signed DATE:12/12/21 TIME: 1247 PATIENT: DAVID BRANDT UNIT #: [id number] ROOM/BED: AGE: 51 SEX: F PCP PHYS: No Primary or Family Ph ysician SERVICE AUTHOR: Ailyn Choi MD * ALL edits or amendments must be made on the el ectronic/computer document * HPI-General Illness Free Text HPI Notes Free Text HPI Notes 51-year-old female presents with abdominal pain. Patient notes that her primary symptoms are actually nausea vomiting di arrhea but she also has abdominal pain in the left lower quadrant. Has been ongoing for 2 days. Unable to tolerate p.o. No chest pain. No urinary complaints. Nonra diating. No vaginal discharge. Location: Abdominal pain, left lower quadrant Context: hx of hernia hernia repair Quality: [n/a] Severity: [n/a] Timing: [n/a] Duration: 2 days Modifying factors: worse w/ vomiting Associated sxs: Nausea vomiting diarrhea General Initial Greet Date/Time 12/12/21 1244 Presentation Chief Complaint Abdominal pain Review of Systems Free Text ROS Notes Free Text ROS Notes GEN: reports no fever, no malaise, no gen weakne ss EYES: reports no vision changes, no eye pain, no discharge EAR: reports no ear pain,no hearing loss, no tin nitus NOSE: reports no rhinorhea, no nasal congestion THROAT: reports no pain, no tongue swelling, no toothache RESP: reports no cough, no SOB, no wheezing CV: reports no CP, no palpitations, no syncope GI: reports abd pain, reports diarrhea, reports nausea, reports vomiting : reports no dysuria, no lesions, no discharge MS: reports no back pain, no neck pain, no extre mity pain HEME: reports no bleeding, no bruising ENDO: reports no wt change, no polyuria, no poly dipsia SKIN: reports no lacs, no abrasions, no rash ALLERGY: reports no itching, no sneezing NEURO: reports no focal weakness, no NÚÑEZ, no SZ PSYCH: reports no anxiety, no delusions, no alcantara ucinations Past Medical History - Adult Stated Complaint ABDOMINAL PAIN, DIARRHEA Allergies Coded Allergies: ondansetron (From ZOFRAN) (Mild, RASH 03/17/21) Home Medications Active Scripts DICYCLOMINE (BENTYL) 10 MG PO Q6H PRN PRN ABDOMI NAL PAIN/CRAMPING DICYCLOMINE (BENTYL) 10 MG PO Q6H PRN PRN ABDOM INAL PAIN/CRAMPING #30 CAPS Prov: 12/05/21 METOCLOPRAMIDE (REGLAN) 10 MG PO QID PRN PRN NICK SEA/VOMITING METOCLOPRAMIDE (REGLAN) 10 MG PO QID PRN PRN NA USEA/VOMITING #15 TABS Prov: 12/05/21 metFORMIN (GLUCOPHAGE) 500 MG PO BID metFORMIN (GLUCOPHAGE) 500 MG PO BID #60 TABS Prov: 12/05/21 metFORMIN (GLUCOPHAGE) 1,000 MG PO BID metFORMIN (GLUCOPHAGE) 1,000 MG PO BID #120 TAB S Ref 1 Prov: 03/25/21 Discontinued Scripts PENICILLIN V-K (PEN V-K) 500 MG PO Q6H 10 Days #40 TABS Prov: 06/02/21 DC: 12/05/212124 DC prior to admit ACETAMINOPHEN/CODEINE (TYLENOL WITH CODE INE #3 300/30 MG) 1 TAB PO Q6H PRN PRN ACUTE PAIN ACETAMINOPHEN/CODEINE (TYLENOL WITH CODEINE #3 300/30 MG) 1 TAB PO Q6H PRN PRN ACUTE PAIN #10 TABS Prov: 06/02/21 DC: 12/05/212124 Patient stopped taking GLIMEPIRIDE (AMARYL) 2 MG PO BID AC GLIMEPIRIDE (AMARYL) 2 MG PO BID AC #60 TAB Prov: 03/25/21 DC: 12/05/212124 Patient stopped taking NAPROXEN EC (NAPROSYN-EC) 500 MG PO BID PRN PRN PAIN NAPROXEN EC (NAPROSYN-EC) 500 MG PO BID PRN PRN PAIN #20 TABS Prov: 05/19/21 DC: 12/05/212124 Patient stopped taking BENZONATATE (TESSALON) 100 MG PO Q8H PRN PRN COU GH BENZONATATE (TESSALON) 100 MG PO Q8H PRN PRN CO UGH #30 CAPS Prov: 05/19/21 DC: 12/05/212124 Therapy completed Pt reports no significant: P ast surgical history, Family history, Social history Past Medical History: Reports: Diabetes mellitus. Additional Medical History umbilical hernia Additional Surgical History hernia repair, santo, btl, t a Alcohol Use Denies EtOH use Drug Use Denies recreational drugs Physical Exam Vital Signs Vital Signs First Documented: Result Date Time Pulse Ox 97 07/ 1245 B/P 118/79 07/ 1245 B/P Mean 92 12/12 1245 Temp 36.7 12/12 1245 Pulse 126 07 1245 Resp 18 12/12 1245 O2 Delivery Room air 12/12 1315 Last Documented: Result Date Time Pulse Ox 97 12/12 1550 B/P 114/65 12/12 1550 B/P Mean 81 12/12 1550 O2 Delivery Room air 12/12 1550 Pulse 92 12/12 1550 Resp 17 12/12 1550 Temp 36.7 12/12 1245 Review of Vital Signs Reviewed Free Text PE Notes Free Text PE Notes General: Well-appearing, well-nourished, no acut e distress Head: Atraumatic and normocephalic Eyes: No periorbital swelling, no periorbital re dness Throat: no trismus, tolerating secretions, speak ing without issue Neck: no meningismus, no swelling CV: Regular rhythm, tachy, warm and well perfuse d Respiratory: no stridor, no tachypnea, no respir atory distress GI: Soft, llq discomfort, nondistended. No rebou nd or guarding Extremities: Neurovascularly intact, no deformit ies, no edema Neuro: Cranial nerves grossly intact, moving all extremities, appropriate interaction Skin: warm, dry Psych: Affect normal, mood normal Interpretation Diagnostics Lab Results Interpretation Results Laboratory Tests 12/12/21 1345: [Embedded Image Not Available] Laboratory Tests: 12/12 12/12 12/12 1355 1345 1330 Chemistry Sodium (128 - 145 mmol/L) 134 Potassium (3.5 - 5.1 mmol/L) 3.6 Chloride (98 - 107 mmol/L) 99.0 Carbon Dioxide (22 - 29 mmol/L) 26.0 Anion Gap (10 - 20 mmol/L) 13 BUN (7 - 22 mg/dL) 13 Creatinine (0.55 - 1.3 mg/dL) 0.78 Glomerular Filtr Rate (>=60 mL/min) > 60 BUN/Creatinine Ratio (10 - 20) 16.7 Glucose (70 - 110 mg/dL) 299 H Calcium (8.0 - 10.5 mg/dL) 9.2 Total Bilirubin (0.2 - 1.2 mg/dL) 0.40 Direct Bilirubin (0.0 - 0.30 mg/dL) 0.10 AST (10 - 39 U/L) 13 ALT (10 - 69 U/L) 19 Total Alk Phosphatase (50 - 139 U/L) 88 Total Protein (6.1 - 7.8 gram/dL) 7.7 Albumin (3.3 - 4.4 g/dL) 3.4 Globulin (1 - 10 G/DL) 4.3 Albumin/Globulin Ratio (0.75 - 1.50) 0.8 Lipase (144 - 286 Unit/L) 157 Hematology WBC (4.5 - 12.5 K/mm3) 9.2 RBC (3.7 - 5.2 mill/mm3) 4.30 Hgb (11.5 - 15.5 gram/dL) 12.7 Hct (36.0 - 46.0 %) 37.1 MCV (80 - 98 fL) 86.3 MCH (27.0 - 33.0 picogram) 29.5 MCHC (33.0 - 36.0 gram/dL) 34.2 RDW (11.6 - 16.2 %) 11.7 RDW Std Deviation (37.0 - 51.0 fL) 37.5 Plt Count (150 - 450 K/mm3) 405 MPV (6.7 - 11.0 fL) 9.7 Serology SARS-CoV-2 Ag (Rapid) (NEGATIVE) NEGATIVE Urines Urine Color (YELLOW) YELLOW Urine Appearance (CLEAR) HAZY H Urine pH (5.0 - 8.0) 5.5 Ur Specific [place] (1.001 - 1.035) 1.025 Urine Protein (Neg - 15 mg/dL) TRACE (15) Urine Glucose (UA) (NEGATIVE mg/dL) 300-500 (3+ ) Urine Ketones (NEGATIVE mg/dL) 1+ Urine Blood (NEGATIVE) 2+ (Moderate) H Urine Nitrite (NEGATIVE) POSITIVE Urine Bilirubin (NEGATIVE) NEGATIVE Urine Urobilinogen (0.0 - 0.2 mg/dL) 0.2 Ur Leukocyte Esterase (NEGATIVE uL) NEGATIVE Urine RBC (0 - 5 per HPF) 5-10 H Urine WBC (0 - 5 per HPF) 5-10 H Ur Epithelial Cells (Few per HPF) Few (2-5/hpf) Urine Bacteria (NONE per HPF) MANY H Recent Impressions: CAT SCAN - CT ABD PELVIS W/CONT 12/12 1438 Report Impression - Status: SIGNED Entered: 12/12/2021 3762 IMPRESSION: Punctate nonobstructing stone in the midpole of the left kidney. Wheeler's hernia involving the umbilicus. Location: RR Impression By: [email or web address] - Edson Desai MD ECG #1 Interpretation Text/Dict Note Heart rate 109, sinus tachycardia, interpreted b y myself. Normal HI QRS and QT intervals No acute ST or T wave changes No STEMI Nml axis Date 12/12/21 Time 1337 Re-Evaluation MDM Free Text MDM Notes Free Text MDM Notes 51-year-old female presents with abdominal pain nausea vomiting diarrhea. Per chart review, patient was here a week ago for ab dominal pain as well. CT that was negative but showed two hernias. Differential includes incarcerated hernia, SBO, large bowel obstruction , electrolyte abnormalities, UTI, dehydration, etc. Re-Evaluation/Progress #1 Text/Dict Note soft, nontender abd. no umbilical tenderness. pt comfortable, nontoxic, well appearing. Patient's hernia is fully reducible. pain 0/10 Time of Re-Eval 1530 ED Course Medication(s) Ordered Medication(s) Ordered: Diagnostic Agents Sig/Ryan Start time Last Medication Dose Route Stop Time Status Admin Iopamidol 0 .STK-MED ONE 12/12 1434 DC 12/12 .ROUTE 1439 Electrolytic, Caloric, And Daniel Sig/Ryan Start time Last Medication Dose Route Stop Time Status Admin Sodium Chloride 1,000 ML X1ED STA 12/12 1322 D C / IV 07 1323 1348 Gastrointestinal Drugs Sig/Ryan Start time Last Medication Dose Route Stop Time Status Admin Metoclopramide HCl 10 MG X1ED STA 12/12 1322 DC 07/03 IV 07/ 1323 1348 Patient Discharge Departure Vital Signs/Condition Vital Signs First Documented: Result Date Time Pulse Ox 97 12/12 1245 B/P 118/79 / 1245 B/P Mean 92 12/12 1245 Temp 36.7 / 1245 Pulse 126 07/03 1245 Resp 18 / 1245 O2 Delivery Room air 07/ 1315 Last Documented: Result Date Time Pulse Ox 97 07/ 1550 B/P 114/65 07/ 1550 B/P Mean 81 07/03 1550 O2 Delivery Room air 07/ 1550 Pulse 92 07/03 1550 Resp 17 / 1550 Temp 36.7 07/03 1245 All vital signs available at the time of this en try have been reviewed. Clinical Impression Clinical Impression Primary Impression: Nausea vomiting and diarrhea Secondary Impressions: Abdominal hernia, Abdomin al pain, UTI (urinary tract infection) Disposition Decision Discharge )( Discharged to Home Yes )( Time 1530 )( Date 12/12/21 Discharge/Care Plan Counseled Regarding Diagnosi s, Lab results, Imaging studies, Need for follow-up, When to return to ED (Auto) Prescriptions Current Visit Scripts PROMETHAZINE (PHENERGAN) 12.5 MG PO Q6H PRN PRN nausea vomiting PROMETHAZINE (PHENERGAN) 12.5 MG PO Q6H PRN PRN nausea vomiting #15 TABS CEPHALEXIN (KEFLEX) 500 MG PO Q6H CEPHALEXIN (KEFLEX) 500 MG PO Q6H #28 CAPS Patient Instructions ED Laura ia (Adult), Urinary Tract Infections in Women, What Is a Hernia? Referrals Provider Referral: Farhan Guerra MD Follow-Up: 2-3 Days Address: [address] [place] [address] [address] [place] [address] Departure Forms FREE OR LOW COST CLINICS Discharge Note I have spoken with the patie nt and/or caregivers. I have explained the patient's condition, diagnoses and bebo atment plan based on the information available to me at this time. I have answered the patient's and/ or caregiver's questions and addressed any concerns. The patient and/or careg roseanne have as good an understanding of the patient 's diagnosis, condition and treatment plan as can be expected at this point. The vital signs have bee n stable. The patient's condition is stable and appr opriate for discharge from the emergency department. The patient will pursue further outpatient evalu ation with the primary care physician or other designated or consulting phys ician as outlined in the discharge instructions. The patient and/or caregivers are agreeable to this plan of care and follow-up instructions have been exp lained in detail. The patient and/or caregivers have received these instructio ns in written format and have expressed an understanding of the discharge inst ructions. The patient and/or caregivers are aware that any significant change in condition or worsening of symptoms should prompt an immediate return to [facility] or the closest emergency department or a call to 911. Electronically Signed by Ailyn Choi MD on 08/31 at 1604 RPT #:[id number] END OF REPORT 2021-12-05 20:02:00-00:00 [facility] ([facility]) EMERGENCY PROVIDER REPORT REPORT#:[id number] REPORT STATUS: Signed DATE:12/05/21 TIME: 2001 PATIENT: DAVID BRANDT UNIT #: [id number] ROOM/BED: AGE: 51 SEX: F PCP PHYS: No Primary or Family Ph ysician SERVICE AUTHOR: Isidoro Blandon MD * ALL edits or amendments must be made on the trivago/computer document * HPI-Abd Pain F 40 and Over General Initial Greet Date/Time 12/05/21 1930 Presentation Chief Complaint Abdominal pain Hx Obtained From Patient Sudden in Onset? Yes Onset Occurred Days ago Symptom Duration Since onset Progression since Onset Unchanged Caused by Unknown Location Abdomen lower Quality Painful Radiation No: Does not radiate. Migration/Movement None Severity: Onset Moderate Severity: Current Moderate Associated with Reports: Diarrhea, Nausea. Denies: Anorexia, Eduin k pain, Chest pain, Chills, Constipation, Dysuria, Fever, Hematemesis, Hemat ochezia, Hematuria, Melena, Shortness of breath, Urinary frequency, Urinary retention, Urinary tract symptoms, Vaginal bleeding, Vaginal discharge, V omiting. Associated Other Pt denies other symptoms Exacerbated by Nothing Relieved by Nothing Context Related History Reports: Abdominal surgery. Immunization Status General Unknown Recent Healthcare No recent doctor visit Similar Sx Previous No Free Text HPI Notes Free Text HPI Notes h/o diabetes on metformin Risk-Abd Pain F 40 and Over )( Abdominal Aortic Aneurysm Risk factors review ed, Risk factors N/A Ectopic Risk factors reviewed, Risk fa ctors N/A Coronary Artery Disease Risk factors reviewed, R isk factors N/A Thoracic Aortic Dissection Risk factors reviewed , Risk factors N/A Review of Systems ROS Statements All systems rev neg except as marked. Complete sys rev neg except as marked. Past Medical History - Adult Stated Complaint DIARRHEA, VOMITING, COUGH Allergies Coded Allergies: ondansetron (From ZOFRAN) (Mild, RASH 03/17/21) Home Medications Active Scripts metFORMIN (GLUCOPHAGE) 1,000 MG PO BID metFORMIN (GLUCOPHAGE) 1,000 MG PO BID #120 TAB S Ref 1 Prov: 03/25/21 Discontinued Scripts PENICILLIN V-K (PEN V-K) 500 MG PO Q6H 10 Days #40 TABS Prov: 06/02/21 DC: 12/05/212124 DC prior to admit ACETAMINOPHEN/CODEINE (TYLENOL WITH CODE INE #3 300/30 MG) 1 TAB PO Q6H PRN PRN ACUTE PAIN ACETAMINOPHEN/CODEINE (TYLENOL WITH CODEINE #3 300/30 MG) 1 TAB PO Q6H PRN PRN ACUTE PAIN #10 TABS Prov: 06/02/21 DC: 12/05/212124 Patient stopped taking GLIMEPIRIDE (AMARYL) 2 MG PO BID AC GLIMEPIRIDE (AMARYL) 2 MG PO BID AC #60 TAB Prov: 03/25/21 DC: 12/05/212124 Patient stopped taking NAPROXEN EC (NAPROSYN-EC) 500 MG PO BID PRN PRN PAIN NAPROXEN EC (NAPROSYN-EC) 500 MG PO BID PRN PRN PAIN #20 TABS Prov: 05/19/21 DC: 12/05/212124 Patient stopped taking BENZONATATE (TESSALON) 100 MG PO Q8H PRN PRN COU GH BENZONATATE (TESSALON) 100 MG PO Q8H PRN PRN CO UGH #30 CAPS Prov: 05/19/21 DC: 12/05/212124 Therapy completed Review of Nursing Notes Triage notes reviewed, R apid assess notes rev Past Medical History: Reports: Diabetes mellitus. Past Surgical History: Denies: Abdominal surgery. Alcohol Use Denies EtOH use Drug Use Denies recreational drugs Smoking status for patients 13 years old or olde r: Never Smoker Physical Exam Vital Signs Vital Signs First Documented: Result Date Time Pulse Ox 98 12/06 1947 B/P 131/81 12/06 1947 B/P Mean 97 12/06 1947 Temp 36.6 12/06 1947 Pulse 89 12/06 1947 Resp 12/05 Last Documented: Result Date Time Pulse Ox 98 12/06 1947 B/P 131/81 12/06 1947 B/P Mean 97 12/06 1947 Temp 36.6 12/06 1947 Pulse 89 12/06 1947 Resp 12/05 Review of Vital Signs Reviewed Basic Physical Exam Basic PE HEAD: Atraumatic/NC, EYES: PERRL, conj clear, ENT: Membranes moist, NECK: Supple, EXT: No gross abnormality, SKIN: No rashes, warm/dry, NEURO: alert oriented, NEURO: gross movement NL, PSYCH: NL t hought content Focused PE General/Const General/Const Awake, Alert, No acute di stress, Well appearing, Well developed , Well hydrated, Well nourished, Cooperative, No t toxic appearing Resp/Chest Respiratory/Chest Atraumatic, Breath sounds NL, Breath sounds = bilat, No respiratory distress, No rales, No rhonchi, No w heezing, No retractions, No stridor, No chest tenderness, No chest wall defo rmity, No crepitus Cardiovascular Cardiovascular Heart rate NL, Regular rhythm, H eart sounds NL, No gallop, No murmurs, No rubs, Cap refill not delayed, Periph eral circulation NL, Pulses = bilaterally Abdomen/GI Abdomen/GI Atraumatic, Soft, Non-tender, McBurn ey's non-tender, No guarding, No rebound, BS normoactive, No distention, No he rnia, No palpable mass, No pulsatile mass MS Back Back Atraumatic Neurologic Neurologic Oriented X3, Speech NL, No motor def icits, No sensory deficits Interpretation Diagnostics Lab Results Interpretation Results Laboratory Tests 12/05/211952: [Embedded Image Not Available] Laboratory Tests: 12/05 1952 Chemistry Sodium (128 - 145 mmol/L) 136 Potassium (3.5 - 5.1 mmol/L) 4.0 Chloride (98 - 107 mmol/L) 100.0 Carbon Dioxide (22 - 29 mmol/L) 29.2 H Anion Gap (10 - 20 mmol/L) 11 BUN (7 - 22 mg/dL) 12 Creatinine (0.55 - 1.3 mg/dL) 0.87 Glomerular Filtr Rate (>=60 mL/min) > 60 BUN/Creatinine Ratio (10 - 20) 13.8 Glucose (70 - 110 mg/dL) 317 H Calcium (8.0 - 10.5 mg/dL) 9.0 Total Bilirubin (0.2 - 1.2 mg/dL) 0.40 Direct Bilirubin (0.0 - 0.30 mg/dL) 0.10 AST (10 - 39 U/L) 9 L ALT (10 - 69 U/L) 18 Total Alk Phosphatase (50 - 139 U/L) 89 Troponin I (0 - 60 pg/mL) 4.5 Total Protein (6.1 - 7.8 gram/dL) 7.6 Albumin (3.3 - 4.4 g/dL) 3.6 Globulin (1 - 10 G/DL) 4.0 Albumin/Globulin Ratio (0.75 - 1.50) 0.9 Lipase (144 - 286 Unit/L) 194 Serum , Qual (NEGATIVE) NEGATIVE Hematology WBC (4.5 - 12.5 K/mm3) 8.0 RBC (3.7 - 5.2 mill/mm3) 4.44 Hgb (11.5 - 15.5 gram/dL) 13.2 Hct (36.0 - 46.0 %) 39.0 MCV (80 - 98 fL) 87.8 MCH (27.0 - 33.0 picogram) 29.7 MCHC (33.0 - 36.0 gram/dL) 33.8 RDW (11.6 - 16.2 %) 11.7 RDW Std Deviation (37.0 - 51.0 fL) 38.2 Plt Count (150 - 450 K/mm3) 395 MPV (6.7 - 11.0 fL) 10.1 Recent Impressions: CAT SCAN - CT ABD PELVIS W/CONT 12/05 2099 Report Impression - Status: SIGNED Entered: 12/05/20212141 IMPRESSION: 2.8 cm fat-containing ventral hernia to the righ t of midline above the umbilicus with a tight hernia neck measuring 4 m m without evidence of fat strangulation. 2.6 cm umbilical hernia containing a short small bowel segment also demonstrating a tight hernia neck measuring 5 mm . No bowel obstruction. Cholecystectomy. Impression By: TaylaMAEspinoza - Arron Licona M.D. Lab Imaging Statement Laboratory radiographic studies reviewed and con sidered in the medical decision-making. ECG #1 Interpretation Date 12/05/21 Time 2017 Interpreted by and reviewed by me, ED physician NL ECG Interpretation Normal rate, Normal sinus rhythm, No acute ischemic changes, No STEMI, Normal QRS, Normal ax is, Normal intervals, Adequate tracing Rate 87 Re-Evaluation MDM )( Re-Evaluation/Progress #1 Text/Dict Note CT shows 2 abdominal hernias without evidence of strangulation or incarceration Abdomen is nonacute Vital signs stable Patient can be discharged home Will refer to general surgery for possible elect basil hernia repair We will also recommend the patient follow-up wit h her primary care doctor Seek medical attention immediately if symptoms w orsen or do not improve Time of Re-Eval 2158 )( Re-Eval Status Improved Re-Eval Abdomen Soft, Non-tender, No guarding, N o rebound, BS normoactive, McBurney's non-tender, No distention Eval Following Treatment Pt. feels better Pain Re-Evaluation Denies pain Exam Post Tx - General Appears non-toxic, Appear s well, Vital signs stable Exam Post Tx - Sys Review Lungs clear, Abdomen s oft, Abdomen nontender, Neurologic nonfocal, Mental status baseline Plan Post Re-Eval Plan discharge Abd Pain MDM Note F > 40 The patient is resting comfortably and feels bet ter, is alert and in no distress. The repeat examination is unremarkable and benign; in particular, there is no discomfort at McBurney's poi nt and there is no pulsatile mass. The history, exam, diagnostic testing, and current c ondition do not suggest acute appendicitis, bowel obstruction, acute c holecystitis, bowel perforation, major gastrointestinal bleeding, severe diverticulitis , abdominal aortic aneurysm, mesenteric ischemia, volvulu s, sepsis, or other significant pathology to warrant further testing, continued ED treatment, admissi on, or surgical evaluation at this point. The vital signs have been stable. Th e patient does not have uncontrollable pain, intractable vomiting, or ot her significant symptoms. The patient's condition is stable and approp riate for discharge from the emergency department. The patient will pursue further outp atient evaluation with the primary care physician or ot her designated or consulting physician as indicated in the discharge instructions. Tissue Perfusion Reassessment Patient tissue perfusion reassessment completed. ED Course Medication(s) Ordered Medication(s) Ordered: Central Nervous System Agents Sig/Ryan Start time Last Medication Dose Route Stop Time Status Admin Morphine Sulfate 4 MG X1ED STA 12/05 1948 DC 0 12/05 IV 12/05 Diagnostic Agents Sig/Ryan Start time Last Medication Dose Route Stop Time Status Admin Iopamidol 0 .STK-MED ONE 12/05 2028 DC 12/05 IV 2100 Electrolytic, Caloric, And Daniel Sig/Ryan Start time Last Medication Dose Route Stop Time Status Admin Sodium Chloride 1,000 ML X1ED STA 12/05 1948 D C 12/05 IV 12/05 Gastrointestinal Drugs Sig/Ryan Start time Last Medication Dose Route Stop Time Status Admin Metoclopramide HCl 10 MG X1ED STA 12/06 1999 DC 12/05 IV 12/05 Ondansetron HCl 4 MG X1ED PRN PRN 12/06 1999 CA Nr IV Differential Diagnosis Differential Diagnosis Abdominal aortic aneurysm , Acute abdominal pain, Acute coronary symndrome, Appendicitis, Cholec ystitis, Cholelithiasis, Constipation, Diverticular disease, Gastri tis, Gastroenteritis, GERD, Urinary tract infection Patient Discharge Departure Vital Signs/Condition Vital Signs First Documented: Result Date Time Pulse Ox 98 12/06 1947 B/P 131/81 12/06 1947 B/P Mean 97 12/06 1947 Temp 36.6 12/06 1947 Pulse 89 12/06 1947 Resp 12/05 Last Documented: Result Date Time Pulse Ox 98 12/06 1947 B/P 131/81 12/06 1947 B/P Mean 97 12/06 1947 Temp 36.6 12/06 1947 Pulse 89 12/06 1947 Resp 12/05 All vital signs available at the time of this en try have been reviewed. Condition Stable Clinical Impression Clinical Impression Primary Impression: Abdominal pain Secondary Impressions: Diarrhea, Hernia Disposition Decision Discharge )( Discharged to Home Yes )( Time 2201 )( Date 12/05/21 Discharge/Care Plan Counseled Regarding Diagnosi s, Lab results, Imaging studies, Prescriptions, Need for follow-up, When to return to ED (Auto) Prescriptions Current Visit Scripts DICYCLOMINE (BENTYL) 10 MG PO Q6H PRN PRN ABDOMI NAL PAIN/CRAMPING DICYCLOMINE (BENTYL) 10 MG PO Q6H PRN PRN ABDOM INAL PAIN/CRAMPING #30 CAPS METOCLOPRAMIDE (REGLAN) 10 MG PO QID PRN PRN NICK SEA/VOMITING METOCLOPRAMIDE (REGLAN) 10 MG PO QID PRN PRN NA USEA/VOMITING #15 TABS Prescriptions Reviewed Risks, Benefits, Alternat basil treatment Patient Instructions Abdominal Pain, ED Diarrhea , Unknown Cause, ED Hernia ( Adult) Additional Instructions Follow-up with your regular doctor in 2 to 3 day s Your diabetes is not controlled and you need to be seen by your doctor on a regular basis I will also refer you to general surgery for pos sible elective repair of the hernias Seek medical attention immediately if symptoms w alexandraen Referrals Provider Referral: Farhan Guerra MD Follow-Up: Call for appointment Address: [address] [place] [address] Departure Forms FREE OR LOW COST CLINICS PCP LIST WORK/SCHOOL EXCUSE VARIABLE WORK/SCHOOL EXCUSE-CAREGIVER Discharge Note I have spoken with the patie nt and/or caregivers. I have explained the patient's condition, diagnoses and bebo atment plan based on the information available to me at this time. I have answered the patient's and/ or caregiver's questions and addressed any concerns. The patient and/or careg roseanne have as good an understanding of the patient 's diagnosis, condition and treatment plan as can be expected at this point. The vital signs have bee n stable. The patient's condition is stable and appr opriate for discharge from the emergency department. The patient will pursue further outpatient evalu ation with the primary care physician or other designated or consulting phys ician as outlined in the discharge instructions. The patient and/or caregivers are agreeable to this plan of care and follow-up instructions have been exp lained in detail. The patient and/or caregivers have received these instructio ns in written format and have expressed an understanding of the discharge inst ructions. The patient and/or caregivers are aware that any significant change in condition or worsening of symptoms should prompt an immediate return to [facility] or the closest emergency department or a call to 911. Quality Measures BP F/U for HTN Referred for BP f/u < 4wk, F/u wi PCP/other doc Smoking Cessation Screened, non user Electronically Signed by Isidoro Blandon MD on at [address] [facility] #:[id number] END OF REPORT 2021-06-02 10:29:00-00:00 [facility] ([facility]) EMERGENCY PROVIDER REPORT REPORT#:[id number] REPORT STATUS: Signed DATE:06/02/21 TIME: 1029 PATIENT: DAVID BRANDT UNIT #: [id number] ROOM/BED: AGE: 51 SEX: F PCP PHYS: No Primary or Family Ph ysician SERVICE AUTHOR: Mio Pitts MD * ALL edits or amendments must be made on the trivago/computer document * HPI-Dental/Mouth Prob General Confirmed Patient Yes Patient Type New patient Initial Greet Date/Time 06/02/21 1007 Presentation Chief Complaint Mouth pain Hx Obtained From Patient Onset Occurred Yesterday Symptom Duration Since onset Progression since Onset Gradually worsening Free Text HPI Notes Free Text HPI Notes 51 y/o female presents c/o R sided mouth pain. S x began yesterday and have gradually worsened since onset. She repo rts pain to her upper jaw radiating to her R ear. She reports similar sx in the past du e to an unspecified "bone problem" for which she had been seeing a dentist, but last saw one over a year ago. She has been using OTC analgesics, oragel, and listerine at home with minimal relief. Review of Systems ROS Statements All systems rev neg except as marked. Focused Review of Systems Constitutional Denies: Chills, Fever. Ears/Nose/Throat Reports: Mouth pain, Toothache. Past Medical History - Adult Stated Complaint MOUTH PAIN Allergies Coded Allergies: ondansetron (From ZOFRAN) (Mild, RASH 03/17/21) Home Medications Active Scripts GLIMEPIRIDE (AMARYL) 2 MG PO BID AC GLIMEPIRIDE (AMARYL) 2 MG PO BID AC #60 TAB Prov: 03/25/21 metFORMIN (GLUCOPHAGE) 1,000 MG PO BID metFORMIN (GLUCOPHAGE) 1,000 MG PO BID #120 TAB S Ref 1 Prov: 03/25/21 NAPROXEN EC (NAPROSYN-EC) 500 MG PO BID PRN PRN PAIN NAPROXEN EC (NAPROSYN-EC) 500 MG PO BID PRN PRN PAIN #20 TABS Prov: 05/19/21 BENZONATATE (TESSALON) 100 MG PO Q8H PRN PRN COU GH BENZONATATE (TESSALON) 100 MG PO Q8H PRN PRN CO UGH #30 CAPS Prov: 05/19/21 Calculated Suicide Risk (nurs) No risk Review of Nursing Notes Rev avail, and agree Past Medical History: Reports: Diabetes mellitus. Alcohol Use Denies EtOH use Drug Use Denies recreational drugs Smoking status: Smoking status for patients 13 years old or old er: Never Smoker Physical Exam Vital Signs Vital Signs First Documented: Result Date Time Pulse Ox 97 06/02 1011 B/P 144/96 06/02 1011 B/P Mean 112 06/02 1011 O2 Delivery Room air 06/02 1011 Temp 37.0 06/02 1011 Pulse 100 06/02 1011 Resp 18 06/02 1011 Last Documented: Result Date Time Pulse Ox 97 06/02 1011 B/P 144/96 06/02 1011 B/P Mean 112 06/02 1011 O2 Delivery Room air 06/02 1011 Temp 37.0 06/02 1011 Pulse 100 06/02 1011 Resp 18 06/02 1011 Review of Vital Signs Reviewed Basic Physical Exam Basic PE HEAD: Atraumatic/NC, EYES: PERR L, conj clear, RESP: No resp distress, EXT: No gross abnormality, SKIN: No rashes, warm /dry, NEURO: alert oriented, NEURO: gross movement NL Focused PE General/Const General/Const Awake, Alert, No acute distress Ears/Nose/Throat Ears/Nose/Throat Atraumatic, Airway patent Dental/Gums Dental caries present, Dentition poor, Ginigivi tis present, Gum swelling. MS Neck Neck Supple, Full range of motion Patient Discharge Departure Vital Signs/Condition Vital Signs First Documented: Result Date Time Pulse Ox 97 06/02 1011 B/P 144/96 06/02 1011 B/P Mean 112 06/02 1011 O2 Delivery Room air 06/02 1011 Temp 37.0 06/02 1011 Pulse 100 06/02 1011 Resp 18 06/02 1011 Last Documented: Result Date Time Pulse Ox 97 06/02 1011 B/P 144/96 06/02 1011 B/P Mean 112 06/02 1011 O2 Delivery Room air 06/02 1011 Temp 37.0 06/02 1011 Pulse 100 06/02 1011 Resp 18 06/02 1011 All vital signs available at the time of this en try have been reviewed. Condition Stable Clinical Impression Clinical Impression Primary Impression: Pain, dental Disposition Decision Discharge )( Discharged to Home Yes )( Time 1034 )( Date 06/02/21 Discharge/Care Plan (Auto) Prescriptions Current Visit Scripts PENICILLIN V-K (PEN V-K) 500 MG PO Q6H 10 Days #40 TABS ACETAMINOPHEN/CODEINE (TYLENOL WITH CODE INE #3 300/30 MG) 1 TAB PO Q6H PRN PRN ACUTE PAIN ACETAMINOPHEN/CODEINE (TYLENOL WITH CODEINE #3 300/30 MG) 1 TAB PO Q6H PRN PRN ACUTE PAIN #10 TABS Patient Instructions ED Dental Pain Referrals Dental Center: 2-3 Days Electronically Signed by Mio Pitts MD on 06/02 at 1631 RPT #:[id number] END OF REPORT 2021-05-19 13:23:00-00:00 [facility] ([facility]) EMERGENCY PROVIDER REPORT REPORT#:[id number] REPORT STATUS: Signed DATE:05/19/21 TIME: 1323 PATIENT: DAVID BRANDT UNIT #: [id number] ROOM/BED: AGE: 51 SEX: F PCP PHYS: No Primary or Family Ph ysician SERVICE AUTHOR: Rosa Terrazas CATIA DESIGNER * ALL edits or amendments must be made on the trivago/computer document * Rosa Terrazas 05/19/21 1323: HPI-General Illness Free Text HPI Notes Free Text HPI Notes 51 year old female w/ PMH of DM presents to the ER for evaluation of 1 week history of mild generalized headache. Omari begum also c/o 4 day hsitory of cough, nausea, and body aches. States for past 2 weeks she also believes her blood sugar is low. Patient is in no acute distress at time of my exam. General Confirmed Patient Yes Patient Type New patient Initial Greet Date/Time 05/19/21 1319 Presentation Chief Complaint __ (see HPI) Hx Obtained From Patient Review of Systems ROS Statements All systems rev neg except as marked. Review of Systems Constitutional Reports: Malaise. Respiratory Reports: Cough, non-productive. GI Reports: Nausea. Neurologic Reports: Headache. Free Text ROS Notes Free Text ROS Notes Constitutional: Denies fever, chills, lethargy, or generalized weakness Eyes: Denies redness, pain, discharge, vision ch maurice ENT: Denies earache, nasal congestion, or sore t hroat Respiratory: Denies FRIEDMAN, hemoptysis, SOB, or whe ezing Cardiovascular: Denies chest pain, edema, palpit ations, or syncope GI: Denies abdominal pain, vomiting, or diarrhea : Denies dysuria, flank pain Musculoskeletal: Denies back pain, extremity apolinar n, joint pain, or neck pain Skin: Denies rash, laceration, abrasion, or swel ling Neurological: Denies bladder dysfunction, bowel dysfunction, change in LOC, focal weakness, dizziness, numbness, tingling Past Medical History - Adult Stated Complaint NÚÑEZ/COUGH/MUSCLE ACHES Allergies Coded Allergies: ondansetron (From ZOFRAN) (Mild, RASH 03/17/21) Home Medications Active Scripts GLIMEPIRIDE (AMARYL) 2 MG PO BID AC GLIMEPIRIDE (AMARYL) 2 MG PO BID AC #60 TAB Prov: 03/25/21 metFORMIN (GLUCOPHAGE) 1,000 MG PO BID metFORMIN (GLUCOPHAGE) 1,000 MG PO BID #120 TAB S Ref 1 Prov: 03/25/21 Review of Nursing Notes Triage notes reviewed Past Medical History: Reports: Diabetes mellitus. Alcohol Use Denies EtOH use Drug Use Denies recreational drugs Smoking status: Smoking status for patients 13 years old or old er: Never Smoker Physical Exam Vital Signs Vital Signs First Documented: Result Date Time Pulse Ox 96 12 1320 B/P 145/81 12/ 1320 B/P Mean 102 /08 1320 O2 Delivery Room air 05/19 1320 Temp 37.8 12 1320 Pulse 100 12 1320 Resp 20 12/ 1320 Last Documented: Result Date Time Pulse Ox 96 / 1430 B/P 128/71 12 1430 B/P Mean 90 /08 1430 O2 Delivery Room air 12/ 1430 Pulse 89 12/ 1430 Resp 18 12/ 1430 Temp 37.8 1208 1320 Review of Vital Signs Reviewed Physical Exam General/Const General/Const Awake, Alert, No acute di stress, Well appearing, Well developed , Well hydrated, Well nourished, Cooperative, No t toxic appearing MS Head Head Atraumatic, Normocephalic Eyes Eyes Atraumatic, PERRL, EOMI, No nystagmus Ears/Nose/Throat Ears/Nose/Throat Atraumatic, Airway patent, Muc ous membranes moist, Pharynx NL, No peritonsillar abscess, No pooling of secr etions, No trismus, Tympanic membs NL, Ext aud canal NL, Mastoid area NL, Nos e exam NL MS Neck Neck Atraumatic, Supple, No meningismus , Full range of motion, No adenopathy, No swelling, Non-tender Resp/Chest Respiratory/Chest Atraumatic, Breath sounds NL , Breath sounds = bilat, No respiratory distress, No rales, No rhonchi, No w heezing Cardiovascular Cardiovascular Cap refill not delayed, Peripher al circulation NL Abdomen/GI Abdomen/GI Atraumatic, Soft, Non-tender, No gua rding, No distention, No palpable mass MS Back Back Non-tender, No CVA tenderness Skin Skin Atraumatic, Color NL, No rash, War m, Dry, Intact, Turgor NL, No swelling Neurologic Neurologic Oriented X3, Speech NL, No m otor deficits, No sensory deficits, CN II - XII intact, Cerebellar NL, Memory NL, Gait NL Interpretation Diagnostics Lab Results Interpretation Results Laboratory Tests 05/19/21 1340: [Embedded Image Not Available] Laboratory Tests: 05/19 05/19 1340 1330 Chemistry Sodium (128 - 145 mmol/L) 137 Potassium (3.5 - 5.1 mmol/L) 3.9 Chloride (98 - 107 mmol/L) 102.0 Carbon Dioxide (22 - 29 mmol/L) 25.0 Anion Gap (10 - 20 mmol/L) 14 BUN (7 - 22 mg/dL) 15 Creatinine (0.55 - 1.3 mg/dL) 0.74 Glomerular Filtr Rate (>=60 mL/min) > 60 BUN/Creatinine Ratio (10 - 20) 20.3 H Glucose (70 - 110 mg/dL) 270 H Calcium (8.0 - 10.5 mg/dL) 8.0 Total Bilirubin (0.2 - 1.2 mg/dL) 0.30 Direct Bilirubin (0.0 - 0.30 mg/dL) 0.10 AST (10 - 39 U/L) 14 ALT (10 - 69 U/L) 15 Total Alk Phosphatase (50 - 139 U/L) 92 Total Protein (6.1 - 7.8 gram/dL) 7.7 Albumin (3.3 - 4.4 g/dL) 3.4 Globulin (1 - 10 G/DL) 4.3 Albumin/Globulin Ratio (0.75 - 1.50) 0.8 Hematology WBC (4.5 - 12.5 K/mm3) 7.3 RBC (3.7 - 5.2 mill/mm3) 4.64 Hgb (11.5 - 15.5 gram/dL) 13.5 Hct (36.0 - 46.0 %) 40.4 MCV (80 - 98 fL) 87.1 MCH (27.0 - 33.0 picogram) 29.1 MCHC (33.0 - 36.0 gram/dL) 33.4 RDW (11.6 - 16.2 %) 11.7 RDW Std Deviation (37.0 - 51.0 fL) 38.1 Plt Count (150 - 450 K/mm3) 329 MPV (6.7 - 11.0 fL) 9.5 Serology SARS-CoV-2 Ag (Rapid) (NEGATIVE) NEGATIVE Urines Urine Color (YELLOW) YELLOW Urine Appearance (CLEAR) HAZY H Urine pH (5.0 - 8.0) 5.5 Ur Specific [place] (1.001 - 1.035) >=1.030 Urine Protein (Neg - 15 mg/dL) NEGATIVE Urine Glucose (UA) (NEGATIVE mg/dL) 300-500 (3+ ) Urine Ketones (NEGATIVE mg/dL) NEGATIVE Urine Blood (NEGATIVE) NEGATIVE Urine Nitrite (NEGATIVE) POSITIVE Urine Bilirubin (NEGATIVE) NEGATIVE Urine Urobilinogen (0.0 - 0.2 mg/dL) 0.2 Ur Leukocyte Esterase (NEGATIVE uL) NEGATIVE Urine RBC (0 - 5 per HPF) 0-3 Urine WBC (0 - 5 per HPF) 20-30 H Ur Epithelial Cells (Few per HPF) Moderate (5- 10/hpf) Urine Bacteria (NONE per HPF) MODERATE H Microbiology: Date/Time Procedure - Status Source Growth 05/19 1340 Urine Culture - COMP URINE ESCHERICHIA COLI Recent Impressions: RADIOLOGY - XR CHEST 1 V 05/19 1325 Report Impression - Status: SIGNED Entered: 05/19/2021 1357 IMPRESSION: No acute cardiopulmonary process. Location: [facility] Impression By: [email or web address] - Edson Desai MD Point of Care Testing Pulse Oximetry Pulse Ox % 96 On: Room air Interpretation Interpreted by me, Pulse oximetr y normal Re-Evaluation MDM Free Text MDM Notes Free Text MDM Notes Patient improved after medic ation administration. Patient educated on diagnosis , lab results, imaging resul ts, prescriptions, signs and symptoms when to return to the ER, need for outpatient follow-up. Instru cted to return to the ER with new or worsening symptoms. Stable for DC. ED Course Medication(s) Ordered Medication(s) Ordered: Antihistamine Drugs Sig/Ryan Start time Last Medication Dose Route Stop Time Status Admin Diphenhydramine HCl 25 MG X1ED STA 05/19 1325 D C 05/19 IV 05/19 1326 1341 Central Nervous System Agents Sig/Ryan Start time Last Medication Dose Route Stop Time Status Admin Acetaminophen 1,000 MG X1ED STA 05/19 1325 DC 1 / PO 05/19 1326 1341 Electrolytic, Caloric, And Daniel Sig/Rayn Start time Last Medication Dose Route Stop Time Status Admin Sodium Chloride 1,000 ML X1ED STA 05/19 1325 DC 05/19 IV 05/19 1424 1341 Gastrointestinal Drugs Sig/Ryan Start time Last Medication Dose Route Stop Time Status Admin Metoclopramide HCl 10 MG X1ED STA 05/19 1325 DC 05/19 IV 05/19 1326 1341 Patient Discharge Departure Vital Signs/Condition Vital Signs First Documented: Result Date Time Pulse Ox 96 05/19 1320 B/P 145/81 12 1320 B/P Mean 102 / 1320 O2 Delivery Room air 12/ 1320 Temp 37.8 12/08 1320 Pulse 100 12/08 1320 Resp 20 1208 1320 Last Documented: Result Date Time Pulse Ox 96 / 1430 B/P 128/71 12/ 1430 B/P Mean 90 12/08 1430 O2 Delivery Room air 12 1430 Pulse 89 12/08 1430 Resp 18 12/08 1430 Temp 37.8 1208 1320 All vital signs available at the time of this en try have been reviewed. Condition Stable, Improved Clinical Impression Clinical Impression Primary Impression: Headache Secondary Impressions: URI (upper respiratory in fection) Disposition Decision Discharge )( Discharged to Home Yes )( Time 1422 )( Date 05/19/21 Discharge/Care Plan Counseled Regarding Diagnosi s, Lab results, Imaging studies, Prescriptions, Need for follow-up, When to return to ED (Auto) Prescriptions Current Visit Scripts NAPROXEN EC (NAPROSYN-EC) 500 MG PO BID PRN PRN PAIN NAPROXEN EC (NAPROSYN-EC) 500 MG PO BID PRN PRN PAIN #20 TABS BENZONATATE (TESSALON) 100 MG PO Q8H PRN PRN COU GH BENZONATATE (TESSALON) 100 MG PO Q8H PRN PRN CO UGH #30 CAPS Prescriptions Reviewed Risks, Benefits, Alternat basil treatment Patient Instructions ED Head ache Unspecified, ED URI, Viral, No Abx (Adult), ED Viral Syndrome (Adult) Referrals PRIMARY CARE OUTPT CLINIC: 1-2 Days Discharge Note I have spoken with the patie nt and/or caregivers. I have explained the patient's condition, diagnoses and bebo atment plan based on the information available to me at this time. I have answered the patient's and/ or caregiver's questions and addressed any concerns. The patient and/or careg roseanne have as good an understanding of the patient 's diagnosis, condition and treatment plan as can be expected at this point. The vital signs have bee n stable. The patient's condition is stable and appr opriate for discharge from the emergency department. The patient will pursue further outpatient evalu ation with the primary care physician or other designated or consulting phys ician as outlined in the discharge instructions. The patient and/or caregivers are agreeable to this plan of care and follow-up instructions have been exp lained in detail. The patient and/or caregivers have received these instructio ns in written format and have expressed an understanding of the discharge inst ructions. The patient and/or caregivers are aware that any significant change in condition or worsening of symptoms should prompt an immediate return to [facility] or the closest emergency department or a call to 911. Quality Measures BP F/U for HTN Referred for BP f/u < 4wk, F/u wi PCP/other doc Primary Headache CT Normal neurologic exam, No C T/CTA/MRI/MRA Approp Tx for URI 3 months or older, Dx upper re sp infection, Abx not given Smoking Cessation Screened, non user Miguel Batista 05/26/21 1141: Patient Discharge Departure Supervising Physician Note [facility] Saw Pt Alone I have reviewed the PA/CATIA DESIGNER's note and plan of car e. I was available for consultation as needed at al l times during the patient's visit in the emergency department. I agree with the clinical impression , plan and disposition. at 1823 at [address] [facility] #:[id number] END OF REPORT 2021-03-24 23:41:00-00:00 [id number] [facility] PATIENT NAME: DAVID BRANDT ADMI T DATE: 03/24/21 ACCOUNT NO: [id number] [facility] AGE: 50 REPORT TYPE: HISTORY AND PHYSICAL SEX: F DATE OF : [birth year] ADMITTING PHYSICIAN:Josseline Sheehan MD ATTENDING PHYSICIAN:Josseline Sheehan MD ADMISSION DATE: 03/24/2021 PRIMARY CARE PHYSICIAN: No primary care doctor. CHIEF COMPLAINT: "My sugar was high." HISTORY OF PRESENT ILLNESS: A 50-year-old woman with past medical history of type 2 diabetes, only on metformin, comi ng into the ER with complaints of high sugar in the 600s. She takes metformin 1000 mg t wice a day. She reports that she is nauseated all the time, but no vomiting, and she has recently started having some diarrhea. She does have increased th irst and increased urination, but she denies any dysuria. She states that she was recently treated for urinary tract infection with yeast. Upon arrival to the ER, she was afebrile. Vitals were stable. Her CBC was essentially unre markable. Chemistry is significant for glucose of 690. Her bicarbonate was 18.7 with an anion gap of 22. Renal function showed some dehydration with a GFR of 44. Urinalysis was obtained and was negative for infection. She received Reglan for the nausea, 2 L of normal saline, and 10 u nits of insulin IV. Repeat labs have been requested and she is being admitted fo r further management of uncontrolled type 2 diabetes with mild diabetic ketoacidosis. PAST MEDICAL HISTORY: Type 2 diabetes. HOME MEDICATIONS: Metformin 1000 mg twice a day. ALLERGIES: ZOFRAN CAUSES A RASH. PAST SURGICAL HISTORY: Cholecystectomy. SOCIAL HISTORY: She smokes with a vape. No alcoh ol. No drugs. Lives at home. FAMILY HISTORY: Significant for diabetes. REVIEW OF SYSTEMS: Twelve-point review of system s has been performed and is negative other than for nausea, diarrhea, elevat ed glucose, polyuria, polydipsia. PHYSICAL EXAMINATION: VITAL SIGNS: Temperature 98.5, blood pressure 13 1/83, heart rate 99, satting 98% on room air. GENERAL: She is awake, alert, oriented, in no ap parent distress. HEENT: Head is atraumatic. Extraocular muscles i ntact. Normal external nares. Moist mucous membranes. PATIENT NAME: DAVID BRANDT ACCO UNT #: [id number] NECK: Supple. She is speaking in complete senten dinah without difficulty. She is not using any accessory muscles for respirati on. Remainder of the physical exam is deferred as th is is a telemedicine visit. LABORATORY DATA: White count 11.7, hemoglobin 12 .8, and platelets 482. Sodium 130, potassium 3.6, chloride 93, bicarbonate 18. 7, BUN 12, creatinine 1.28, glucose 690. Hemoglobin A1c is in progress. Calc ium 8.1, total bilirubin 0.2, AST 14, ALT 21, alkaline phosphatase 91. Troponi ns negative. Albumin 3.3, lipase 293. Serum is negative. Urinaly sis negative for infection. IMAGING: No imaging. IMPRESSION: 1. Uncontrolled type 2 diabetes with mild diabet ic ketoacidosis. 2. Obesity. Body mass index 33.8. PLAN: 1. The patient is in observation status for furt her evaluation. She is receiving additional IV fluid hydration. She rec eived IV insulin. Repeat chemistry will be obtained to determine whether or not she needs insulin drip. We will check a hemoglobin A1c and she will need her diabetic medications adjusted. She reports that s he does not have a primary care doctor and that she goes to the Emergency Room to have her medicatio ns refilled. She will need an affordable option for diabetes management. 2. Encourage weight loss. Further recommendations based on clinical course . She is full code. Dictated By: Josseline Sheehan MD WT: EMELY:ROSEMARY/MALI/LISANDRO Conf#: [id number]/DID#: [id number] Authenticated by Josseline Sheehan MD On 03/25/2021 05:18:15 AM Electronically Signed by Josseline Sheehan MD on 1 at 0518 PATIENT NAME: DAVID BRANDT ACCO UNT #: [id number] 2021-03-24 23:36:00-00:[address] [facility]) Clinical Note REPORT#:[id number] REPORT STATUS: Signed DATE:03/24/21 TIME: 2335 PATIENT: DAVID BRANDT UNIT #: [id number] ROOM/BED: [place] [address] : [birth year] AGE: 50 SEX: F ATTEND: Aleshia Sheehan MD ADM AUTHOR: Josseline Sheehan MD * ALL edits or amendments must be made on the trivago/Quintesocial document * See Addendum Clinical Note Note: [id number] H P Telemedicine encounter 50 yo woman with 1. uncontrolled DM2 with mild DKA A1c IVF, insulin, repeat chemistry 2. obesity BMI 33.8 3. nicotine abuse - vape declines nicotine patch full code NOK son lovenox Electronically Signed by Josseline Sheehan MD on at 2342 Addendum 1: 03/24/21 2350 by Josseline Sheehan MD metformin / glimiperide are the least expensive oral diabetic medications. Electronically Signed by Josseline Sheehan MD on at 2351 RPT #:[id number] END OF REPORT 2021-03-24 22:26:00-00:00 [facility] ([facility]) EMERGENCY PROVIDER REPORT REPORT#:[id number] REPORT STATUS: Signed DATE:03/24/21 TIME: 2225 PATIENT: DAVID BRANDT UNIT #: [id number] ROOM/BED: [place] [address] AGE: 50 SEX: F PCP PHYS: No Primary or Family Ph ysician SERVICE AUTHOR: Pritesh Han MD * ALL edits or amendments must be made on the trivago/Quintesocial document * HPI-Abd Pain F 40 and Over General Initial Greet Date/Time 03/24/217 PCP no PCP Presentation Chief Complaint Nausea Hx Obtained From Patient Sudden in Onset? No Onset Occurred Days ago Symptom Duration Since onset Progression since Onset Unchanged Caused by No trauma by history Location gen Quality Unable to verbalize Radiation Does not radiate. Migration/Movement None Severity: Onset Moderate Severity: Current No pain currently Associated Other polyuria, polydipsia, incr thir st Exacerbated by Nothing Relieved by Nothing Free Text HPI Notes Free Text HPI Notes Patient states she is having increased thirst, polyuria, polydipsia, and nausea. She states she did the same symptoms she feels when her blood sugar is high. Denies chest pain, tightness, or pressure, sob, lightheadedness, syncope, exertional symptoms, sweating, arm pain, back pa in, or jaw pain. Denies abdominal pain, vomiting, bleeding per any orifi ce. Denies focal numbness, focal weakness, changes in vision/speech/hearing /gait. Risk-Abd Pain F 40 and Over )( Abdominal Aortic Aneurysm Risk factors review ed Free Text Risk Notes Free Text Risk Notes The patient's NIH score is 0. Level of conscious ness is alert and responsive. Answers month and age correctly. Blinks eyes and squeezes hands appropriately upon command. Normal [id number] eye mo vements on extraocular muscle testing. No visual field losses bilaterally. Norm al symmetry of the face. No right arm, left arm, right leg, or left leg drift. No limb ataxia in any extremities. No sensory loss in the arms, legs, trunk, or face. No aphasia. No dysarthria. No extinction or inattention. Review of Systems ROS Statements All systems rev neg except as marked. Focused Review of Systems Respiratory Denies: Cough, non-productive, Cough, productive , Shortness of breath. Cardiovascular Denies: Chest pain, Syncope. Past Medical History - Adult Stated Complaint ABD PAIN Allergies Coded Allergies: ondansetron (From ZOFRAN) (Mild, RASH 03/17/21) Home Medications Active Scripts metFORMIN (GLUCOPHAGE) 1,000 MG PO BID metFORMIN (GLUCOPHAGE) 1,000 MG PO BID #30 TABS Ref 1 Prov: 12/03/20 NITROFURANTOIN/NITROFURAN MAC (MACROBID) 100 MG PO BID NITROFURANTOIN/NITROFURAN MAC (MACROBID) 100 MG PO BID #14 CAPS Prov: 10/06/21 FLUCONAZOLE (DIFLUCAN) 150 MG PO ONCE FLUCONAZOLE (DIFLUCAN) 150 MG PO ONCE #1 TAB Prov: 03/17/21 metFORMIN (GLUCOPHAGE) 500 MG PO BID metFORMIN (GLUCOPHAGE) 500 MG PO BID #60 TABS Prov: 03/17/21 Review of Nursing Notes Rev avail, and agree Pt reports no significant: Family history, Socia l history Past Medical History: Reports: Diabetes mellitus. Alcohol Use Denies EtOH use Drug Use Denies recreational drugs Physical Exam Vital Signs Vital Signs First Documented: Result Date Time Pulse Ox 96 03/24 2200 B/P 122/63 03/24 2200 B/P Mean 82 03/24 2200 O2 Delivery Room air 03/24 2200 Pulse 96 03/24 2200 Resp 20 03/24 2200 Temp 36.9 03/24 2233 Last Documented: Result Date Time Pulse Ox 98 03/24 2233 B/P 131/83 03/24 2233 B/P Mean 99 03/24 2233 O2 Delivery Room air 03/24 2233 Temp 36.9 03/24 2233 Pulse 99 03/24 2233 Resp 18 03/24 2233 Review of Vital Signs Reviewed Focused PE General/Const General/Const Awake, Alert MS Head Head Normocephalic Eyes Eyes PERRL Ears/Nose/Throat Ears/Nose/Throat Airway patent, Pharynx NL Mouth Mucous membranes dry. Resp/Chest Respiratory/Chest Breath sounds NL, Breath soun ds = bilat, No respiratory distress, No rales, No rhonchi, No wheezing Cardiovascular Cardiovascular Heart rate NL, Regular rhythm, H eart sounds NL, Peripheral circulation NL Abdomen/GI Abdomen/GI Soft, Non-tender, McBurney's non-ten walter, No guarding, No rebound, BS normoactive, No distention, No hernia, No pal pable mass, No pulsatile mass MS Back Back Inspection NL, Non-tender, No CVA tenderne ss Skin Skin Color NL, Warm, Dry, Turgor NL Neurologic Neurologic Oriented X3, Speech NL, No motor def icits, No sensory deficits Interpretation Diagnostics Lab Results Interpretation Results Laboratory Tests 03/24/212231: [Embedded Image Not Available] Laboratory Tests: 03/24 Chemistry Sodium (128 - 145 mmol/L) 130 Potassium (3.5 - 5.1 mmol/L) 3.6 Chloride (98 - 107 mmol/L) 93.0 L Carbon Dioxide (22 - 29 mmol/L) 18.7 L Anion Gap (10 - 20 mmol/L) 22 H BUN (7 - 22 mg/dL) 12 Creatinine (0.55 - 1.3 mg/dL) 1.28 Glomerular Filtr Rate (>=60 mL/min) 44 BUN/Creatinine Ratio (10 - 20) 9.4 L Glucose (70 - 110 mg/dL) 690 *H Hemoglobin A1c (4.5 - 6.2 %) 13.8 H Estim Average Glucose (MG/DL) 349 Calcium (8.0 - 10.5 mg/dL) 8.1 Total Bilirubin (0.2 - 1.2 mg/dL) 0.20 Direct Bilirubin (0.0 - 0.30 mg/dL) 0.10 AST (10 - 39 U/L) 14 ALT (10 - 69 U/L) 21 Total Alk Phosphatase (50 - 139 U/L) 91 Troponin I (0 - 60 pg/mL) 5.4 Total Protein (6.1 - 7.8 gram/dL) 7.3 Albumin (3.3 - 4.4 g/dL) 3.3 Globulin (1 - 10 G/DL) 4.0 Albumin/Globulin Ratio (0.75 - 1.50) 0.8 Lipase (144 - 286 Unit/L) 293 H Serum , Qual (NEGATIVE) NEGATIVE Hematology WBC (4.5 - 12.5 K/mm3) 11.7 RBC (3.7 - 5.2 mill/mm3) 4.33 Hgb (11.5 - 15.5 gram/dL) 12.8 Hct (36.0 - 46.0 %) 38.7 MCV (80 - 98 fL) 89.4 MCH (27.0 - 33.0 picogram) 29.6 MCHC (33.0 - 36.0 gram/dL) 33.1 RDW (11.6 - 16.2 %) 11.7 RDW Std Deviation (37.0 - 51.0 fL) 39.2 Plt Count (150 - 450 K/mm3) 482 H MPV (6.7 - 11.0 fL) 9.6 Urines Urine Color (YELLOW) YELLOW Urine Appearance (CLEAR) CLEAR Urine pH (5.0 - 8.0) 5.5 Ur Specific [place] (1.001 - 1.035) <=1.005 Urine Protein (Neg - 15 mg/dL) NEGATIVE Urine Glucose (UA) (NEGATIVE mg/dL) 300-500 (3+ ) Urine Ketones (NEGATIVE mg/dL) NEGATIVE Urine Blood (NEGATIVE) NEGATIVE Urine Nitrite (NEGATIVE) NEGATIVE Urine Bilirubin (NEGATIVE) NEGATIVE Urine Urobilinogen (0.0 - 0.2 mg/dL) 0.2 Ur Leukocyte Esterase (NEGATIVE uL) NEGATIVE Urine RBC (0 - 5 per HPF) 0-3 Urine WBC (0 - 5 per HPF) 0-5 Ur Epithelial Cells (Few per HPF) Few (2-5/hpf) Urine Bacteria (NONE per HPF) FEW Point of Care Testing Pulse Oximetry Pulse Ox % 98 On: Room air Interpretation Interpreted by me, Pulse oximetr y normal Time 2225 ECG #1 Interpretation Time 2234 Interpreted by ED physician NL ECG Interpretation Normal rate, No STEMI, Nor mal QRS, Normal axis, Normal intervals, Adequate tracing ECG Q-T-ST - MO Non-specific ST changes Re-Evaluation MDM )( Re-Evaluation/Progress #1 Text/Dict Note Patient resting comfortably and feels well. Neur o exam including strength, sensation, CN 2-12, cerebellar, gait normal. No chest pain or shortness of breath. Lungs cta bilaterally. Abdomen soft, NTN D. Labs noted. Will bolus multiple liters of normal saline and IV insulin and repeat chemistry. Time of Re-Eval 2320 )( Re-Eval Status Improved Re-Evaluation/Progress #2 Text/Dict Note After multiple liters of flu id bolus and IV insulin bolus repeat chemistry shows patient is no longer in DKA. Will start high-dos e sliding scale. Time of Eval 005 Re-Eval Status Improved ED Course Medication(s) Ordered Medication(s) Ordered: Central Nervous System Agents Sig/Ryan Start time Last Medication Dose Route Stop Time Status Admin Acetaminophen 650 MG Q4H PRN PRN 03/24 2330 AC PO 03/25 1125 Morphine Sulfate 4 MG Q4H PRN PRN 03/24 2330 DC IV 03/25 1125 Electrolytic, Caloric, And Daniel Sig/Ryan Start time Last Medication Dose Route Stop Time Status Admin Sodium Chloride 1,000 ML X1ED STA 03/24 2304 DC 03/24 IV 03/25 0003 2310 Sodium Chloride 1,000 ML X1ED STA 03/24 2221 DC 03/24 IV 03/24 2320 2232 Gastrointestinal Drugs Sig/Ryan Start time Last Medication Dose Route Stop Time Status Admin Metoclopramide HCl 10 MG Q6H PRN PRN 03/24 2330 AC IV 03/25 1125 Metoclopramide HCl 10 MG X1ED STA 03/24 2221 D C 03/24 IV 03/24 222 2232 Hormones And Synthetic Substit Sig/Ryan Start time Last Medication Dose Route Stop Time Status Admin Insulin Human Lispro See Dose AC HS 03/25 0730 DC Insts (1) SUBQ 04/24 0729 Insulin Human Regular 10 UNIT X1ED STA 03/24 23 04 DC 03/24 IV 03/24 2305 2309 Large Volume Iv Sig/Ryan Start time Last Medication Dose Route Stop Time Status Admin Lactated Ringer's 1,000 ML X1ED STA 03/24 2326 AC IV 03/25 0725 Tpn Carrier Sig/Ryan Start time Last Medication Dose Route Stop Time Status Admin Dextrose/Water 50 ML ASDIR PRN 03/24 233 CKD IV 04/23 232 Dose Instructions: (1)Insulin Human Lispro: S/SCALE HIGH Patient Discharge Departure Vital Signs/Condition Vital Signs First Documented: Result Date Time Pulse Ox 96 03/24 2200 B/P 122/63 03/24 2200 B/P Mean 82 03/24 2200 O2 Delivery Room air 03/24 2200 Pulse 96 03/24 2200 Resp 20 03/24 2200 Temp 36.9 03/24 2233 Last Documented: Result Date Time Pulse Ox 98 03/24 2233 B/P 131/83 03/24 2233 B/P Mean 99 03/24 2233 O2 Delivery Room air 03/24 2233 Temp 36.9 03/24 2233 Pulse 99 03/24 2233 Resp 18 03/24 2233 All vital signs available at the time of this en try have been reviewed. Clinical Impression Clinical Impression Primary Impression: DKA (diabetic ketoacidosis) Disposition Decision Admit Admit Physician Name Josseline Sheehan MD Admit Physician Hospitalist Request Time 2321 Request Date 03/24/21 )( Admission Accepts Yes )( Accepted Time 2321 )( Accepted Date 03/24/21 Call Information will see patient, agrees with eval, agrees with plan Critical Care Time Spent (minutes): 35 Services Performed Patient management by Mauricio muro spent at bedside, Reviewing test results, Reviewing imaging, Discussing priscila ent care, Documentation in record Electronically Signed by Pritesh Han MD on 03/12 09/30 at 0051 [facility] #:[id number] END OF REPORT 2021-03-17 14:58:00-00:00 [facility] ([facility]) EMERGENCY PROVIDER REPORT REPORT#:[id number] REPORT STATUS: Signed DATE:03/17/21 TIME: 1457 PATIENT: DAVID BRANDT UNIT #: V [id number] ROOM/BED: AGE: 50 SEX: F PCP PHYS: No Primary or Family Ph ysician SERVICE AUTHOR: Jacob Hernandez MD * ALL edits or amendments must be made on the trivago/computer document * HPI-General Illness Free Text HPI Notes Free Text HPI Notes 50 year old female with a pmh of diabetes presen ts with dysuria, frequency x2 days. States she thinks she might have UTI. She also thinks he may have yeast infection. No other complaints at this time. She has no fevers no chills no cough. General Initial Greet Date/Time 03/17/21 1321 Presentation Chief Complaint __ (Dysuria) Review of Systems ROS Statements All systems rev neg except as marked. Past Medical History - Adult Stated Complaint UTI Allergies Coded Allergies: ondansetron (From ZOFRAN) (Mild, RASH 03/17/21) Home Medications Active Scripts metFORMIN (GLUCOPHAGE) 1,000 MG PO BID metFORMIN (GLUCOPHAGE) 1,000 MG PO BID #30 TABS Ref 1 Prov: 12/03/20 Discontinued Scripts CEPHALEXIN (KEFLEX) 500 MG PO Q12H CEPHALEXIN (KEFLEX) 500 MG PO Q12H #10 CAPS Prov: 02/06/21 DC: 03/17/21 1321 Therapy completed PROMETHAZINE (PHENERGAN) 12.5 MG PO Q6H PRN PRN NAUSEA AND VOMITING PROMETHAZINE (PHENERGAN) 12.5 MG PO Q6H PRN PRN NAUSEA AND VOMITING #10 TABS Prov: 02/06/21 DC: 03/17/21 1321 Therapy completed ONDANSETRON ODT (ZOFRAN ODT) 4 MG PO Q6H PRN PRN NAUSEA/VOMITING ONDANSETRON ODT (ZOFRAN ODT) 4 MG PO Q6H PRN HI N NAUSEA/VOMITING #15 TABS Prov: 12/03/20 DC: 03/17/21 1321 Therapy completed NAPROXEN (NAPROSYN) 500 MG PO BID PRN PRN PAIN NAPROXEN (NAPROSYN) 500 MG PO BID PRN PRN PAIN #20 TABS Prov: 12/03/20 DC: 03/17/21 1321 Therapy completed Calculated Suicide Risk (nurs) No risk Pt reports no significant: P ast surgical history, Family history, Social history Past Medical History: Reports: Diabetes mellitus. Alcohol Use Denies EtOH use Drug Use Denies recreational drugs Smoking status: Smoking status for patients 13 years old or old er: Current every day smoker Date last smoked: 03/17/21 Packs per day: 1 Pack years: 0 Physical Exam Vital Signs Vital Signs First Documented: Result Date Time Pulse Ox 97 03/17 1318 B/P 139/79 03/17 1318 B/P Mean 99 03/17 1318 O2 Delivery Room air 03/17 131 Temp 36.7 03/17 1318 Pulse 108 03/17 1318 Resp 17 03/178 Last Documented: Result Date Time Pulse Ox 99 03/17 1518 B/P 126/80 03/17 1518 B/P Mean 95 03/17 1518 O2 Delivery Room air 03/17 151 Pulse 82 03/17 1518 Resp 16 03/17 151 Temp 36.7 03/17 1318 Review of Vital Signs Reviewed Basic Physical Exam Basic PE GEN: Well appearing /NAD, HEAD: Atraumatic/NC, EYES: PERRL, conj clear, ENT: Membranes moist, NECK: Supple, RESP: No res p distress, CV: Reg rate rhythm, ABD: Soft/non-tender , EXT: No gross abnormality, SKIN: No rashes, warm/ dry, NEURO: alert oriented, NEURO: gross movemen t NL, PSYCH: NL thought content Interpretation Diagnostics Lab Results Interpretation Results Laboratory Tests: 03/17 134 Urines Urine Color (YELLOW) YELLOW Urine Appearance (CLEAR) HAZY H Urine pH (5.0 - 8.0) 5.5 Ur Specific [place] (1.001 - 1.035) <=1.005 Urine Protein (Neg - 15 mg/dL) NEGATIVE Urine Glucose (UA) (NEGATIVE mg/dL) 300-500 (3+ ) Urine Ketones (NEGATIVE mg/dL) NEGATIVE Urine Blood (NEGATIVE) NEGATIVE Urine Nitrite (NEGATIVE) NEGATIVE Urine Bilirubin (NEGATIVE) NEGATIVE Urine Urobilinogen (0.0 - 0.2 mg/dL) 0.2 Ur Leukocyte Esterase (NEGATIVE uL) 1+ H Urine RBC (0 - 5 per HPF) 0-2 Urine WBC (0 - 5 per HPF) 10-20 H Ur Epithelial Cells (Few per HPF) Moderate (5-1 0/hpf) Urine Bacteria (NONE per HPF) MODERATE H Microbiology: Date/Time Procedure - Status Source Growth 03/17 134 Urine Culture - RECD URINE Re-Evaluation MDM ED Course Medication(s) Ordered Medication(s) Ordered: Anti-Infective Agents Sig/Ryan Start time Last Medication Dose Route Stop Time Status Admin Ceftriaxone Sodium 1,000 MG X1ED STA 03/17 145 8 DCD 03/17 Lidocaine HCl 2.1 ML IM 03/17 1703 1518 Patient Discharge Departure Vital Signs/Condition Vital Signs First Documented: Result Date Time Pulse Ox 97 03/17 1318 B/P 139/79 03/17 1318 B/P Mean 99 03/17 1318 O2 Delivery Room air 03/17 1318 Temp 36.7 03/17 1318 Pulse 108 03/17 1318 Resp 17 03/17 1318 Last Documented: Result Date Time Pulse Ox 99 03/17 1518 B/P 126/80 03/17 1518 B/P Mean 95 03/17 1518 O2 Delivery Room air 03/17 1518 Pulse 82 03/17 1518 Resp 16 03/17 1518 Temp 36.7 03/17 1318 All vital signs available at the time of this en try have been reviewed. Clinical Impression Clinical Impression Primary Impression: UTI (urinary tract infection ) Disposition Decision Discharge )( Discharged to Home Yes )( Time 145 )( Date 03/17/21 Discharge/Care Plan (Auto) Prescriptions Current Visit Scripts NITROFURANTOIN/NITROFURAN MAC (MACROBID) 100 MG PO BID NITROFURANTOIN/NITROFURAN MAC (MACROBID) 100 MG PO BID #14 CAPS Until finished. Take with food. FLUCONAZOLE (DIFLUCAN) 150 MG PO ONCE FLUCONAZOLE (DIFLUCAN) 150 MG PO ONCE #1 TAB metFORMIN (GLUCOPHAGE) 500 MG PO BID metFORMIN (GLUCOPHAGE) 500 MG PO BID #60 TABS TAKE WITH MEALS Patient Instructions Urinary Tract Infections in Women Departure Forms PCP LIST WORK/SCHOOL EXCUSE VARIABLE Discharge Note I have spoken with the patie nt and/or caregivers. I have explained the patient's condition, diagnoses and bebo atment plan based on the information available to me at this time. I have answered the patient's and/ or caregiver's questions and addressed any concerns. The patient and/or careg roseanne have as good an understanding of the patient 's diagnosis, condition and treatment plan as can be expected at this point. The vital signs have bee n stable. The patient's condition is stable and appr opriate for discharge from the emergency department. The patient will pursue further outpatient evalu ation with the primary care physician or other designated or consulting phys dasia as outlined in the discharge instructions. The patient and/or caregivers are agreeable to this plan of care and follow-up instructions have been exp lained in detail. The patient and/or caregivers have received these instructio ns in written format and have expressed an understanding of the discharge inst ructions. The patient and/or caregivers are aware that any significant change in condition or worsening of symptoms should prompt an immediate return to [facility] or the closest emergency department or a call to 911. at 1658 RPT #:[id number] END OF REPORT 2021-02-09 12:52:00-00:00 [facility] ([facility]) EMERGENCY PROVIDER REPORT REPORT#:[id number] REPORT STATUS: Signed DATE:02/09/21 TIME: 1252 PATIENT: DAVID BRANDT UNIT #: V [id number] ROOM/BED: AGE: 50 SEX: F PCP PHYS: No Primary or Family Ph ysician SERVICE AUTHOR: Florinda Forde * ALL edits or amendments must be made on the el ectronic/computer document * HPI-Rash/Abscess/Cellulitis General Confirmed Patient Yes Patient Type New patient Initial Greet Date/Time 02/09/21 1242 Presentation Chief Complaint Red area Hx Obtained From Patient Free Text HPI Notes Free Text HPI Notes Patient is a 50-year-old female with past medica l history of diabetes who presents to the emergency de partment with complaints of rash and redness next to her bilateral palms. Patient denies chest pain, shortness of breath, dyspnea, abdominal pain, nausea vomiting diarrhea or any other associated symptoms. 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 Review of Systems ROS Statements All systems rev neg except as marked. Focused Review of Systems Constitutional Denies: Chills, Fever, Lethargy. Ears/Nose/Throat Denies: Earache bilat, Nasal congestion, Sore th roat. Respiratory Denies: Cough, non-productive, Cough, productive , Shortness of breath. Cardiovascular Denies: Chest pain, Syncope. GI Denies: Abdominal pain, Diarrhea, Nausea, Vomiti ng. Musculoskeletal Denies: Back pain, Extremity pain. Skin Reports: Erythema. Past Medical History - Adult Stated Complaint RASH Allergies Coded Allergies: ondansetron (From ZOFRAN) (Mild, RASH 02/09/21) Home Medications Active Scripts CEPHALEXIN (KEFLEX) 500 MG PO Q12H CEPHALEXIN (KEFLEX) 500 MG PO Q12H #10 CAPS Prov: 02/06/21 PROMETHAZINE (PHENERGAN) 12.5 MG PO Q6H PRN PRN NAUSEA AND VOMITING PROMETHAZINE (PHENERGAN) 12.5 MG PO Q6H PRN PRN NAUSEA AND VOMITING #10 TABS Prov: 02/06/21 metFORMIN (GLUCOPHAGE) 1,000 MG PO BID metFORMIN (GLUCOPHAGE) 1,000 MG PO BID #30 TABS Ref 1 Prov: 12/03/20 ONDANSETRON ODT (ZOFRAN ODT) 4 MG PO Q6H PRN PRN NAUSEA/VOMITING ONDANSETRON ODT (ZOFRAN ODT) 4 MG PO Q6H PRN HI N NAUSEA/VOMITING #15 TABS Prov: 12/03/20 NAPROXEN (NAPROSYN) 500 MG PO BID PRN PRN PAIN NAPROXEN (NAPROSYN) 500 MG PO BID PRN PRN PAIN #20 TABS Prov: 06/24/21 Discontinued Scripts ONDANSETRON ODT (ZOFRAN ODT) 4 MG PO Q6H PRN PRN NAUSEA/VOMITING ONDANSETRON ODT (ZOFRAN ODT) 4 MG PO Q6H PRN HI N NAUSEA/VOMITING #15 TABS Prov: 02/06/21 DC: 02/06/21 1147 Patient allergy/ADR SULFAMETHOXAZOLE/TMP (BACTRIM DS 800/160 MG) 1 T AB PO Q12H 10 Days #20 TABS Prov: 12/03/20 DC: 02/06/21 1147 Therapy completed Review of Nursing Notes Rev avail, and agree Pt reports no significant: Past surgical history Past Medical History: Reports: Diabetes mellitus. Alcohol Use Denies EtOH use Drug Use Denies recreational drugs Smoking status: Smoking status for patients 13 years old or old er: Never Smoker Physical Exam Vital Signs Vital Signs First Documented: Result Date Time Pulse Ox 99 02/09 1247 B/P 140/80 02/09 1247 B/P Mean 100 02/09 1247 Temp 37.2 02/09 1247 Pulse 72 02/09 1247 Resp 18 02/09 1247 Last Documented: Result Date Time Pulse Ox 99 02/09 1247 B/P 140/80 02/09 1247 B/P Mean 100 02/09 1247 Temp 37.2 02/09 1247 Pulse 72 02/09 1247 Resp 18 02/09 1247 Review of Vital Signs Reviewed Focused PE General/Const General/Const Awake, Alert, Well appearing Ears/Nose/Throat Ears/Nose/Throat Airway patent, Mucous membrane s moist, Pharynx NL Resp/Chest Respiratory/Chest Breath sounds NL, Breath soun ds = bilat, No respiratory distress, No rales, No rhonchi, No wheezing Cardiovascular Cardiovascular Heart rate NL, Regular rhythm, H eart sounds NL, Peripheral circulation NL MS Upper Extrem Upper Extremity/MS Inspection NL, No swelling, Non-tender, No erythema MS Lower Extrem Lower Ext/Pelvis/MS Inspection NL, No swelling, Non-tender, No erythema, Vascular intact, No edema Skin Skin Warm, Dry, Intact, Turgor NL, No swelling Text/Dict Notes Erythema with itching and discomfort and dry kyra ques to bilateral palms. Neurologic Neurologic Oriented X3, Speech NL, No motor def icits, No sensory deficits Interpretation Diagnostics Point of Care Testing Pulse Oximetry Pulse Ox % 99 On: Room air Interpretation Interpreted by me Re-Evaluation MDM Re-Evaluation/Progress Re-Evaluation/Progress Text/Dict Note Informed patient of exam findings. Educa roxana on diagnoses, supportive measures, treatment, return precautions and need for PCP / Diamond Cutter FU. Community resources given. Patient liban balizes understanding and agrees with plan of care. Patient is nontoxic appearing, asymptoma tic in no apparent distress at time of discharge Rash Adult MDM Note The patient is now resting c omfortably and feels better, is alert, is not toxic, and is in no distress. The patient has a normal mental status and is neurologically intact. The r francine does not have petechiae or purpura. There are no mucous membrane lesions, no signs of abscess, and no bullae. The patient appears well, has no fever, altered mental status or sig ns of systemic toxicity. The history, exam, diagnostic testing (if any) and c urrent condition do not demonstrate signs of sepsis, [place] roxana Fever, meningitis, meningococcemia, Lyme disease, toxic shock syndr ome or other significant systemic illness requiring further treatment, te sting or consultation in the emergency department. The vi sarah signs have been stable. The patient's condition is stable and appropriate for discharge. The pat ient will pursue further outpatient evaluation with the primary care phys dasia or other designated or consulting physician as indicated in the dischar ge instructions. Patient Discharge Departure Vital Signs/Condition Vital Signs First Documented: Result Date Time Pulse Ox 99 02/09 1247 B/P 140/80 02/09 1247 B/P Mean 100 02/09 1247 Temp 37.2 02/09 1247 Pulse 72 02/09 1247 Resp 18 02/09 1247 Last Documented: Result Date Time Pulse Ox 99 02/09 1247 B/P 140/80 02/09 1247 B/P Mean 100 02/09 1247 Temp 37.2 02/09 1247 Pulse 72 02/09 1247 Resp 18 02/09 1247 All vital signs available at the time of this en try have been reviewed. Condition Stable Clinical Impression Clinical Impression Primary Impression: Contact dermatitis Disposition Decision Discharge )( Discharged to Home Yes )( Time 1252 )( Date 02/09/21 Discharge/Care Plan Counseled Regarding Diagnosis Patient Instructions ED Contact Dermatitis Referrals [facility] I have spoken with the patie nt and/or caregivers. I have explained the patient's condition, diagnoses and bebo atment plan based on the information available to me at this time. I have answered the patient's and/ or caregiver's questions and addressed any concerns. The patient and/or careg roseanne have as good an understanding of the patient 's diagnosis, condition and treatment plan as can be expected at this point. The vital signs have bee n stable. The patient's condition is stable and appr opriate for discharge from the emergency department. The patient will pursue further outpatient evalu ation with the primary care physician or other designated or consulting phys ician as outlined in the discharge instructions. The patient and/or caregivers are agreeable to this plan of care and follow-up instructions have been exp lained in detail. The patient and/or caregivers have received these instructio ns in written format and have expressed an understanding of the discharge inst ructions. The patient and/or caregivers are aware that any significant change in condition or worsening of symptoms should prompt an immediate return to [facility] or the closest emergency department or a call to 911. Quality Measures BP F/U for HTN BP in normal range Current Medications Attest: Medication review Smoking Cessation Screened, non user Tobacco Screening/Cessation Denies tobacco use Electronically Signed by Florinda Forde 02/09/21 at 1341 RPT #:[id number] END OF REPORT 2021-02-09 12:52:00-00:00 [facility] ([facility]) EMERGENCY PROVIDER REPORT REPORT#:[id number] REPORT STATUS: Signed DATE:02/09/21 TIME: 1252 PATIENT: DAVID BRANDT UNIT #: [id number] ROOM/BED: AGE: 50 SEX: F PCP PHYS: No Primary or Family Ph ysician SERVICE AUTHOR: Florinda Forde CATIA DESIGNER * ALL edits or amendments must be made on the el [employer]/computer document * Florinda Forde 02/09/21 1252: HPI-Rash/Abscess/Cellulitis General Confirmed Patient Yes Patient Type New patient Initial Greet Date/Time 02/09/21 1242 Presentation Chief Complaint Red area Hx Obtained From Patient Free Text HPI Notes Free Text HPI Notes Patient is a 50-year-old female with past medica l history of diabetes who presents to the emergency de partment with complaints of rash and redness next to her bilateral palms. Patient denies chest pain, shortness of breath, dyspnea, abdominal pain, nausea vomiting diarrhea or any other associated symptoms. 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 Review of Systems ROS Statements All systems rev neg except as marked. Focused Review of Systems Constitutional Denies: Chills, Fever, Lethargy. Ears/Nose/Throat Denies: Earache bilat, Nasal congestion, Sore th roat. Respiratory Denies: Cough, non-productive, Cough, productive , Shortness of breath. Cardiovascular Denies: Chest pain, Syncope. GI Denies: Abdominal pain, Diarrhea, Nausea, Vomiti ng. Musculoskeletal Denies: Back pain, Extremity pain. Skin Reports: Erythema. Past Medical History - Adult Stated Complaint RASH Allergies Coded Allergies: ondansetron (From ZOFRAN) (Mild, RASH 02/09/21) Home Medications Active Scripts CEPHALEXIN (KEFLEX) 500 MG PO Q12H CEPHALEXIN (KEFLEX) 500 MG PO Q12H #10 CAPS Prov: 02/06/21 PROMETHAZINE (PHENERGAN) 12.5 MG PO Q6H PRN PRN NAUSEA AND VOMITING PROMETHAZINE (PHENERGAN) 12.5 MG PO Q6H PRN PRN NAUSEA AND VOMITING #10 TABS Prov: 02/06/21 metFORMIN (GLUCOPHAGE) 1,000 MG PO BID metFORMIN (GLUCOPHAGE) 1,000 MG PO BID #30 TABS Ref 1 Prov: 12/03/20 ONDANSETRON ODT (ZOFRAN ODT) 4 MG PO Q6H PRN PRN NAUSEA/VOMITING ONDANSETRON ODT (ZOFRAN ODT) 4 MG PO Q6H PRN HI N NAUSEA/VOMITING #15 TABS Prov: 12/03/20 NAPROXEN (NAPROSYN) 500 MG PO BID PRN PRN PAIN NAPROXEN (NAPROSYN) 500 MG PO BID PRN PRN PAIN #20 TABS Prov: 12/03/20 Discontinued Scripts ONDANSETRON ODT (ZOFRAN ODT) 4 MG PO Q6H PRN PRN NAUSEA/VOMITING ONDANSETRON ODT (ZOFRAN ODT) 4 MG PO Q6H PRN HI N NAUSEA/VOMITING #15 TABS Prov: 02/06/21 DC: 02/06/21 1147 Patient allergy/ADR SULFAMETHOXAZOLE/TMP (BACTRIM DS 800/160 MG) 1 T AB PO Q12H 10 Days #20 TABS Prov: 12/03/20 DC: 02/06/21 1147 Therapy completed Review of Nursing Notes Rev avail, and agree Pt reports no significant: Past surgical history Past Medical History: Reports: Diabetes mellitus. Alcohol Use Denies EtOH use Drug Use Denies recreational drugs Smoking status: Smoking status for patients 13 years old or old er: Never Smoker Physical Exam Vital Signs Vital Signs First Documented: Result Date Time Pulse Ox 99 02/09 1247 B/P 140/80 02/09 1247 B/P Mean 100 02/09 1247 Temp 37.2 02/09 1247 Pulse 72 02/09 1247 Resp 18 02/09 1247 Last Documented: Result Date Time Pulse Ox 99 02/09 1247 B/P 140/80 02/09 1247 B/P Mean 100 02/09 1247 Temp 37.2 02/09 1247 Pulse 72 02/09 1247 Resp 18 02/09 1247 Review of Vital Signs Reviewed Focused PE General/Const General/Const Awake, Alert, Well appearing Ears/Nose/Throat Ears/Nose/Throat Airway patent, Mucous membrane s moist, Pharynx NL Resp/Chest Respiratory/Chest Breath sounds NL, Breath soun ds = bilat, No respiratory distress, No rales, No rhonchi, No wheezing Cardiovascular Cardiovascular Heart rate NL, Regular rhythm, H eart sounds NL, Peripheral circulation NL MS Upper Extrem Upper Extremity/MS Inspection NL, No swelling, Non-tender, No erythema MS Lower Extrem Lower Ext/Pelvis/MS Inspection NL, No swelling, Non-tender, No erythema, Vascular intact, No edema Skin Skin Warm, Dry, Intact, Turgor NL, No swelling Text/Dict Notes Erythema with itching and discomfort and dry kyra ques to bilateral palms. Neurologic Neurologic Oriented X3, Speech NL, No motor def icits, No sensory deficits Interpretation Diagnostics Point of Care Testing Pulse Oximetry Pulse Ox % 99 On: Room air Interpretation Interpreted by me Re-Evaluation MDM Re-Evaluation/Progress Re-Evaluation/Progress Text/Dict Note Informed patient of exam findings. Educa roxana on diagnoses, supportive measures, treatment, return precautions and need for PCP / Diamond Cutter FU. Community resources given. Patient liban balizes understanding and agrees with plan of care. Patient is nontoxic appearing, asymptoma tic in no apparent distress at time of discharge Rash Adult MDM Note The patient is now resting c omfortably and feels better, is alert, is not toxic, and is in no distress. The patient has a normal mental status and is neurologically intact. The r francine does not have petechiae or purpura. There are no mucous membrane lesions, no signs of abscess, and no bullae. The patient appears well, has no fever, altered mental status or sig ns of systemic toxicity. The history, exam, diagnostic testing (if any) and c urrent condition do not demonstrate signs of sepsis, [place] roxana Fever, meningitis, meningococcemia, Lyme disease, toxic shock syndr ome or other significant systemic illness requiring further treatment, te sting or consultation in the emergency department. The vi sarah signs have been stable. The patient's condition is stable and appropriate for discharge. The pat ient will pursue further outpatient evaluation with the primary care phys dasia or other designated or consulting physician as indicated in the dischar ge instructions. Patient Discharge Departure Vital Signs/Condition Vital Signs First Documented: Result Date Time Pulse Ox 99 02/09 1247 B/P 140/80 02/09 1247 B/P Mean 100 02/09 1247 Temp 37.2 02/09 1247 Pulse 72 02/09 1247 Resp 18 02/09 1247 Last Documented: Result Date Time Pulse Ox 99 02/09 1247 B/P 140/80 02/09 1247 B/P Mean 100 02/09 1247 Temp 37.2 02/09 1247 Pulse 72 02/09 1247 Resp 18 02/09 1247 All vital signs available at the time of this en try have been reviewed. Condition Stable Clinical Impression Clinical Impression Primary Impression: Contact dermatitis Disposition Decision Discharge )( Discharged to Home Yes )( Time 1252 )( Date 02/09/21 Discharge/Care Plan Counseled Regarding Diagnosis Patient Instructions ED Contact Dermatitis Referrals [facility] Note I have spoken with the patie nt and/or caregivers. I have explained the patient's condition, diagnoses and bebo atment plan based on the information available to me at this time. I have answered the patient's and/ or caregiver's questions and addressed any concerns. The patient and/or careg roseanne have as good an understanding of the patient 's diagnosis, condition and treatment plan as can be expected at this point. The vital signs have bee n stable. The patient's condition is stable and appr opriate for discharge from the emergency department. The patient will pursue further outpatient evalu ation with the primary care physician or other designated or consulting phys ician as outlined in the discharge instructions. The patient and/or caregivers are agreeable to this plan of care and follow-up instructions have been exp lained in detail. The patient and/or caregivers have received these instructio ns in written format and have expressed an understanding of the discharge inst ructions. The patient and/or caregivers are aware that any significant change in condition or worsening of symptoms should prompt an immediate return to [facility] or the closest emergency department or a call to 911. Quality Measures BP F/U for HTN BP in normal range Current Medications Attest: Medication review Smoking Cessation Screened, non user Tobacco Screening/Cessation Denies tobacco use Vitaliy Mancuso 02/09/21 1341: Patient Discharge Departure Supervising Physician Note MidLv Saw Pt Alone I have reviewed the PA/CATIA DESIGNER's note and plan of car e. I was available for consultation as needed at al l times during the patient's visit in the emergency department. I agree with the clinical impression , plan and disposition. Electronically Signed by Vitaliy Mancuso MD on at 1341 Electronically Signed by Florinda Forde 02/09/21 at 1341 RPT #:[id number] END OF REPORT 2021-02-06 09:39:00-00:00 [facility] ([facility]) EMERGENCY PROVIDER REPORT REPORT#:[id number] REPORT STATUS: Signed DATE:02/06/21 TIME: 938 PATIENT: DAVID BRANDT UNIT #: [id number] ROOM/BED: AGE: 50 SEX: F PCP PHYS: No Primary or Family Ph ysician SERVICE AUTHOR: Mio Pitts MD * ALL edits or amendments must be made on the [employer] document * HPI-Headache General Confirmed Patient Yes Patient Type New patient Initial Greet Date/Time 02/06/21924 Presentation Chief Complaint Headache Hx Obtained From Patient Sudden in Onset? No Onset Occurred Yesterday Symptom Duration Since onset Progression since Onset Gradually worsening Severity: Onset Mild Free Text HPI Notes Free Text HPI Notes 50-year-old female with history of diabetes pres ents complaining of headache. Symptoms began yesterday and are gradually worse cy since onset. Patient reports a sharp, stabbing left frontal p ain radiating to her left eye and back behind her ear. She reports a previous history o f migraines in the same location, most recently 2 years ago, but states that pain is typically a pressure sensation. She reports associat ed nausea, vomiting, and diarrhea. She denies fever, chills, cough, vision changes, num bness, tingling, or weakness. Review of Systems ROS Statements All systems rev neg except as marked. Focused Review of Systems Constitutional Denies: Chills, Fever. Eyes Denies: Blurred bilat, Visual loss bilat. GI Reports: Diarrhea, Nausea, Vomiting. Neurologic Reports: Headache. Denies: Numbness, Tingling. Past Medical History - Adult Stated Complaint HEADACHE Allergies Coded Allergies: ondansetron (From ZOFRAN) (Mild, RASH 02/06/21) Home Medications Active Scripts metFORMIN (GLUCOPHAGE) 1,000 MG PO BID metFORMIN (GLUCOPHAGE) 1,000 MG PO BID #30 TABS Ref 1 Prov: 12/03/20 ONDANSETRON ODT (ZOFRAN ODT) 4 MG PO Q6H PRN PRN NAUSEA/VOMITING ONDANSETRON ODT (ZOFRAN ODT) 4 MG PO Q6H PRN HI N NAUSEA/VOMITING #15 TABS Prov: 12/03/20 NAPROXEN (NAPROSYN) 500 MG PO BID PRN PRN PAIN NAPROXEN (NAPROSYN) 500 MG PO BID PRN PRN PAIN #20 TABS Prov: 12/03/20 Discontinued Scripts SULFAMETHOXAZOLE/TMP (BACTRIM DS 800/160 MG) 1 T AB PO Q12H 10 Days #20 TABS Prov: 12/03/20 DC: 02/06/21 1147 Therapy completed Review of Nursing Notes Rev avail, and agree Past Medical History: Reports: Diabetes mellitus. Alcohol Use Denies EtOH use Drug Use Denies recreational drugs Smoking status: Smoking status for patients 13 years old or old er: Never Smoker Physical Exam Vital Signs Vital Signs First Documented: Result Date Time Pulse Ox 98 02/06 0931 B/P 134/83 02/06 0931 B/P Mean 100 02/06 0931 O2 Delivery Room air 02/06 931 Temp 36.7 02/06 09 Pulse 85 02/06 0931 Resp 16 02/06 09 Last Documented: Result Date Time Pulse Ox 99 02/06 1145 B/P 125/75 02/06 1145 B/P Mean 91 02/06 1145 Pulse 79 02/06 1145 Resp 17 02/06 1145 O2 Delivery Room air 02/06 931 Temp 36.7 02/06 0931 Review of Vital Signs Reviewed Focused PE General/Const General/Const Awake, Alert, No acute distress MS Head Head Atraumatic, Normocephalic Eyes Eyes Atraumatic, EOMI Ears/Nose/Throat Ears/Nose/Throat Atraumatic, Airway patent, Tym panic membs NL MS Neck Neck Supple, Full range of motion Resp/Chest Respiratory/Chest Breath sounds = bilat, No res piratory distress, No rales, No rhonchi, No wheezing, No stridor Cardiovascular Cardiovascular Heart rate NL, Regular rhythm Skin Skin Warm, Dry, Intact Neurologic Neurologic Speech NL, No motor deficits, CN II - XII intact (grossly) Interpretation Diagnostics Lab Results Interpretation Results Laboratory Tests 02/06/21 1050: [Embedded Image Not Available] Laboratory Tests: 02/06 1050 Chemistry Sodium (128 - 145 mmol/L) 138 Potassium (3.5 - 5.1 mmol/L) 4.0 Chloride (98 - 107 mmol/L) 104.0 Carbon Dioxide (22 - 29 mmol/L) 26.0 Anion Gap (10 - 20 mmol/L) 12 BUN (7 - 22 mg/dL) 12 Creatinine (0.55 - 1.3 mg/dL) 0.65 Glomerular Filtr Rate (>=60 mL/min) > 60 BUN/Creatinine Ratio (10 - 20) 18.5 Glucose (70 - 110 mg/dL) 326 H Calcium (8.0 - 10.5 mg/dL) 8.3 Total Bilirubin (0.2 - 1.2 mg/dL) 0.30 Direct Bilirubin (0.0 - 0.30 mg/dL) 0.10 AST (10 - 39 U/L) 12 ALT (10 - 69 U/L) 12 Total Alk Phosphatase (50 - 139 U/L) 83 Total Protein (6.1 - 7.8 gram/dL) 7.1 Albumin (3.3 - 4.4 g/dL) 3.1 L Globulin (1 - 10 G/DL) 4.0 Albumin/Globulin Ratio (0.75 - 1.50) 0.8 Lipase (144 - 286 Unit/L) 150 Serum , Qual (NEGATIVE) NEGATIVE Hematology WBC (4.5 - 12.5 K/mm3) 6.9 RBC (3.7 - 5.2 mill/mm3) 4.12 Hgb (11.5 - 15.5 gram/dL) 12.3 Hct (36.0 - 46.0 %) 37.4 MCV (80 - 98 fL) 90.8 MCH (27.0 - 33.0 picogram) 29.9 MCHC (33.0 - 36.0 gram/dL) 32.9 L RDW (11.6 - 16.2 %) 11.9 RDW Std Deviation (37.0 - 51.0 fL) 40.1 Plt Count (150 - 450 K/mm3) 364 MPV (6.7 - 11.0 fL) 9.5 Serology SARS-CoV-2 Ag (Rapid) (NEGATIVE) NEGATIVE Urines Urine Color (YELLOW) STRAW Urine Appearance (CLEAR) HAZY H Urine pH (5.0 - 8.0) 6.0 Ur Specific [place] (1.001 - 1.035) 1.020 Urine Protein (Neg - 15 mg/dL) NEGATIVE Urine Glucose (UA) (NEGATIVE mg/dL) 300-500 (3+ ) Urine Ketones (NEGATIVE mg/dL) NEGATIVE Urine Blood (NEGATIVE) NEGATIVE Urine Nitrite (NEGATIVE) POSITIVE Urine Bilirubin (NEGATIVE) NEGATIVE Urine Urobilinogen (0.0 - 0.2 mg/dL) 0.2 Ur Leukocyte Esterase (NEGATIVE uL) NEGATIVE Urine RBC (0 - 5 per HPF) 0-3 Urine WBC (0 - 5 per HPF) 3-5 Ur Epithelial Cells (Few per HPF) Few (2-5/hpf) Urine Bacteria (NONE per HPF) MANY Lab Statement Laboratory studies reviewed and considered in e medical decision-making. Re-Evaluation MDM Free Text MDM Notes Free Text MDM Notes 50 y/o female presents c/o headache as above. No red flag sx by history, pt resting comfortably without complaints f ollowing treatment. Will d/c home with outpt f/u for further management. ED Course Medication(s) Ordered Medication(s) Ordered: Antihistamine Drugs Sig/Ryan Start time Last Medication Dose Route Stop Time Status Admin Diphenhydramine HCl 12.5 MG X1ED STA 02/06 0938 DC 02/06 IV 02/06 0939 1058 Central Nervous System Agents Sig/Ryan Start time Last Medication Dose Route Stop Time Status Admin Ketorolac 30 MG X1ED STA 02/06 0938 DC 02/06 Tromethamine IV 02/06 0939 1058 Electrolytic, Caloric, And Daniel Sig/Ryan Start time Last Medication Dose Route Stop Time Status Admin Sodium Chloride 1,000 ML X1ED STA 02/06 0938 DC 02/06 IV 02/06 1037 1059 Gastrointestinal Drugs Sig/Ryan Start time Last Medication Dose Route Stop Time Status Admin Prochlorperazine 10 MG X1ED STA 02/06 0939 DCr 02/06 Edisylate IV 02/06 0940 1058 Patient Discharge Departure Vital Signs/Condition Vital Signs First Documented: Result Date Time Pulse Ox 98 02/06 0931 B/P 134/83 02/06 0931 B/P Mean 100 02/06 0931 O2 Delivery Room air 02/06 0931 Temp 36.7 02/06 0931 Pulse 85 02/06 0931 Resp 16 02/06 0931 Last Documented: Result Date Time Pulse Ox 99 02/06 1145 B/P 125/75 02/06 1145 B/P Mean 91 02/06 1145 Pulse 79 02/06 1145 Resp 17 02/06 1145 O2 Delivery Room air 02/06 0931 Temp 36.7 02/06 0931 All vital signs available at the time of this en try have been reviewed. Condition Stable Clinical Impression Clinical Impression Primary Impression: Headache Secondary Impressions: UTI (urinary tract infect ion) Disposition Decision Discharge )( Discharged to Home Yes )( Time 1136 )( Date 02/06/21 Discharge/Care Plan (Auto) Prescriptions Current Visit Scripts CEPHALEXIN (KEFLEX) 500 MG PO Q12H CEPHALEXIN (KEFLEX) 500 MG PO Q12H #10 CAPS PROMETHAZINE (PHENERGAN) 12.5 MG PO Q6H PRN PRN NAUSEA AND VOMITING PROMETHAZINE (PHENERGAN) 12.5 MG PO Q6H PRN PRN NAUSEA AND VOMITING #10 TABS Patient Instructions ED Head ache Unspecified, Urinary Tract Infections in Women Referrals PRIMARY CARE: 2-3 Days Electronically Signed by Mio Pitts MD on 02/07 at 1213 RPT #:[id number] END OF REPORT 2021-02-05 22:38:00-00:00 [facility] ([facility]) EMERGENCY PROVIDER REPORT REPORT#:[id number] REPORT STATUS: Signed DATE:02/05/21 TIME: 2237 PATIENT: DAVID BRANDT UNIT #: [id number] ROOM/BED: AGE: 50 SEX: F PCP PHYS: No Primary or Family Ph ysician SERVICE AUTHOR: Vitaliy Mancuso MD * ALL edits or amendments must be made on the [employer] document * HPI-Headache General Confirmed Patient Yes Initial Greet Date/Time 02/05/21 1434 Presentation Chief Complaint Headache Hx Obtained From Patient Sudden in Onset? No Onset Occurred Today Symptom Duration Since onset Quality Painful Radiation No: Does not radiate. Severity: Onset Mild Free Text HPI Notes Free Text HPI Notes 50-year-old female, past medical history of diab etes. Patient had onset of headache, with nausea, vomit ing, and diarrhea today. No other GI or symptoms , no cardiopulmonary symptoms, no fever Patient denies the following risk factors: - Trauma, blood thinner use (or additional blood thinner use if mentioned above) - HIV/AIDS, IVDU - Active cancer - FHx of brain aneurysm Patient also denies the following associated sym ptoms: - Sudden onset and/or worst headache of life - Syncope - Acute change in vision - Acute neurologic symptoms - Fever Risk-Headache Risk Stratification )( Subarachnoid Hemorrhage Risk factors reviewed )( IC Mass Lesion Risk factors reviewed Review of Systems ROS Statements All systems rev neg except as marked. Free Text ROS Notes Free Text ROS Notes Neuro: endorses NÚÑEZ, denies focal neuro abnormali ties General: denies fevers, denies rigors Cardiovascular: denies chest pain, denies syncop e Pulmonary: denies cough, denies SOB GI: denies abdominal pain, positive nausea vomit ing diarrhea : denies change in bladder habits Also of note: - Chronic conditions/symptoms are considered neg ative if at baseline - Additional ROS may be present in HPI Past Medical History - Adult Stated Complaint DIARRHEA, VOMITING, HEADACHE Allergies Coded Allergies: No Known Allergies (02/05/21) Home Medications Active Scripts SULFAMETHOXAZOLE/TMP (BACTRIM DS 800/160 MG) 1 T AB PO Q12H 10 Days #20 TABS Prov: 12/03/20 metFORMIN (GLUCOPHAGE) 1,000 MG PO BID metFORMIN (GLUCOPHAGE) 1,000 MG PO BID #30 TABS Ref 1 Prov: 12/03/20 ONDANSETRON ODT (ZOFRAN ODT) 4 MG PO Q6H PRN PRN NAUSEA/VOMITING ONDANSETRON ODT (ZOFRAN ODT) 4 MG PO Q6H PRN HI N NAUSEA/VOMITING #15 TABS Prov: 12/03/20 NAPROXEN (NAPROSYN) 500 MG PO BID PRN PRN PAIN NAPROXEN (NAPROSYN) 500 MG PO BID PRN PRN PAIN #20 TABS Prov: 12/03/20 Review of Nursing Notes Rev avail, and agree Past Medical History: Reports: Diabetes mellitus. Alcohol Use Denies EtOH use Drug Use Denies recreational drugs Smoking status: Smoking status for patients 13 years old or old er: Never Smoker Physical Exam Vital Signs Vital Signs First Documented: Result Date Time Pulse Ox 98 02/05 1503 B/P 136/80 02/05 1503 B/P Mean 98 02/05 1503 O2 Delivery Room air 02/05 1503 Temp 36.7 02/05 1503 Pulse 97 02/05 1503 Resp 02/05 1503 Last Documented: Result Date Time Pulse Ox 98 02/05 1503 B/P 136/80 02/05 1503 B/P Mean 98 02/05 1503 O2 Delivery Room air 02/05 1503 Temp 36.7 02/05 1503 Pulse 97 02/05 1503 Resp 16 02/05 1503 Review of Vital Signs Reviewed Free Text PE Notes Free Text PE Notes No meningismus. Neck supple with full effortless flexion. Negative jolt accentuation test. No purpuric rash. Appropriate/baseline mental status, cogn ition, strength, and sensation. CN II- XII intact. PERRL and cornea not hazy. No difficulty with finger to nose or rapid alter nating head movements. Baseline ambulation. Also of Note: General: awake and alert, not toxic appearing, n o acute distress Head: normocephalic, no acute traumatic abnormal ities Cardiac: normal S1/S2, skin well perfused Pulmonary: no respiratory distress, CTAB, no str idor Abdomen: soft, NTND Extremities: no acute deformities, appropriate R OM Skin: no acute appearing rashes, well perfused Eyes: no acute deformities, lids unremarkable ENT: pink mucosa, patent nares Neck: trachea midline, appropriate ROM Re-Evaluation MDM Free Text MDM Notes Free Text MDM Notes This patient has left the emergency department o r waiting room with no communication to myself, nursing or administrati ve staff. There was no opportunity to discuss the patient s dec ision to leave, provide medical advice or discuss alternatives to leaving. The staff núñez s made efforts to locate the patient without success. The nurse was i nstructed to call PD if we do not know unequivocally that the patient did not have an I V upon leaving. ED Course Medication(s) Ordered Medication(s) Ordered: Central Nervous System Agents Sig/Ryan Start time Last Medication Dose Route Stop Time Status Admin Acetaminophen 650 MG X1ED STA 02/05 1434 DC PO 02/05 1435 Electrolytic, Caloric, And Daniel Sig/Ryan Start time Last Medication Dose Route Stop Time Status Admin Sodium Chloride 1,000 ML X1ED STA 02/05 1434 DC IV 02/05 1533 Gastrointestinal Drugs Sig/Ryan Start time Last Medication Dose Route Stop Time Status Admin Metoclopramide HCl 10 MG X1ED STA 02/05 1434 D C IV 02/05 1435 Patient Discharge Departure Vital Signs/Condition Vital Signs First Documented: Result Date Time Pulse Ox 98 02/05 1503 B/P 136/80 02/05 1503 B/P Mean 98 02/05 1503 O2 Delivery Room air 02/05 1503 Temp 36.7 02/05 1503 Pulse 97 02/05 1503 Resp 16 02/05 1503 Last Documented: Result Date Time Pulse Ox 98 02/05 1503 B/P 136/80 02/05 1503 B/P Mean 98 02/05 1503 O2 Delivery Room air 02/05 1503 Temp 36.7 02/05 1503 Pulse 97 02/05 1503 Resp 16 02/05 1503 All vital signs available at the time of this en try have been reviewed. Clinical Impression Clinical Impression Primary Impression: Headache Disposition Decision Other )( Time 1999 )( Date 02/05/21 Text/Dict Note Eloped Electronically Signed by Vitaliy Mancuso MD on at 2242 RPT #:[id number] END OF REPORT 2020-12-03 17:28:00-00:00 [facility] ([facility]) EMERGENCY PROVIDER REPORT REPORT#:[id number] REPORT STATUS: Signed DATE:12/03/20 TIME: 1728 PATIENT: DAVID BRANDT UNIT #: [id number] ROOM/BED: AGE: 50 SEX: F PCP PHYS: No Primary or Family Ph ysician SERVICE AUTHOR: Cesilia Marquis MD * ALL edits or amendments must be made on the el ectronic/computer document * HPI-Hand Prob/Inj General Initial Greet Date/Time 12/03/20 1641 Presentation Chief Complaint Finger pain R (middle) Hx Obtained From Patient Free Text HPI Notes Free Text HPI Notes 50 yo female presents with p ain and swelling to the right middle finger for the past several days. She is co ncerned it is infected. She has PMHx of non-IDDM II and on metformin, has been out of her metformin for 2 weeks. Denies fevers/ chills/sweats. She is right hand dominant. Review of Systems ROS Statements All systems rev neg except as marked. Focused Review of Systems Constitutional Denies: Chills, Fever. Musculoskeletal Reports: Extremity pain, Extremity swelling. Skin Reports: Abrasion. Denies: Rash. Neurologic Denies: Numbness, Tingling. Past Medical History - Adult Stated Complaint POSSIBLE INFECTION IN FINGER RI GHT HAND Allergies Coded Allergies: No Known Allergies (12/03/20) Calculated Suicide Risk (nurs) No risk Review of Nursing Notes Rev avail, and agree Past Medical History: Reports: Diabetes mellitus. Alcohol Use Denies EtOH use Drug Use Denies recreational drugs Smoking status: Smoking status for patients 13 years old or old er: Current every day smoker Physical Exam Vital Signs Vital Signs First Documented: Result Date Time Pulse Ox 98 12/03 1644 B/P 142/77 12/03 1644 B/P Mean 98 12/03 1644 O2 Delivery Room air 12/03 1644 Temp 36.8 12/03 1644 Pulse 96 12/03 1644 Resp 16 12/03 1644 Last Documented: Result Date Time Pulse Ox 98 12/03 1644 B/P 142/77 12/03 1644 B/P Mean 98 12/03 1644 O2 Delivery Room air 12/03 1644 Temp 36.8 12/03 1644 Pulse 96 12/03 1644 Resp 12/03 1644 Review of Vital Signs Reviewed Focused PE General/Const General/Const Awake, Alert, No acute di stress, Well appearing, Well developed , Well hydrated, Well nourished, Cooperative, No t toxic appearing MS Wrist/Hand Wrist/Hand Full range of motion, No deformity, Neurologic intact, Vascular intact Text/Dict Note paronychia to the right middle finger (at the na il epoychium) Skin Skin Warm, Dry Text/Dict Notes paronychia to the right middle finger (at the na il epoychium) Neurologic Neurologic Oriented X3, Speech NL, No m otor deficits, No sensory deficits, CN II - XII intact, Cerebellar NL, Gait NL Additional PE MS Head Head Atraumatic, Normocephalic Eyes Eyes Atraumatic, PERRL, EOMI Ears/Nose/Throat Ears/Nose/Throat Atraumatic, Airway patent, Muc ous membranes moist, Pharynx NL MS Neck Neck Atraumatic, Supple, No meningismus, Full r maurice of motion Resp/Chest Respiratory/Chest Atraumatic, No respiratory di stress Cardiovascular Cardiovascular Heart rate NL, Regular rhythm Abdomen/GI Abdomen/GI Atraumatic, Soft, Non-tender, McBurn ey's non-tender, No guarding, No rebound, BS normoactive, No distention MS Back Back No midline vertebral tend, No paraspinal t enderness, No CVA tenderness Interpretation Diagnostics Lab Results Interpretation Considerations Reviewed prior records Results Laboratory Tests: 12/03 12/03 1848 1735 Chemistry POC Glucose (74 - 106 mg/dL) 298 H 388 H Recent Impressions: RADIOLOGY - XR HAND 3 + V RT 12/03 1700 Report Impression - Status: SIGNED Entered: 12/03/20201733 IMPRESSION: No acute osseous lesions. Impression By: [email or web address] - Farhan Pickard M.D. Lab Imaging Statement Laboratory radiographic studies reviewed and con sidered in the medical decision-making. Point of Care Testing Pulse Oximetry Pulse Ox % 98 On: Room air Interpretation Interpreted by me, Pulse oximetr y normal Time 1644 Procedures Incis Drainage Abscess #1 Start Time 1909 Time Spent (minutes) 15 Procedure Performed by ED physician Consent/Setup/Site Prep Verified correct patient , Informed consent provided, Consent from patient, Time-out performed , Hand hygiene observed, Stand sterile technique, Standard surgical scrub, Sterile drap es applied Location of Abscess right middle finger (nail eponychium) Skin Preparation Agent Betadine, Normal saline Local Anesthesia EMLA Incised Abscess with #11 scalpel Depth of Incision Skin Pus Drained Small, Bloody Irrigation 250 mL Post-Procedure/Complications Dressing applied, Tolerated procedure well, Patient stable Re-Evaluation MDM Re-Evaluation/Progress Re-Evaluation/Progress Text/Dict Note Repeat blood sugar after 10 units of ins ulin subctaneous went from 388 to 298. She has not been on her diab etes medication for the past 2 weeks. Denies nausea /vomiting, denies fevers/chills/sweats. Will refill her prescription for metformin. Will follow up with her PCP. Will give outpatient follow-up [facility] hand surgeon. Reutnr and D/C instructions given. Time of Re-Eval 1926 Re-Eval Status Improved ED Course Medication(s) Ordered Medication(s) Ordered: Anti-Infective Agents Sig/Ryan Start time Last Medication Dose Route Stop Time Status Admin Trimethoprim/ 1 TAB X1ED STA 12/03 1712 DC 11/11 4 Sulfamethoxazole PO 12/03 171 1733 Central Nervous System Agents Sig/Ryan Start time Last Medication Dose Route Stop Time Status Admin Hydrocodone Bitart/ 1 TAB X1ED STA 12/03 1924 D C 12/03 Acetaminophen PO 12/03 1925 1931 Ibuprofen 600 MG X1ED STA 12/03 1713 DC 12/03 PO 06/24 1714 1733 Eye, Ear, Nose And Throat (Een Sig/Ryan Start time Last Medication Dose Route Stop Time Status Admin Neomycin/Polymyxin/ 0.9 GM X1ED STA 12/03 1926 DC 12/03 Bacitracin TOPICAL 12/04 1927 193 Hormones And Synthetic Substit Sig/Ryan Start time Last Medication Dose Route Stop Time Status Admin Insulin Human Regular 10 UNIT ONCE ONE 12/03 17 45 DC 12/03 SUBQ 12/03 1746 1758 Skin And Mucous Membrane Agent Sig/Ryan Start time Last Medication Dose Route Stop Time Status Admin Lidocaine/Prilocaine See Dose X1ED STA 12/03 18 32 DC 12/03 Insts (1) TOPICAL 12/03 1833 1853 Dose Instructions: (1)Lidocaine/Prilocaine: APPLY Patient Discharge Departure Vital Signs/Condition Vital Signs First Documented: Result Date Time Pulse Ox 98 12/03 1644 B/P 142/77 12/03 1644 B/P Mean 98 12/03 1644 O2 Delivery Room air 12/03 1644 Temp 36.8 12/03 1644 Pulse 96 12/03 1644 Resp 16 12/03 1644 Last Documented: Result Date Time Pulse Ox 98 12/03 1644 B/P 142/77 12/03 1644 B/P Mean 98 12/03 1644 O2 Delivery Room air 12/03 1644 Temp 36.8 12/03 1644 Pulse 96 12/03 1644 Resp 16 12/03 1644 All vital signs available at the time of this en try have been reviewed. Condition Stable Clinical Impression Clinical Impression Primary Impression: Paronychia of right middle f rex Secondary Impressions: Hyper glycemia due to type 2 diabetes mellitus, Medication refill Disposition Decision Discharge )( Discharged to Home Yes )( Time 1932 )( Date 12/03/20 Discharge/Care Plan Counseled Regarding Diagnosi s, Lab results, Imaging studies, Prescriptions, Need for follow-up, When to return to ED, Smoking dinah sation Rx Drug Database Reviewed Yes (Auto) Prescriptions Current Visit Scripts SULFAMETHOXAZOLE/TMP (BACTRIM DS 800/160 MG) 1 T AB PO Q12H 10 Days #20 TABS UNTIL FINISHED metFORMIN (GLUCOPHAGE) 1,000 MG PO BID metFORMIN (GLUCOPHAGE) 1,000 MG PO BID #30 TABS Ref 1 ONDANSETRON ODT (ZOFRAN ODT) 4 MG PO Q6H PRN PRN NAUSEA/VOMITING ONDANSETRON ODT (ZOFRAN ODT) 4 MG PO Q6H PRN HI N NAUSEA/VOMITING #15 TABS NAPROXEN (NAPROSYN) 500 MG PO BID PRN PRN PAIN NAPROXEN (NAPROSYN) 500 MG PO BID PRN PRN PAIN #20 TABS Prescriptions Reviewed Risks, Benefits, Alternat basil treatment Patient Instructions ED Diabetes with High Blood Sugar, ED Paronychia of the Finger or Toe Referrals Jesus Garibay MD: Call for appointment HAND SURGEON Departure Forms FREE OR LOW COST CLINICS PCP LIST WORK/SCHOOL EXCUSE VARIABLE Restrictions apply through 12/07/20 May return to work/school 12/07/20 Any Restrictions No Discharge Note I have spoken with the patie nt and/or caregivers. I have explained the patient's condition, diagnoses and bebo atment plan based on the information available to me at this time. I have answered the patient's and/ or caregiver's questions and addressed any concerns. The patient and/or careg roseanne have as good an understanding of the patient 's diagnosis, condition and treatment plan as can be expected at this point. The vital signs have bee n stable. The patient's condition is stable and appr opriate for discharge from the emergency department. The patient will pursue further outpatient evalu ation with the primary care physician or other designated or consulting phys ician as outlined in the discharge instructions. The patient and/or caregivers are agreeable to this plan of care and follow-up instructions have been exp lained in detail. The patient and/or caregivers have received these instructio ns in written format and have expressed an understanding of the discharge inst ructions. The patient and/or caregivers are aware that any significant change in condition or worsening of symptoms should prompt an immediate return to [facility] or the closest emergency department or a call to 911. Quality Measures BP F/U for HTN Referred for BP f/u < 4wk, F/u wi PCP/other doc Smoking Cessation Screened, tobacco user, Tobacc o cess intervention Tobacco Screening/Cessation 18 years or older, Tobacco user, Smoking cessation offered, Counseled 3-10 minutes Smoking Cessation Counseling The patient was questioned r egarding their smoking habits, and I have determined , as the patient's treating physician, that ther e is a medical necessity in regards to the patient's med ical condition to provide smoking cessation program education. The patient was a dvised to stop smoking and counseled for a period of greater than 3 minutes. The patient was instructed to follow up with a primary care physician for smoking cessation and given i nformation regarding local smoking cessation programs i n the area. The patient received detailed discharge instructions as to how to stop smoking. The patient expressed an understanding of the need to follow up and the plan for smokin g cessation. Electronically Signed by Cesilia Marquis MD on at 2015 RPT #:[id number] END OF REPORT
[2023-01-05] MEDS ORDERED: Ringers Lactate 1,000 ML IV ONE (13:01)
[2023-01-05 13:18] LABS: Absolute Lymphocytes (CBC) 1.4 K/uL (0.7-4.9); Hematocrit 37.9 % (36.0-45.0); MCV 88.3 fL (80-100); RBC Red Blood Cell Count 4.29 M/uL (3.86-4.86)
[2023-01-05 14:06] LABS: Specific Gravity > 1.030 (1.005-1.030); Urine Bilirubin NEGATIVE (Negative); Urine Blood Negative (Negative); Urine Clarity Clear (Clear); Urine Color Colorless (Yellow); Urine Glucose 4+ (Over) (Negative); Urine Mucus Slight /HPF (None Seen); Urine Protein NEGATIVE (Negative); Urine RBC <5 /HPF (None Seen); Urine Urobilinogen Normal (Normal)
[2023-01-05 14:08] LABS: Urine Bacteria >50 /HPF (<20)
[2023-01-05 15:33] LABS: Albumin 2.7 g/dL (3.4-5.0); Bilirubin Total 0.2 mg/dL (0.2-1.0); Protein, Total 6.5 g/dL (6.4-8.2)
--- NOTE | 2023-01-05 16:01 | ER ---
Nurse's Notes [facility] Name: Asia Cole Age: 52 yrs Sex: Female : 1970 Arrival Date: 01/05/2023 Time: 12:28 Bed 12 Private MD: Diagnosis: Hyperglycemia, unspecified;UTI/ Urinary tract infection, site not specified;Candidiasis of vulva and vagina Presentation: 01/05 12:43 Chief complaint: Patient states: feels ;like she has a yeast infection X 2 days, she is iw diabetic. Coronavirus screen: At this time, the client does not indicate any symptoms associated with coronavirus-19. Ebola Screen: Patient negative for fever greater than or equal to 101.5 degrees Fahrenheit, and additional compatible Ebola Virus Disease symptoms Patient denies exposure to infectious person. Patient denies travel to an Ebola-affected area in the 21 days before illness onset. No symptoms or risks identified at this time. Initial Sepsis Screen: Does the patient meet any 2 criteria? No. Patient's initial sepsis screen is negative. Does the patient have a suspected source of infection? No. Patient's initial sepsis screen is negative. Risk Assessment: Do you want to hurt yourself or someone else? Patient reports no desire to harm self or others. Onset of symptoms was January 05, 2023. 12:43 Method Of Arrival: Ambulatory iw 12:43 Acuity: DIYA 3 iw Historical: - Allergies: 12:44 Zofran; iw - Home Meds: 12:44 metformin 1,000 mg Oral tab 2 times per day [Active]; iw - PMHx: 12:44 Diabetes - NIDDM; iw - Immunization history:: Adult Immunizations. - Social history:: Smoking status: Reported history of juuling and/or vaping. Screenin:[address] [facility] ED Fall Risk Assessment (Adult) Score/Fall Risk Level 0 - 2 = Low Risk me1 Oriented to surroundings, Maintained a safe environment, Provided non-skid footwear. Abuse screen: Denies threats or abuse. Nutritional screening: No deficits noted. Tuberculosis screening: No symptoms or risk factors identified. Assessment: 13:10 General: Appears uncomfortable, obese, Behavior is calm, cooperative, appropriate for me1 age, Reports having a yeast infection x 2 days, thirst and urinating a lot. Denies. Pain: Denies pain. Neuro: Level of Consciousness is awake, alert, obeys commands, Oriented to person, place, time, situation. Cardiovascular: No deficits noted. Capillary refill < 3 seconds is brisk fingers toes Respiratory: No deficits noted. Respiratory effort is even, unlabored, Respiratory pattern is regular, symmetrical. : Reports burning with urination, urgency, urinary frequency, vaginal itching. Vital Signs: 12:43 BP 155 / 96; Pulse 109; Resp 18 S; Temp 98.2; Pulse Ox 100% on R/A; Weight 65.77 kg; iw Height 4 ft. 6 in. ; 13:19 BP 137 / 92; Pulse 100; Resp 17; Pulse Ox 100% ; me1 15:51 BP 118 / 79; Pulse 88; Resp 16; Pulse Ox 100% on R/A; me1 12:43 Body Mass Index 34.96 (65.77 kg, 137.16 cm) iw ED Course: 12:33 Patient arrived in ED. im 12:35 Lefty Espinoza DO is Attending Physician. ms3 12:44 Triage completed. iw 12:44 Arm band placed on. iw 12:48 Mary Zarate, RN is Primary Nurse. ph 12:48 Primary Nurse role handed off by Mary Zarate RN me1 12:48 Tiarra Irizarry, RN is Primary Nurse. me1 13:07 CMP Sent. me1 13:07 CBC with Diff Sent. me1 13:07 Initial lab(s) drawn, by ks, sent to lab. Inserted saline lock: 22 gauge in right hand, ks1 using aseptic technique. 13:17 Patient has correct armband on for positive identification. Bed in low position. Call me1 light in reach. Side rails up X 1. Provided Education on: on poc. Verbalized understanding and agreement. . Pulse ox on. NIBP on. 13:17 No provider procedures requiring assistance completed. me1 13:54 Urinalysis w/ reflexes Sent. ph 14:55 Urine Culture Sent. me1 16:00 Cb Simental DO is Referral Physician. ms3 16:19 IV discontinued, intact, bleeding controlled, No redness/swelling at site. Pressure ph dressing applied. Administered Medications: 13:08 Drug: Lactated Ringers Solution IV 1000 ml Route: IV; Rate: bolus; Site: right hand; ks1 16:19 Follow up: Response: No adverse reaction; IV Status: Completed infusion; IV Intake: ph 1000ml 16:19 Not Given (Other Intervention Used): Insulin Regular Human IVP 5 units IVP once ph Medication: 13:24 VIS not applicable for this client. me1 Intake: 16:19 IV: 1000ml; Total: 1000ml. ph Outcome: 16:01 Discharge ordered by . ms3 16:19 Discharged to home ambulatory. ph 16:19 Condition: good 16:19 Discharge instructions given to patient, Instructed on discharge instructions, follow up and referral plans. medication usage, Demonstrated understanding of instructions, follow-up care, medications, Prescriptions given X 1. 16:20 Patient left the ED. ph Addendum: 01/09/2023 10:00 Addendum: Culture Results: Positive urine culture. Bacteria is resistant to, has i w intermediate sensitivity, or is not tested against prescribed antibiotics. Report given to SELENA for further evaluation and then to legal aid for follow up with patient. Phone call Attempt #1 no answer, left voice mail. Signatures: Homa Carver, RN RN Mary Zarate RN RN Lefty Espinoza DO DO ms3 Demi Jasso Michelle, RN RN me1 Corrections: (The following items were deleted from the chart) 01/05 12:45 12:43 Resp 18bpm; Spontaneous; Pulse Ox 100% RA; Temp 98.2F; iw iw
--- NOTE | 2023-01-05 16:01 | EDPHYS ---
Physician Documentation [facility] Name: Asia Cole Age: 52 yrs Sex: Female : 1970 Arrival Date: 01/05/2023 Time: 12:28 Bed 12 Private MD: ED Physician Lefty Espinoza HPI: 01/05 13:09 This 52 yrs old Female presents to ER via Ambulatory with complaints of Anxiety, ms3 Vaginal Discharge, Vaginal Itching. 13:09 52-year-old female with past medical history of diabetes presents for dysuria and ms3 urinary frequency for 2 days. Patient states she has noticed swelling of her vagina. Patient denies fevers, chills, nausea, vomiting. Patient denies alleviating or inciting factors.. Historical: - Allergies: 12:44 Zofran; iw - Home Meds: 12:44 metformin 1,000 mg Oral tab 2 times per day [Active]; iw - PMHx: 12:44 Diabetes - NIDDM; iw - Immunization history:: Adult Immunizations. - Social history:: Smoking status: Reported history of juuling and/or vaping. ROS: 13:09 Positive for urinary symptoms, vaginal itching. ms3 13:09 Eyes: Negative for injury, pain, redness, and discharge, Neck: Negative for injury, pain, and swelling, Cardiovascular: Negative for chest pain, and palpitations. Respiratory: Negative for shortness of breath, cough, wheezing, and pleuritic chest pain, Abdomen/GI: Negative for abdominal pain, nausea, vomiting, diarrhea, and constipation, MS/Extremity: Negative for injury and deformity, Skin: Negative for injury, rash, and discoloration. 13:09 Endocrine: Positive for polydipsia. ms3 Exam: 13:09 Constitutional: This is a well developed, well nourished patient who is awake, alert, ms3 and in no acute distress. Head/Face: Normocephalic, atraumatic. Neck: Trachea midline, no cervical lymphadenopathy. Supple, full range of motion without nuchal rigidity, or vertebral point tenderness. No Meningismus. Chest/axilla: Normal chest wall appearance and motion. Nontender with no deformity. Cardiovascular: Regular rate and rhythm with a normal S1 and S2. No gallops, murmurs, or rubs. Normal PMI, no JVD. No pulse deficits. Respiratory: Lungs have equal breath sounds bilaterally, clear to auscultation and percussion. No rales, rhonchi or wheezes noted. No increased work of breathing, no retractions or nasal flaring. Abdomen/GI: Soft, non-tender, with normal bowel sounds. No distension or tympany. No guarding or rebound. No evidence of tenderness throughout. Skin: Warm, dry with normal turgor. Normal color with no rashes, no lesions, and no evidence of cellulitis. MS/ Extremity: Pulses equal, no cyanosis. Neurovascular intact. Full, normal range of motion. 14:29 : Pelvic Exam: External exam: excoriation noted, reveals ulcerations on external ms3 genitalia, no warts seen, RITO Mayen. Vital Signs: 12:43 BP 155 / 96; Pulse 109; Resp 18 S; Temp 98.2; Pulse Ox 100% on R/A; Weight 65.77 kg; iw Height 4 ft. 6 in. ; 13:19 BP 137 / 92; Pulse 100; Resp 17; Pulse Ox 100% ; me1 15:51 BP 118 / 79; Pulse 88; Resp 16; Pulse Ox 100% on R/A; me1 12:43 Body Mass Index 34.96 (65.77 kg, 137.16 cm) iw MDM: 12:43 Patient medically screened. ms3 13:09 Differential diagnosis: urinary tract infection, Christen infxn vs Hyperglycemia vs HONK.ms3 17:23 Data reviewed: vital signs, nurses notes, lab test result(s), and as a result, I will ms3 discharge patient. I considered the following discharge prescriptions or medication management in the emergency department Medications were administered in the Emergency Department. See MAR. Care significantly affected by the following chronic conditions: Diabetes. Care significantly affected by the following Social Determinants of Health: Poor access to healthcare and/or lack of insurance. Counseling: I had a detailed discussion with the patient and/or guardian regarding: the historical points, exam findings, and any diagnostic results supporting the discharge/admit diagnosis, lab results, the need for outpatient follow up, to return to the emergency department if symptoms worsen or persist or if there are any questions or concerns that arise at home. Special discussion: I discussed with the patient/guardian in detail that at this point there is no indication for admission to the hospital. It is understood, however, that if the symptoms persist or worsen the patient needs to return immediately for re-evaluation. ED course: CMP does not reveal anion gap. Discussed medication compliance and diabetic diet with patient. Patient to follow-up with Dr. Simental in 2 to 3 days. Patient understands and agrees with plan. All questions were answered. Return precautions discussed include worsening symptoms, or any other concerns. On reevaluation patient is alert and oriented x4, in no apparent distress, nontoxic-appearing, ambulatory in emergency department, speaking full sentences. 01/05 12:44 Order name: CBC with Diff; Complete Time: 14:12 ms3 01/05 12:44 Order name: CMP; Complete Time: 15:55 ms3 01/05 12:44 Order name: Urinalysis w/ reflexes; Complete Time: 14:12 ms3 01/05 12:58 Order name: Glucose, Ancillary Testing; Complete Time: 13:11 EDMS 01/05 14:13 Order name: Urine Culture EDAK 01/05 12:44 Order name: Glucose Level; Complete Time: 13:27 ms3 01/05 13:34 Order name: Labs - recollect needed: green top please; Complete Time: 13:52 em1 01/05 14:16 Order name: Labs - recollect needed: green top; Complete Time: 15:06 iw Administered Medications: 13:08 Drug: Lactated Ringers Solution IV 1000 ml Route: IV; Rate: bolus; Site: right hand; ny1 16:19 Follow up: Response: No adverse reaction; IV Status: Completed infusion; IV Intake: ph 1000ml 16:19 Not Given (Other Intervention Used): Insulin Regular Human IVP 5 units IVP once ph Disposition Summary: 01/05/23 16:01 Discharge Ordered Location: Home ms3 Condition: Stable ms3 Diagnosis - Hyperglycemia, unspecified ms3 - UTI/ Urinary tract infection, site not specified ms3 - Candidiasis of vulva and vagina ms3 Followup: ms3 - With: Cb Simental DO - When: 2 - 3 days - Reason: Recheck today's complaints Discharge Instructions: - Discharge Summary Sheet ms3 - Hyperglycemia ms3 - Urinary Tract Infection, Adult ms3 - Vaginal Yeast Infection, Adult ms3 Forms: - Medication Reconciliation Form ms3 - Thank You Letter ms3 - Antibiotic Education ms3 - Prescription Opioid Use ms3 - Patient Portal Instructions ms3 Prescriptions: - Fluconazole 150 mg Oral Tablet - take 1 tablet by ORAL route once daily; 1 tablet; Refills: 0, Product Selection ms3 Permitted - Metformin 1,000 mg Oral Tablet - take 1 tablet by ORAL route every 12 hours with morning and evening meals; 20 ms3 tablet; Refills: 0, Product Selection Permitted - cefpodoxime 100 mg Oral Tablet - take 1 tablet by ORAL route every 12 hours for 10 days take with food; 20 ms3 tablet; Refills: 0, Product Selection Permitted Signatures: Dispatcher [employer] Homa Sutherland RN RN iw Paramjit Linton em1 Lefty Espinoza DO DO ms3 Tiarra Irizarry RN RN ny1 Mary Zarate RN ph
[2023-01-05 16:28] VITALS: TEMP 98.2; O2SAT 100
[2023-01-05 16:31] VITALS: BP 118/79
== END 2023-01-05 16:20 | disposition home or self-care (01) ==
LOC: ER 12:28
DX: E11.65 Type 2 diabetes mellitus with hyperglycemia (principal); N39.0 Urinary tract infection, site not specified; B37.31 Acute candidiasis of vulva and vagina
CPT/HCPCS: 36415; 80053; 81001; 82947; 85025; 87077; 87086; 87088; 87186; 96360; 96361; 99284; J7120

== ENCOUNTER 2023-02-26 20:17 | Emergency (ER) | payer SELFPAY ==
--- OUTSIDE RECORDS SUMMARY | 2023-02-26 20:25 | XMS REPORT | Continuity of Care Document ---
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 15:28:00 36.83 Lianet [facility] Body height 2023-01-06 15:28:00 142.2 cm [facility] Body weight 2023-01-06 15:28:00 68.04 kg [facility] BMI 2023-01-06 15:28:00 33.63 kg/m2 [facility] Systolic blood 2022-03-05 13:16:09 146 mm[Hg] [facility] pressure Diastolic blood 2022-03-05 13:16:09 80 mm[Hg] [facility] pressure Heart rate 2022-03-05 13:16:09 68 /min [facility] Body temperature 2022-03-05 13:16:09 36.78 Lianet [facility] Respiratory rate 2022-03-05 13:16:09 16 /min [facility] Oxygen saturation in 2022-03-05 13:16:09 96 /min [facility] Arterial blood by Pulse oximetry Body height 2022-03-02 07:05:00 137.2 cm [facility] Body weight 2022-03-02 07:05:00 77.1 kg [facility] BMI 2022-03-02 07:05:00 40.98 kg/m2 [facility] Respitory Rate 2020-10-03 22:29:00 Mónica Leija Systolic (mm Hg) 2020-10-03 22:29:00 Luis Corrigan Diastolic (mm Hg) 2020-10-03 22:29:00 Mem orial [facility] Respitory Rate 2020-10-03 20:21:00 Memori al [facility] Systolic (mm Hg) 2020-10-03 20:21:00 Luis rial Nerinx Diastolic (mm Hg) 2020-10-03 20:21:00 Mem [facility] Systolic (mm Hg) 2020-10-03 20:16:00 Luis rial [facility] Diastolic (mm Hg) 2020-10-03 20:16:00 [facility] Height 2020-10-03 19:29:00 137.16 cm [facility] BMI Calculated 2020-10-03 19:29:00 [facility] Weight 2020-10-03 19:29:00 [facility] Heart Rate 2020-10-03 19:29:00 [facility] Respitory Rate 2020-10-03 19:29:00 [facility] Heart Rate 2020-04-15 08:10:00 [facility] Systolic (mm Hg) 2020-04-15 08:10:00 Luis rial [facility]erinx Diastolic (mm Hg) 2020-04-15 08:10:00 [facility] Heart Rate 2020-04-15 06:05:00 [facility] Systolic (mm Hg) 2020-04-15 06:05:00 Luis rial [facility]har Diastolic (mm Hg) 2020-04-15 06:05:00 [facility] Height 2020-04-15 00:45:00 144.78 cm [facility] BMI Calculated 2020-04-15 00:45:00 [facility] Weight 2020-04-15 00:45:00 [facility] Systolic (mm Hg) 2020-04-15 00:45:00 Luis rial [facility] Diastolic (mm Hg) 2020-04-15 00:45:00 [facility] Heart Rate 2020-04-15 00:45:00 [facility] Respitory Rate 2020-04-15 00:45:00 [facility] Temperature Oral (F) 2020-04-15 00:45:00 98.2 F [facility] Respitory Rate 2020-03-03 18:46:00 [facility] Systolic (mm Hg) 2020-03-03 18:46:00 Luis rial Shekhar Diastolic (mm Hg) 2020-03-03 18:46:00 Mem [facility] Temperature Oral (F) 2020-03-03 18:46:00 98.1 F [facility] Respitory Rate 2020-03-03 16:58:00 Memori [facility] Systolic (mm Hg) 2020-03-03 16:58:00 Luis rial [facility]har Diastolic (mm Hg) 2020-03-03 16:58:00 Mem [facility] Respitory Rate 2020-03-03 15:19:00 [facility] Systolic (mm Hg) 2020-03-03 15:19:00 Luis rial [facility]erinx Diastolic (mm Hg) 2020-03-03 15:19:00 [facility] Height 2020-03-03 14:34:00 167.64 cm [facility] BMI Calculated 2020-03-03 14:34:00 [facility] Weight 2020-03-03 14:34:00 [facility] Heart Rate 2020-03-03 14:34:00 [facility] Temperature Oral (F) 2020-03-03 14:34:00 99.1 F [facility] Temperature Oral (F) 2018-09-12 08:06:00 97.8 F [facility] Heart Rate 2018-09-12 08:06:00 [facility] Respitory Rate 2018-09-12 08:06:00 [facility] Systolic (mm Hg) 2018-09-12 08:06:00 Luis rial [facility]har Diastolic (mm Hg) 2018-09-12 08:06:00 Mem o[facility] Systolic (mm Hg) 2018-09-12 06:52:00 Luis rial [facility]har Diastolic (mm Hg) 2018-09-12 06:52:00 Mem o[facility] Respitory Rate 2018-09-12 06:52:00 [facility] Heart Rate 2018-09-12 06:52:00 [facility] Respitory Rate 2018-09-12 03:17:00 [facility] Systolic (mm Hg) 2018-09-12 03:17:00 Luis rial Nerinx Diastolic (mm Hg) 2018-09-12 03:17:00 [facility] Heart Rate 2018-09-12 03:17:00 [facility] Temperature Oral (F) 2018-09-12 03:17:00 98.0 F [facility] Heart Rate 2018-08-31 17:24:00 [facility] Respitory Rate 2018-08-31 17:24:00 [facility] Systolic (mm Hg) 2018-08-31 17:24:00 Luis rial Nerinx Diastolic (mm Hg) 2018-08-31 17:24:00 Mem [facility] Temperature Oral (F) 2018-08-31 17:24:00 97.8 F [facility] Temperature Oral (F) 2018-08-31 12:55:00 97.8 F [facility] Heart Rate 2018-08-31 12:55:00 [facility] Systolic (mm Hg) 2018-08-31 12:55:00 Luis rial Nerinx Diastolic (mm Hg) 2018-08-31 12:55:00 Mem o[facility] Respitory Rate 2018-08-31 12:55:00 [facility] Respitory Rate 2018-08-31 06:38:00 Memori [facility] Temperature Oral (F) 2018-08-31 00:59:00 98.3 F [facility] Systolic (mm Hg) 2018-08-31 00:59:00 Luis rial [facility]khar Diastolic (mm Hg) 2018-08-31 00:59:00 [facility] Heart Rate 2018-08-31 00:59:00 [facility] Height 2018-08-29 11:00:00 144.78 cm [facility] Weight 2018-08-29 11:00:00 [facility] BMI Calculated 2018-08-29 11:00:00 [facility] Weight 2018-08-29 00:59:00 [facility] Height 2018-08-29 00:59:00 144.78 cm [facility] BMI Calculated 2018-08-29 00:59:00 [facility] Procedures Procedure Date / Time Performing Clinician Source Performed POCT GLUCOSE (AUTOMATED) 2023-01-06 19:54:00 Trang Arauz [facility] POCT GLUCOSE (AUTOMATED) 2023-01-06 18:03:00 Trang Arauz [facility] ASSIGNMENT OF BENEFITS 2023-01-06 16:58:19 Doctor Unassigned, No [facility] COMP. METABOLIC PANEL 2023-01-06 16:28:00 Trang Arauz [facility] ([id number]) [facility] CBC WITH DIFF 2023-01-06 16:28:00 Trang Arauz [facility] URINALYSIS 2023-01-06 16:20:00 Trang Arauz [facility] POCT GLUCOSE (AUTOMATED) 2023-01-06 16:19:00 Trang Arauz [facility] POCT GLUCOSE (AUTOMATED) 2023-01-06 15:31:00 Doctor Unassigned, No [facility] NOTICE OF PRIVACY 2023-01-06 14:55:34 Doctor Unassigned, No [facility] PRACTICES Name [facility] CONSENT/REFUSAL FOR 2023-01-06 14:54:46 Doctor Unassigned, No Un [facility] DIAGNOSIS AND TREATMENT Name [facility] POC GLUCOSE 2022-03-05 17:10:00 Lien Posadas Ho spital POC GLUCOSE 2022-03-05 13:12:00 Lien Posadas Ho spital BASIC METABOLIC PANEL 2022-03-05 12:32:00 Yuli Mckee [facility] CBC WITH PLATELET AND 2022-03-05 12:32:00 Yuli Mckee [facility] DIFFERENTIAL ESTIMATED GFR 2022-03-05 12:32:00 Yuli Mckee Ho spital POC GLUCOSE 2022-03-05 01:21:00 Lien Posadas Ho spital POC GLUCOSE 2022-03-04 22:09:00 Lien Posadas Ho spital POC GLUCOSE 2022-03-04 16:53:00 Lien Posadas Ho spital POC GLUCOSE 2022-03-04 13:22:00 Lien Posadas Ho spital BASIC METABOLIC PANEL 2022-03-04 12:05:00 Yuli Mckee [facility] CBC WITH PLATELET AND 2022-03-04 12:05:00 Yuli Mckee [facility] DIFFERENTIAL ESTIMATED GFR 2022-03-04 12:05:00 Yuli Mckee Ho spital US DUPLEX VENOUS UPPER 2022-03-04 02:14:00 Raja, Lien [facility] EXTREMITY BILATERAL POC GLUCOSE 2022-03-04 01:54:00 Lien Posadas [facility] POC GLUCOSE 2022-03-03 21:05:00 Lien Posadas Ho spital BLOOD CULTURE, AEROBIC & 2022-03-03 18:06:00 Lien Posadas [facility] ANAEROBIC POC GLUCOSE 2022-03-03 16:42:00 Lien Posadas Ho spital POC GLUCOSE 2022-03-03 [facility]00 [facility] 11:21:00 Pedro [facility] IGG ANTIBODY TITER [place] BASIC METABOLIC PANEL 2022-03-03 11:21:00 Yuli Mckee [facility] CBC WITH PLATELET AND 2022-03-03 11:21:00 Yuli Mckee [facility] DIFFERENTIAL COD-19 SEROLOGY 2022-03-03 11:21:00 [facility]ILL[facility] [place] ESTIMATED GFR 2022-03-03 11:21:00 Yuli Mckee spital POC GLUCOSE 2022-03-03 01:53:00 [facility] POC GLUCOSE 2022-03-02 23:48:00 [facility] POC GLUCOSE 2022-03-02 22:52:00 [facility] POC GLUCOSE 2022-03-02 18:04:00 [facility] POC GLUCOSE 2022-03-02 13:51:00 [facility] BASIC METABOLIC PANEL 2022-03-02 11:46:00 Yuli Mckee [facility] CBC WITH PLATELET AND 2022-03-02 11:46:00 Yuli Mckee [facility] DIFFERENTIAL ESTIMATED GFR 2022-03-02 11:46:00 Yuli Mckee spital ESTIMATED GFR 2022-03-02 11:44:00 Yuli Mckee spital C-REACTIVE PROTEIN 2022-03-02 11:02:00 Nwora, Hina [facility] POC GLUCOSE 2022-03-02 06:00:00 Beth Jackson ospital [facility] POC GLUCOSE 2022-03-02 05:23:00 Beth Jackson H [facility] POC GLUCOSE 2022-03-02 01:21:00 Beth Jackson ospital [facility] COVID-19 QUALITATIVE 2022-03-02 00:46:00 [facility] CT RENAL STONE PROTOCOL 2022-03-01 22:20:45 [facility] [place] URINE CULTURE 2022-03-01 20:01:00 Aldair Verduzco spital Deng CBC WITH PLATELET AND 2022-03-01 19:39:00 Dax [facility] DIFFERENTIAL Deng COMPREHENSIVE METABOLIC 2022-03-01 19:39:[address] [facility] [place] [place] PANEL Deng LIPASE LEVEL 2022-03-01 19:39:00 Aldair Verduzco spital Deng HCG QUALITATIVE, SERUM 2022-03-01 19:39:00 Dax [facility] SCREEN Deng ESTIMATED GFR 2022-03-01 19:39:00 Aldair Verduzco spital Deng HEMOGLOBIN A1C 2022-03-01 19:39:00 Yuli Mckee spital LIPID PANEL 2022-03-01 19:39:00 Yuli Mckee spital URINALYSIS SCREEN AND 2022-03-01 17:48:00 Dax [facility] MICROSCOPY, WITH REFLEX Deng TO CULTURE CT ABDOMEN PELVIS W 2022-02-03 17:04:17 Vic [facility] CONTRAST URINE CULTURE 2022-02-03 16:08:00 Kain Ho spital URINALYSIS SCREEN AND 2022-02-03 [facility] TO CULTURE CBC WITH PLATELET AND 2022-02-03 14:16:00 [facility] DIFFERENTIAL COMPREHENSIVE METABOLIC 2022-02-03 14:16:00 VicKain [facility] PANEL LIPASE LEVEL 2022-02-03 14:16:00 [facility] HCG QUALITATIVE, SERUM 2022-02-03 14:16:00 [facility] S[facility]EN ESTIM[facility] GFR 2022-02-03 14:16:00 [facility] Plan of Care Planned Activity Planned Date Details Comments Source Future Scheduled 2023-02-12 Screening for [facility] Test 04:46:41 malignant neoplasm of colon (procedure) [code = 875087895] Future Scheduled 2023-02-12 Screening for [facility] Test 04:46:41 malignant neoplasm of colon (procedure) [code = 892053919] Future Scheduled 2023-02-12 Screening for [facility] Test 04:46:41 malignant neoplasm of colon (procedure) [code = 853202409] Future Scheduled 2023-02-12 Hepatitis C screening [facility] Test 04:46:41 (procedure) [code = 827828538] Future Scheduled 2023-02-12 Screening for [facility] Test 04:46:41 malignant neoplasm of cervix (procedure) [code = 732323966] Future Scheduled 2023-02-12 BREAST CANCER [facility] Test 04:46:41 SCREENING [code = BREAST CANCER SCREENING] Future Scheduled 2023-02-12 Screening for [facility] Test 04:46:41 malignant neoplasm of colon (procedure) [code = 398199779] Future Scheduled 2023-02-12 Screening for [facility] Test 04:46:41 malignant neoplasm of colon (procedure) [code = 260195802] Future Scheduled 2023-02-12 [facility]IN[facility] ([facility] 04:46:41 of 2) [code = SHINGLES VACCINES (1 of 2)] Future Scheduled 2023-02-12 COVID-19 VACCINE (4 - [facility] Test 04:46:41 Pfizer series) [code = COVID-19 VACCINE (4 - Pfizer series)] Future Scheduled 2023-02-12 INFLUENZA VACCINE Method is Hospital Test 04:46:41 (#1) [code = INFLUENZA VACCINE (#1)] Future Scheduled 2023-01-12 Screening for [facility] Test 03:26:19 malignant neoplasm of colon (procedure) [code = 191605077] Future Scheduled 2023-01-12 [facility] Test 03:26:19 malignant neoplasm of colon (procedure) [code = 551491992] Future Scheduled 2023-01-12 [facility] Test 03:26:19 malignant neoplasm of colon (procedure) [code = 160968523] Future Scheduled 2023-01-12 Hepatitis C screening [facility] Test 03:26:19 (procedure) [code = 192110932] Future Scheduled 2023-01-12 [facility] Test 03:26:19 malignant neoplasm of cervix (procedure) [code = 869284462] Future Scheduled 2023-01-12 BREAST CANCER [facility] Test 03:26:19 SCREENING [code = BREAST CANCER SCREENING] Future Scheduled 2023-01-12 [facility] Test 03:26:19 malignant neoplasm of colon (procedure) [code = 531014862] Future Scheduled 2023-01-12 [facility] Test 03:26:19 malignant neoplasm of colon (procedure) [code = 720815101] Future Scheduled 2023-01-12 SHINGLES VACCINES (1 [facility] Test 03:26:19 of 2) [code = SHINGLES VACCINES (1 of 2)] Future Scheduled 2023-01-12 COVID-19 VACCINE (4 - [facility] Test 03:26:19 Pfizer series) [code = COVID-19 VACCINE (4 - Pfizer series)] Future Scheduled 2023-01-12 INFLUENZA VACCINE Method t Hospital Test 03:26:19 [code = INFLUENZA VACCINE] Future Scheduled 2022-12-01 [facility] Test 06:04:07 malignant neoplasm of colon (procedure) [code = 372229942] Future Scheduled 2022-12-01 [facility] Test 06:04:07 malignant neoplasm of colon (procedure) [code = 848790637] Future Scheduled 2022-12-01 [facility] Test 06:04:07 malignant neoplasm of colon (procedure) [code = 299489046] Future Scheduled 2022-12-01 Hepatitis C screening [facility] Test 06:04:07 (procedure) [code = 261822430] Future Scheduled 2022-12-01 [facility] Test 06:04:07 malignant neoplasm of cervix (procedure) [code = 821513569] Future Scheduled 2022-12-01 BREAST CANCER [facility] Test 06:04:07 SCREENING [code = BREAST CANCER SCREENING] Future Scheduled 2022-12-01 [facility] Test 06:04:07 malignant neoplasm of colon (procedure) [code = 023465705] Future Scheduled 2022-12-01 [facility] Test 06:04:07 malignant neoplasm of colon (procedure) [code = 701555262] Future Scheduled 2022-12-01 SHINGLES VACCINES (1 [facility] Test 06:04:07 of 2) [code = SHINGLES VACCINES (1 of 2)] Future Scheduled 2022-12-01 COVID-19 VACCINE (4 - Me [facility] Test 06:04:07 Pfizer series) [code = COVID-19 VACCINE (4 - Pfizer series)] Future Scheduled 2022-12-01 INFLUENZA VACCINE Method [facility] Test 06:04:07 [code = INFLUENZA VACCINE] Future Scheduled 2022-06-02 Hepatitis C screening [facility] Test 08:50:50 (procedure) [code = 392972266] Future Scheduled 2022-06-02 Screening for [facility] Test 08:50:50 malignant neoplasm of cervix (procedure) [code = 574013916] Future Scheduled 2022-06-02 BREAST CANCER [facility] Test 08:50:50 SCREENING [code = BREAST CANCER SCREENING] Future Scheduled 2022-06-02 COLONOSCOPY SCREENING [facility] Test 08:50:50 [code = COLONOSCOPY SCREENING] Future Scheduled 2022-06-02 SHINGLES VACCINES (1 [facility] Test 08:50:50 of 2) [code = SHINGLES VACCINES (1 of 2)] Future Scheduled 2022-06-02 COVID-19 VACCINE (4 - [facility] Test 08:50:50 Booster for Pfizer series) [code = COVID-19 VACCINE (4 - Booster for Pfizer series)] Future Scheduled COVID-19 VACCINE (1) [facility] Test [code = COVID-19 VACCINE (1)] Future Scheduled [facility] Test malignant neoplasm of cervix (procedure) [code = 245753359] Future Scheduled BREAST CANCER [facility] Test SCREENING [code = BREAST CANCER SCREENING] Future Scheduled [facility] [code = COLONOSCOPY SCREENING] Future Scheduled SHINGLES VACCINES [facility] Test (#1) [code = SHINGLES VACCINES (#1)] Future Scheduled INFLUENZA VACCINE [facility] Test [code = INFLUENZA VACCINE] Encounters Start End Encounter Admission Attending Care Care Encounter Source Date/Time Date/Time Type Type Clinicians Facility Department ID 2021-09-10 Outpatient [facility] [id number] [place] 14:00:47 [id number] [facility] 2021-09-08 Outpatient [facility] [id number] 12:35:35 [id number] [facility] 2023-01-24 2023-01-24 Outpatient [facility] SFA [id number] Diogo 10:26:09 10:26:09 0815 F Alex 2023-01-06 2023-01-06 Emergency X Trang ARAUZ [facility] ERT [id number] Univers 10:36:00 15:52:00 ity of [facility] 2023-01-06 2023-01-06 Emergency Trang Arauz [facility] 1.2.840.114 [id number] Univers 10:36:00 15:52:00 Zohra LAURA 350.1.13.10 i ty of [place] 4.2.7.2.686 [facility] [id number] [facility] [address] 2023-01-06 2023-01-06 Orders Doctor MANOJ 1.2.840.114 [id number] Univers 00:00:00 00:00:00 Only Unassigned, MARIAH 350.1.13.10 ity of [facility] 4.2.7.2.686 [facility] [id number] [facility] [address] 2022-10-05 2022-10-05 Outpatient AMBREEN_FAR [facility] 109 2- [place] 00:00:00 00:00:00 CALLIE [id number] da [facility] 2022-03-01 2022-03-05 [facility] Alirio Narayanan 1.2.840 .1 [id number] Methodi 15:52:00 13:36:00 Encounter Beth Jackson 96470.1.1 327 [facility]430[facility]7 [facility] .3.081529 l .8 2022-03-01 2022-03-05 [facility] 1.2.840 .1 [id number] Methodi 15:52:00 13:36:00 Encounter Beth Jackson [id number] 327 [facility] Amod 3.430.2.7 Hospita Lien Posadas .3.913782 l .8 2022-03-01 2022-03-01 Travel 1.2.840.1 1.2.428.573 [id number] Methodi 00:00:00 00:00:[address] 3.430.2.7 0.2.7.3.698 Ho spita .3.875384 084.8 l .8 2022-03-01 2022-03-01 Travel 1.2.840.1 1.2.655.156 [id number] Methodi 00:00:00 00:00:[address] 3.430.2.7 0.2.7.3.698 Ho spita .3.137455 084.8 l .8 2022-02-14 2022-02-14 Emergency E KINZA, MHSE MHSE [id number] 10:50:00 15:07:00 JULIO sanchez Hospita 2022-02-03 2022-02-03 Emergency Kaylin Burns 1.2.840.1 [id number] Methodi 09:11:00 13:02:[address] 3.430.2.7 Hospit a .3.636008 l .8 2022-02-03 2022-02-03 Travel 1.2.840.1 1.2.766.565 [id number] Methodi 00:00:00 00:00:[address] 3.430.2.7 0.2.7.3.698 Ho spita .3.127578 084.8 l .8 2021-12-12 2021-12-12 Emergency EM Steph, [facility] [id number] [facility] 12:43:00 15:59:00 Ailyn 49 [facility] 2021-12-12 2021-12-12 Emergency [facility] [id number] [facility] 12:43:00 15:59:00 Ailyn [id number] [facility] 2021-12-05 2021-12-05 Emergency EM Barber, [facility] NCER [id number] [facility] 19:30:00 22:45:00 Isidoro 35 [facility] 2021-12-05 2021-12-05 Emergency EM Barber, [facility] [id number] [facility] 19:30:00 19:30:00 Isidoro [id number] [facility] 2021-06-02 2021-06-02 Emergency EM Gisselle, [facility] NCER [id number] [facility] 10:03:00 10:54:00 Mio 10 [facility] 2021-05-19 2021-05-19 Emergency EM Miguel Batista [facility] NCER [id number] [facility] 13:18:00 14:35:00 76 [facility] 2021-05-19 2021-05-19 Outpatient Miguel Batista [facility] LABO [id number] [facility] 14:01:00 14:01:00 05 [facility] 2021-03-30 2021-03-30 Outpatient Young_J MMG [facility] [id number] [place] 01:19:00 01:19:00 1019 [facility] 2021-03-24 2021-03-25 Inpatient EM Franki [facility] NCER [id number] [facility] 21:58:00 16:59:00 Mia 53 [facility] 2021-03-17 2021-03-17 Inpatient EM David, [facility] NCER [id number] [facility] 13:17:00 15:33:00 Jacob 67 [facility] 2021-03-17 2021-03-17 Outpatient David, [facility] LABO [id number] [facility] 14:06:00 14:06:00 Jacob 01 [facility] 2021-02-09 2021-02-09 Emergency EM Jamee, [facility] NCER [id number] [facility] 12:41:00 13:38:00 Vitaliy 31 [facility] 2021-02-06 2021-02-06 Emergency EM Gisselle, [facility] NCER [id number] [facility] 09:23:00 12:09:00 Mio 77 [facility] 2021-02-05 2021-02-05 Emergency EM Jamee, [facility] NCER [id number] [facility] 14:28:00 19:30:00 Vitaliy 37 [facility] 2020-12-03 2020-12-03 Emergency EM Marquis, [facility] [id number] [facility] 16:35:00 19:46:00 Cesilia 73 [facility] 2020-10-03 2020-10-03 Emergency [facility] [id number] 19:27:43 22:35:[address] 2020-10-03 2020-10-03 Emergency E JESSICA, MHCY MHCY [id number] MHCY 14:27:00 17:35:00 ANGELICA 2020-09-23 2020-09-23 Outpatient Young_J MMG MMG [id number] [place] 01:18:00 01:18:00 0414 [facility] 2020-09-17 2020-09-17 Outpatient Young_J MMG MMG [id number] [place] 01:02:00 01:02:00 0408 [facility] 2020-09-15 2020-09-15 Outpatient Young_J MMG MMG [id number] [place] 05:17:00 05:17:00 0406 [facility] 2020-08-23 2020-08-23 Outpatient Young_J MMG MMG [id number] [place] 01:05:00 01:05:00 0314 [facility] 2020-07-19 2020-07-19 Outpatient Young_J MMG MMG [id number] [place] 01:06:00 01:06:00 0207 [facility] 2020-07-17 2020-07-17 Outpatient Young_J MMG G [id number] [place] 11:32:00 11:32:00 0205 [facility] 2020-06-16 2020-06-16 Outpatient Obisesan_ad MEHOP MEHOP [id number] [place] 11:10:00 11:10:00 ekunbi 07277 [facility] 2020-04-15 2020-04-15 [facility] [id number] Memoria 00:41:10 08:18:00 jose manuel Corrigan 03 l [facility] 2020-04-14 2020-04-15 Emergency E AYAKA, MHSE MHSE [id number] MH 18:41:00 02:18:00 [facility] 2020-04-07 2020-04-07 Outpatient AMBREEN_FAR DEHOP DEHOP [phone] [place] 12:01:00 12:01:00 HANA 01649 [facility] 2020-03-03 2020-03-03 [facility] [id number] 24187 [facility] 14:30:08 18:52:00 jose manuel Corrigan 02 l [facility] 2020-03-03 2020-03-03 Emergency E CY, MHSE MHSE 7502 MH 09:30:00 13:52:[address] [facility] 2020-01-16 2020-01-16 Outpatient AMBREEN_FAR DEHOP [facility] [phone] [place] 10:06:00 10:06:00 HANA 74709 [facility] 2018-09-12 2018-09-12 [facility] 40950 03678 Memoria 02:54:00 08:32:00 jose manuel Corrigan 01 l [facility] 2018-08-29 2018-08-31 Inpatient [facility] 23509 06940 Mem[facility] 00:50:00 19:30:00 jose manuel Corrigan 00 l [facility] 2018-04-20 2018-04-20 Outpatient GAVIN yMles Malcom [id number] [facility] 13:00:00 13:00:00 [facility] 2018-04-07 2018-04-07 Outpatient Nixon GAVIN W [id number] [facility] 08:00:00 08:00:00 Jaimie mccollum 2018-03-20 2018-03-20 Outpatient Shameka GAVIN W [id number] [facility] 13:30:00 13:30:00 [place] Carolyne mccollum Results Test Description Test Time Test Comments Results Result Comments Source HEMOGLOBIN A1c 2023-01-25 11:46:21 Test Item Value Reference Range Interpretation Comme nts HEMOGLOBIN A1c (test code = >15.5 % 4.2-5.6 H [employer] 62475) GUIDELINES FOR HGB A1C: PREDIABETES/INC REASED RISK . . . . . . . 5.7-6.4% DIAG NOSIS OF DIABETES . . . . . . . . . >=6 .5% WITH CONFIRMATION OR APPROPRIATE SYM PTOMS NOTE: ASSAY MAY BE AFFECTED BY HEM OGLOBINOPATHIES (SICKLE CELL ANEMIA, S- C DISEASE, OTHERS) OR ARTIFICIALLY LO WERED BY DECREASED RED CELL SURVIVAL ( HEMOLYTIC ANEMIAS, BLOOD LOSS, ETC.). CO NSIDER ALTERNATE TESTING OR LABORATORY C ONSULTATION. COMPREHENSIVE METABOLIC [id number] 04:00:47 Test Item Value Reference Range Interpretation Comments GLUCOSE (test code = 320 MG/DL 70-99 H 2216) BUN (test code = 16 MG/DL 6-20 2207) CREATININE (test 0.41 MG/DL 0.60-1.30 L code = 2214) eGFR (2020 CKD-EPI) 118 >60 (test code = 72013) ML/MIN/1.73 CALC BUN/CREAT (test 39 RATIO 6-28 H code = 2235) SODIUM (test code = 136 MEQ/L 407-497 9008) POTASSIUM (test code 4.8 MEQ/L 3.5-5.4 = 2227) CHLORIDE (test code 98 MEQ/L 95-107 = 221) CARBON DIOXIDE (test 26 MEQ/L 19-31 code = 2206) CALCIUM (test code = 10.3 MG/DL 8.5-10.5 2208) PROTEIN, TOTAL (test 7.4 G/DL 6.1-8.3 code = 2229) ALBUMIN (test code = 4.7 G/DL 3.5-5.2 2200) CALC GLOBULIN (test 2.7 G/DL 1.9-3.7 code = 0) CALC A/G RATIO (test 1.7 RATIO 1.0-2.6 code = 2233) BILIRUBIN, TOTAL 0.3 MG/DL See_Comment [Automated message] (test code = 2206) The syste m which generated this result transmit roxana reference range : <=1.2. The refe rence range was not u sed to interpret th is result as normal/abnormal . ALKALINE PHOSPHATASE 84 U/L 40-132 (test code = 2203) AST (test code = 20 U/L 9-40 2217) ALT (test code = 29 U/L 5-40 2218) LIPID [id number] 04:00:47 Test Item Value Reference Range Interpretation Comments CHOLESTEROL (test 233 MG/DL <200 H code = 2210) TRIGLYCERIDES (test 172 MG/DL <150 H code = 2) HDL CHOLESTEROL (test 77 MG/DL >39 code = 2219) CALC LDL CHOL (test 127 MG/DL <100 H NOTE: C ALCULATED LDL code = 2237) IS BASED ON TERESA-FRANK METHOD WHICHINCLUDES ADJUSTABLE TRIGLYCERIDE:VL DL CHOLESTEROL RAT IO.THIS FACTOR VARIES B Y MEASURED TRIGLY CERIDE AND NON-HDLCHOL ESTEROL CONCENTRATIONS WITH INCREASED CALCU LATED LDL SEENIN HIGH ER TRIGLYCERIDE OR LOWER NON-HDL SPECIME NS. FOR MOREINFORMATION , SEE CLIENT ANNOUNCE MENT AT [email or web address] RISK RATIO LDL/HDL 1.65 RATIO <3.22 UNLESS O THERWISE (test code = 2237) INDICATED , ALL TESTING PERFORMED AT [facility] [place] [address] [place] [address] FRANK KIM DIRECTOR: Anuj ANNE NIKITA NUMBER [id number] CAP ACCREDITATION N O. [id number] ALBUMIN/CREATININE RATIO, URINE, [id number] 03:28:54 Test Item Value Reference Range Interpretation Comments CREATININE, URINE, 84.0 MG/DL NOT ESTAB CONC. (test code = 2072) ALBUMIN, URINE, 6.3 MG/DL NOT ESTAB RANDOM (test code = 23935) CALC ALBUMIN/CREAT, 75 MG/G <30 H Note: RND (test code = Albumin/Cre atinine 94437) ratio reference interval reflec ts ADA and NKF guideli kandy. POCT GLUCOSE (AUTOMATED)2023-01-06 19:58:15 Test Item Value Reference Range Interpretation Comments POCT GLU (test code = 4238308896) 265 mg/dL 70-110 H Lab Interpretation (test code = Abnormal 41805-2) [facility] GLUCOSE (AUTOMATED)2023-01-06 18:11:01 Test Item Value Reference Range Interpretation Comments POCT GLU (test code = 0553941322) 414 mg/dL 70-110 H Lab Interpretation (test code = Abnormal 35896-2) [facility] GLUCOSE(AGE >30DAYS)2023-01-06 18:03:00 Test Item Value Reference Range Interpretation Comments POCT Glu (age>30days) (test code = 414 mg/dL 70-110 A 3342) Lab Interpretation (test code = Abnormal 77099-1) [facility]. METABOLIC PANEL (88863)2023-01-06 16:57:13 Test Item Value Reference Range Interpretation Comments NA (test code = 131 mmol/L 135-145 L 4083536077) K (test code = 4.7 mmol/L 3.5-5.0 8920218547) CL (test code = 94 mmol/L 98-108 L 8843564519) CO2 TOTAL (test code = 26 mmol/L 23-31 3354344329) AGAP (test code = 11 2-16 1318402015) BUN (test code = 13 mg/dL 7-23 5051999757) GLUCOSE (test code = 425 mg/dL 70-110 H 3379403816) CREATININE (test code = 0.55 mg/dL 0.50-1.04 2912000941) TOTAL BILI (test code = 0.6 mg/dL 0.1-1.7 8032775672) CALCIUM (test code = 9.4 mg/dL 8.6-10.6 1680195421) T PROTEIN (test code = 7.7 g/dL 6.3-8.2 8479119169) ALBUMIN (test code = 4.1 g/dL 3.5-5.0 9775053087) ALK PHOS (test code = 129 U/L 34-122 H 2859836509) ALTv (test code = 22 U/L 5-35 1742-6) AST(SGOT) (test code = 21 U/L 13-40 6155178926) eGFR (test code = 116.1 mL/min/1.73m2 5188664153) ELFEGO (test code = ELFEGO) Association of Glomerular Filtration Rate (GFR) and Staging of Kidney Disease* + --+ --+ ------+| GFR (mL/min/1.73 m2) ?| With Kidney Damage ?| ?Without Kidney Damage+ --------+ --------+ +| ?>90 ?| ?Stage one ?| ? Normal ?+ ---+ ---+ -------+| ?60-89 ?| ?Stage two ?| ? Decreased GFR ? + --+ --+ ------+| ?30-59 ?| ?Stage three ?| ? Stage three ? + --+ --+ ------+| ?15-29 ?| ?Stage four ? | ? Stage four ?+ ---+ ---+ -------+| ?<15 (or dialysis) ? ?| ?Stage five ? | ? Stage five ?+ ---+ ---+ -------+ *Each stage assumes the associated GFR level has been in effect for at least three months. ?Stages 1 to 5, with or without kidney disease, indicate chronic kidney disease. Notes: Determination of stages one and two (with eGFR >59mL/min/1.73 m2) requires estimation of kidney damage for at least three months as defined by structural or functional abnormalities of the kidney, manifested by either:Pathological abnormalities or Markers of kidney damage (including abnormalities in the composition of the blood or urine or abnormalities in imaging tests). Lab Interpretation Abnormal (test code = 56610-1) [facility] WITH [id number] 16:42:51 Test Item Value Reference Range Interpretation Comments WBC (test code = 7.00 See_Comment [Automated 5262-2) message] The sy stem which generated this result transmitted reference range : 4.30 - 11.10 10*3/?L. The reference range was not used to interpret this result as normal/abnormal . RBC (test code = 4.49 See_Comment [Automated 789-8) message] The sy stem which generated this result transmitted reference range : 3.93 - 5.25 10*6/?L. The reference range was not used to interpret this result as normal/abnormal . HGB (test code = 13.4 g/dL 11.6-15.0 718-7) HCT (test code = 39.2 % 35.7-45.2 4544-3) MCV (test code = 87.3 fL 80.6-95.5 787-2) MCH (test code = 29.8 pg 25.9-32.8 785-6) MCHC (test code = 34.2 g/dL 31.6-35.1 786-4) RDW-SD (test code = 36.9 fL 39.0-49.9 L 05735-8) RDW-CV (test code = 11.6 % 12.0-15.5 L 788-0) PLT (test code = 334 See_Comment [Automated 777-3) message] The sy stem which generated this result transmitted reference range : 166 - 358 10*3/ ?L. The reference r maurice was not used to interpret this result as normal/abnormal . MPV (test code = 9.9 fL 9.5-12.9 58994-0) NRBC/100 WBC (test 0.0 See_Comment [Automat ed code = 9401616257) message] The system which generated this result transmitted reference range : 0.0 - 10.0 /100 WBCs. The refer ence range was not u sed to interpret th is result as normal/abnormal . NRBC x10^3 (test code See_Comment [Auto mated = 4643036250) message] The s ystem which generated this result transmitted reference range : 10*3/?L. The reference range was not used to interpret this result as normal/abnormal . GRAN MAT (NEUT) % 63.2 % (test code = 770-8) IMM GRAN % (test code 0.40 % = 0298399408) LYMPH % (test code = 26.1 % 736-9) MONO % (test code = 9.6 % 5905-5) EOS % (test code = 0.3 % 713-8) BASO % (test code = 0.4 % 706-2) GRAN MAT x10^3(ANC) 4.42 10*3/uL 1.88-7.09 (test code = 8692336924) IMM GRAN x10^3 (test 0.03 10*3/uL 0.00-0.06 code = 0767307916) LYMPH x10^3 (test code 1.83 10*3/uL 1.32-3.29 = 731-0) MONO x10^3 (test code 0.67 10*3/uL 0.33-0.92 = 742-7) EOS x10^3 (test code = 0.03-0.39 L 711-2) BASO x10^3 (test code 0.03 10*3/uL 0.01-0.07 = 704-7) Lab Interpretation Abnormal (test code = 15057-0) [facility] GLUCOSE (AUTOMATED)2023-01-06 16:21:37 Test Item Value Reference Range Interpretation Comments POCT GLU (test code = 8195452755) 418 mg/dL 70-110 H Lab Interpretation (test code = Abnormal 54836-8) [facility] GLUCOSE(AGE >30DAYS)2023-01-06 16:19:00 Test Item Value Reference Range Interpretation Comments POCT Glu (age>30days) (test code = 418 mg/dL 70-110 A 3342) Lab Interpretation (test code = Abnormal 91228-9) [facility] GLUCOSE (AUTOMATED)2023-01-06 15:33:21 Test Item Value Reference Range Interpretation Comments POCT GLU (test code = 443 mg/dL 70-110 H Notifi ed Provider [id number]) Lab Interpretation (test Abnormal code = 27454-8) [facility] [id number] 17:15:00 Test Item Value Reference Range Interpretation Comments POC glucose (test code 242 mg/dL 65-100 H Opera tor Name: = 51831-5) [employer] Pul[employer] Device ID: [id number] Lab Interpretation Abnormal (test code = 56450-5) [facility] [id number] 17:15:00 Test Item Value Reference Range Interpretation Comments POC glucose (test code 242 mg/dL 65-100 H Opera tor Name: = 75235-7) [employer] Device ID: [id number] Lab Interpretation Abnormal (test code = 57022-0) [facility] [id number] 17:15:00 Test Item Value Reference Range Interpretation Comments POC glucose (test code 242 mg/dL 65-100 H Opera tor Name: = 01439-7) [employer]orse Device ID: [id number] Lab Interpretation Abnormal (test code = 00774-6) [facility] [id number] 17:15:00 Test Item Value Reference Range Interpretation Comments POC glucose (test code 242 mg/dL 65-100 H Opera tor Name: = 84003-5) [employer] Device ID: [id number] Lab Interpretation Abnormal (test code = 60529-5) [facility] [Presence] in Respiratory specimen by WHITNEY with probe [id number] 01:42:51 Test Item Value Reference Range Interpretation Comments SARS-CoV-2 (COVID-19) RNA Not detected [Presence] in Respiratory specimen by WHITNEY with probe detection (test code = 36974-0) Whether patient is employed in a Unknown healthcare setting (test code = 02438-9) Whether the patient has symptoms Unknown related to condition of interest (test code = 29001-5) Whether the patient was Unknown hospitalized for condition of interest (test code = 24420-6) Whether the patient was admitted Unknown to intensive care unit (ICU) for condition of interest (test code = 81696-2) Whether patient resides in a Unknown congregate care setting (test code = 39523-3) status (test code = Unknown 88967-3) Date and time of symptom onset Unknown (test code = 61474-6) [facility] [place] ABD PELVIS [id number] 15:13:00 [facility])Name: DAVID BRANDT : 1970 Sex: F Name: DAVID BRANDT FSED : 1970 Age/S: 51 / F [address] [facility]: [id number] Loc: [address] Phys: Ailyn Choi MD [place], [place] [address] Acct: [id number] Dis Date: Status: REG ER PHONE #: Exam Date: 12/12/2021 4503 FAX #: Reason: ABD PAIN N/V EXAMS: CPT CODE: [id number] CT ABD PELVIS W/CONT 89905 REASON FOR EXAM: ABD PAIN N/V EXAM [...] 1 Signed Report (CONTINUED) Name: DAVID BRANDT FSEDDOB: 1970 Age/S: 51 / F [address] Unit #: [id number] Loc: [address] Phys: Ailyn Choi MD [place], [place] [address] Acct: [id number] Dis Date: Status: REG ER PHONE #: Exam Date: 12/12/2021 4265 FAX #: Reason: ABD PAIN N/V EXAMS: CPT CODE: [id number] CT ABD PELVIS W/CONT 94832 <Continued> IMPRESSION: Punctate nonobstructing stone in the midpole of the left kidney. Wheeler's hernia involving the umbilicus. Location: [facility] at 1513 Reported and signed by: Edson Desai MD CC: Ailyn Choi MD Technologist:Noelle Baird RT(R)(CT) CTDI: DLP: Trnscb Date/Time: 12/12/2021 (151) t.SDR.RR31 Orig Print D/T: S: 12/12/2021 (3502) PAGE 2 Signed ReportCOVID 19 INHOUSE [id number] 14:15:00 Test Item Value Reference Range Interpretation Comments COVID 19 INHOUSE AG (test code = NEGATIVE NEGATIVE [id number]) BASIC METABOLIC [id number] 14:06:00 Test Item Value Reference Range Interpretation [...] >3 months. [Automated mess age] The system [employer] generated this result transmitted ref erence range: >=60. Th e reference range was not used to int erpret this result as normal/abnormal . CREATININE (test code 0.78 mg/dL 0.55-1.3 N = CREAT) BUN/CREATININE RATIO 16.7 10-20 N (test code = BUN/CREA) CALCIUM (test code = 9.2 mg/dL 8.0-10.5 N CA) HEPATIC FUNCTION [id number] 14:06:00 Test Item Value Reference Range Interpretation [...] 88 U/L 50-139 N code = ALKP) [id number] 14:06:00 Test Item Value Reference Range Interpretation Comments LIPASE (test code = LIP) 157 Unit/L 144-286 N CBC W/O [id number] 13:51:00 Test Item Value Reference Range Interpretation [...] 9.7 fL 6.7-11.0 N = MPV) URINALYSIS [id number] 13:45:00 Test Item Value Reference Range Interpretation [...] culture: RiskForSepsis-no oth src- CT ABD PELVIS [id number] 21:39:00[facility]Name: DAVID BRANDT : 1970 Sex: F Name: DAVID BRANDT [facility] FSED : 1970 Age/S: 51 / F [address] [facility] [place] [facility] Unit #: [id number] Loc: [address] Phys: Isidoro Blandon MD [place], [place] [address] Acct: [id number] Dis Date: Status: REG ER PHONE #: Exam Date: 12/05/2021 2008 FAX #: Reason: epigastric abd pain EXAMS: CPT CODE: [id number] CT ABD PELVIS W/CONT 20063 AFTER HOURS SERVICE ON: 12/05/2021 9:34 PM [...] KIDNEYS: No hydronephrosis. BLADDER: No significant findings. GASTROINTESTINAL: There is a 2.8 cm fat-containing ventral [...] 1 Signed Report (CONTINUED) Name: DAVID BRANDT [facility] FSED : 1970 Age/S: 51 / F [address] [facility] [address] Unit #: [id number] Loc: [address] Phys: Isidoro Blandon MD [place], [place] [address] Acct: [id number] Dis Date: Status: REG ER PHONE #: Exam Date: 12/05/20212114 FAX #: Reason: epigastric abd pain EXAMS: CPT CODE: [id number] CT ABD PELVIS W/CONT 78730 <Continued> Cholecystectomy. [id number] Reported and signed by: Arron Licona M.D. CC: Isidoro Blandon MD Technologist:KAYLIN JUSTICE RT(R)(CT) CTDI: DLP: Trnscb Date/Time: 12/05/2021 (2138) [...] >3 months. [Automated mess age] The system [employer] generated this result transmitted ref erence range: >=60. Th e reference range was not used to int erpret this result as normal/abnormal . CREATININE (test 0.87 mg/dL 0.55-1.3 N code = CREAT) BUN/CREATININE RATIO 13.8 10-20 N (test code = BUN/CREA) CALCIUM (test code = 9.0 mg/dL 8.0-10.5 N CA) HEPATIC FUNCTION [id number] 20:20:00 Test Item Value Reference Range Interpretation [...] 89 U/L 50-139 N code = ALKP) [id number] 20:20:00 Test Item Value Reference Range Interpretation Comments LIPASE (test code = LIP) 194 Unit/L 144-286 N HCG SERUM [id number] 20:20:00 Test Item Value Reference Range Interpretation Comments HCG SERUM QUAL (test NEGATIVE NEGATIVE This HC GQL test is NOT code = HCGQL) applicable for MALE patients.Check with nurse about probable order error.If Tumor Marker Test needed, nu rse should order test "HCG TU"(Test #550.09756)---- - [id number] 20:20:00 Test Item Value Reference Range Interpretation Comments TROPONIN-HS (test 4.5 pg/mL 0-60 N CAUTION: U nits of the code = TROPI) current test m ethodology (pg/mL)differ f rom the prior test meth odology (ng/mL) by a fa ctorof 1000. CBC W/O [id number] 19:59:00 Test Item Value Reference Range Interpretation [...] fL 6.7-11.0 N = MPV) BASIC METABOLIC [id number] 14:39:00 Test Item Value Reference Range Interpretation [...] >3 months. [Automated mess age] The system [employer] generated this result transmitted ref erence range: >=60. Th e reference range was not used to int erpret this result as normal/abnormal . CREATININE (test 0.74 mg/dL 0.55-1.3 N code = CREAT) BUN/CREATININE RATIO 20.3 10-20 H (test code = BUN/CREA) CALCIUM (test code = 8.0 mg/dL 8.0-10.5 N CA) HEPATIC FUNCTION [id number] 14:39:00 Test Item Value Reference Range Interpretation [...] U/L 50-139 N code = ALKP) URINALYSIS [id number] 14:00:00 Test Item Value Reference Range Interpretation [...] BACU) Urine Source? Clean CatchCOVID 19 INHOUSE [id number] 13:53:00 Test Item Value Reference Range Interpretation Comments COVID 19 INHOUSE AG (test code = NEGATIVE NEGATIVE [id number]) - XR CHEST 1 [id number] 13:53:00 [facility])Name: DAVID BRANDT : 1970 Sex: F FAX: Rosa Terrazas NP [place]: [address]: PRE Name: DAVID BRANDT [facility] FSED : 1970 Age/S: 51/F [address] Unit #: [id number] [facility] [address] Phys: Rosa Terrazas NP [place], [place] [address] Acct: [id number] Dis Date: Status: PRE ER PHONE #: Exam Date: 05/19/2021 8818 FAX #: Reason: Abdominal Pain EXAMS: CPT CODE: [id number] XR CHEST 1 V 00558 REASON FOR EXAM: Abdominal Pain Exam Order Date: 05/19/2021 1:26 PM Ordering M.DShay: Rosa Terrazas NP PROCEDURE: - XR CHEST 1 V COMPARISON: Chest x-ray June 2007 FINDINGS: The lungs are clear. There is no pleural effusion or pneumothorax. Pulmonary vascularity is within normal limits. Cardiomediastinal s ilhouette is normal in size for technique. The mediastinal contours are within normal limits. Musculoskeletal structures are within normal limits. The visualized upper abdomen is within normal limits.IMPRESSION: No acute cardiopulmonary process. Location: [facility] at 1353 Reported and signed by: Edson Desai MD CC: Rosa Terrazas NP Technologist: Herbert Sethi Trnscrd Date/Time/By: 05/19/2021 (5148) : By: [email or web address] [facility] Print D/T: S: 05/19/2021 (2332) PAGE 1 Signed ReportCBC W/O [id number] 13:48:00 Test Item Value Reference Range Interpretation [...] code 9.5 fL 6.7-11.0 N = MPV) [id number] 11:22:00 Test Item Value Reference Range Interpretation Comments GLUBED (test code = 184 mg/dL 74-106 H Performe d by certified GLUBED) bull chain operator at [facility] [id number] 08:38:00 Test Item Value Reference Range Interpretation Comments GLUBED (test code = 179 mg/dL 74-106 H Performe d by certified GLUBED) bull chain operator at [facility] BASIC METABOLIC [id number] 06:27:00 Test Item Value Reference Range Interpretation [...] >3 months. [Automated mess age] The system [employer] generated this result transmitted ref erence range: >=60. Th e reference range was not used to int erpret this result as normal/abnormal . CREATININE (test 0.60 mg/dL 0.55-1.3 N code = CREAT) BUN/CREATININE RATIO 18.3 10-20 N (test code = BUN/CREA) CALCIUM (test code = 7.2 mg/dL 8.0-10.5 L CA) CBC W/AUTO [id number] 06:16:00 Test Item Value Reference Range Interpretation [...] DIFF REQUIRED (test code NO = MDIFF) [id number] 04:52:00 Test Item Value Reference Range Interpretation Comments GLUBED (test code = 312 mg/dL 74-106 H Performe d by certified GLUBED) bull chain operator at [facility] BASIC METABOLIC [id number] 00:38:00 Test Item Value Reference Range Interpretation [...] ed MDRD (test code = GFR) formula. ron kidney disease is defined as eith er kidney damageor GFR <60 mL/min/1.73 m2 for >3 months. [Automated mess age] The system [employer] generated this result transmitted ref erence range: >=60. Th e reference range was not used to int erpret this result as normal/abnormal . CREATININE (test 0.86 mg/dL 0.55-1.3 N code = CREAT) BUN/CREATININE RATIO 11.6 10-20 N (test code = BUN/CREA) CALCIUM (test code = 7.4 mg/dL 8.0-10.5 L CA) [id number] 00:30:00 Test Item Value Reference Range Interpretation Comments GLUBED (test code = 434 mg/dL 74-106 H Performe d by certified GLUBED) bull chain operator at [facility] COVID 19 INHOUSE [id number] 00:22:00 Test Item Value Reference Range Interpretation Comments COVID 19 INHOUSE AG (test code = NEGATIVE NEGATIVE [id number]) [id number] 23:50:00 Test Item Value Reference Range Interpretation Comments GLYCOSYLATED HEMOGLOBIN (HA1C) 13.8 % 4.5-6.2 H (test code = GLYHGB) ESTIMATED AVERAGE GLUCOSE (test 349 MG/DL code = EAG) URINALYSIS [id number] 23:14:00 Test Item Value Reference Range Interpretation [...] NONE BACU) Urine Source? Clean CatchBASIC METABOLIC [id number] 23:07:00 Test Item Value Reference Range Interpretation [...] mg/dL 70-110 HH Results called to GLU) [id number] by МАРИЯ JAIN 03/24/21 2256Cr itical results verifie d and read back by Azucena rse? Y BLOOD UREA NITROGEN 12 mg/dL 7-22 N (test code = BUN) GLOMERULAR FILTRATION 44 mL/min See_Comment Estima roxana GFR by RATE (test code = using Sarah fied MDRD GFR) formula.Chronic kidney disease is defined as eith er kidney damageor GFR <60 mL/min/1.73 m2 for >3 months. [Automated mess age] The system [employer] generated this result transmitted ref erence range: >=60. Th e reference range was not used to int erpret this result as normal/abnormal . CREATININE (test code 1.28 mg/dL 0.55-1.3 N = CREAT) BUN/CREATININE RATIO 9.4 10-20 L (test code = BUN/CREA) CALCIUM (test code = 8.1 mg/dL 8.0-10.5 N CA) HEPATIC FUNCTION [id number] 23:07:00 Test Item Value Reference Range Interpretation [...] 91 U/L 50-139 N code = ALKP) [id number] 23:07:00 Test Item Value Reference Range Interpretation Comments LIPASE (test code = LIP) 293 Unit/L 144-286 H HCG SERUM [id number] 23:07:00 Test Item Value Reference Range Interpretation Comments HCG SERUM QUAL (test NEGATIVE NEGATIVE This HC GQL test is NOT code = HCGQL) applicable for MALE patients.Check with nurse about probable order error.If Tumor Marker Test needed, nu rse should order test "HCG TU"(Test #550.45697)---- - [id number] 23:07:00 Test Item Value Reference Range Interpretation Comments TROPONIN-HS (test 5.4 pg/mL 0-60 N CAUTION: U nits of the code = TROPI) current test m ethodology (pg/mL)differ f rom the prior test meth odology (ng/mL) by a fa ctorof 1000. CBC W/O [id number] 22:42:00 Test Item Value Reference Range Interpretation [...] 9.6 fL 6.7-11.0 N = MPV) URINALYSIS [id number] 14:04:00 Test Item Value Reference Range Interpretation [...] HPF NONE A BACU) COVID 19 INHOUSE [id number] 11:22:00 Test Item Value Reference Range Interpretation Comments COVID 19 INHOUSE AG (test code = NEGATIVE NEGATIVE [id number]) BASIC METABOLIC [id number] 11:20:00 Test Item Value Reference Range Interpretation [...] >3 months. [Automated mess age] The system [employer] generated this result transmitted ref erence range: >=60. Th e reference range was not used to int erpret this result as normal/abnormal . CREATININE (test 0.65 mg/dL 0.55-1.3 N code = CREAT) BUN/CREATININE RATIO 18.5 10-20 N (test code = BUN/CREA) CALCIUM (test code = 8.3 mg/dL 8.0-10.5 N CA) HEPATIC FUNCTION [id number] 11:20:00 Test Item Value Reference Range Interpretation [...] 83 U/L 50-139 N code = ALKP) [id number] 11:20:00 Test Item Value Reference Range Interpretation Comments LIPASE (test code = LIP) 150 Unit/L 144-286 N HCG SERUM [id number] 11:20:00 Test Item Value Reference Range Interpretation Comments HCG SERUM QUAL (test NEGATIVE NEGATIVE This HC GQL test is NOT code = HCGQL) applicable for MALE patients.Check with nurse about probable order error.If Tumor Marker Test needed, nu rse should order test "HCG TU"(Test #550.54143)---- - URINALYSIS [id number] 11:13:00 Test Item Value Reference Range Interpretation [...] NONE BACU) Urine Source? Clean CatchBASIC METABOLIC [id number] 11:06:00 Test Item Value Reference Range Interpretation [...] RATE (test code = GFR) The s [employer] which generated this result transmitted ref erence range: >=60. Th e reference range was not used to interpr et this result as normal/abnormal . CREATININE (test code = mg/dL 0.55-1.02 CREAT) BUN/CREATININE RATIO 10-20 (test code = BUN/CREA) CALCIUM (test code = mg/dL 8.5-10.1 CA) HEPATIC FUNCTION [id number] 11:06:00 Test Item Value Reference Range Interpretation [...] TOTAL (test IUnit/L 45-117 code = ALKP) [id number] 11:06:00 Test Item Value Reference Range Interpretation Comments LIPASE (test code = LIP) Unit/L 144-286 HCG SERUM [id number] 11:06:00 Test Item Value Reference Range Interpretation Comments HCG SERUM QUAL (test NEGATIVE NEGATIVE This HC GQL test is NOT code = HCGQL) applicable for MALE patients.Check with nurse about probable order error.If Tumor Marker Test needed, nu rse should order test "HCG TU"(Test #550.12590)---- - URINALYSIS [id number] 11:05:00 Test Item Value Reference Range Interpretation [...] NONE BACU) Urine Source? Clean CatchCBC W/O [id number] 10:54:00 Test Item Value Reference Range Interpretation [...] code 9.5 fL 6.7-11.0 N = MPV) [id number] 18:50:00 Test Item Value Reference Range Interpretation Comments GLUBED (test code = 298 mg/dL 74-106 H Performe d by certified GLUBED) bull chain operator at [facility] [id number] 17:39:00 Test Item Value Reference Range Interpretation Comments GLUBED (test code = 388 mg/dL 74-106 H Performe d by certified GLUBED) bull chain operator at [facility] - XR HAND 3 + V [id number] 17:31:00 [facility] : 1970 Sex: F FAX: Cesilia Marquis MD [phone] [place]: DC St: PRE Name: DAVID BRANDT [facility] FSED : 1970 Age/S: 50/F [address] [facility] [address] Unit #: [id number] Loc: [facility] Phys: Cesilia Marquis MD [place], [place] [address] Acct: [id number] Dis Date: Status: PRE ER PHONE #: Exam Date: 12/03/2020 1708 FAX #: Reason: attn middle finger, paronychia EXAMS: CPT CODE: [id number] XR HAND 3 + V RT [id number] REASON FOR EXAM: attn middle finger, paronychia EXAM ORDER DATE: 12/03/2020 5:13 PM Ordering: Cesilia Marquis MD Attending:Cesilia Marquis MD Location:[facility] PROCEDURE: - XR HAND 3 + V RT FINDINGS: 3 views of the right hand were obtained. The osseous structures are unremarkable in sizeand shape. The joint spaces are maintained. No evidence of fracture. The phalanges are intact. The carpal and metacarpal bones are unremarkable. There is normal alignment of the radiocarpal joint spaceIMPRESSION: No acute osseous lesions. at 1731 Reported and signed by: Farhan Pickard M.D. CC: Cesilia Marquis MD Technologist: Herbert Sethi Trnscrd Date/Time/By: 12/03/2020 (173) : By: [email or web address] Orig Print D/T: S: 12/03/2020 (4906) PAGE 1 [facility]2021-04-24 20:04:00 Test Item Value Reference Range Interpretation Comments Glucose Lvl (test code = Glucose Lvl) 595 70-99 [facility]2021-04-24 20:04:00 Test Item Value Reference Range Interpretation Comments BUN (test code = BUN) 6 7-22 [facility]2021-04-24 20:04:00 Test Item Value Reference Range Interpretation Comments Creatinine Lvl (test code = Creatinine 0.90 0.50-1.40 Lvl) [facility]2021-04-24 20:04:00 Test Item Value Reference Range Interpretation Comments Sodium Lvl (test code = Sodium Lvl) 133 135-145 [facility]2021-04-24 20:04:00 Test Item Value Reference Range Interpretation Comments Potassium Lvl (test code = Potassium 3.9 3.5-5.1 Lvl) [facility]2021-04-24 20:04:00 Test Item Value Reference Range Interpretation Comments Chloride Lvl (test code = Chloride Lvl) 98 95-109 [facility]2021-04-24 20:04:00 Test Item Value Reference Range Interpretation Comments CO2 (test code = CO2) 27 24-32 [facility]2021-04-24 20:04:00 Test Item Value Reference Range Interpretation Comments AGAP (test code = AGAP) 11.9 10.0-20.0 [facility]2021-04-24 20:04:00 Test Item Value Reference Range Interpretation Comments Calcium Lvl (test code = Calcium Lvl) 8.8 8.5-10.5 [facility]2021-04-24 20:04:00 Test Item Value Reference Range Interpretation Comments B/C Ratio (test code = B/C Ratio) 7 1 6-25 [place] 454941-04-24 20:04:00 Test Item Value Reference Range Interpretation Comments Total Protein (test code = Total 7.1 6.4-8.4 Protein) [facility]2021-04-24 20:04:00 Test Item Value Reference Range Interpretation Comments Albumin Lvl (test code = Albumin Lvl) 2.6 3.5-5.0 [place] 454941-04-24 20:04:00 Test Item Value Reference Range Interpretation Comments Globulin (test code = Globulin) 4.5 2.7-4.2 [place] 454941-04-24 20:04:00 Test Item Value Reference Range Interpretation Comments A/G Ratio (test code = A/G Ratio) 0.6 1 0.7-1.6 [facility]2021-04-24 20:04:00 Test Item Value Reference Range Interpretation Comments ALANINE AMINOTRANSFERASE 9 See_Comment [A utomated message] (test code = ALANINE The sys tem which AMINOTRANSFERASE) generated this result transmitted ref erence range: <=65. Th e reference range was not used to int erpret this result as normal/abnormal . [facility]2021-04-24 20:04:00 Test Item Value Reference Range Interpretation Comments ASPARTATE TRANSAMINASE 8 See_Comment [Aut omated message] (test code = ASPARTATE The s ystem which TRANSAMINASE) generated this result transmitted ref erence range: <=37. Th e reference range was not used to interpr et this result as normal/abnormal . [facility]2021-04-24 20:04:00 Test Item Value Reference Range Interpretation Comments Alk Phos (test code = Alk Phos) 105 39-136 [facility]2021-04-24 20:04:00 Test Item Value Reference Range Interpretation Comments Bili Total (test code = Bili Total) 0.4 0.2-1.3 [facility]2021-04-24 20:04:00 Test Item Value Reference Range Interpretation Comments eGFR (test code = eGFR) 75 [facility]2021-04-24 20:04:00 Test Item Value Reference Range Interpretation Comments Ketone Quantitative (test code = Ketone 0.10 Quantitative) [facility]bigecCLYQXSPPCQ9871-27-[facility] 20:04:00 Test Item Value Reference Range Interpretation Comments WBC X 10x3 (test code = WBC X 10x3) 6.9 3.7-10.4 [facility] Ho[id number] 20:04:00 Test Item Value Reference Range Interpretation Comments RBC X 10x6 (test code = RBC X 10x6) 3.97 4.20-5.40 [facility] HospitalKktbprbBKRNEYWHRF0284-40-83 20:04:00 Test Item Value Reference Range Interpretation Comments Hgb (test code = Hgb) 11.5 12.0-16.0 [facility] HospitalGsqyrtbEOXBXWBVVD1109-35-23 20:04:00 Test Item Value Reference Range Interpretation Comments Hct (test code = Hct) 34.7 36.0-48.0 [facility] HospitalGebrpsmNOYPPIKOAF9713-28-22 20:04:00 Test Item Value Reference Range Interpretation Comments MCV (test code = MCV) 87.6 80.0-98.0 [facility] HospitalDblteqiXTSZTKYWTZ1707-27-04 20:04:00 Test Item Value Reference Range Interpretation Comments MCH (test code = MCH) 28.9 pg 27.0-31.0 [facility] HospitalEjxliqlHLUNIBFRFY8649-99-13 20:04:00 Test Item Value Reference Range Interpretation Comments MCHC (test code = MCHC) 33.0 32.0-36.0 [facility] Hos[id number] 20:04:00 Test Item Value Reference Range Interpretation Comments RDW (test code = RDW) 12.4 11.5-14.5 [facility] HospitalJczkywmLHAZUPAVMZ4558-34-79 20:04:00 Test Item Value Reference Range Interpretation Comments Platelet (test code = Platelet) 406 133-450 [facility] HospitalJtjvovmLCEERIYGVC7088-88-82 20:04:00 Test Item Value Reference Range Interpretation Comments MPV (test code = MPV) 8.2 7.4-10.4 [facility] HospitalAjhqrcxVKVFUMZZAO0024-31-45 20:04:00 Test Item Value Reference Range Interpretation Comments Segs (test code = Segs) 71.5 45.0-75.0 [facility] HospitalRimgdkiOLVOZMQMBC0402-45-01 20:04:00 Test Item Value Reference Range Interpretation Comments Lymphocytes (test code = Lymphocytes) 21.1 20.0-40.0 [facility] HospitalNdnupkfIARKWPOGDW5412-13-02 20:04:00 Test Item Value Reference Range Interpretation Comments Monocytes (test code = Monocytes) 6.4 2.0-12.0 [facility] HospitalKhendxhXDRXNKNYOV1275-93-42 20:04:00 Test Item Value Reference Range Interpretation Comments Eosinophils (test code = 0.7 See_Comment [A utomated message] The Eosinophils) system which ge nerated this result tra nsmitted reference range : <=4.0. The reference r maurice was not used to int erpret this result as normal/abnormal . [facility] HospitalVglxntsFLIGODYPMF3348-53-49 20:04:00 Test Item Value Reference Range Interpretation Comments Basophils (test code = 0.3 See_Comment [Aut omated message] The Basophils) system which ge nerated this result tra nsmitted reference range : <=1.0. The reference r maurice was not used to int erpret this result as normal/abnormal . [facility] HospitalQxzpfgtSGQTOHBAEY3347-21-44 20:04:00 Test Item Value Reference Range Interpretation Comments Neutrophils # (test code = Neutrophils 4.9 1.5-8.1 #) [facility] HospitalFocojslLCXQXPBSDS7024-04-65 20:04:00 Test Item Value Reference Range Interpretation Comments Lymphocytes # (test code = Lymphocytes 1.4 1.0-5.5 #) [facility] HospitalZhhbhcgIAMRNEEQRI1331-73-26 20:04:00 Test Item Value Reference Range Interpretation Comments Monocytes # (test code 0.4 See_Comment [Aut omated message] The = Monocytes #) system which generated this result tra nsmitted reference range : <=0.8. The reference r maurice was not used to int erpret this result as normal/abnormal . [facility] AND [id number] 20:04:00 Test Item Value Reference Range Interpretation Comments UA Color (test code = Yellow *NA*(10/03/20 UA Color) 3:04 PM) [facility] AND [id number] 20:04:00 Test Item Value Reference Range Interpretation Comments UA Turbidity (test code = Clear (10/03/20 3:04 UA Turbidity) PM) [facility] AND [id number] 20:04:00 Test Item Value Reference Range Interpretation Comments UA Spec Grav (test code *NA*(10/03/20 3:04 PM) = UA Spec Grav) [facility] AND [id number] 20:04:00 Test Item Value Reference Range Interpretation Comments UA pH (test code = UA pH) 6.0 1 5.0-8.0 [facility] [id number] 20:04:00 Test Item Value Reference Range Interpretation Comments UA Protein (test code Negative (10/03/20 3:04 = UA Protein) PM) [facility] [id number] 20:04:00 Test Item Value Reference Range Interpretation Comments UA Glucose (test code = UA >=1000 mg/dL Glucose) [facility] [id number] 20:04:00 Test Item Value Reference Range Interpretation Comments UA Ketones (test code Negative *NA*(10/03/20 = UA Ketones) 3:04 PM) [facility] [id number] 20:04:00 Test Item Value Reference Range Interpretation Comments UA Bili (test code = Negative *NA*(10/03/20 UA Bili) 3:04 PM) [facility] [id number] 20:04:00 Test Item Value Reference Range Interpretation Comments UA Blood (test code = Trace *ABN*(10/03/20 UA Blood) 3:04 PM) [facility] AND [id number] 20:04:00 Test Item Value Reference Range Interpretation Comments UA Urobilinogen (test code = UA 0.2 0.1-1.0 Urobilinogen) [facility] [id number] 20:04:00 Test Item Value Reference Range Interpretation Comments UA Nitrite (test code Negative (10/03/20 3:04 = UA Nitrite) PM) [facility] [id number] 20:04:00 Test Item Value Reference Range Interpretation Comments UA Leuk Est (test code Trace *ABN*(10/03/20 = UA Leuk Est) 3:04 PM) [facility] [id number] 20:04:00 Test Item Value Reference Range Interpretation Comments Micro? (test code = Performed (10/03/20 3:04 Micro?) PM) [facility] [id number] 20:04:00 Test Item Value Reference Range Interpretation Comments UA Sq Epi (test code = UA Sq Epi) Few /LPF [facility] AND [id number] 20:04:00 Test Item Value Reference Range Interpretation Comments UA WBC (test code = UA WBC) 6-10 /HPF [facility] AND [id number] 20:04:00 Test Item Value Reference Range Interpretation Comments UA RBC (test code = UA RBC) 3-5 /HPF [facility] AND [id number] 20:04:00 Test Item Value Reference Range Interpretation Comments UA Bacteria (test code = UA Few /HPF Bacteria) [facility]2020-11-04 05:21:00 Test Item Value Reference Range Interpretation Comments Glucose Lvl (test code = Glucose Lvl) 483 70-99 [facility]2020-11-04 05:21:00 Test Item Value Reference Range Interpretation Comments BUN (test code = BUN) 13 7-22 [facility]2020-11-04 05:21:00 Test Item Value Reference Range Interpretation Comments Creatinine Lvl (test code = Creatinine 0.90 0.50-1.40 Lvl) [facility]2020-11-04 05:21:00 Test Item Value Reference Range Interpretation Comments Sodium Lvl (test code = Sodium Lvl) 135 135-145 [facility]2020-11-04 05:21:00 Test Item Value Reference Range Interpretation Comments Potassium Lvl (test code = Potassium 4.3 3.5-5.1 Lvl) [facility]2020-11-04 05:21:00 Test Item Value Reference Range Interpretation Comments Chloride Lvl (test code = Chloride Lvl) 102 95-109 [facility]2020-11-04 05:21:00 Test Item Value Reference Range Interpretation Comments CO2 (test code = CO2) 24 24-32 [facility]2020-11-04 05:21:00 Test Item Value Reference Range Interpretation Comments AGAP (test code = AGAP) 13.3 10.0-20.0 [facility]2020-11-04 05:21:00 Test Item Value Reference Range Interpretation Comments Calcium Lvl (test code = Calcium Lvl) 9.2 8.5-10.5 [facility]2020-11-04 05:21:00 Test Item Value Reference Range Interpretation Comments B/C Ratio (test code = B/C Ratio) 14 1 6-25 [facility]2020-11-04 05:21:00 Test Item Value Reference Range Interpretation Comments Total Protein (test code = Total 7.7 6.4-8.4 Protein) [place] [address]-11-04 05:21:00 Test Item Value Reference Range Interpretation Comments Albumin Lvl (test code = Albumin Lvl) 3.3 3.5-5.0 [place] [address]-11-04 05:21:00 Test Item Value Reference Range Interpretation Comments Globulin (test code = Globulin) 4.4 2.7-4.2 [place] [address]-11-04 05:21:00 Test Item Value Reference Range Interpretation Comments A/G Ratio (test code = A/G Ratio) 0.8 1 0.7-1.6 [place] [address]-11-04 05:21:00 Test Item Value Reference Range Interpretation Comments ALT (test code = ALT) 14 See_Comment [Auto mated message] The system which ge nerated this result transmit roxana reference range : <=65. The reference range was not used to interpr et this result as spencer l/abnormal. [place] [address]-11-04 05:21:00 Test Item Value Reference Range Interpretation Comments AST (test code = AST) 13 See_Comment [Auto mated message] The system which ge nerated this result transmit roxana reference range : <=37. The reference range was not used to interpr et this result as spencer l/abnormal. [place] [address]-11-04 05:21:00 Test Item Value Reference Range Interpretation Comments Alk Phos (test code = Alk Phos) 89 39-136 [place] 454940-11-04 05:21:00 Test Item Value Reference Range Interpretation Comments Bili Total (test code = Bili Total) 0.3 0.2-1.3 [place] [address]-11-04 05:21:00 Test Item Value Reference Range Interpretation Comments eGFR (test code = eGFR) 75 [place] [address]-11-04 05:21:00 Test Item Value Reference Range Interpretation Comments RBC Morph (test code = Normal (04/14/20 11:21 RBC Morph) PM) [place] [address]-11-04 05:21:00 Test Item Value Reference Range Interpretation Comments Plt Morph (test code = Clumped (04/14/20 11:21 Plt Morph) PM) [facility]TurnyveBWKKZCJGKI2712-83-70 05:21:00 Test Item Value Reference Range Interpretation Comments Segs (test code = Segs) 65.7 45.0-75.0 [facility] HospitalFaehcctELUZWQRPKU8635-62-34 05:21:00 Test Item Value Reference Range Interpretation Comments Lymphocytes (test code = Lymphocytes) 27.9 20.0-40.0 [facility] HospitalTqourisJHWDIVQRDJ1910-46-33 05:21:00 Test Item Value Reference Range Interpretation Comments Monocytes (test code = Monocytes) 5.0 2.0-12.0 [place] 175770-11-04 05:21:00 Test Item Value Reference Range Interpretation Comments Eosinophils (test code = 0.9 See_Comment [A utomated message] The Eosinophils) system which ge nerated this result tra nsmitted reference range : <=4.0. The reference r maurice was not used to int erpret this result as normal/abnormal . [facility] HospitalAvmiwsvUPRAWTXLKM0111-39-11 05:21:00 Test Item Value Reference Range Interpretation Comments Basophils (test code = 0.5 See_Comment [Aut omated message] The Basophils) system which ge nerated this result tra nsmitted reference range : <=1.0. The reference r maurice was not used to int erpret this result as normal/abnormal . [facility] HospitalOiclgclHCFFKWAOYN5051-91-13 05:21:00 Test Item Value Reference Range Interpretation Comments Neutrophils # (test code = Neutrophils 6.8 1.5-8.1 #) [facility] HospitalOamoqclTCLFVYSJUC5171-21-02 05:21:00 Test Item Value Reference Range Interpretation Comments Lymphocytes # (test code = Lymphocytes 2.9 1.0-5.5 #) [facility] HospitalHmgjlgjDZDHLHDIKP6887-97-52 05:21:00 Test Item Value Reference Range Interpretation Comments Monocytes # (test code 0.5 See_Comment [Aut omated message] The = Monocytes #) system which generated this result tra nsmitted reference range : <=0.8. The reference r maurice was not used to int erpret this result as normal/abnormal . [place] 175770-11-04 05:21:00 Test Item Value Reference Range Interpretation Comments Eosinophils # (test code 0.1 See_Comment [A utomated message] The = Eosinophils #) system whic h generated this result tra nsmitted reference range : <=0.5. The reference r maurice was not used to int erpret this result as normal/abnormal . [facility] HospitalVhuhgnfKDFMFSLMPY7492-74-95 05:21:00 Test Item Value Reference Range Interpretation Comments Basophils # (test code 0.1 See_Comment [Aut omated message] The = Basophils #) system which generated this result tra nsmitted reference range : <=0.2. The reference r maurice was not used to int erpret this result as normal/abnormal . [facility] HospitalErfujfvHCJKFYDVCA4230-75-06 05:21:00 Test Item Value Reference Range Interpretation Comments WBC (test code = WBC) 10.4 3.7-10.4 [facility] HospitalMkpkcbaPWULFCPTSF7282-21-07 05:21:00 Test Item Value Reference Range Interpretation Comments RBC (test code = RBC) 3.99 4.20-5.40 [facility] HospitalYepgkxsHXDAMIZMHA4631-77-18 05:21:00 Test Item Value Reference Range Interpretation Comments Hgb (test code = Hgb) 12.1 12.0-16.0 [facility] HospitalIhgcuwnETVIAHHMAT7497-72-59 05:21:00 Test Item Value Reference Range Interpretation Comments Hct (test code = Hct) 36.5 36.0-48.0 [facility] HospitalGqmgdopZHZQOQGAJH0240-75-62 05:21:00 Test Item Value Reference Range Interpretation Comments MCV (test code = MCV) 91.5 80.0-98.0 [facility] HospitalKjbnhnnPYZHXHEFUB3709-82-55 05:21:00 Test Item Value Reference Range Interpretation Comments MCH (test code = MCH) 30.4 pg 27.0-31.0 [facility] HospitalOpkzbnlTLIENPOOQB6250-53-64 05:21:00 Test Item Value Reference Range Interpretation Comments MCHC (test code = MCHC) 33.2 32.0-36.0 [facility] HospitalJaclrmlMTFKZWWVIT8273-00-78 05:21:00 Test Item Value Reference Range Interpretation Comments RDW (test code = RDW) 12.5 11.5-14.5 [facility] HospitalLzclqwiPOSQFLJPRD3688-47-79 05:21:00 Test Item Value Reference Range Interpretation Comments Platelet (test code = Platelet) 384 133-450 [facility] HospitalQopxkrpPREDXKRYGF8501-75-97 05:21:00 Test Item Value Reference Range Interpretation Comments MPV (test code = MPV) 8.5 7.4-10.4 [facility] [id number] 16:53:00 Test Item Value Reference Range Interpretation Comments U Amph Scr (test code Negative *NA*(03/03/20 = U Amph Scr) 11:53 AM) [facility] [id number] 16:53:00 Test Item Value Reference Range Interpretation Comments U Paulina Scr (test code Negative *NA*(03/03/20 = U Paulina Scr) 11:53 AM) [facility] [id number] 16:53:00 Test Item Value Reference Range Interpretation Comments U Benzodiaz Scr (test Negative *NA*(03/03/20 code = U Benzodiaz Scr) 11:53 AM) [facility] [id number] 16:53:00 Test Item Value Reference Range Interpretation Comments U Cocaine Scr (test Negative *NA*(03/03/20 code = U Cocaine Scr) 11:53 AM) [facility] [id number] 16:53:00 Test Item Value Reference Range Interpretation Comments U Cannab Scr (test Positive *ABN*(03/03/20 code = U Cannab Scr) 11:53 AM) [facility] [id number] 16:53:00 Test Item Value Reference Range Interpretation Comments U Opiate Scr (test Negative *NA*(03/03/20 code = U Opiate Scr) 11:53 AM) [facility] [id number] 16:53:00 Test Item Value Reference Range Interpretation Comments U Phencyclidine Scr (test Negative code = U Phencyclidine *NA*(03/03/20 11:53 Scr) AM) [facility] [id number] 16:53:00 Test Item Value Reference Range Interpretation Comments UDS Note (test code = See Note (03/03/20 11:53 UDS Note) AM) [facility]ICIN:SUSC:PT:ISOLATE:ORDQN:[id number] 16:53:00 Test Item Value Reference Range Interpretation Comments Culture: Urine (test >100,000 CFU/mL code = Culture: Escherichia coli . 10,000 Urine) - 50,000 CFU/mL Skin [facility]IC[facility]:SUSC:PT:ISOLATE:ORDQN:[id number] 16:53:00 Test Item Value Reference Range Interpretation Comments Escherichia coli (test code Escherichia coli = Escherichia coli) [facility] AND [id number] 16:53:00 Test Item Value Reference Range Interpretation Comments UA Turbidity (test code Slight *ABN*(03/03/20 = UA Turbidity) 11:53 AM) [facility] AND [id number] 16:53:00 Test Item Value Reference Range Interpretation Comments UA Spec Grav (test code = UA Spec 1.038 1 Grav) [facility] AND [id number] 16:53:00 Test Item Value Reference Range Interpretation Comments UA pH (test code = UA pH) 5.0 1 5.0-8.0 [facility] AND [id number] 16:53:00 Test Item Value Reference Range Interpretation Comments UA Protein (test code = UA Negative mg/dL Protein) [facility] AND [id number] 16:53:00 Test Item Value Reference Range Interpretation Comments UA Glucose (test code = UA Glucose) 500 mg/dL [facility] AND [id number] 16:53:00 Test Item Value Reference Range Interpretation Comments UA Ketones (test code = UA Trace mg/dL Ketones) [facility] AND [id number] 16:53:00 Test Item Value Reference Range Interpretation Comments UA Bili (test code = Negative *NA*(03/03/20 UA Bili) 11:53 AM) [facility] AND [id number] 16:53:00 Test Item Value Reference Range Interpretation Comments UA Blood (test code = Negative (03/03/20 11:53 UA Blood) AM) [facility] AND [id number] 16:53:00 Test Item Value Reference Range Interpretation Comments UA Nitrite (test code Positive *ABN*(03/03/20 = UA Nitrite) 11:53 AM) [facility] AND [id number] 16:53:00 Test Item Value Reference Range Interpretation Comments UA Leuk Est (test code Small *ABN*(03/03/20 = UA Leuk Est) 11:53 AM) [facility] AND [id number] 16:53:00 Test Item Value Reference Range Interpretation Comments UA Sq Epi (test code = UA Sq Occasional /LPF Epi) [facility] AND [id number] 16:53:00 Test Item Value Reference Range Interpretation Comments UA WBC (test code = 57 See_Comment [Automa roxana message] The UA WBC) system which ge nerated this result transmit roxana reference range : <=5. The reference range was not used to interpr et this result as spencer l/abnormal. [facility] AND [id number] 16:53:00 Test Item Value Reference Range Interpretation Comments UA RBC (test code = 3 See_Comment [Automa roxana message] The UA RBC) system which ge nerated this result transmit roxana reference range : <=2. The reference range was not used to interpr et this result as spencer l/abnormal. [facility] AND [id number] 16:53:00 Test Item Value Reference Range Interpretation Comments UA Color (test code = UA Color) Ltyellow [facility] AND [id number] 16:53:00 Test Item Value Reference Range Interpretation Comments UA Urobilinogen (test code = UA <=1.0 mg/dL 0.1-1.0 Urobilinogen) [facility] NetworkCARDIAC [id number] 15:15:00 Test Item Value Reference Range Interpretation Comments Total CK (test code = Total CK) 112 12-191 [facility] [id number] 15:15:00 Test Item Value Reference Range Interpretation Comments Troponin-I (test code no gt See_Comment [Auto mated message] The = Troponin-I) system which g enerated this result transmit roxana reference range : <=0.40. The reference r maurice was not used to interpr et this result as spencer l/abnormal. [facility] [employer] [id number] 15:15:00 Test Item Value Reference Range Interpretation Comments Glucose Lvl (test code = Glucose Lvl) 413 70-99 [facility] [id number] 15:15:00 Test Item Value Reference Range Interpretation Comments BUN (test code = BUN) 9 7-22 [facility] [id number] 15:15:00 Test Item Value Reference Range Interpretation Comments Creatinine Lvl (test code = Creatinine 0.92 0.50-1.40 Lvl) [facility]2020-09-22 15:15:00 Test Item Value Reference Range Interpretation Comments Sodium Lvl (test code = Sodium Lvl) 137 135-145 [facility]2020-09-22 15:15:00 Test Item Value Reference Range Interpretation Comments Potassium Lvl (test code = Potassium 3.9 3.5-5.1 Lvl) [facility]2020-09-22 15:15:00 Test Item Value Reference Range Interpretation Comments Chloride Lvl (test code = Chloride Lvl) 104 95-109 [facility]2020-09-22 15:15:00 Test Item Value Reference Range Interpretation Comments CO2 (test code = CO2) 25 24-32 [place] [id number] 15:15:00 Test Item Value Reference Range Interpretation Comments AGAP (test code = AGAP) 11.9 10.0-20.0 [place] 454940-09-22 15:15:00 Test Item Value Reference Range Interpretation Comments Calcium Lvl (test code = Calcium Lvl) 9.3 8.5-10.5 [place] 454940-09-22 15:15:00 Test Item Value Reference Range Interpretation Comments B/C Ratio (test code = B/C Ratio) 10 1 6-25 [place] 454940-09-22 15:15:00 Test Item Value Reference Range Interpretation Comments Total Protein (test code = Total 8.0 6.4-8.4 Protein) [place] 454940-09-22 15:15:00 Test Item Value Reference Range Interpretation Comments Albumin Lvl (test code = Albumin Lvl) 3.8 3.5-5.0 [place] 454940-09-22 15:15:00 Test Item Value Reference Range Interpretation Comments Globulin (test code = Globulin) 4.2 2.7-4.2 [place] 454940-09-22 15:15:00 Test Item Value Reference Range Interpretation Comments A/G Ratio (test code = A/G Ratio) 0.9 1 0.7-1.6 [place] 454940-09-22 15:15:00 Test Item Value Reference Range Interpretation Comments ALT (test code = ALT) 22 See_Comment [Auto mated message] The system which ge nerated this result transmit roxana reference range : <=65. The reference range was not used to interpr et this result as spencer l/abnormal. [facility] [id number] 15:15:00 Test Item Value Reference Range Interpretation Comments AST (test code = AST) 16 See_Comment [Auto mated message] The system which ge nerated this result transmit roxana reference range : <=37. The reference range was not used to interpr et this result as spencer l/abnormal. [facility] [id number] 15:15:00 Test Item Value Reference Range Interpretation Comments Alk Phos (test code = Alk Phos) 79 39-136 [facility] [id number] 15:15:00 Test Item Value Reference Range Interpretation Comments Bili Total (test code = Bili Total) 0.8 0.2-1.3 [facility] [id number] 15:15:00 Test Item Value Reference Range Interpretation Comments eGFR (test code = eGFR) 74 [facility] [id number] 15:15:00 Test Item Value Reference Range Interpretation Comments Magnesium Lvl (test code = Magnesium 1.8 1.8-2.4 Lvl) [facility] [id number] 15:15:00 Test Item Value Reference Range Interpretation Comments Lactic Acid Lvl (test code = Lactic 2.2 0.5-2.2 Acid Lvl) [facility] TempleGribofkPUDLSNRJDBMYI8252-49-94 15:15:00 Test Item Value Reference Range Interpretation Comments S Preg (test code = S Negative *NA*(03/03/20 Preg) 10:15 AM) [facility] HospitalTjnssraZTABEGOKEB4488-07-58 15:15:00 Test Item Value Reference Range Interpretation Comments WBC (test code = WBC) 9.5 3.7-10.4 [facility] HospitalIjffwbyXCJMSJFOMH6097-72-39 15:15:00 Test Item Value Reference Range Interpretation Comments RBC (test code = RBC) 4.60 4.20-5.40 [facility] HospitalFbeauvkLBRNGZMDJK9145-24-54 15:15:00 Test Item Value Reference Range Interpretation Comments Hgb (test code = Hgb) 14.0 12.0-16.0 [facility] HospitalWtpgrfbCYLTOGBQVC5352-16-84 15:15:00 Test Item Value Reference Range Interpretation Comments Hct (test code = Hct) 42.4 36.0-48.0 [facility]XpadhrnTXFBHOYSRI1412-97-93 15:15:00 Test Item Value Reference Range Interpretation Comments MCV (test code = MCV) 92.3 80.0-98.0 [place] 175770-09-22 15:15:00 Test Item Value Reference Range Interpretation Comments MCH (test code = MCH) 30.4 pg 27.0-31.0 [facility] HospitalRfmgpriHMJTKEVITX1587-83-26 15:15:00 Test Item Value Reference Range Interpretation Comments MCHC (test code = MCHC) 32.9 32.0-36.0 [facility] HospitalQouxlfqSURUIIARJS0086-14-75 15:15:00 Test Item Value Reference Range Interpretation Comments RDW (test code = RDW) 12.9 11.5-14.5 [place] 175770-09-22 15:15:00 Test Item Value Reference Range Interpretation Comments Platelet (test code = Platelet) 352 133-450 [facility] HospitalNusbbygITBWUTHTQJ9231-84-38 15:15:00 Test Item Value Reference Range Interpretation Comments MPV (test code = MPV) 8.8 7.4-10.4 [facility] HospitalDvxladmNONNLMUWIA0514-94-36 15:15:00 Test Item Value Reference Range Interpretation Comments PT (test code = PT) 12.1 s 12.0-14.7 [facility] HospitalMtijfuvPLBSEEPJAQ5004-99-14 15:15:00 Test Item Value Reference Range Interpretation Comments INR (test code = INR) 0.90 1 0.85-1.17 [place] 175770-09-22 15:15:00 Test Item Value Reference Range Interpretation Comments Segs (test code = Segs) 80.0 45.0-75.0 [place] 175770-09-22 15:15:00 Test Item Value Reference Range Interpretation Comments Lymphocytes (test code = Lymphocytes) 12.5 20.0-40.0 [place] 175770-09-22 15:15:00 Test Item Value Reference Range Interpretation Comments Monocytes (test code = Monocytes) 6.5 2.0-12.0 [place] 175770-09-22 15:15:00 Test Item Value Reference Range Interpretation Comments Eosinophils (test code = 0.5 See_Comment [A utomated message] The Eosinophils) system which ge nerated this result tra nsmitted reference range : <=4.0. The reference r maurice was not used to int erpret this result as normal/abnormal . [facility] HospitalPzjcndeVEQTGBRATH2346-38-61 15:15:00 Test Item Value Reference Range Interpretation Comments Basophils (test code = 0.5 See_Comment [Aut omated message] The Basophils) system which ge nerated this result tra nsmitted reference range : <=1.0. The reference r maurice was not used to int erpret this result as normal/abnormal . [facility] HospitalRrazrtaOETMBYDSFT7969-70-83 15:15:00 Test Item Value Reference Range Interpretation Comments Neutrophils # (test code = Neutrophils 7.6 1.5-8.1 #) [facility] HospitalAosojceIJQDTQSLAF1722-04-00 15:15:00 Test Item Value Reference Range Interpretation Comments Lymphocytes # (test code = Lymphocytes 1.2 1.0-5.5 #) [facility] HospitalAibbvjmLKRFSAVXMK3020-87-82 15:15:00 Test Item Value Reference Range Interpretation Comments Monocytes # (test code 0.6 See_Comment [Aut omated message] The = Monocytes #) system which generated this result tra nsmitted reference range : <=0.8. The reference r maurice was not used to int erpret this result as normal/abnormal . [facility] HospitalOcwtywsBKOLMJIKBD6317-80-22 15:15:00 Test Item Value Reference Range Interpretation Comments Eosinophils # (test code 0.1 See_Comment [A utomated message] The = Eosinophils #) system [facility] h generated this result tra nsmitted reference range : <=0.5. The reference r maurice was not used to int erpret this result as normal/abnormal . [facility] CenterPtgtarqBTAOHYGMYE8354-46-94 15:15:00 Test Item Value Reference Range Interpretation Comments Ethanol Lvl (test code = Ethanol Lvl) no gt [facility] HospitalDkukhneCPXDQUHWHU2031-54-46 15:15:00 Test Item Value Reference Range Interpretation Comments Etoh (%) (test code = Etoh (%)) no gt [facility]2019-04-03 03:29:00 Test Item Value Reference Range Interpretation Comments Lipase Lvl (test code = Lipase Lvl) 279 73-393 [place] 118479-04-03 03:29:00 Test Item Value Reference Range Interpretation Comments Total Protein (test code = Total 7.4 6.4-8.4 Protein) [place] 118479-04-03 03:29:00 Test Item Value Reference Range Interpretation Comments AST (test code = AST) 16 See_Comment [Auto mated message] The system which ge nerated this result transmit roxana reference range : <=37. The reference range was not used to interpr et this result as spencer l/abnormal. [facility]2019-04-03 03:29:00 Test Item Value Reference Range Interpretation Comments Bili Direct (test code no gt See_Comment [Aut omated message] The = Bili Direct) system which generated this result tra nsmitted reference range : <=0.3. The reference r maurice was not used to int erpret this result as spencer l/abnormal. [facility]2019-04-03 03:29:00 Test Item Value Reference Range Interpretation Comments ALT (test code = ALT) 25 See_Comment [Auto mated message] The system which ge nerated this result transmit roxana reference range : <=65. The reference range was not used to interpr et this result as spencer l/abnormal. [facility]2019-04-03 03:29:00 Test Item Value Reference Range Interpretation Comments Albumin Lvl (test code = Albumin Lvl) 3.3 3.5-5.0 [facility]2019-04-03 03:29:00 Test Item Value Reference Range Interpretation Comments Alk Phos (test code = Alk Phos) 77 39-136 [facility]2019-04-03 03:29:00 Test Item Value Reference Range Interpretation Comments Bili Total (test code = Bili Total) 0.3 0.2-1.3 [place] 118479-04-03 03:29:00 Test Item Value Reference Range Interpretation Comments Bili Indirect (test no gt See_Comment [Automa roxana message] The code = Bili Indirect) system which generated this result tra nsmitted reference range : <=1.0. The reference r maurice was not used to int erpret this result as normal/abnormal . [facility]2019-04-03 03:29:00 Test Item Value Reference Range Interpretation Comments Globulin (test code = Globulin) 4.1 2.7-4.2 [facility] HospitalCHEM [id number] 03:29:00 Test Item Value Reference Range Interpretation Comments A/G Ratio (test code = A/G Ratio) 0.8 1 0.7-1.6 [facility]HdwnktrWFMJWBVAWJQJ6938-88-16 03:29:00 Test Item Value Reference Range Interpretation Comments AGAP (test code = AGAP) 13.8 10.0-20.0 [facility] HospitalNvwzmlnAHGFMVIDADKO2060-17-55 03:29:00 Test Item Value Reference Range Interpretation Comments eGFR (test code = eGFR) 87 [facility] HospitalJmenzztYVPJRGSMKXKH8221-18-80 03:29:00 Test Item Value Reference Range Interpretation Comments CO2 (test code = CO2) 24 24-32 [facility] HospitalTvloatkIJLMLFKPMKIO5994-09-13 03:29:00 Test Item Value Reference Range Interpretation Comments Calcium Lvl (test code = Calcium Lvl) 9.6 8.5-10.5 [facility] HospitalGmakpzoNRDTQNJCEVFN7071-07-66 03:29:00 Test Item Value Reference Range Interpretation Comments Creatinine Lvl (test code = Creatinine 0.81 0.50-1.40 Lvl) [facility] HospitalVqwcfvmWAICNEUQPUGP5381-92-77 03:29:00 Test Item Value Reference Range Interpretation Comments Sodium Lvl (test code = Sodium Lvl) 140 135-145 [facility] HospitalTwepbcoXELZTNUBTVAT1536-51-65 03:29:00 Test Item Value Reference Range Interpretation Comments Potassium Lvl (test code = Potassium 3.8 3.5-5.1 Lvl) [facility] HospitalYdliemgDLMHCXTZHXUP7783-55-48 03:29:00 Test Item Value Reference Range Interpretation Comments Chloride Lvl (test code = Chloride Lvl) 106 95-109 [facility] HospitalCmfxpndWCSISAYFHHTJ0458-81-67 03:29:00 Test Item Value Reference Range Interpretation Comments BUN (test code = BUN) 14 7-22 [facility] HospitalRqithcvJGZLWOGBXVXN5097-20-09 03:29:00 Test Item Value Reference Range Interpretation Comments Glucose Lvl (test code = Glucose Lvl) 250 70-99 [facility] CenterBimnblzUWFOTLXHVHKVV2547-28-50 03:29:00 Test Item Value Reference Range Interpretation Comments S Preg (test code = S Negative *NA*(09/11/18 Preg) 10:29 PM) [facility] HospitalVcevhhiIQHVHMYPWX7840-02-92 03:29:00 Test Item Value Reference Range Interpretation Comments Segs (test code = Segs) 50.9 45.0-75.0 [facility] HospitalHdqxbbyTKIAICZEED3550-46-84 03:29:00 Test Item Value Reference Range Interpretation Comments Lymphocytes (test code = Lymphocytes) 39.5 20.0-40.0 [facility] HospitalZbkgjoqRRTAHWEEWO7480-49-85 03:29:00 Test Item Value Reference Range Interpretation Comments Basophils (test code = 0.8 See_Comment [Aut omated message] The Basophils) system which ge nerated this result tra nsmitted reference range : <=1.0. The reference r maurice was not used to int erpret this result as normal/abnormal . [facility] HospitalFndhqtpOKYBWWZTES9763-64-40 03:29:00 Test Item Value Reference Range Interpretation Comments Neutrophils # (test code = Neutrophils 4.4 1.5-8.1 #) [facility] HospitalYxoempgJRRHZPMJBL3203-39-86 03:29:00 Test Item Value Reference Range Interpretation Comments Monocytes (test code = Monocytes) 6.2 2.0-12.0 [facility] HospitalDxckupfWSQMGUKQOB0302-46-60 03:29:00 Test Item Value Reference Range Interpretation Comments Eosinophils (test code = 2.6 See_Comment [A utomated message] The Eosinophils) system which ge nerated this result tra nsmitted reference range : <=4.0. The reference r maurice was not used to int erpret this result as normal/abnormal . [facility] HospitalWqwqfcmJDXOVTUJMY7051-12-06 03:29:00 Test Item Value Reference Range Interpretation Comments Eosinophils # (test code 0.2 See_Comment [A utomated message] The = Eosinophils #) system whic h generated this result tra nsmitted reference range : <=0.5. The reference r maurice was not used to int erpret this result as normal/abnormal . [facility] HospitalPvkytfwGEADHSWTFX2012-41-31 03:29:00 Test Item Value Reference Range Interpretation Comments Basophils # (test code 0.1 See_Comment [Aut omated message] The = Basophils #) system which generated this result tra nsmitted reference range : <=0.2. The reference r maurice was not used to int erpret this result as normal/abnormal . [facility] HospitalGrluzzkKOALSPHRFA3020-96-63 03:29:00 Test Item Value Reference Range Interpretation Comments Lymphocytes # (test code = Lymphocytes 3.4 1.0-5.5 #) [facility] HospitalYckwemwRTNCOPMXYB1776-85-88 03:29:00 Test Item Value Reference Range Interpretation Comments Monocytes # (test code 0.5 See_Comment [Aut omated message] The = Monocytes #) system which generated this result tra nsmitted reference range : <=0.8. The reference r maurice was not used to int erpret this result as normal/abnormal . [facility] HospitalTftvnrwMVRITNFOLZ1540-35-92 03:29:00 Test Item Value Reference Range Interpretation Comments MCHC (test code = MCHC) 33.3 32.0-36.0 [facility] HospitalEtcjzptZNAMMCHZLZ8698-54-64 03:29:00 Test Item Value Reference Range Interpretation Comments RDW (test code = RDW) 12.4 11.5-14.5 [facility] HospitalJneokqgWRDMAHZOTP8446-85-16 03:29:00 Test Item Value Reference Range Interpretation Comments Platelet (test code = Platelet) 380 133-450 [facility] HospitalVvpddnrMVTANUHKGC6958-42-71 03:29:00 Test Item Value Reference Range Interpretation Comments MPV (test code = MPV) 8.0 7.4-10.4 [facility] HospitalMpdngyzEBGNWXQGWN3831-21-84 03:29:00 Test Item Value Reference Range Interpretation Comments WBC (test code = WBC) 8.6 3.7-10.4 [facility] HospitalSlhuhjfKHXCPEUKZX4892-27-73 03:29:00 Test Item Value Reference Range Interpretation Comments RBC (test code = RBC) 4.41 4.20-5.40 [facility] HospitalAvrxjjmYJUFPPNWDM1138-35-26 03:29:00 Test Item Value Reference Range Interpretation Comments Hct (test code = Hct) 39.8 36.0-48.0 [facility] HospitalJfblpyyZJSQBSEMYE8105-63-25 03:29:00 Test Item Value Reference Range Interpretation Comments Hgb (test code = Hgb) 13.3 12.0-16.0 [facility] HospitalOnjeblrVUKTDLYKFY2314-91-60 03:29:00 Test Item Value Reference Range Interpretation Comments MCV (test code = MCV) 90.2 80.0-98.0 [place] 309369-04-03 03:29:00 Test Item Value Reference Range Interpretation Comments MCH (test code = MCH) 30.1 pg 27.0-31.0 [facility] AND [id number] 03:29:00 Test Item Value Reference Range Interpretation Comments UA Urobilinogen (test code = UA 0.2 0.1-1.0 Urobilinogen) [facility] AND [id number] 03:29:00 Test Item Value Reference Range Interpretation Comments UA Bacteria (test code = UA Many /HPF Bacteria) [facility] AND [id number] 03:29:00 Test Item Value Reference Range Interpretation Comments UA Amorph Lizy (test code = Occasional /HPF UA Amorph Lizy) [facility] AND YXNDJ3909-13-26 03:29:00 Test Item Value Reference Range Interpretation Comments UA Sq Epi (test code = UA Sq Epi) Many /LPF [facility] AND [id number] 03:29:00 Test Item Value Reference Range Interpretation Comments UA Nitrite (test code Negative (09/11/18 10:29 = UA Nitrite) PM) [facility] AND [id number] 03:29:00 Test Item Value Reference Range Interpretation Comments UA Leuk Est (test Negative (09/11/18 10:29 code = UA Leuk Est) PM) [facility] AND [id number] 03:29:00 Test Item Value Reference Range Interpretation Comments UA Blood (test code = Negative (09/11/18 10:29 UA Blood) PM) [facility] AND [id number] 03:29:00 Test Item Value Reference Range Interpretation Comments UA Bili (test code = Negative *NA*(09/11/18 UA Bili) 10:29 PM) [facility] AND [id number] 03:29:00 Test Item Value Reference Range Interpretation Comments UA Ketones (test code Negative *NA*(09/11/18 = UA Ketones) 10:29 PM) [facility] AND [id number] 03:29:00 Test Item Value Reference Range Interpretation Comments UA Protein (test code Negative (09/11/18 10:29 = UA Protein) PM) [facility] AND [id number] 03:29:00 Test Item Value Reference Range Interpretation Comments UA Glucose (test code = UA Glucose) 500 mg/dL [facility] AND [id number] 03:29:00 Test Item Value Reference Range Interpretation Comments UA pH (test code = UA pH) 6.5 1 5.0-8.0 [facility] AND [id number] 03:29:00 Test Item Value Reference Range Interpretation Comments UA Spec Grav (test code = UA Spec 1.020 1 Grav) [facility] AND [id number] 03:29:00 Test Item Value Reference Range Interpretation Comments UA Turbidity (test code Turbid *ABN*(09/11/18 = UA Turbidity) 10:29 PM) [facility] AND [id number] 03:29:00 Test Item Value Reference Range Interpretation Comments UA Color (test code = Yellow *NA*(09/11/18 UA Color) 10:29 PM) [facility] HospitalLasbukyOURQWNIHAFQU4725-26-10 09:57:00 Test Item Value Reference Range Interpretation Comments AGAP (test code = AGAP) 9.7 10.0-20.0 [facility] HospitalYhfodpwDDDRKCRKRWSX5211-51-01 09:57:00 Test Item Value Reference Range Interpretation Comments A/G Ratio (test code = A/G Ratio) 0.8 1 0.7-1.6 [facility] HospitalPwnyaxrUFJDNYIFPAOP4195-13-42 09:57:00 Test Item Value Reference Range Interpretation Comments Globulin (test code = Globulin) 3.1 2.7-4.2 [facility] HospitalDxevagwTMOCEDOWBQUH3776-00-23 09:57:00 Test Item Value Reference Range Interpretation Comments B/C Ratio (test code = B/C Ratio) 12 1 6-25 [facility] HospitalGbxjbovUUXYMNDXNQWN9003-86-35 09:57:00 Test Item Value Reference Range Interpretation Comments eGFR (test code = eGFR) 96 [facility] HospitalYnumaafYFFNOHRUTBHX1694-17-91 09:57:00 Test Item Value Reference Range Interpretation Comments AST (test code = AST) 36 See_Comment [Auto mated message] The system which ge nerated this result transmit roxana reference range : <=37. The reference range was not used to interpr et this result as spencer l/abnormal. [facility] HospitalTmeyjkvNZNRHZGPAZWJ7717-54-68 09:57:00 Test Item Value Reference Range Interpretation Comments Chloride Lvl (test code = Chloride Lvl) 109 95-109 [facility] HospitalYnyfkabRJGMIRMURHMT6540-58-10 09:57:00 Test Item Value Reference Range Interpretation Comments CO2 (test code = CO2) 27 24-32 [facility] HospitalYzfljklMBWQTDIHKMJR7983-10-36 09:57:00 Test Item Value Reference Range Interpretation Comments Total Protein (test code = Total 5.6 6.4-8.4 Protein) [facility] HospitalSlstbriNKRUBWYDQOLV7952-20-81 09:57:00 Test Item Value Reference Range Interpretation Comments Calcium Lvl (test code = Calcium Lvl) 8.4 8.5-10.5 [facility] HospitalFnheatvNVBVNQWRCYAP1173-64-71 09:57:00 Test Item Value Reference Range Interpretation Comments Potassium Lvl (test code = Potassium 3.7 3.5-5.1 Lvl) [facility] HospitalZahctqqQHYANQVTGWVB6704-10-49 09:57:00 Test Item Value Reference Range Interpretation Comments Sodium Lvl (test code = Sodium Lvl) 142 135-145 [facility] HospitalFxtezsxJJCAHJPVGATM6340-18-47 09:57:00 Test Item Value Reference Range Interpretation Comments Creatinine Lvl (test code = Creatinine 0.74 0.50-1.40 Lvl) [facility] HospitalStwdgeiMIOPYRKXBMWK0940-76-50 09:57:00 Test Item Value Reference Range Interpretation Comments BUN (test code = BUN) 9 7-22 [facility] HospitalEwxpqfrMZZKMAFUNXZN1524-09-05 09:57:00 Test Item Value Reference Range Interpretation Comments ALT (test code = ALT) 42 See_Comment [Auto mated message] The system which ge nerated this result transmit roxana reference range : <=65. The reference range was not used to interpr et this result as spencer l/abnormal. [facility] HospitalFbnynapVNCMURLQMWBZ8940-51-26 09:57:00 Test Item Value Reference Range Interpretation Comments Albumin Lvl (test code = Albumin Lvl) 2.5 3.5-5.0 [facility]tebpjlNZPAJKZKMOEZ3583-62-77 09:57:00 Test Item Value Reference Range Interpretation Comments Bili Total (test code = Bili Total) 0.4 0.2-1.3 [facility]DptqmjfJWUXTEKLBPOD9071-23-69 09:57:00 Test Item Value Reference Range Interpretation Comments Alk Phos (test code = Alk Phos) 60 39-136 [facility]AgnloonZCURLJYEIJDX6777-41-19 09:57:00 Test Item Value Reference Range Interpretation Comments Glucose Lvl (test code = Glucose Lvl) 179 70-99 [facility]vkbumeZPPRNTZFYA4493-49-93 09:57:00 Test Item Value Reference Range Interpretation Comments Neutrophils # (test code = Neutrophils 5.1 1.5-8.1 #) [facility] HospitalGyadbsbUHPACFPWXB1736-57-32 09:57:00 Test Item Value Reference Range Interpretation Comments Lymphocytes # (test code = Lymphocytes 1.5 1.0-5.5 #) [facility] HospitalJkdggdaAICCHHNCOT7104-10-79 09:57:00 Test Item Value Reference Range Interpretation Comments Monocytes # (test code 0.5 See_Comment [Aut omated message] The = Monocytes #) system which generated this result tra nsmitted reference range : <=0.8. The reference r maurice was not used to int erpret this result as normal/abnormal . [facility] HospitalQilqbmtYAJWAIWOWN5503-68-24 09:57:00 Test Item Value Reference Range Interpretation Comments Basophils (test code = 0.1 See_Comment [Aut omated message] The Basophils) system which ge nerated this result tra nsmitted reference range : <=1.0. The reference r maurice was not used to int erpret this result as normal/abnormal . [facility] HospitalIqkehpbCCSVCTCVDK7022-69-39 09:57:00 Test Item Value Reference Range Interpretation Comments Eosinophils (test code = 0.4 See_Comment [A utomated message] The Eosinophils) system which ge nerated this result tra nsmitted reference range : <=4.0. The reference r maurice was not used to int erpret this result as normal/abnormal . [facility] HospitalBmmhkmjCZCJRWPIPN5944-04-38 09:57:00 Test Item Value Reference Range Interpretation Comments Lymphocytes (test code = Lymphocytes) 21.2 20.0-40.0 [facility] HospitalEzqubkhQHJAMFWZCB9121-78-78 09:57:00 Test Item Value Reference Range Interpretation Comments Monocytes (test code = Monocytes) 6.7 2.0-12.0 [facility] HospitalTxkznrkWKADHXNRMP4846-75-27 09:57:00 Test Item Value Reference Range Interpretation Comments Segs (test code = Segs) 71.6 45.0-75.0 [facility] HospitalAmfdxqyTKGQFSMZLF3812-80-16 09:57:00 Test Item Value Reference Range Interpretation Comments RDW (test code = RDW) 12.5 11.5-14.5 [facility] HospitalMwfpkobOUVGCKVIWZ4525-25-14 09:57:00 Test Item Value Reference Range Interpretation Comments Platelet (test code = Platelet) 252 133-450 [facility] HospitalJtfrdnuSMMNUSYGLD6471-60-14 09:57:00 Test Item Value Reference Range Interpretation Comments MPV (test code = MPV) 8.6 7.4-10.4 [facility] HospitalYomtaltBTPGZUBUNU1140-66-47 09:57:00 Test Item Value Reference Range Interpretation Comments MCHC (test code = MCHC) 33.0 32.0-36.0 [facility] HospitalSdqhiuxCIBPZPZJTG2274-14-72 09:57:00 Test Item Value Reference Range Interpretation Comments Hgb (test code = Hgb) 11.9 12.0-16.0 [facility] HospitalEjsllivGVHSLGRRIO2397-92-04 09:57:00 Test Item Value Reference Range Interpretation Comments Hct (test code = Hct) 36.0 36.0-48.0 [facility] HospitalCeqmbbdTIRXISEHMQ9377-73-52 09:57:00 Test Item Value Reference Range Interpretation Comments MCV (test code = MCV) 90.5 80.0-98.0 [facility] HospitalVtbmdvpBLHYTGTBYN4914-58-25 09:57:00 Test Item Value Reference Range Interpretation Comments MCH (test code = MCH) 29.9 pg 27.0-31.0 [facility] HospitalLzzjxdhPBGHCHHZCQ3256-43-04 09:57:00 Test Item Value Reference Range Interpretation Comments RBC (test code = RBC) 3.98 4.20-5.40 [facility] HospitalWhovgstGNSUZLGJWS0716-69-83 09:57:00 Test Item Value Reference Range Interpretation Comments WBC (test code = WBC) 7.1 3.7-10.4 [facility] DEGWPEPAX0918-77-23 20:46:00 Test Item Value Reference Range Interpretation Comments Hgb A1C (test code = Hgb A1C) 12.0 [facility] FHZDM4399-55-34 01:05:00 Test Item Value Reference Range Interpretation Comments Phosphorus (test code = Phosphorus) 2.0 2.5-4.5 [facility] HospitalCHEM INEAU9718-19-26 01:05:00 Test Item Value Reference Range Interpretation Comments Magnesium Lvl (test code = Magnesium 1.5 1.8-2.4 Lvl) [facility]2019-03-20 01:05:00 Test Item Value Reference Range Interpretation Comments Lipase Lvl (test code = Lipase Lvl) 164 73-393 [facility]2019-03-20 01:05:00 Test Item Value Reference Range Interpretation Comments eGFR (test code = eGFR) 60 [facility]2019-03-20 01:05:00 Test Item Value Reference Range Interpretation Comments ALT (test code = ALT) 36 See_Comment [Auto mated message] The system which ge nerated this result transmit roxana reference range : <=65. The reference range was not used to interpr et this result as spencer l/abnormal. [facility]2019-03-20 01:05:00 Test Item Value Reference Range Interpretation Comments A/G Ratio (test code = A/G Ratio) 0.9 1 0.7-1.6 [facility]2019-03-20 01:05:00 Test Item Value Reference Range Interpretation Comments Globulin (test code = Globulin) 4.2 2.7-4.2 [facility]2019-03-20 01:05:00 Test Item Value Reference Range Interpretation Comments Total Protein (test code = Total 7.9 6.4-8.4 Protein) [facility]2019-03-20 01:05:00 Test Item Value Reference Range Interpretation Comments Albumin Lvl (test code = Albumin Lvl) 3.7 3.5-5.0 [facility]2019-03-20 01:05:00 Test Item Value Reference Range Interpretation Comments Bili Total (test code = Bili Total) 0.4 0.2-1.3 [facility]2019-03-20 01:05:00 Test Item Value Reference Range Interpretation Comments AST (test code = AST) 28 See_Comment [Auto mated message] The system which ge nerated this result transmit roxana reference range : <=37. The reference range was not used to interpr et this result as spencer l/abnormal. [facility]2019-03-20 01:05:00 Test Item Value Reference Range Interpretation Comments Alk Phos (test code = Alk Phos) 80 39-136 [facility]2019-03-20 01:05:00 Test Item Value Reference Range Interpretation Comments Potassium Lvl (test code = Potassium 3.0 3.5-5.1 Lvl) [facility]2019-03-20 01:05:00 Test Item Value Reference Range Interpretation Comments Sodium Lvl (test code = Sodium Lvl) 136 135-145 [facility]2019-03-20 01:05:00 Test Item Value Reference Range Interpretation Comments B/C Ratio (test code = B/C Ratio) 5 1 6-25 [facility]2019-03-20 01:05:00 Test Item Value Reference Range Interpretation Comments Calcium Lvl (test code = Calcium Lvl) 9.1 8.5-10.5 [facility]2019-03-20 01:05:00 Test Item Value Reference Range Interpretation Comments CO2 (test code = CO2) 22 24-32 [facility]2019-03-20 01:05:00 Test Item Value Reference Range Interpretation Comments Chloride Lvl (test code = Chloride Lvl) 106 95-109 [facility]2019-03-20 01:05:00 Test Item Value Reference Range Interpretation Comments AGAP (test code = AGAP) 11.0 10.0-20.0 [facility]2019-03-20 01:05:00 Test Item Value Reference Range Interpretation Comments Creatinine Lvl (test code = Creatinine 1.10 0.50-1.40 Lvl) [facility]2019-03-20 01:05:00 Test Item Value Reference Range Interpretation Comments BUN (test code = BUN) 6 7-22 [facility]2019-03-20 01:05:00 Test Item Value Reference Range Interpretation Comments Glucose Lvl (test code = Glucose Lvl) 349 70-99 [facility]YpiwokvLDLXQTIXDNNAO4392-12-43 01:05:00 Test Item Value Reference Range Interpretation Comments S Preg (test code = S Negative *NA*(08/28/18 Preg) 8:05 PM) [facility] HospitalJdwbvuyJOBMYMDLWO7458-40-34 01:05:00 Test Item Value Reference Range Interpretation Comments Segs (test code = Segs) 67.0 45.0-75.0 [facility] HospitalVgwgbqwRZEOHKGIII7120-06-03 01:05:00 Test Item Value Reference Range Interpretation Comments Lymphocytes (test code = Lymphocytes) 25.3 20.0-40.0 [facility] HospitalGlgqkrhZIKTDZGQXY7773-47-45 01:05:00 Test Item Value Reference Range Interpretation Comments Basophils # (test code 0.1 See_Comment [Aut omated message] The = Basophils #) system which generated this result tra nsmitted reference range : <=0.2. The reference r maurice was not used to int erpret this result as normal/abnormal . [facility] HospitalZgijzxpYZUUEQGYHZ5444-97-56 01:05:00 Test Item Value Reference Range Interpretation Comments Lymphocytes # (test code = Lymphocytes 2.6 1.0-5.5 #) [facility] HospitalEookmccNHODQZHFXW2385-07-06 01:05:00 Test Item Value Reference Range Interpretation Comments Basophils (test code = 0.6 See_Comment [Aut omated message] The Basophils) system which ge nerated this result tra nsmitted reference range : <=1.0. The reference r maurice was not used to int erpret this result as normal/abnormal . [facility] HospitalCpqcyxaANNVIEOUDH7025-37-82 01:05:00 Test Item Value Reference Range Interpretation Comments Monocytes # (test code 0.7 See_Comment [Aut omated message] The = Monocytes #) system which generated this result tra nsmitted reference range : <=0.8. The reference r maurice was not used to int erpret this result as normal/abnormal . [facility] HospitalXwzucmuDEZKMMZSOU1583-76-83 01:05:00 Test Item Value Reference Range Interpretation Comments Neutrophils # (test code = Neutrophils 7.0 1.5-8.1 #) [facility] HospitalEjzguwcVNQSRWZZPV7193-84-72 01:05:00 Test Item Value Reference Range Interpretation Comments Eosinophils # (test code 0.1 See_Comment [A utomated message] The = Eosinophils #) system whic h generated this result tra nsmitted reference range : <=0.5. The reference r maurice was not used to int erpret this result as normal/abnormal . [facility] HospitalZkhnjqrAZFPQASHEA9632-93-49 01:05:00 Test Item Value Reference Range Interpretation Comments Eosinophils (test code = 0.7 See_Comment [A utomated message] The Eosinophils) system which ge nerated this result tra nsmitted reference range : <=4.0. The reference r maurice was not used to int erpret this result as normal/abnormal . [facility] HospitalIhwnfskFVHAHGTWDH7325-94-68 01:05:00 Test Item Value Reference Range Interpretation Comments Monocytes (test code = Monocytes) 6.4 2.0-12.0 [facility] HospitalIeeyiiaNABVTGNCJK3998-59-47 01:05:00 Test Item Value Reference Range Interpretation Comments RBC (test code = RBC) 5.16 4.20-5.40 [facility] HospitalBoappwzDLOJNOQGAP1399-03-59 01:05:00 Test Item Value Reference Range Interpretation Comments Hgb (test code = Hgb) 15.7 12.0-16.0 [facility] HospitalSlimjiqHQTMWOAFSB5713-86-13 01:05:00 Test Item Value Reference Range Interpretation Comments WBC (test code = WBC) 10.4 3.7-10.4 [facility] HospitalGssplupMAVQWYCAEA8217-34-22 01:05:00 Test Item Value Reference Range Interpretation Comments MCH (test code = MCH) 30.4 pg 27.0-31.0 [facility] HospitalNaijrbbIFWTMHNUFO3040-51-31 01:05:00 Test Item Value Reference Range Interpretation Comments RDW (test code = RDW) 12.5 11.5-14.5 [facility] HospitalWsznkjcJLNSRJXUVH2793-72-26 01:05:00 Test Item Value Reference Range Interpretation Comments Platelet (test code = Platelet) 358 133-450 [facility] HospitalQtytqkiOWIHAYCKLE9828-32-47 01:05:00 Test Item Value Reference Range Interpretation Comments MPV (test code = MPV) 8.8 7.4-10.4 [facility] HospitalUxucbsdJAGULAVOOH3920-22-22 01:05:00 Test Item Value Reference Range Interpretation Comments MCHC (test code = MCHC) 34.2 32.0-36.0 [facility] HospitalLqztmhrAYSTEPTZZE3280-51-85 01:05:00 Test Item Value Reference Range Interpretation Comments MCV (test code = MCV) 89.1 80.0-98.0 [facility] HospitalXszpuvmFVNVUDPODG7400-70-20 01:05:00 Test Item Value Reference Range Interpretation Comments Hct (test code = Hct) 46.0 36.0-48.0 [facility] WTBNE1068-21-15 01:05:00 Test Item Value Reference Range Interpretation Comments UA Bacteria (test code = UA Occasional /HPF Bacteria) [facility] AND [id number] 01:05:00 Test Item Value Reference Range Interpretation Comments UA RBC (test code = 4 See_Comment [Automa roxana message] The UA RBC) system which ge nerated this result transmit roxana reference range : <=2. The reference range was not used to interpr et this result as spencer l/abnormal. [facility] AND [id number] 01:05:00 Test Item Value Reference Range Interpretation Comments UA WBC (test code = 1 See_Comment [Automa roxana message] The UA WBC) system which ge nerated this result transmit roxana reference range : <=5. The reference range was not used to interpr et this result as spencer l/abnormal. [facility] AND [id number] 01:05:00 Test Item Value Reference Range Interpretation Comments UA Blood (test code = Moderate *ABN*(08/28/18 UA Blood) 8:05 PM) [facility] AND [id number] 01:05:00 Test Item Value Reference Range Interpretation Comments UA Bili (test code = Negative *NA*(08/28/18 UA Bili) 8:05 PM) [facility] AND [id number] 01:05:00 Test Item Value Reference Range Interpretation Comments UA Ketones (test code = UA Ketones) 20 mg/dL [facility] AND [id number] 01:05:00 Test Item Value Reference Range Interpretation Comments UA Glucose (test code = UA Glucose) 500 mg/dL [facility] AND [id number] 01:05:00 Test Item Value Reference Range Interpretation Comments UA Protein (test code Negative (08/28/18 8:05 = UA Protein) PM) [facility] AND [id number] 01:05:00 Test Item Value Reference Range Interpretation Comments UA Sq Epi (test code = UA Sq Epi) Many /LPF [facility] AND [id number] 01:05:00 Test Item Value Reference Range Interpretation Comments UA Leuk Est (test code Small *ABN*(08/28/18 = UA Leuk Est) 8:05 PM) [facility] AND [id number] 01:05:00 Test Item Value Reference Range Interpretation Comments UA Urobilinogen (test code = UA <=1.0 mg/dL 0.1-1.0 Urobilinogen) [facility] AND [id number] 01:05:00 Test Item Value Reference Range Interpretation Comments UA Nitrite (test code Negative (08/28/18 8:05 = UA Nitrite) PM) [facility] AND [id number] 01:05:00 Test Item Value Reference Range Interpretation Comments UA Spec Grav (test code = UA Spec 1.037 1 Grav) [facility] AND [id number] 01:05:00 Test Item Value Reference Range Interpretation Comments UA pH (test code = UA pH) 6.0 1 5.0-8.0 [facility] AND [id number] 01:05:00 Test Item Value Reference Range Interpretation Comments UA Turbidity (test code Slight *ABN*(08/28/18 = UA Turbidity) 8:05 PM) [facility] AND [id number] 01:05:00 Test Item Value Reference Range Interpretation Comments UA Color (test code = Yellow *NA*(08/28/18 UA Color) 8:05 PM) [facility] Notes Date/Time Note Provider Source 2023-01-06 Formatting of this note might be differe nt from the original. Alia Torres RN [facility] 15:52:05-00:00 PT D/C home. GCS15, VS stabl e, no ataxia noted. Given no prescriptions and D/C paperwork. S/S relieved at this time. Pt ambulatory at time of discharge. Pt educated on compliance with medication, follow up care, s/s worsening cond ition. Pt verbalized understanding. Work/school note was not given. Electronically signed by Alia Torres RN at 3:52 PM CDT 2023-01-06 [facility] 10:26:08-00:00 Patient to ED for yeast infe ction and UTI which she was diagnosed with yesterday at [facility]. She did not get her prescription filled. Patient requesting PCN shot to feel better. Blood sugar read "Hig h" yesterday and was given f luids and BGL came 351 and discharged. Patient did not know she was a diabetic. 2021-12-12 [facility] 12:47:00-00:[address] [facility] ([facility]) EMERGENCY PROVIDER REPORT REPORT#:[id number] REPORT STATUS: Signed DATE:12/12/21 TIME: 1247 PATIENT: DAVID BRANDT UNIT #: V [id number] ROOM/BED: AGE: 51 SEX: F PCP PHYS: No Primary or Family Ph ysician SERVICE AUTHOR: Ailyn Choi MD * ALL edits or amendments must be made on the [email or web address]/computer document * HPI-General Illness Free Text HPI [...] sneezing NEURO: reports no focal weakness, no BANKS, no SZ PSYCH: reports no anxiety, no [...] PRN PAIN #20 TABS Prov: 05/19/21 DC: 06/26/22 2125 Patient stopped taking BENZONATATE (TESSALON) 100 MG PO Q8H PRN PRN COU GH BENZONATATE (TESSALON) 100 MG PO Q8H PRN PRN CO UG #30 CAPS Prov: 05/19/21 DC: 12/05/212124 Therapy [...] Pulse Ox 97 12/12 1245 B/P 118/79 12/12 1245 B/P Mean 92 12/12 1245 Temp 36.7 12/12 1245 Pulse 126 12/12 1245 Resp 18 12/12 1245 O2 Delivery [...] pH (5.0 - 8.0) 5.5 Ur Specific [place] (1.001 - 1.035) 1.025 Urine Protein (Neg [...] Report Impression - Status: SIGNED Entered: 12/12/2021 1516 IMPRESSION: Punctate nonobstructing stone in the midpole of the left kidney. Wheeler's hernia involving the umbilicus. Location: [facility] Impression By: [email or web address] - Edson Desai MD ECG #1 Interpretation Text/Dict Note Heart rate 109, sinus tachycardia, interpreted b y myself. Normal TN QRS and QT intervals No acute ST [...] Chloride 1,000 ML X1ED STA 12/12 1322 DC 12/12 IV 12/12 1323 1348 Gastrointestinal Drugs Sig/Ryan Start time Last Medication Dose Route Stop Time Status Admin Metoclopramide HCl 10 MG X1ED STA 12/12 1322 DC 12/12 IV 12/12 1323 1348 Patient Discharge Departure Vital Signs/Condition Vital Signs First Documented: Result Date Time Pulse Ox 97 12/12 1245 B/P 118/79 12/12 1245 B/P Mean 92 12/12 1245 Temp 36.7 12/12 1245 Pulse 126 12/12 1245 Resp 18 12/12 1245 O2 Delivery Room air 12/12 1315 Last Documented: Result Date Time Pulse Ox 97 12/12 1550 B/P 114/65 12/12 1550 B/P Mean 81 12/12 1550 O2 Delivery Room air 12/12 1550 Pulse 92 12/12 1550 Resp 17 12/12 1550 Temp 36.7 12/12 1245 All vital signs available at the [...] Farhan Guerra MD Follow-Up: 2-3 Days Address: [address] [place] [address] [address] [place] [address] Departure Forms FREE OR LOW COST CLINICS Discharge Note I have spoken with the patie nt and/or caregivers. I have explained the patient's condition, diagnoses and bebo atment plan based on the information available to me at this time. I have answered the patient's and/ or caregiver's questions and addressed any concerns. The patient and/or careg rosaenne have as good an understanding of the [...] symptoms should prompt an immediate return to [facility] or the closest emergency department or a call to 911. Electronically Signed by Ailyn Choi MD on 08/31 at 1604 RPT #:[id number] END OF REPORT 2021-12-05 [facility] 20:02:00-00:[address] [facility] ([facility]) EMERGENCY PROVIDER REPORT REPORT#:[id number] REPORT STATUS: Signed DATE:12/05/21 TIME: 2001 PATIENT: DAVID BRANDT UNIT #: V [id number] ROOM/BED: AGE: 51 SEX: F PCP PHYS: No Primary or Family Ph ysician SERVICE AUTHOR: Isidoro Blandon MD * ALL edits or amendments must be made on the [email or web address]/computer document * HPI-Abd Pain F 40 and [...] 12/06 1947 Pulse 89 12/06 1947 Resp 17 12/06 1947 Last Documented: Result Date Time Pulse Ox 98 12/06 1947 B/P 131/81 12/06 1947 B/P Mean 97 12/06 1947 Temp 36.6 12/06 1947 Pulse 89 12/06 1947 Resp 17 12/06 1947 Review of Vital Signs Reviewed Basic Physical [...] . No bowel obstruction. Cholecystectomy. Impression By: [email or web address] - Arorn Licona M.D. Lab Imaging Statement Laboratory radiographic studies reviewed and con sidered in the medical decision-making. ECG #1 Interpretation Date 12/05/21 Time 2016 Interpreted by and reviewed by me, ED [...] 4 MG X1ED STA 12/05 1948 DC IV 12/05 Diagnostic Agents Sig/Ryan Start time Last Medication Dose Route Stop Time Status Admin Iopamidol 0 .STK-MED ONE 12/05 2028 DC 12/05 IV 2100 Electrolytic, Caloric, And Daniel Sig/Ryan Start time Last Medication Dose Route Stop Time Status Admin Sodium Chloride 1,000 ML X1ED STA 12/05 1948 DC 12/05 IV 12/05 Gastrointestinal Drugs Sig/Ryan Start [...] Guerra MD Follow-Up: Call for appointment Address: [address] [place] [address] [address] [place] [address] Departure Forms FREE OR LOW COST CLINICS [...] symptoms should prompt an immediate return to th is or the closest emergency department or a call to 911. Quality Measures BP F/U for HTN Referred for BP f/u < 4wk, F/u wi PCP/other doc Smoking Cessation Screened, non user Electronically Signed by Isidoro Blandon MD on at 2210 RPT #:[id number] END OF REPORT 2021-06-02 [facility] 10:29:00-00:[address] [facility] ([facility]) EMERGENCY PROVIDER REPORT REPORT#:[id number] REPORT STATUS: Signed DATE:06/02/21 TIME: 1029 PATIENT: DAVID BRANDT UNIT #: V [id number] ROOM/BED: AGE: 51 SEX: F PCP PHYS: No Primary or Family Ph ysician SERVICE AUTHOR: Mio Pitts MD * ALL edits or amendments must be made on the [email or web address]/computer document * HPI-Dental/Mouth Prob General Confirmed Patient [...] metFORMIN (GLUCOPHAGE) 1,000 MG PO BID #120 TA BS Ref 1 Prov: 03/25/21 NAPROXEN EC (NAPROSYN-EC) [...] Pitts MD on 06/02 at 1631 RPT #:[id number] END OF REPORT 2021-05-19 [facility] 13:23:00-00:[address] [facility] ([facility]) EMERGENCY PROVIDER REPORT REPORT#:[id number] REPORT STATUS: Signed DATE:05/19/21 TIME: 1323 PATIENT: DAVID BRANDT UNIT #: V [id number] ROOM/BED: AGE: 51 SEX: F PCP PHYS: No Primary or Family Ph ysician SERVICE AUTHOR: Rosa Terrazas TANKAGE GRINDER OPERATOR * ALL edits or amendments must be made on the [email or web address]/computer document * Rosa Terrazas 05/19/21 1323: HPI-General Illness Free Text HPI Notes Free Text HPI Notes 51 year old female w/ PMH of DM presents to the ER for evaluation of 1 week history of mild generalized headache. Francisco begum also c/o 4 day hsitory of [...] Past Medical History - Adult Stated Complaint BANKS/COUGH/MUSCLE ACHES Allergies Coded Allergies: ondansetron (From ZOFRAN) [...] Pulse Ox 96 05/19 1320 B/P 145/81 05/19 1320 B/P Mean 102 05/19 1320 O2 Delivery Room air 05/19 1320 Temp 37.8 05/19 1320 Pulse 100 05/19 1320 Resp 20 05/19 1320 Last Documented: Result Date Time Pulse Ox 96 05/19 1430 B/P 128/71 05/19 1430 B/P Mean 90 05/19 1430 O2 Delivery Room air 05/19 1430 Pulse 89 05/19 1430 Resp 18 05/19 1430 Temp 37.8 05/19 1320 Review of Vital Signs Reviewed Physical [...] swelling, Non-tender Resp/Chest Respiratory/Chest Atraumatic, Breath sounds NL, Breath [...] pH (5.0 - 8.0) 5.5 Ur Specific [place] (1.001 - 1.035) >=1.030 Urine Protein (Neg - 15 mg/dL) NEGATIVE Urine Glucose (UA) (NEGATIVE mg/dL) 300-500 (3 +) Urine Ketones (NEGATIVE mg/dL) NEGATIVE Urine Blood [...] 1357 IMPRESSION: No acute cardiopulmonary process. Location: [facility] Impression By: [email or web address] - Edson Desai MD [...] MG X1ED STA 05/19 1325 DC 1 07/20 PO 05/19 1326 1341 Electrolytic, Caloric, And Daniel Sig/Ryan Start time [...] Pulse Ox 96 05/19 1320 B/P 145/81 05/19 1320 B/P Mean 102 05/19 1320 O2 Delivery Room air 05/19 1320 Temp 37.8 05/19 132 Pulse 100 05/19 1320 Resp 20 12/08 1320 Last Documented: Result Date Time Pulse Ox 96 05/19 1430 B/P 128/71 05/19 1430 B/P Mean 90 05/19 1430 O2 Delivery Room air 05/19 1430 Pulse 89 05/19 1430 Resp 18 05/19 1430 Temp 37.8 05/19 1320 All vital signs available at the [...] symptoms should prompt an immediate return to [facility] or the closest emergency department or [...] Saw Pt Alone I have reviewed the PA/TANKAGE GRINDER OPERATOR's note and plan of car e. I was available for consultation as needed at al l times during the patient's visit in the emergency department. I agree with the clinical impression , plan and disposition. at 1823 at 1141 [facility] #:[id number] END OF REPORT 2021-03-24 [id number] [facility] 23:41:00-00:00 PATIENT NAME: DAVID BRANDT ADMI T DATE: 03/24/21 ACCOUNT NO: [id number] ROOM NO: V.NCERMD AGE: 50 REPORT TYPE: HISTORY AND PHYSICAL [...] Moist mucous membranes. PATIENT NAME: DAVID BRANDT ACC UNT #: [id number] NECK: Supple. She is speaking in complete [...] code. Dictated By: Josseline Sheehan MD WT: HP:ROSEMARY/MALI/NTS Conf#: [id number]/DID#: [id number] Authenticated by Josseline Sheehan MD On 03/25/2021 05:18:15 AM Electronically Signed by Josseline Sheehan MD on 1 at 0518 PATIENT NAME: DAVID BRANDT ACCO UNT #: [id number] 2021-03-24 [facility] 23:36:00-00:[address] [facility] ([facility]) Clinical Note REPORT#:[id number] REPORT STATUS: Signed DATE:03/24/21 TIME: 2335 PATIENT: DAVID BRANDT UNIT #: V [id number] [facility] AGE: 50 SEX: F ATTEND: Aleshia Sheehan MD ADM AUTHOR: Josseline Sheehan MD * ALL edits or amendments must be made on the [employer]/computer document * See Addendum Clinical Note Note: 046400 H P Telemedicine encounter 50 yo woman with 1. uncontrolled DM2 with mild DKA A1c IVF, insulin, repeat chemistry 2. obesity BMI 33.8 3. nicotine abuse - vape declines nicotine patch full code ESTELA briceno Electronically Signed by Josseline Sheehan MD on at 0542 Addendum 1: 03/24/21 2350 by Josseline Sheehan MD metformin / glimiperide are the least expensive oral diabetic medications. Electronically Signed by Josseline Sheehan MD on at 2351 RPT #:[id number] END OF REPORT 2021-03-24 [facility] 22:26:00-00:[address] [facility] ([facility]) EMERGENCY PROVIDER REPORT REPORT#:[id number] REPORT STATUS: Signed DATE:03/24/21 TIME: 2225 PATIENT: DAVID BRANDT UNIT #: V [id number] ROOM/BED: [facility] AGE: 50 SEX: F PCP PHYS: No Primary or Family Ph ysician SERVICE AUTHOR: Pritesh Han MD * ALL edits or amendments must be made on the [employer] document * HPI-Abd Pain F 40 and Over General Initial Greet Date/Time 03/24/212216 PCP no PCP Presentation Chief Complaint Nausea [...] and squeezes hands appropriately upon command. Normal huru-ha-rosi eye mo vements on extraocular muscle testing. [...] 100 MG PO BID #14 CAPS Prov: 03/17/21 FLUCONAZOLE (DIFLUCAN) 150 MG PO ONCE FLUCONAZOLE [...] 03/24/212231: [Embedded Image Not Available] Laboratory Tests: 03/242 2232 Chemistry Sodium (128 - 145 mmol/L) 130 [...] pH (5.0 - 8.0) 5.5 Ur Specific [place] (1.001 - 1.035) <=1.005 Urine Protein (Neg [...] by me, Pulse oximetr y normal Time 222 ECG #1 Interpretation Time 2235 Interpreted by ED physician NL ECG Interpretation Normal rate, No STEMI, Nor mal QRS, Normal axis, Normal intervals, Adequate tracing ECG Q-T-ST - MD Non-specific ST changes Re-Evaluation MDM )( Re-Evaluation/Progress #1 Text/Dict Note Patient resting comfortably and feels well. Neur o exam including strength, sensation, CN 2-12, cerebellar, gait normal. No chest pain or shortness of breath. Lungs cta bilaterally. Abdomen soft, NT ND. Labs noted. Will bolus multiple liters of normal saline and IV insulin and repeat chemistry. Time of Re-Eval 2320 )( Re-Eval Status Improved Re-Evaluation/Progress #2 Text/Dict Note After multiple liters of flu id bolus and IV insulin bolus repeat chemistry shows patient is no longer in DKA. Will start high-dos e sliding scale. Time of Eval 50 Re-Eval Status Improved ED Course Medication(s) Ordered Medication(s) Ordered: Central Nervous System Agents Sig/Ryan Start time Last Medication Dose Route Stop Time Status Admin Acetaminophen 650 MG Q4H PRN PRN 03/24 2330 AC PO 03/25 1125 Morphine Sulfate 4 MG Q4H PRN PRN 03/24 2330 DC IV 03/25 1125 Electrolytic, Caloric, And Dnaiel Sig/Ryan Start time Last Medication Dose Route Stop Time Status Admin Sodium Chloride 1,000 ML X1ED STA 03/24 2304 DC 03/24 IV 03/25 0003 2310 Sodium Chloride 1,000 ML X1ED STA 03/24 2221 DC 03/24 IV 03/24 232 2232 Gastrointestinal Drugs Sig/Ryan Start time Last [...] Han MD on 03/12 09/30 at 0051 RPT #:[id number] END OF REPORT 2021-03-17 [facility] 14:58:00-00:[address] [facility] ([facility]) EMERGENCY PROVIDER REPORT REPORT#:[id number] REPORT STATUS: Signed DATE:03/17/21 TIME: 1458 PATIENT: DAVID BRANDT UNIT #: V [id number] ROOM/BED: AGE: 50 SEX: F PCP PHYS: No Primary or Family Ph ysician SERVICE AUTHOR: Jacob Hernandez MD * ALL edits or amendments must be made on the [employer]computer document * HPI-General Illness Free Text HPI [...] (ZOFRAN ODT) 4 MG PO Q6H PRN TN N NAUSEA/VOMITING #15 TABS Prov: 12/03/20 DC: [...] Temp 36.7 03/17 1318 Pulse 108 03/17 131 Resp 17 03/17 1318 Last Documented: Result Date Time Pulse Ox 99 03/17 1518 B/P 126/80 03/17 1518 B/P Mean 95 03/17 1518 O2 Delivery Room air 03/17 1518 Pulse 82 03/17 1518 Resp 16 03/17 1518 Temp 36.7 03/17 1318 Review of Vital [...] Lab Results Interpretation Results Laboratory Tests: 03/17 1347 Urines Urine Color (YELLOW) YELLOW Urine Appearance (CLEAR) HAZY H Urine pH (5.0 - 8.0) 5.5 Ur Specific [place] (1.001 - 1.035) <=1.005 Urine Protein (Neg [...] Date/Time Procedure - Status Source Growth 03/17 1347 Urine Culture - RECD URINE Re-Evaluation [facility] ED Course Medication(s) Ordered Medication(s) Ordered: Anti-Infective Agents Sig/Ryan Start time Last Medication Dose Route Stop Time Status Admin Ceftriaxone Sodium 1,000 MG X1ED STA 03/17 145 DCD 03/17 Lidocaine HCl 2.1 ML IM [...] )( Discharged to Home Yes )( Time 1459 )( Date 03/17/21 Discharge/Care Plan (Auto) Prescriptions [...] physician or other designated or consulting phys melanian as outlined in the discharge instructions. The [...] symptoms should prompt an immediate return to [facility] or the closest emergency department or a call to 911. at 1658 RPT #:[id number] END OF REPORT 2021-02-09 [facility] 12:52:00-00:[address] [facility] ([facility]) EMERGENCY PROVIDER REPORT REPORT#:[id number] REPORT STATUS: Signed DATE:02/09/21 TIME: 1252 PATIENT: DAVID BRANDT UNIT #: V [id number] ROOM/BED: AGE: 50 SEX: F PCP PHYS: No Primary or Family Ph ysician SERVICE AUTHOR: Florinda Forde TANKAGE GRINDER OPERATOR * ALL edits or amendments must be made on the [employer] document * HPI-Rash/Abscess/Cellulitis General Confirmed Patient Yes [...] PROMETHAZINE (PHENERGAN) 12.5 MG PO Q6H PRN TN N NAUSEA AND VOMITING #10 TABS Prov: 02/06/21 metFORMIN (GLUCOPHAGE) 1,000 MG PO BID metFORMIN (GLUCOPHAGE) 1,000 MG PO BID #30 TABS Ref 1 Prov: 12/03/20 ONDANSETRON ODT (ZOFRAN ODT) 4 MG PO Q6H PRN PRN NAUSEA/VOMITING ONDANSETRON ODT (ZOFRAN ODT) 4 MG PO Q6H PRN TN N NAUSEA/VOMITING #15 TABS Prov: 12/03/20 NAPROXEN (NAPROSYN) 500 MG PO BID PRN PRN PAIN NAPROXEN (NAPROSYN) 500 MG PO BID PRN PRN PAIN #20 TABS Prov: 12/03/20 Discontinued Scripts ONDANSETRON ODT (ZOFRAN ODT) 4 MG PO Q6H PRN PRN NAUSEA/VOMITING ONDANSETRON ODT (ZOFRAN ODT) 4 MG PO Q6H PRN TN N NAUSEA/VOMITING #15 TABS Prov: 02/06/21 DC: [...] return precautions and need for PCP / Screener And Blender FU. Community resources given. Patient liban balizes [...] condition do not demonstrate signs of sepsis, [place] Spot roxana Fever, meningitis, meningococcemia, Lyme disease, toxic shock syndr ome or other significant systemic illness requiring further treatment, te sting or consultation in the emergency department. The vi sarah signs have been stable. The patient's condition is stable and appropriate for discharge. The pat ient will pursue further outpatient evaluation with the primary care phys ician or other designated or consulting physician as [...] Instructions ED Contact Dermatitis Referrals [facility] Discharge Note I have spoken with the [...] symptoms should prompt an immediate return to [facility] or the closest emergency department or a call to 911. Quality Measures BP F/U for HTN BP in normal range Current Medications Attest: Medication review Smoking Cessation Screened, non user Tobacco Screening/Cessation Denies tobacco use Electronically Signed by Florinda Forde o n 02/09/21 at 1341 RPT #:[id number] END OF REPORT 2021-02-09 [facility] 12:52:00-00:[address] [facility] ([facility]) EMERGENCY PROVIDER REPORT REPORT#:[id number] REPORT STATUS: Signed DATE:02/09/21 TIME: 1252 PATIENT: DAVID BRANDT UNIT #: V [id number] ROOM/BED: AGE: 50 SEX: F PCP PHYS: No Primary or Family P hysician SERVICE AUTHOR: Florinda Forde TANKAGE GRINDER OPERATOR * ALL edits or amendments must be made on the [employer] document * Florinda Forde 02/09/21 1252: HPI-Rash/Abscess/Cellulitis [...] metFORMIN (GLUCOPHAGE) 1,000 MG PO BID #30 TAB S Ref 1 Prov: 12/03/20 ONDANSETRON ODT (ZOFRAN ODT) 4 MG PO Q6H PRN PRN NAUSEA/VOMITING ONDANSETRON ODT (ZOFRAN ODT) 4 MG PO Q6H PRN TN N NAUSEA/VOMITING #15 TABS Prov: 12/03/20 NAPROXEN (NAPROSYN) 500 MG PO BID PRN PRN PAIN NAPROXEN (NAPROSYN) 500 MG PO BID PRN PRN PAIN #20 TABS Prov: 12/03/20 Discontinued Scripts ONDANSETRON ODT (ZOFRAN ODT) 4 MG PO Q6H PRN PRN NAUSEA/VOMITING ONDANSETRON ODT (ZOFRAN ODT) 4 MG PO Q6H PRN TN N NAUSEA/VOMITING #15 TABS Prov: 02/06/21 DC: [...] Re-Evaluation/Progress Text/Dict Note Informed patient of exam shantelle luther. Educated on diagnoses, supportive measures, treatment, return precautions and need for PCP / Screener And Blender FU. Community resources given. Patient liban balizes [...] condition do not demonstrate signs of sepsis, [place] Spot roxana Fever, meningitis, meningococcemia, Lyme disease, toxic shock syndr ome or other significant systemic illness requiring further treatment, te sting or consultation in the emergency department. The vi sarah signs have been stable. The patient's condition is stable and appropriate for discharge. The pat ient will pursue further outpatient evaluation with the primary care phys ician or other designated or consulting physician as indicated in the dischar ge instructions. Patient Discharge Departure Vital Signs/Condition Vital Signs First Documented: Result Date Time Pulse Ox 99 02/09 1247 B/P 140/80 / 1247 B/P Mean 100 02/09 1247 Temp [...] Instructions ED Contact Dermatitis Referrals [facility] Discharge Note I have spoken with the [...] symptoms should prompt an immediate return to [facility] or the closest emergency department or a call to 911. Quality Measures BP F/U for HTN BP in normal range Current Medications Attest: Medication review Smoking Cessation Screened, non user Tobacco Screening/Cessation Denies tobacco use Vitaliy Mancuso 02/09/21 1341: Patient Discharge Departure Supervising Physician Note MidLv Saw Pt Alone I have reviewed the PA/TANKAGE GRINDER OPERATOR's note and plan of car e. I was available for consultation as needed at al l times during the patient's visit in the emergency department. I agree with the clinical impression , plan and disposition. Electronically Signed by Vitaliy Mancuso MD on at 1341 Electronically Signed by Florinda Forde o n 02/09/21 at 1341 RPT #:[id number] END OF REPORT 2021-02-06 [facility] 09:39:00-00:[address] [facility] ([facility]) EMERGENCY PROVIDER REPORT REPORT#:[id number] REPORT STATUS: Signed DATE:02/06/21 TIME: 938 PATIENT: DAVID BRANDT UNIT #: V [id number] ROOM/BED: AGE: 50 SEX: F PCP PHYS: No Primary or Family Ph ysician SERVICE AUTHOR: Mio Pitts MD * ALL edits or amendments must be made on the [employer] document * HPI-Headache General Confirmed Patient Yes Patient Type New patient Initial Greet Date/Time 02/06/21 0925 Presentation Chief Complaint Headache Hx Obtained From [...] (ZOFRAN ODT) 4 MG PO Q6H PRN TN N NAUSEA/VOMITING #15 TABS Prov: 12/03/20 NAPROXEN [...] air 02/06 0931 Temp 36.7 02/06 0931 Review of Vital [...] pH (5.0 - 8.0) 6.0 Ur Specific [place] (1.001 - 1.035) 1.020 Urine Protein (Neg [...] Diphenhydramine HCl 12.5 MG X1ED STA 02/06 093 8 DC 02/06 IV 02/06 0939 1058 Central [...] Result Date Time Pulse Ox 98 02/06 09 B/P 134/83 02/06 931 B/P Mean 100 02/06 09 O2 Delivery Room air 02/06 931 Temp 36.7 02/06 0931 Pulse 85 02/06 0931 Resp 16 02/06 0931 Last Documented: Result Date Time Pulse Ox 99 02/06 1145 B/P 125/75 02/06 1145 B/P Mean 91 02/06 1145 Pulse 79 02/06 1145 Resp 17 02/06 1145 O2 Delivery Room air 02/06 931 Temp 36.7 02/06 0931 All vital signs [...] Pitts MD on 02/07 at 1213 RPT #:[id number] END OF REPORT 2021-02-05 [facility] 22:38:00-00:[address] [facility] ([facility]) EMERGENCY PROVIDER REPORT REPORT#:[id number] REPORT STATUS: Signed DATE:02/05/21 TIME: 2237 PATIENT: DAVID BRANDT UNIT #: V [id number] ROOM/BED: AGE: 50 SEX: F PCP PHYS: No Primary or Family Ph ysician SERVICE AUTHOR: Vitaliy Mancuso MD * ALL edits or amendments must be made on the [employer] document * HPI-Headache General Confirmed Patient Yes Initial Greet Date/Time 02/05/21 6694 Presentation Chief Complaint Headache Hx Obtained From [...] Notes Free Text ROS Notes Neuro: endorses BANKS, denies focal neuro abnormali ties General: denies [...] (ZOFRAN ODT) 4 MG PO Q6H PRN TN N NAUSEA/VOMITING #15 TABS Prov: 12/03/20 NAPROXEN [...] Pulse Ox 98 02/05 1503 B/P 136/80 / 1503 B/P Mean 98 02/05 1503 O2 [...] or discuss alternatives to leaving. The staff banks s made efforts to locate the patient [...] Vitaliy Mancuso MD on at 2242 RPT #:[id number] END OF REPORT 2020-12-03 [facility] 17:28:00-00:[address] [facility] ([facility]) EMERGENCY PROVIDER REPORT REPORT#:[id number] REPORT STATUS: Signed DATE:12/03/20 TIME: 1728 PATIENT: DAVID BRANDT UNIT #: V [id number] ROOM/BED: AGE: 50 SEX: F PCP PHYS: [...] 96 12/03 1644 Resp 16 12/03 1644 Review of Vital Signs Reviewed [...] 1700 Report Impression - Status: SIGNED Entered: 12/03/2020 1734 IMPRESSION: No acute osseous lesions. Impression By: [email or web address] - Farhan Pickard M.D. Lab Imaging Statement Laboratory radiographic studies reviewed and con sidered in the medical decision-making. Point of Care Testing Pulse Oximetry Pulse Ox % 98 On: Room air Interpretation Interpreted by me, Pulse oximetr y normal Time 1644 Procedures Incis Drainage Abscess #1 Start Time 1910 Time Spent (minutes) 15 Procedure Performed by [...] with her PCP. Will give outpatient follow-up [facility] hand surgeon. Reutnr and D/C instructions given. Time of Re-Eval 1926 Re-Eval Status Improved ED Course Medication(s) Ordered Medication(s) Ordered: Anti-Infective Agents Sig/Ryan Start time Last Medication Dose Route Stop Time Status Admin Trimethoprim/ 1 TAB X1ED STA 12/03 1713 DC 11/11 4 Sulfamethoxazole PO 12/03 1714 1733 Central Nervous System Agents Sig/Ryan Start time Last Medication Dose Route Stop Time Status Admin Hydrocodone Bitart/ 1 TAB X1ED STA 12/03 1924 D C 12/03 Acetaminophen PO 12/03 1925 193 Ibuprofen 600 MG X1ED STA 12/03 1713 DC 12/03 PO 12/03 1714 1733 Eye, Ear, Nose And Throat (Een Sig/Ryan Start time Last Medication Dose Route Stop Time Status Admin Neomycin/Polymyxin/ 0.9 GM X1ED STA 12/03 1927 DC 12/03 Bacitracin TOPICAL 12/03 192 1931 Hormones And Synthetic Substit Sig/Ryan Start time [...] (ZOFRAN ODT) 4 MG PO Q6H PRN TN N NAUSEA/VOMITING #15 TABS NAPROXEN (NAPROSYN) 500 [...] symptoms should prompt an immediate return to [facility] or the closest emergency department or [...] Cesilia Marquis MD on at 2015 RPT #:[id number] END OF REPORT
--- NOTE | 2023-02-26 21:24 | RAD REPORT ---
EXAM DESCRIPTION: RAD - Humerus Left - 02/26/2023 9:08 pm CLINICAL HISTORY: PAIN COMPARISON: No comparisons TECHNIQUE: Left Humerus, 3 views. FINDINGS: No fracture is identified. There is no dislocation or periosteal reaction noted. No forei gn body or other soft tissue abnormality. Ossific density adjacent to the acromial process, could re late to sequelae of chronic tear or injury at the deltoid origin. IMPRESSION: Negative left humerus examination.
[2023-02-26] MEDS ORDERED: KETOROLAC 30 MG/ML INJ ONE (21:33)
--- NOTE | 2023-02-26 22:11 | RAD REPORT ---
EXAM DESCRIPTION: US - Extremity Venous Uni Ltd - 02/26/2023 9:27 pm CLINICAL HISTORY: Pain, swelling COMPARISON: None. TECHNIQUE: Real-time sonographic evaluation of the left upper extremity deep venous system was perfo rmed. FINDINGS: Normal compressibility, flow augmentation, phasic flow and spontaneous flow is identified in the left upper extremity deep venous system. No intraluminal filling defects seen. IMPRESSION: No DVT in the left upper extremity.
--- NOTE | 2023-02-26 22:51 | ER ---
Nurse's Notes [facility] Name: Asia Cole Age: 52 yrs Sex: Female : 1970 Arrival Date: 02/26/2023 Time: 20:17 Bed 9 Private MD: Diagnosis: Pain in left upper arm Presentation: 02/26 20:52 Chief complaint: Patient states: left arm pain of 10,onset 2 weeks. Patient denies any pf1 injury. Coronavirus screen: Vaccine status: Patient reports receiving the 2nd dose of the covid vaccine. pfizer Client denies travel out of the [place] in the last 14 days. At this time, the client does not indicate any symptoms associated with coronavirus-19. Ebola Screen: Patient negative for fever greater than or equal to 101.5 degrees Fahrenheit, and additional compatible Ebola Virus Disease symptoms. Initial Sepsis Screen: Does the patient meet any 2 criteria? HR > 90 bpm. No. Patient's initial sepsis screen is negative. Does the patient have a suspected source of infection? No. Patient's initial sepsis screen is negative. Risk Assessment: Do you want to hurt yourself or someone else? Patient reports no desire to harm self or others. 20:52 Method Of Arrival: Ambulatory pf1 20:52 Acuity: DIYA 4 pf1 Historical: - Allergies: 20:56 Zofran; pf1 - PMHx: 20:56 Diabetes - NIDDM; Anxiety; Depressive disorder; PTSD; pf1 - PSHx: 20:56 Ligation of fallopian tube; Cholecystectomy; Tonsillectomy; umbilical hernia; pf1 - Immunization history:: Adult Immunizations up to date, Client reports receiving the 2nd dose of the Covid vaccine, Last tetanus immunization: > 10 years ago Flu vaccine is up to date. - Social history:: Smoking status: Reported history of juuling and/or vaping. Patient/guardian denies using alcohol, the patient reports quitting approximately 2 years ago. Screenin:35 [facility] ED Fall Risk Assessment (Adult) History of falling in the last 3 months, kb3 including since admission No falls in past 3 months (0 pts) Confusion or Disorientation No (0 pts) Intoxicated or Sedated No (0 pts) Impaired Gait No (0 pts) Mobility Assist Device Used No (0 pt) Altered Elimination No (0 pt) Score/Fall Risk Level 0 - 2 = Low Risk Oriented to surroundings, Maintained a safe environment, Educated pt \T\ family on fall prevention, incl call for assistance when getting out of bed. Abuse screen: Denies threats or abuse. Denies injuries from another. Nutritional screening: No deficits noted. Tuberculosis screening: No symptoms or risk factors identified. Assessment: 21:35 General: Pt ambulatory to restroom without difficulty. kb3 21:35 General: Appears in no apparent distress. Behavior is calm, cooperative. Pain: kb3 Complains of pain in left bicep. 21:35 Musculoskeletal: Reports pain in left bicep since 10 days. kb3 22:30 Reassessment: Patient appears in no apparent distress at this time. Patient and/or pf1 family updated on plan of care and expected duration. Pain level reassessed. Patient is alert, oriented x 3, equal unlabored respirations, skin warm/dry/pink. Patient states symptoms have improved. Vital Signs: 20:52 BP 132 / 95; Pulse 92; Resp 16; Temp 97.7; Pulse Ox 98% on R/A; Weight 74.39 kg; Height pf1 4 ft. 6 in. ; Pain 10/10; 23:05 BP 124 / 92; Pulse 77; Resp 16; Pulse Ox 100% ; Pain 5/10; pf1 20:52 Body Mass Index 39.54 (74.39 kg, 137.16 cm) pf1 20:52 Pain Scale: Adult pf1 23:05 Pain Scale: Adult pf1 ED Course: 20:19 Patient arrived in ED. es 20:26 Waldo Paniagua PA is PHCP. cp 20:26 Abisai Up MD is Attending Physician. cp 20:56 Triage completed. pf1 21:10 XRAY Humerus LEFT In Process Unspecified. EDMS 21:29 US Extremity Venous Unilateral Ltd In Process Unspecified. EDMS 21:35 Patient has correct armband on for positive identification. Bed in low position. Call kb3 light in reach. Provided Education on: Plan of care. 21:35 Patient placed in an exam room, on a stretcher. kb3 21:35 No provider procedures requiring assistance completed. Patient did not have IV access kb3 during this emergency room visit. Administered Medications: 21:36 Drug: Ketorolac IM 30 mg Route: IM; Site: right ventrogluteal; kb3 22:30 Follow up: Response: No adverse reaction; Marked relief of symptoms; Pain is decreased pf1 23:03 Follow up: Response: No adverse reaction; Pain is decreased kb3 23:00 Drug: Lidoderm Topical Patch 5 % (700 mg/patch) 1 patches Route: Topical; Site: left pf1 upper arm; Medication: 21:35 VIS not applicable for this client. kb3 Outcome: 21:35 Discharged to home ambulatory. kb3 21:35 Condition: stable 21:35 Discharge instructions given to patient, Instructed on discharge instructions, follow up and referral plans. medication usage, Demonstrated understanding of instructions, follow-up care, medications, Prescriptions given X 2. 22:51 Discharge ordered by . nicholas 23:07 Patient left the ED. pf1 Signatures: Dispatcher [employer] Kelsi Remy Corey, PA PA cp Bradberry, Kelly, RN RN kb3 Natalia Silva RN RN pf1
--- NOTE | 2023-02-26 22:51 | EDPHYS ---
Physician Documentation [facility] [place] Name: Asia Cole Age: 52 yrs Sex: Female : 1970 Arrival Date: 02/26/2023 Time: :17 Bed 9 Private MD: ED Physician Abisai Up HPI: 02/26 21:00 This 52 yrs old Female presents to ER via Ambulatory with complaints of Arm Pain. cp 21:00 The patient or guardian complains of pain, that is acute. The complaints affect the cp left upper arm. Context: resulted from unknown cause. Onset: The symptoms/episode began/occurred 2 week(s) ago. Treatment prior to arrival includes: no previous treatment. Associated signs and symptoms: Pertinent negatives: decreased range of motion, fever, numbness, warmth, chest pain, neck pain, upper back pain. Severity of symptoms: in the emergency department the symptoms are unchanged, despite home interventions. Historical: - Allergies: 20:56 Zofran; pf1 - PMHx: 20:56 Diabetes - NIDDM; Anxiety; Depressive disorder; PTSD; pf1 - PSHx: 20:56 Ligation of fallopian tube; Cholecystectomy; Tonsillectomy; umbilical hernia; pf1 - Immunization history:: Adult Immunizations up to date, Client reports receiving the 2nd dose of the Covid vaccine, Last tetanus immunization: > 10 years ago Flu vaccine is up to date. - Social history:: Smoking status: Reported history of juuling and/or vaping. Patient/guardian denies using alcohol, the patient reports quitting approximately 2 years ago. ROS: 21:05 Constitutional: Negative for body aches, chills, fever, poor PO intake. cp 21:05 Eyes: Negative for injury, pain, redness, and discharge. cp 21:05 ENT: Negative for drainage from ear(s), ear pain, sore throat, difficulty swallowing, difficulty handling secretions. 21:05 Neck: Negative for pain with movement, pain at rest, stiffness, tenderness, bony tenderness. 21:05 Cardiovascular: Negative for chest pain, edema, palpitations. 21:05 Respiratory: Negative for cough, shortness of breath, wheezing. 21:05 Abdomen/GI: Negative for abdominal pain, nausea, vomiting, and diarrhea. 21:05 Back: Negative for pain at rest, pain with movement. 21:05 MS/extremity: Positive for pain, tenderness, of the left upper arm, Negative for injury or acute deformity, decreased range of motion, paresthesias. 21:05 Neuro: Negative for altered mental status, headache, numbness, tingling, weakness. 21:05 All other systems are negative. Exam: 21:10 Constitutional: The patient appears in no acute distress, alert, awake, cp non-diaphoretic, non-toxic, well developed, well nourished. 21:10 Head/Face: Normocephalic, atraumatic. cp 21:10 Eyes: Periorbital structures: appear normal, Conjunctiva: normal, no exudate, no injection, Sclera: no appreciated abnormality, Lids and lashes: appear normal, bilaterally. 21:10 ENT: External ear(s): are unremarkable, Nose: is normal, Mouth: Lips: moist, Oral mucosa: pink and intact, moist, Posterior pharynx: is normal, airway is patent, no erythema, no exudate. 21:10 Neck: C-spine: vertebral tenderness, is not appreciated, crepitus, is not appreciated, ROM/movement: is normal, is supple, without pain, no range of motions limitations, no nuchal rigidity. 21:10 Chest/axilla: Inspection: normal, Palpation: is normal, no crepitus, no tenderness. 21:10 Cardiovascular: Rate: normal, Rhythm: regular. 21:10 Respiratory: the patient does not display signs of respiratory distress, Respirations: normal, no use of accessory muscles, no retractions, labored breathing, is not present, Breath sounds: are clear throughout, no decreased breath sounds, no stridor, no wheezing. 21:10 Abdomen/GI: Exam negative for discomfort, distension, guarding, Inspection: abdomen appears normal. 21:10 Back: pain, is absent, ROM is normal. 21:10 Musculoskeletal/extremity: Extremities: grossly normal except: noted in the left upper arm: pain, tenderness, There is no evidence of decreased ROM, deformity, ROM: full active range of motion, in the left shoulder and left elbow, Pulses: noted to be 2+ in the left radial artery, the left hand and left arm Sensation intact. 21:10 Skin: cellulitis, is not appreciated, no rash present. Vital Signs: 20:52 BP 132 / 95; Pulse 92; Resp 16; Temp 97.7; Pulse Ox 98% on R/A; Weight 74.39 kg; Height pf1 4 ft. 6 in. ; Pain 10/10; 23:05 BP 124 / 92; Pulse 77; Resp 16; Pulse Ox 100% ; Pain 5/10; pf1 20:52 Body Mass Index 39.54 (74.39 kg, 137.16 cm) pf1 20:52 Pain Scale: Adult pf1 23:05 Pain Scale: Adult pf1 MDM: 20:58 Patient medically screened. 21:00 Differential diagnosis: tendonitis, sprain, strain. 22:51 Data reviewed: vital signs, nurses notes, radiologic studies, plain films, ultrasound. 22:51 I considered the following discharge prescriptions or medication management in the emergency department Medications were administered in the Emergency Department. See MAR. Counseling: I had a detailed discussion with the patient and/or guardian regarding the historical points, exam findings, and any diagnostic results supporting the discharge/admit diagnosis, radiology results, the need for outpatient follow up, a family practitioner, to return to the emergency department if symptoms worsen or persist or if there are any questions or concerns that arise at home. Response to treatment: the patient's symptoms have markedly improved after treatment, and as a result, I will discharge patient. 02/26 20:47 Order name: XRAY Humerus LEFT; Complete Time: 21:39 02/26 21:40 Interpretation: Report reviewed. 02/26 20:47 Order name: US Extremity Venous Unilateral Ltd; Complete Time: 22:32 02/26 22:32 Interpretation: Report reviewed. Administered Medications: 21:36 Drug: Ketorolac IM 30 mg Route: IM; Site: right ventrogluteal; kb3 22:30 Follow up: Response: No adverse reaction; Marked relief of symptoms; Pain is decreased pf1 23:03 Follow up: Response: No adverse reaction; Pain is decreased kb3 23:00 Drug: Lidoderm Topical Patch 5 % (700 mg/patch) 1 patches Route: Topical; Site: left pf1 upper arm; Disposition: 22:00 Co-signature as Attending Physician, Abisai Up MD I agree with the assessment sp4 and plan of care. I reviewed the patient's care provided by the Advanced Practice Provider and agree with the diagnosis and treatment plan. Disposition Summary: 02/26/23 22:51 Discharge Ordered Location: Home cp Problem: new cp Symptoms: have improved cp Condition: Stable cp Diagnosis - Pain in left upper arm cp Followup: cp - With: Private Physician - When: 1 week - Reason: Recheck today's complaints Discharge Instructions: - Musculoskeletal Pain cp - Shoulder Range of Motion Exercises cp - How to Use Cold Therapy cp - Heat Therapy cp - Discharge Summary Sheet kb3 Forms: - Medication Reconciliation Form cp - Thank You Letter cp - Antibiotic Education cp - Prescription Opioid Use cp - Patient Portal Instructions cp - Leadership Thank You Letter cp - Work release form kb3 Prescriptions: - Cyclobenzaprine 10 mg Oral Tablet - take 1 tablet by ORAL route every 8 hours As needed; 20 tablet; Refills: 0, cp Product Selection Permitted - Diclofenac Sodium 75 mg Oral Tablet Sustained Release - take 1 tablet by ORAL route 2 times per day; 30 tablet; Refills: 0, Product cp Selection Permitted Signatures: Dispatcher [employer] EDMS Waldo Paniagua PA PA cp Sherron Dominguez RN RN kb3 Natalia Silva RN RN pf1 Abisai Up MD MD sp4
[2023-02-26] MEDS ORDERED: LIDOCAINE 4% PATCH ONE (23:09)
[2023-02-26 23:30] VITALS: TEMP 97.7
[2023-02-26 23:31] VITALS: BP 124/92; O2SAT 100
== END 2023-02-26 23:07 | disposition home or self-care (01) ==
LOC: ER 20:17
DX: M79.622 Pain in left upper arm (principal)
CPT/HCPCS: 93971; 96372; 99284; J2001